=== PATIENT | male | born 1935 | race African-American/Black ===

== ENCOUNTER 2016-05-15 08:33 | Inpatient (IN) | payer MEDICARE ==
[~2016-05-15] VITALS: Ht 180.3 cm; Wt 79.9 kg
[~2016-05-15 08:33] MED LIST: AMLO10TA2 PO; ASPI-482 PO; CINN500C PO; CITA20TA5 PO; DONE10TA7 PO; FURO20TA3 PO; GABA-586 PO; GLIM4TAB2 PO; LEVO100T5 PO; LINA5TAB PO; LORA1TAB PO; LOSA25TA4 PO; LOSA50TA2 PO; METF750T2 PO; NITR0.4T6 SL; OMEP40CA5 PO; ONDA4TAB12 PO; POTA10TA5 PO; POTA20TA82 PO
--- NOTE | 2016-05-15 08:44 | EKG ---
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
[2016-05-15] MEDS ORDERED: LORA1TAB PO (09:11)
[2016-05-15] MEDS ORDERED: ONDA4TAB7 PO (09:12)
[2016-05-15] MEDS ORDERED: SITA100T PO (09:12)
[2016-05-15 09:24] LABS: BASO # 0.1 x10^3/uL (0.0-0.2); BASO % 1 % (0-3); EOS % 3 % (0-3); HEMATOCRIT 45.5 % (39.0-53.0); HEMOGLOBIN 14.7 g/dL (13.0-17.5); LYMPH # 1.5 x10^3/uL (1.0-4.8); LYMPH % 12 % (24-48); MEAN CORPUSCULAR HEMOGLOBIN 27 pg (25-35); MEAN CORPUSCULAR HGB CONC 32 g/dL (31-37); MEAN CORPUSCULAR VOLUME 82 fL (79-100); MONO % 5 % (0-9); NEUT % 79 % (31-73); PLATELET COUNT 246 x10^3/uL (140-400); RED BLOOD COUNT 5.55 x10^6/uL (4.30-5.70); RED CELL DISTRIBUTION WIDTH 14.9 % (11.5-14.5); WHITE BLOOD COUNT 12.7 x10^3/uL (4.0-11.0)
--- NOTE | 2016-05-15 09:30 | RAD ---
Indication near syncope. Protocol study A single view of the chest was obtained. Note is made of a previous examination 09/19/2015. The heart and pulmonary vessels appear normal. The mediastinum has a normal appearance. The lungs are clear. There is no pleural fluid or pneumothorax. IMPRESSION: Normal single view of the chest
--- NOTE | 2016-05-15 09:40 | PHYS DOC ---
Past Medical History Past Medical History: Anxiety, Arthritis, CAD, Dementia, Depression, Diabetes- Type II, GERD, Hypertension, Hypothyroid, Other Additional Past Medical Histor: BORDERLINE DEMENTIA Past Surgical History: Other Additional Past Surgical Histo: cardiac stents Alcohol Use: None Drug Use: None Adult General Chief Complaint Chief Complaint: SYNCOPE HPI HPI 80-year-old male presenting to the emergency department with presyncope versus syncope today. This started this morning approximately 30 minutes prior to arrival. The patient reports getting up to go shave. When he got to the sink he felt weak and lightheaded. His states that the patient looked pale and she asked him to sit down. She reports that he slumped over and looked like he might of passed out. The patient denies amnesia during this event. History of early dementia. He has a history of diabetes. Location generalized. Duration intermittent. No alleviating factors present. Upon arrival to the emergency department the patient is feeling much better and family reports the patient is a baseline. EMS reports blood glucose is approximately 115. Review of systems is negative for chest pain shortness of breath abdominal pain nausea vomiting. He denies fevers or chills. He denies cough. All other review of systems is negative unless otherwise noted in history of present illness. Review of Systems Review of Systems SEE ABOVE. Allergies Allergies Allergies Coded Allergies Type Severity Reaction Last Updated Verified No Known Drug Allergies 05/15/16 No Physical Exam Physical Exam Constitutional: Well developed, well nourished, no acute distress, non-toxic appearance. HENT: Normocephalic, atraumatic, bilateral external ears normal, oropharynx moist, no oral exudates, nose normal. [] Eyes: PERRLA, EOMI, conjunctiva normal, no discharge. [] Neck: Normal range of motion, no tenderness, supple, no stridor. Cardiovascular:Heart rate regular rhythm, no murmur [] Lungs & Thorax: Bilateral breath sounds clear to auscultation Abdomen: Bowel sounds normal, soft, no tenderness, no masses, no pulsatile masses. [] Skin: Warm, dry, no erythema, no rash. Back: No tenderness, no CVA tenderness. [] Extremities: No tenderness, no cyanosis, no clubbing, ROM intact, no edema. [] Neurologic: Mental status: Awake oriented to person, baseline, and alert Cranial nerves: Extraocular movements intact, eyebrows deysi bilaterally smile symmetric, uvula elevation, shoulder shrug intact, tongue protrusion normal Sensation: equal and normal in all extremities Strength: 5/5 in upper and lower extremities bilaterally Psychologic: Affect normal, judgement normal, mood normal. Current Patient Data Vital Signs Vital Signs Date Time Temp Pulse Resp B/P Pulse Ox O2 Delivery O2 Flow Rate FiO2 05/15/16 11:26 76 14 171/84 96 Room Air 05/15/16 08:35 98.0 98.0 Lab Values Laboratory Tests Test 05/15/16 09:10 05/15/16 11:25 White Blood Count 12.7x10^3/uL (4.0-11.0) H Red Blood Count 5.55x10^6/uL (4.30-5.70) Hemoglobin 14.7g/dL (13.0-17.5) Hematocrit 45.5% (39.0-53.0) Mean Corpuscular Volume 82fL (79-100) Mean Corpuscular Hemoglobin 27pg (25-35) Mean Corpuscular Hemoglobin Concent 32g/dL (31-37) Red Cell Distribution Width 14.9% (11.5-14.5) H Platelet Count 246x10^3/uL (140-400) Neutrophils (%) (Auto) 79% (31-73) H Lymphocytes (%) (Auto) 12% (24-48) L Monocytes (%) (Auto) 5% (0-9) Eosinophils (%) (Auto) 3% (0-3) Basophils (%) (Auto) 1% (0-3) Neutrophils # (Auto) 10.1x10^3uL (1.8-7.7) H Lymphocytes # (Auto) 1.5x10^3/uL (1.0-4.8) Monocytes # (Auto) 0.7x10^3/uL (0.0-1.1) Eosinophils # (Auto) 0.4x10^3/uL (0.0-0.7) Basophils # (Auto) 0.1x10^3/uL (0.0-0.2) Sodium Level 143mmol/L (136-145) Potassium Level 3.5mmol/L (3.5-5.1) Chloride Level 106mmol/L (98-107) Carbon Dioxide Level 22mmol/L (21-32) Anion Gap 15 (6-14) H Blood Urea Nitrogen 21mg/dL (8-26) Creatinine 1.9mg/dL (0.7-1.3) H Estimated GFR (Cockcroft-Gault) 41.4 Glucose Level 238mg/dL (70-99) H Lactic Acid Level 1.5mmol/L (0.4-2.0) Calcium Level 8.8mg/dL (8.5-10.1) Total Bilirubin 0.4mg/dL (0.2-1.0) Direct Bilirubin 0.1mg/dL (0.0-0.2) Aspartate Amino Transferase (AST) 13U/L (15-37) L Alanine Aminotransferase (ALT) 20U/L (16-63) Alkaline Phosphatase 110U/L (46-116) Troponin I Quantitative < 0.017ng/mL (0.000-0.055) NA-Rpv-K-Type Natriuretic Peptide 816pg/mL (0-449) H Total Protein 6.6g/dL (6.4-8.2) Albumin 3.0g/dL (3.4-5.0) L Lipase 379U/L (73-393) Urine Collection Type Unknown Urine Color Yellow Urine Clarity Clear Urine pH 6.5 Urine Specific Donovan 1.010 Urine Protein 100mg/dL (NEG-TRACE) Urine Glucose (UA) 500mg/dL (NEG) Urine Ketones (Stick) Negativemg/dL (NEG) Urine Blood Negative (NEG) Urine Nitrite Negative (NEG) Urine Bilirubin Negative (NEG) Urine Urobilinogen Dipstick 0.2mg/dL (0.2 mg/dL) Urine Leukocyte Esterase Negative (NEG) Urine RBC 0/HPF (0-2) Urine WBC 0/HPF (0-4) Urine Squamous Epithelial Cells Few/LPF Urine Bacteria 0/HPF (0-FEW) Urine Hyaline Casts Few/HPF Urine Mucus Slight/LPF Laboratory Tests 05/15/16 09:10 Laboratory Tests 05/15/16 09:10 EKG EKG [] Radiology/Procedures Radiology/Procedures [] Course & Med Decision Making Course & Med Decision Making Pertinent Labs and Imaging studies reviewed. (See chart for details) [] 80-year-old male presenting with a presyncopal/syncopal episode. He has a history of cardiac stents but denied palpitations during before after the event. On initial vital signs the patient was afebrile normal heart rate. Blood pressure elevated at 190 systolic. Pertinent physical exam findings showed a nonfocal neurologic exam. EKG obtained which shows LVH with prolonged QRS. Otherwise sinus rhythm with a regular rate. Mild repolarization. Chest x-ray shows no acute cardiopulmonary processes. Head CT negative. Blood work obtained. Given the patient's presyncope and age The patient was then admitted for further evaluation workup and care. Dragon Disclaimer Dragon Disclaimer This electronic medical record was generated, in whole or in part, using a voice recognition dictation system. Departure Departure Impression: Primary Impression: Pre-syncope Disposition: ADMITTED INPATIENT Admitting Physician: Vanna Nevarez Condition: STABLE Referrals: CHELSEA BAEZA MD (PCP) MAXIMINO LOPES MD May 15, 2016 09:40
[2016-05-15 09:47] LABS: CALCIUM 8.8 mg/dL (8.5-10.1); CREATININE 1.9 mg/dL (0.7-1.3); GFR 41.4; POTASSIUM 3.5 mmol/L (3.5-5.1)
[2016-05-15 09:53] LABS: DIRECT BILIRUBIN 0.1 mg/dL (0.0-0.2); TOTAL BILIRUBIN 0.4 mg/dL (0.2-1.0); TOTAL PROTEIN 6.6 g/dL (6.4-8.2)
--- NOTE | 2016-05-15 10:07 | RAD ---
CT of the head without contrast, 05/15/2016: History: Near syncope, facial asymmetry Comparison is made to a study from 08/24/2015. There is moderate cerebral atrophy. There are mild patchy lucencies in the deep white matter bilaterally compatible with chronic ischemic change. The ventricles are within normal limits in size. There is no shift of the midline structures. There is no evidence of acute intracranial hemorrhage or mass effect. IMPRESSION: 1. Chronic findings as described above. 2. No acute intracranial abnormality is detected. PQRS Compliance Statement: One or more of the following individualized dose reduction techniques were utilized for this examination: 1. Automated exposure control 2. Adjustment of the mA and/or kV according to patient size 3. Use of iterative reconstruction technique
--- NOTE | 2016-05-15 10:29 | ACF ---
Admission Forms Criteria SYNCOPE Clinical Indications for Admission to Inpatient Care ( Place 'X' for any and all applicable criteria): Admission is indicated for syncope and ANY ONE of the following (1)(2)(3)(4)(5) (6)(7) : [ ]I. Inpatient admission required rather than observation care (Also use Syncope: Observation Care Criteria as appropriate) because of ANY ONE of the following: [ ]a) Hemodynamic instability that is severe or persistent [ ]b) Cardiac arrhythmias of immediate concern identified or strongly suspected (eg, needs electrophysiologic study) [ ]c) Acute coronary syndrome identified (Also use Myocardial Infarction or Angina Criteria form ) [ ]d) Structural cardiac disorder (eg, aortic stenosis) suspected as cause that requires immediate correction [ ]e) Respiratory symptoms (eg, dyspnea, tachypnea) that are severe or persistent [ ]f) Neurologic signs or symptoms that are severe or persistent ( eg, stroke, seizures, altered mental status) [ ]g) Severe electrolyte abnormalities requiring inpatient care [ ]h) Supplemental oxygen or respiratory treatment for over 24 hrs that are performable only in acute inpatient setting [ ]i) IV fluid to replace significant ongoing (eg, for over 24 hrs ) losses (>3 L/m2 per day) [ ]j) Continuous intravenous infusion of anticoagulation, platelet inhibitor, vasoactive, or antiarrhythmic medication(15)(16) [ ]k) Pulmonary artery catheter monitoring [ ]l) Temporary pacemaker placement(17) [ ]m) Emergent cardioversion(18) [ ]n) Other conditions, treatment or monitoring requiring inpatient admission [X]II. Suspicion of imminently dangerous cause (eg, rare causes like pericardial tamponade, pulmonary embolism) [ ]III. Syncope causing severe injury requiring hospitalization Extended stay beyond goal length of stay may be needed for(28) [ ]a) Dangerous arrhythmia(15)(23)(27)(29) [ ]b) Myocardial ischemia [ ]c) Seizure disorder [ ]d) Syncope-related injuries The original [employer] content created by [employer] has been revised. The portions of the content which have been revised are identified through the use of italic text or in bold, and [facility] has neither reviewed nor approved the modified material. All other unmodified content is copyright [facility]. Please see references footnoted in the original [facility] 2016 Admission Criteria Met?: KOLBY Fonseca May 15, 2016 10:29 CHE HODGSON May 16, 2016 01:34
[2016-05-15 11:34] LABS: BILIRUBIN,URINE NEGATIVE (NEG); GLUCOSE,URINE 500 mg/dL (NEG); NITRITE,URINE NEGATIVE (NEG); PH,URINE 6.5; PROTEIN,URINE 100 mg/dL (NEG-TRACE); UROBILINOGEN,URINE 0.2 mg/dL (0.2 mg/dL)
[2016-05-15 11:41] LABS: BACTERIA,URINE 0 /HPF (0-FEW); RBC,URINE 0 /HPF (0-2); SQUAMOUS EPITHELIAL CELL,UR FEW /LPF; WBC,URINE 0 /HPF (0-4)
[2016-05-15] MEDS ORDERED: ONDANSETRON PF 4 MG/2 ML VIAL. IV PRN (14:00)
[2016-05-15] MEDS ORDERED: MORPHINE SULFATE 2 MG/ML DISP.SYRIN. IV PRN (14:00)
--- NOTE | 2016-05-15 14:37 | PDOC2 ---
WALT CARLSON [employer] 05/15/16 1437: CARDIAC CONSULT DATE OF CONSULT Date of Consult DATE: 05/15/16 TIME: 14:26 REASON FOR CONSULT Reason for Consult: syncope REFERRING PHYSICIAN Referring Physician: Dr. Harris SOURCE Source: Chart review, Patient HISTORY OF PRESENT ILLNESS HISTORY OF PRESENT ILLNESS This is an 80 yo male, with a history of CAD, HTN, HLP, DM, and dementia, who presented secondary to a syncopal event. reports patient was shaving this morning. Told he was going to have to sit down. She looked over, he was backing up towards stool then proceeded to sit down. reports he then "went out," laying back against the stool. Was diaphoretic with fixed eyes and drooped lips. Was not responding. called EMS. reports he was non- responsive for approximately 15mins. Was "coming around" by the time EMS arrived. reports previous similar episodes with hypoglycemia. BS reportedly 111 by EMS. Patient unable to recall today's events. Denies any recent chest pain, palpitations, dizziness, diaphoresis, SOA, THRASHER, or nausea/ vomiting. No recent illness/fevers. reports sedentary lifestyle. Frequent falls. Compliant with home medications. PCP is Dr. Clemente, which he saw in office yesterday. Had been doing and feeling well prior to syncopal episode this morning. PAST MEDICAL HISTORY Cardiovascular: CAD (s/p remote PCI/stent) Pulmonary: No pertinent hx CENTRAL NERVOUS SYSTEM: Dementia GI: GERD Heme/Onc: No pertinent hx Hepatobiliary: No pertinent hx Psych: Anxiety, Depression Musculoskeletal: Other (no pertinent hx ) Infectious disease: No pertinent hx ENT: No pertinent hx Renal/: Benign prostatic enlarg. Endocrine: Diabetes, Hypothyroidism Dermatology: No pertinent hx PAST SURGICAL HISTORY Past Surgical History: Hernia Repair, Other (back sx) FAMILY HISTORY Family History: Cancer, Diabetes, Heart Disease, Hypertension, Stroke SOCIAL HISTORY Smoke: No ALCOHOL: none Drugs: None Lives: with Family ALLERGIES ALLERGIES: Coded Allergies: No Known Drug Allergies (Unverified , 05/15/16) ROS Review of System 14 point ROS conducted with pertinent positives noted above in HPI although limited secondary to short-term memory loss 2/2 dementia PHYSICAL EXAM General: Alert, Oriented X3, Cooperative, No acute distress, Other (forgetful ) HEENT: Mucous membr. moist/pink Lungs: Clear to auscultation, Normal air movement Heart: Regular rate, Normal S1, Normal S2, No murmurs Abdomen: Soft, No tenderness Extremities: No edema, Normal pulses Skin: No breakdown, No significant lesion Neuro: Normal speech, Sensation intact Psych/Mental Status: Mental status NL, Mood NL MUSCULOSKELETAL: Full range of motion without pain VITALS VITALS Vital Signs Date Time Temp Pulse Resp B/P Pulse Ox O2 Delivery O2 Flow Rate FiO2 05/15/16 11:26 76 14 171/84 96 Room Air 05/15/16 08:35 98.0 98.0 LABS Lab: Laboratory Tests Test 05/15/16 09:10 05/15/16 11:25 White Blood Count 12.7x10^3/uL (4.0-11.0) Red Blood Count 5.55x10^6/uL (4.30-5.70) Hemoglobin 14.7g/dL (13.0-17.5) Hematocrit 45.5% (39.0-53.0) Mean Corpuscular Volume 82fL (79-100) Mean Corpuscular Hemoglobin 27pg (25-35) Mean Corpuscular Hemoglobin Concent 32g/dL (31-37) Red Cell Distribution Width 14.9% (11.5-14.5) Platelet Count 246x10^3/uL (140-400) Neutrophils (%) (Auto) 79% (31-73) Lymphocytes (%) (Auto) 12% (24-48) Monocytes (%) (Auto) 5% (0-9) Eosinophils (%) (Auto) 3% (0-3) Basophils (%) (Auto) 1% (0-3) Neutrophils # (Auto) 10.1x10^3uL (1.8-7.7) Lymphocytes # (Auto) 1.5x10^3/uL (1.0-4.8) Monocytes # (Auto) 0.7x10^3/uL (0.0-1.1) Eosinophils # (Auto) 0.4x10^3/uL (0.0-0.7) Basophils # (Auto) 0.1x10^3/uL (0.0-0.2) Sodium Level 143mmol/L (136-145) Potassium Level 3.5mmol/L (3.5-5.1) Chloride Level 106mmol/L (98-107) Carbon Dioxide Level 22mmol/L (21-32) Anion Gap 15 (6-14) Blood Urea Nitrogen 21mg/dL (8-26) Creatinine 1.9mg/dL (0.7-1.3) Estimated GFR (Cockcroft-Gault) 41.4 Glucose Level 238mg/dL (70-99) Lactic Acid Level 1.5mmol/L (0.4-2.0) Calcium Level 8.8mg/dL (8.5-10.1) Total Bilirubin 0.4mg/dL (0.2-1.0) Direct Bilirubin 0.1mg/dL (0.0-0.2) Aspartate Amino Transf (AST/SGOT) 13U/L (15-37) Alanine Aminotransferase (ALT/SGPT) 20U/L (16-63) Alkaline Phosphatase 110U/L (46-116) Troponin I Quantitative < 0.017ng/mL (0.000-0.055) YM-Ruf-G-Type Natriuretic Peptide 816pg/mL (0-449) Total Protein 6.6g/dL (6.4-8.2) Albumin 3.0g/dL (3.4-5.0) Lipase 379U/L (73-393) Urine Collection Type Unknown Urine Color Yellow Urine Clarity Clear Urine pH 6.5 Urine Specific Bigelow 1.010 Urine Protein 100mg/dL (NEG-TRACE) Urine Glucose (UA) 500mg/dL (NEG) Urine Ketones (Stick) Negativemg/dL (NEG) Urine Blood Negative (NEG) Urine Nitrite Negative (NEG) Urine Bilirubin Negative (NEG) Urine Urobilinogen Dipstick 0.2mg/dL (0.2 mg/dL) Urine Leukocyte Esterase Negative (NEG) Urine RBC 0/HPF (0-2) Urine WBC 0/HPF (0-4) Urine Squamous Epithelial Cells Few/LPF Urine Bacteria 0/HPF (0-FEW) Urine Hyaline Casts Few/HPF Urine Mucus Slight/LPF ECHOCARDIOGRAM ECHOCARDIOGRAM <Conclusion> There is mild LV systolic dysfunction. EF 40-45%. There is mild global hypokinesis. No significant valvular abnormalities. DATE: 07/25/15 1729 ASSESSMENT/PLAN ASSESSMENT/PLAN 1. Syncope Echo 07/2015 without significant valvular abnormalities. Similar episodes previously with hypoglycemia monitor telemetry. If unrevealing; consider event monitor upon discharge 2. Hypertensive urgency now normalized. home antiHTN therapy resumed monitor trends to assess need for titration hydralazine PRN 3. Chronic systolic HF 07/2015 echo with EF 40-45% with mild global hypokinesis. NT Pro BNP 816; insignificant based up age adjustment CXR without fluid accumulation; clinically compensated will repeat echocardiogram 4. CAD s/p remote PCI/stent stable. no anginal symptoms continue secondary prevention 5. Diabetes, II per PCP 6. Hyperlipidemia check lipids 7. Dementia Problems: BRIAN MANDUJANO MD 05/16/16 0658: CARDIAC CONSULT ALLERGIES ALLERGIES: Coded Allergies: No Known Drug Allergies (Unverified , 05/15/16) ASSESSMENT/PLAN ASSESSMENT/PLAN Patient seen and examined 05/15/16. 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 Telemetry did not show any significant arrhythmia so far. Chronic systolic heart failure clinically well compensated. Blood pressure better controlled since admission. CAD status stable. Plan for event monitor upon discharge to rule out any significant arrhythmias as a cause of his syncope. Thank you for your consultation. Problems: WALT CARLSON APRN May 15, 2016 14:37 BRIAN MANDUJANO MD May 16, 2016 06:58
--- NOTE | 2016-05-15 15:05 | PDOC1 ---
History and Physical Date of Admission Date of Admission DATE: 05/15/16 TIME: 14:58 Identification/Chief Complaint Chief Complaint syncope Source Source: Caregiver, Chart review History of Present Illness History of Present Illness Hector Vanegas is a 80-year-old male admit with syncope today. Was try to shave at the sink he felt weak and lightheaded. His states that the patient looked pale and she asked him to sit down. He sat on the toilet, then went out for about 15 minutes, was unsreponsive until after EMS arrived, with a gaping mouth, He did arouse with paramedics, but has been more confused than normal since. I saw patient in ER, and he is now responsive, interactive, eating, and talking well, minor confusion on the current [place] president, and family reports he should normally know that. early dementia noted, htn and Dm2 Past Medical History Cardiovascular: HTN Pulmonary: Bronchitis CENTRAL NERVOUS SYSTEM: Dementia Psych: Depression Musculoskeletal: Osteoarthritis Endocrine: Diabetes, Hypothyroidism Past Surgical History Past Surgical History: Hernia Repair, Other (back sx) Family History Family History: Cancer, Diabetes, Heart Disease, Hypertension, Stroke Social History Smoke: No ALCOHOL: none Drugs: None Current Problem List Problem List Problems Medical Problems: (1) Pre-syncope Status: Acute (2) Syncope Status: Acute Problems: Current Medications Current Medications Current Medications Ondansetron HCl (Zofran) 4 mg PRN Q8HRS PRN IV NAUSEA/VOMITING; Start 05/15/16 at 14:00; Stop 05/16/16 at 13:59 Morphine Sulfate 2 mg PRN Q2HR PRN IV PAIN; Start 05/15/16 at 14:00; Stop 05/16 at 13:59 Active Scripts Active Cozaar (Losartan Potassium) 50 Mg Tablet 100 Mg PO QHS Reported Januvia (Sitagliptin Phosphate) 100 Mg Tablet 100 Tab PO DAILY Zofran (Ondansetron Hcl) 4 Mg Tablet 1 Tab PO Q6HRS Lorazepam 1 Mg Tablet 1 Mg PO TID Glimepiride 4 Mg Tablet 1 Tab PO BID Metformin Hcl Er (Metformin Hcl) 750 Mg Tab.er.24h 1 Tab PO BID Cinnamon (Cinnamon Bark) 500 Mg Capsule 500 Mg PO DAILY Aspir 81 (Aspirin) 81 Mg Tablet.dr 1 Tab PO DAILY Levothyroxine Sodium 100 Mcg Tablet 1 Tab PO DAILY07 Gabapentin 300 Mg Capsule 300 Mg PO DAILY NITROGLYCERIN SubLingual (Nitroglycerin) 0.4 Mg Tab.subl 0.4 Mg SL PRN Q5MIN PRN Gabapentin 300 Mg Capsule 300 Mg PO HS Donepezil Hcl 10 Mg Tablet 1 Tab PO HS Amlodipine Besylate 10 Mg Tablet 10 Mg PO HS Allergies Allergies: Coded Allergies: No Known Drug Allergies (Unverified , 05/15/16) ROS General: No: Appetite, Chills, Fatigue, Malaise, Night Sweats, Other PSYCHOLOGICAL ROS: No: Anxiety, Behavioral Disorder, Concentration difficultie , Decreased libido, Depression, Disorientation, Hallucinations, Hostility, Irritablity, Memory difficulties, Mood Swings, Obsessive thoughts, Other, Physical abuse, Sexual abuse, Sleep disturbances, Suicidal ideation Eyes: No Blurry vision, No Decreased vision, No Double vision, No Dry eyes, No Excessive tearing, No Eye Pain, No Itchy Eyes, No Loss of vision, No Other, No Photophobia, No Scotomata, No Uses contacts, No Uses glasses HEENT: No: Epistaxis, Heacaches, Hearing change, Nasal congestion, Nasal discharge, Oral lesions, Other, Sinus pain, Sneezing, Snoring, Sore Throat, Tinnitus, Vertigo, Visual Changes, Vocal changes ALLERGY AND IMMUNOLOGY: No: Hives, Insect Bite Sensitivity, Itchy/Watery Eyes, Nasal Congestion, Other, Post Nasal Drip, Seasonal Allergies Hematological and Lymphatic: No: Bleeding Problems, Blood Clots, Blood Transfusions, Brusing, Night Sweats, Other, Pallor, Swollen Lymph Nodes Respiratory: No: Cough, Hemoptysis, Orthopnea, Other, Pleuritic Pain, SOB with excertion, Shortness of breath, Sputum Changes, Stridor, Tachypnea, Wheezing Cardiovascular: No Chest Pain, No Edema, No Lt Headedness, No Orthopnea, No Other, No Palpitations, No Paroxysmal Noc. Dyspnea Gastrointestinal: No Abdominal Pain, No Constipation, No Diarrhea, No Hematochezia, No Melena, No Nausea, No Other, No Vomiting Genitourinary: No , No , No , No , No , No , No , No Discharge, No Dysuria, No Flank Pain, No Frequency, No Hematuria, No Incontinence, No Other, No Pain, No Retention, No Urgency Musculoskeletal: No Gait Disturbance, No Joint Pain, No Joint Stiffness, No Joint Swelling, No Muscle Pain, No Muscular Weakness, No Other, No Pain In:, No Swelling In: Neurological: No Behavorial Changes, No Bowel/Bladder ControlChng, No Confusion , No Dizziness, No Gait Disturbance, No Headaches, No Impaired Coord/balance, No Memory Loss, No Numbness/Tingling, No Other, No Seizures, No Speech Problems , No Tremors, No Visual Changes, No Weakness Skin: No Acne, No Dry Skin, No Eczema, No Hair Changes, No Lumps, No Mole Changes, No Mottling, No Nail Changes, No Other, No Pruritus, No Rash, No Skin Lesion Changes Physical Exam General: Alert, Oriented X3, Cooperative (3/4), No acute distress HEENT: Atraumatic, PERRLA, EOMI, Mucous membr. moist/pink Lungs: Clear to auscultation Heart: no gallops, no murmurs Abdomen: Normal bowel sounds, Soft Rectal Exam: not examined Extremities: No clubbing, No cyanosis, No edema Skin: No significant lesion Neuro: Normal speech, Normal tone, Cranial nerves 3-12 NL Psych/Mental Status: Mood NL, Other Vitals Vitals Vital Signs Date Time Temp Pulse Resp B/P Pulse Ox O2 Delivery O2 Flow Rate FiO2 05/15/16 11:26 76 14 171/84 96 Room Air 05/15/16 08:35 98.0 98.0 Labs Labs Laboratory Tests Test 05/15/16 09:10 05/15/16 11:25 White Blood Count 12.7x10^3/uL (4.0-11.0) Red Blood Count 5.55x10^6/uL (4.30-5.70) Hemoglobin 14.7g/dL (13.0-17.5) Hematocrit 45.5% (39.0-53.0) Mean Corpuscular Volume 82fL (79-100) Mean Corpuscular Hemoglobin 27pg (25-35) Mean Corpuscular Hemoglobin Concent 32g/dL (31-37) Red Cell Distribution Width 14.9% (11.5-14.5) Platelet Count 246x10^3/uL (140-400) Neutrophils (%) (Auto) 79% (31-73) Lymphocytes (%) (Auto) 12% (24-48) Monocytes (%) (Auto) 5% (0-9) Eosinophils (%) (Auto) 3% (0-3) Basophils (%) (Auto) 1% (0-3) Neutrophils # (Auto) 10.1x10^3uL (1.8-7.7) Lymphocytes # (Auto) 1.5x10^3/uL (1.0-4.8) Monocytes # (Auto) 0.7x10^3/uL (0.0-1.1) Eosinophils # (Auto) 0.4x10^3/uL (0.0-0.7) Basophils # (Auto) 0.1x10^3/uL (0.0-0.2) Sodium Level 143mmol/L (136-145) Potassium Level 3.5mmol/L (3.5-5.1) Chloride Level 106mmol/L (98-107) Carbon Dioxide Level 22mmol/L (21-32) Anion Gap 15 (6-14) Blood Urea Nitrogen 21mg/dL (8-26) Creatinine 1.9mg/dL (0.7-1.3) Estimated GFR (Cockcroft-Gault) 41.4 Glucose Level 238mg/dL (70-99) Lactic Acid Level 1.5mmol/L (0.4-2.0) Calcium Level 8.8mg/dL (8.5-10.1) Total Bilirubin 0.4mg/dL (0.2-1.0) Direct Bilirubin 0.1mg/dL (0.0-0.2) Aspartate Amino Transf (AST/SGOT) 13U/L (15-37) Alanine Aminotransferase (ALT/SGPT) 20U/L (16-63) Alkaline Phosphatase 110U/L (46-116) Troponin I Quantitative < 0.017ng/mL (0.000-0.055) PT-Zti-I-Type Natriuretic Peptide 816pg/mL (0-449) Total Protein 6.6g/dL (6.4-8.2) Albumin 3.0g/dL (3.4-5.0) Lipase 379U/L (73-393) Urine Collection Type Unknown Urine Color Yellow Urine Clarity Clear Urine pH 6.5 Urine Specific [place] 1.010 Urine Protein 100mg/dL (NEG-TRACE) Urine Glucose (UA) 500mg/dL (NEG) Urine Ketones (Stick) Negativemg/dL (NEG) Urine Blood Negative (NEG) Urine Nitrite Negative (NEG) Urine Bilirubin Negative (NEG) Urine Urobilinogen Dipstick 0.2mg/dL (0.2 mg/dL) Urine Leukocyte Esterase Negative (NEG) Urine RBC 0/HPF (0-2) Urine WBC 0/HPF (0-4) Urine Squamous Epithelial Cells Few/LPF Urine Bacteria 0/HPF (0-FEW) Urine Hyaline Casts Few/HPF Urine Mucus Slight/LPF Laboratory Tests Test 05/15/16 09:10 05/15/16 11:25 White Blood Count 12.7x10^3/uL (4.0-11.0) Red Blood Count 5.55x10^6/uL (4.30-5.70) Hemoglobin 14.7g/dL (13.0-17.5) Hematocrit 45.5% (39.0-53.0) Mean Corpuscular Volume 82fL (79-100) Mean Corpuscular Hemoglobin 27pg (25-35) Mean Corpuscular Hemoglobin Concent 32g/dL (31-37) Red Cell Distribution Width 14.9% (11.5-14.5) Platelet Count 246x10^3/uL (140-400) Neutrophils (%) (Auto) 79% (31-73) Lymphocytes (%) (Auto) 12% (24-48) Monocytes (%) (Auto) 5% (0-9) Eosinophils (%) (Auto) 3% (0-3) Basophils (%) (Auto) 1% (0-3) Neutrophils # (Auto) 10.1x10^3uL (1.8-7.7) Lymphocytes # (Auto) 1.5x10^3/uL (1.0-4.8) Monocytes # (Auto) 0.7x10^3/uL (0.0-1.1) Eosinophils # (Auto) 0.4x10^3/uL (0.0-0.7) Basophils # (Auto) 0.1x10^3/uL (0.0-0.2) Sodium Level 143mmol/L (136-145) Potassium Level 3.5mmol/L (3.5-5.1) Chloride Level 106mmol/L (98-107) Carbon Dioxide Level 22mmol/L (21-32) Anion Gap 15 (6-14) Blood Urea Nitrogen 21mg/dL (8-26) Creatinine 1.9mg/dL (0.7-1.3) Estimated GFR (Cockcroft-Gault) 41.4 Glucose Level 238mg/dL (70-99) Lactic Acid Level 1.5mmol/L (0.4-2.0) Calcium Level 8.8mg/dL (8.5-10.1) Total Bilirubin 0.4mg/dL (0.2-1.0) Direct Bilirubin 0.1mg/dL (0.0-0.2) Aspartate Amino Transf (AST/SGOT) 13U/L (15-37) Alanine Aminotransferase (ALT/SGPT) 20U/L (16-63) Alkaline Phosphatase 110U/L (46-116) Troponin I Quantitative < 0.017ng/mL (0.000-0.055) YT-Ryq-X-Type Natriuretic Peptide 816pg/mL (0-449) Total Protein 6.6g/dL (6.4-8.2) Albumin 3.0g/dL (3.4-5.0) Lipase 379U/L (73-393) Urine Collection Type Unknown Urine Color Yellow Urine Clarity Clear Urine pH 6.5 Urine Specific [place] 1.010 Urine Protein 100mg/dL (NEG-TRACE) Urine Glucose (UA) 500mg/dL (NEG) Urine Ketones (Stick) Negativemg/dL (NEG) Urine Blood Negative (NEG) Urine Nitrite Negative (NEG) Urine Bilirubin Negative (NEG) Urine Urobilinogen Dipstick 0.2mg/dL (0.2 mg/dL) Urine Leukocyte Esterase Negative (NEG) Urine RBC 0/HPF (0-2) Urine WBC 0/HPF (0-4) Urine Squamous Epithelial Cells Few/LPF Urine Bacteria 0/HPF (0-FEW) Urine Hyaline Casts Few/HPF Urine Mucus Slight/LPF VTE Prophylaxis Ordered VTE Prophylaxis Devices: Yes VTE Pharmacological Prophylaxi: Yes Assessment/Plan Assessment/Plan syncope htn, dm2 dementia CKD 3 mild/mod malnutrition hypothyroid, check tsh admit, neuro and CV consult OLI HOPSON MD May 15, 2016 15:05
--- NOTE | 2016-05-15 15:11 | PDOC2 ---
NEUROLOGY CONSULT Date of Admission Date of Admission DATE: 05/15/16 TIME: 15:10 Reason for Consult Reason for Consult: Syncope Referring Physician Referring Physician: Dr. Nevarez PCP: Dr. Clemente Source Source: Caregiver, Chart review, Patient History of Present Illness History of Present Illness The patient is an 80-year-old right-handed male who fainted today. He was shaving and told his that he needed to sit down. He lost consciousness. There was some diaphoresis but no tongue biting or incontinence. He had a similar episode 8 months ago when he was hypoglycemic; actually, he was admitted twice for hypoglycemia during August 2015. He was out for about 15 minutes and paramedics initially had trouble arousing him. There was no convulsive activity or postictal confusion. The patient feels fine now. I saw him a year and a half ago for dementia. Laboratory studies and brain MRI were negative. I started donepezil but the patient didn't follow-up. His primary physician has maintained him on the donepezil. I also performed an EMG showing left carpal and cubital tunnel syndromes. He still has his wrist splint but never pursued surgery because the symptoms didn't get better. He still has occasional left hand numbness. There is no history of stroke, seizure, or head injury. His says paramedics told her his blood pressure was quite low, but we do not have the actual numbers. He was just started on Januvia yesterday. Past Medical History Cardiovascular: HTN CENTRAL NERVOUS SYSTEM: Dementia Psych: Depression Endocrine: Diabetes, Hypothyroidism Past Surgical History Past Surgical History: Hernia Repair, Other (lumbar) Family History Family History: CAD Social History Social History , no tobacco or alcohol Current Medications Current Medications Current Medications Ondansetron HCl (Zofran) 4 mg PRN Q8HRS PRN IV NAUSEA/VOMITING; Start 05/15/16 at 14:00; Stop 05/16/16 at 13:59 Morphine Sulfate 2 mg PRN Q2HR PRN IV PAIN; Start 05/15/16 at 14:00; Stop 05/16 at 13:59 Amlodipine Besylate (Norvasc) 10 mg HS PO ; Start 05/15/16 at 21:00 Aspirin (Ecotrin) 81 mg DAILY PO ; Start 05/16/16 at 09:00 Donepezil HCl (Aricept) 10 mg HS PO ; Start 05/15/16 at 21:00 Gabapentin (Neurontin) 300 mg DAILY PO ; Start 05/16/16 at 09:00 Gabapentin (Neurontin) 300 mg HS PO ; Start 05/15/16 at 21:00; Status UNV Levothyroxine Sodium (Synthroid) 100 mcg DAILY07 PO ; Start 05/16/16 at 07:00; Status UNV Lorazepam (Ativan) 1 mg TID PO ; Start 05/15/16 at 21:00; Status UNV Losartan Potassium (Cozaar) 100 mg QHS PO ; Start 05/15/16 at 21:00; Status UNV Nitroglycerin (Nitrostat) 0.4 mg PRN Q5MIN PRN SL CHEST PAIN; Start 05/15/16 at 15:15; Status UNV Non-Formulary Medication 1 tab BID PO ; Start 05/15/16 at 21:00; Status UNV Non-Formulary Medication 1 tab BID PO ; Start 05/15/16 at 21:00; Status UNV Non-Formulary Medication 1 tab Q6HRS PO ; Start 05/15/16 at 18:00; Status UNV Non-Formulary Medication 100 tab DAILY PO ; Start 05/16/16 at 09:00; Status UNV Active Scripts Active Cozaar (Losartan Potassium) 50 Mg Tablet 100 Mg PO QHS Reported Januvia (Sitagliptin Phosphate) 100 Mg Tablet 100 Tab PO DAILY Zofran (Ondansetron Hcl) 4 Mg Tablet 1 Tab PO Q6HRS Lorazepam 1 Mg Tablet 1 Mg PO TID Glimepiride 4 Mg Tablet 1 Tab PO BID Metformin Hcl Er (Metformin Hcl) 750 Mg Tab.er.24h 1 Tab PO BID Cinnamon (Cinnamon Bark) 500 Mg Capsule 500 Mg PO DAILY Aspir 81 (Aspirin) 81 Mg Tablet.dr 1 Tab PO DAILY Levothyroxine Sodium 100 Mcg Tablet 1 Tab PO DAILY07 Gabapentin 300 Mg Capsule 300 Mg PO DAILY NITROGLYCERIN SubLingual (Nitroglycerin) 0.4 Mg Tab.subl 0.4 Mg SL PRN Q5MIN PRN Gabapentin 300 Mg Capsule 300 Mg PO HS Donepezil Hcl 10 Mg Tablet 1 Tab PO HS Amlodipine Besylate 10 Mg Tablet 10 Mg PO HS Allergies Allergies: Coded Allergies: No Known Drug Allergies (Unverified , 3/23/17) ROS Review of System Patient denies fevers, chills, weight loss, dyspnea, angina, abdominal pain, change in bowels, or dysuria. 14 point review of systems is negative. Physical Exam Physical Examination PHYSICAL EXAMINATION: Vital signs: see above. General appearance is normal and in no acute distress. HEENT: Normocephalic and nontraumatic. Eyes, nose, ears, and throat are unremarkable. Neck is supple. No lymphadenopathy. No bruits are heard over the carotid artery. No crepitus. NEUROLOGICAL EXAMINATION: Mental Status Examination: Alert. Oriented to place, and person, does not know the name of the president or the date.Answers questions and follows commends. Pupils are equal round and reactive to light and accommodation. Extraocular movements are intact. Visual field exam shows no defect on the direct confrontation. No motor or sensory deficits on the facial exam. Uvula in the midline and the soft palate elevated symmetrically. No deviation of the tongue to any direction. Gross hearing is normal. Shoulder shrug normal. Muscle tone is normal. Muscle strength is 5. Deep tendon reflexes are 1+ all around. Plantar reflex is with flexion response bilaterally. [id number] test performance is accurate. Tandem walk test is accurate. Alternative movements are accurate. Romberg test is negative. Gait is normal. Sensory exam shows no deficits. No cerebellar signs are elicited. Vitals VITALS Vital Signs Date Time Temp Pulse Resp B/P Pulse Ox O2 Delivery O2 Flow Rate FiO2 05/15/16 15:03 78 13 142/73 95 Room Air 05/15/16 08:35 98.0 98.0 Labs Labs Laboratory Tests Test 05/15/16 09:10 05/15/16 11:25 White Blood Count 12.7x10^3/uL (4.0-11.0) Red Blood Count 5.55x10^6/uL (4.30-5.70) Hemoglobin 14.7g/dL (13.0-17.5) Hematocrit 45.5% (39.0-53.0) Mean Corpuscular Volume 82fL (79-100) Mean Corpuscular Hemoglobin 27pg (25-35) Mean Corpuscular Hemoglobin Concent 32g/dL (31-37) Red Cell Distribution Width 14.9% (11.5-14.5) Platelet Count 246x10^3/uL (140-400) Neutrophils (%) (Auto) 79% (31-73) Lymphocytes (%) (Auto) 12% (24-48) Monocytes (%) (Auto) 5% (0-9) Eosinophils (%) (Auto) 3% (0-3) Basophils (%) (Auto) 1% (0-3) Neutrophils # (Auto) 10.1x10^3uL (1.8-7.7) Lymphocytes # (Auto) 1.5x10^3/uL (1.0-4.8) Monocytes # (Auto) 0.7x10^3/uL (0.0-1.1) Eosinophils # (Auto) 0.4x10^3/uL (0.0-0.7) Basophils # (Auto) 0.1x10^3/uL (0.0-0.2) Sodium Level 143mmol/L (136-145) Potassium Level 3.5mmol/L (3.5-5.1) Chloride Level 106mmol/L (98-107) Carbon Dioxide Level 22mmol/L (21-32) Anion Gap 15 (6-14) Blood Urea Nitrogen 21mg/dL (8-26) Creatinine 1.9mg/dL (0.7-1.3) Estimated GFR (Cockcroft-Gault) 41.4 Glucose Level 238mg/dL (70-99) Lactic Acid Level 1.5mmol/L (0.4-2.0) Calcium Level 8.8mg/dL (8.5-10.1) Total Bilirubin 0.4mg/dL (0.2-1.0) Direct Bilirubin 0.1mg/dL (0.0-0.2) Aspartate Amino Transf (AST/SGOT) 13U/L (15-37) Alanine Aminotransferase (ALT/SGPT) 20U/L (16-63) Alkaline Phosphatase 110U/L (46-116) Troponin I Quantitative < 0.017ng/mL (0.000-0.055) FB-Hql-B-Type Natriuretic Peptide 816pg/mL (0-449) Total Protein 6.6g/dL (6.4-8.2) Albumin 3.0g/dL (3.4-5.0) Lipase 379U/L (73-393) Urine Collection Type Unknown Urine Color Yellow Urine Clarity Clear Urine pH 6.5 Urine Specific [place] 1.010 Urine Protein 100mg/dL (NEG-TRACE) Urine Glucose (UA) 500mg/dL (NEG) Urine Ketones (Stick) Negativemg/dL (NEG) Urine Blood Negative (NEG) Urine Nitrite Negative (NEG) Urine Bilirubin Negative (NEG) Urine Urobilinogen Dipstick 0.2mg/dL (0.2 mg/dL) Urine Leukocyte Esterase Negative (NEG) Urine RBC 0/HPF (0-2) Urine WBC 0/HPF (0-4) Urine Squamous Epithelial Cells Few/LPF Urine Bacteria 0/HPF (0-FEW) Urine Hyaline Casts Few/HPF Urine Mucus Slight/LPF Laboratory Tests Test 05/15/16 09:10 05/15/16 11:25 White Blood Count 12.7x10^3/uL (4.0-11.0) Red Blood Count 5.55x10^6/uL (4.30-5.70) Hemoglobin 14.7g/dL (13.0-17.5) Hematocrit 45.5% (39.0-53.0) Mean Corpuscular Volume 82fL (79-100) Mean Corpuscular Hemoglobin 27pg (25-35) Mean Corpuscular Hemoglobin Concent 32g/dL (31-37) Red Cell Distribution Width 14.9% (11.5-14.5) Platelet Count 246x10^3/uL (140-400) Neutrophils (%) (Auto) 79% (31-73) Lymphocytes (%) (Auto) 12% (24-48) Monocytes (%) (Auto) 5% (0-9) Eosinophils (%) (Auto) 3% (0-3) Basophils (%) (Auto) 1% (0-3) Neutrophils # (Auto) 10.1x10^3uL (1.8-7.7) Lymphocytes # (Auto) 1.5x10^3/uL (1.0-4.8) Monocytes # (Auto) 0.7x10^3/uL (0.0-1.1) Eosinophils # (Auto) 0.4x10^3/uL (0.0-0.7) Basophils # (Auto) 0.1x10^3/uL (0.0-0.2) Sodium Level 143mmol/L (136-145) Potassium Level 3.5mmol/L (3.5-5.1) Chloride Level 106mmol/L (98-107) Carbon Dioxide Level 22mmol/L (21-32) Anion Gap 15 (6-14) Blood Urea Nitrogen 21mg/dL (8-26) Creatinine 1.9mg/dL (0.7-1.3) Estimated GFR (Cockcroft-Gault) 41.4 Glucose Level 238mg/dL (70-99) Lactic Acid Level 1.5mmol/L (0.4-2.0) Calcium Level 8.8mg/dL (8.5-10.1) Total Bilirubin 0.4mg/dL (0.2-1.0) Direct Bilirubin 0.1mg/dL (0.0-0.2) Aspartate Amino Transf (AST/SGOT) 13U/L (15-37) Alanine Aminotransferase (ALT/SGPT) 20U/L (16-63) Alkaline Phosphatase 110U/L (46-116) Troponin I Quantitative < 0.017ng/mL (0.000-0.055) RB-Swi-P-Type Natriuretic Peptide 816pg/mL (0-449) Total Protein 6.6g/dL (6.4-8.2) Albumin 3.0g/dL (3.4-5.0) Lipase 379U/L (73-393) Urine Collection Type Unknown Urine Color Yellow Urine Clarity Clear Urine pH 6.5 Urine Specific [place] 1.010 Urine Protein 100mg/dL (NEG-TRACE) Urine Glucose (UA) 500mg/dL (NEG) Urine Ketones (Stick) Negativemg/dL (NEG) Urine Blood Negative (NEG) Urine Nitrite Negative (NEG) Urine Bilirubin Negative (NEG) Urine Urobilinogen Dipstick 0.2mg/dL (0.2 mg/dL) Urine Leukocyte Esterase Negative (NEG) Urine RBC 0/HPF (0-2) Urine WBC 0/HPF (0-4) Urine Squamous Epithelial Cells Few/LPF Urine Bacteria 0/HPF (0-FEW) Urine Hyaline Casts Few/HPF Urine Mucus Slight/LPF Images Images Head CT: Comparison is made to a study from 08/24/2015. There is moderate cerebral atrophy. There are mild patchy lucencies in the deep white matter bilaterally compatible with chronic ischemic change. The ventricles are within normal limits in size. There is no shift of the midline structures. There is no evidence of acute intracranial hemorrhage or mass effect. IMPRESSION: 1. Chronic findings as described above. 2. No acute intracranial abnormality is detected. Assessment/Plan Assessment/Plan Impression: Vasovagal syncope, no evidence that he had a transient ischemic attack, stroke, or seizure. Prior episodes of syncope related to hypoglycemia but his sugar was normal when the paramedics arrived, of course he could've bottomed out before their arrival. He was just started on Januvia yesterday Alzheimer's dementia which I worked up 18 months ago. He is on donepezil. His says that he is getting worse. Left carpal and cubital tunnel syndromes, symptoms resolved. Recommendations: Carotid Dopplers No need for electroencephalogram Continue donepezil, consider adding Namenda as an outpatient Aim for discharge in the next 24 hours Hold Januvia. I did input his other home medications. I discussed my findings with the patient's . Thank you for letting me help with the patient's care. KIKI BERNSTEIN MD May 15, 2016 15:11
[2016-05-15] MEDS ORDERED: NITROGLYCERIN SUBLINGUAL 0.4 MG BOTTLE OF 25. SL PRN (15:15)
[2016-05-15] MEDS: LORAZEPAM 1 MG TABLET. PO SCH ×2 (15:15→20:50)
[2016-05-15 15:48] VITALS: BP 136/73
[2016-05-15 15:49] VITALS: BP 136/73
[2016-05-15] MEDS ORDERED: DEXTROSE 50% 25 GM / 50ML DISP.SYRIN. IV PRN (16:00)
[2016-05-15 16:08] VITALS: BP 136/73
[2016-05-15] MEDS ORDERED: METFORMIN 500 MG TABLET. PO SCH (17:00)
[2016-05-15] MEDS ORDERED: hydrALAZINE 20 MG/ML VIAL. IVP PRN (17:30)
[2016-05-15] MEDS: ONDANSETRON ODT 4 MG TAB.RAPDIS PO SCH (17:50)
[2016-05-15] MEDS: INSULIN ASPART 300 UNITS/3 ML INSULN.PEN SQ SCH (17:55)
[2016-05-15 19:46] VITALS: BP 151/79
[2016-05-15] MEDS: GLIMEPIRIDE 2 MG TABLET PO SCH (20:49)
[2016-05-15] MEDS: GABAPENTIN 300 MG CAPSULE. PO SCH (20:50)
[2016-05-15] MEDS: DONEPEZIL HCL 10 MG TABLET. PO SCH (20:50)
[2016-05-15] MEDS ORDERED: AMLODIPINE BESYLATE 10 MG TABLET PO SCH (21:00)
[2016-05-15] MEDS ORDERED: LOSARTAN POTASSIUM 50 MG TABLET. PO SCH (21:00)
[2016-05-15 22:56] VITALS: BP 144/92
[2016-05-16] VITALS (7 sets, daily range): BP systolic 95–174; BP diastolic 43–97
--- NOTE | 2016-05-16 01:33 | ACF ---
Admission Forms Criteria HYPERTENSION Clinical Indications for Admission to Inpatient Care ( Place "X" for any and all applicable criteria): Admission is indicated for ANY ONE of the following(1)(2)(3)(4): [ ]I. Hypertensive emergency, with evidence of acute and progressing target organ disease as indicated by ANY ONE of the following: [ ]a) Hypertensive encephalopathy (eg, confusion, altered mental status) [ ]b) Cerebral infarction [ ]c) Intracranial hemorrhage [ ]d) Myocardial ischemia or infarction [ ]e) Pulmonary edema [ ]f) Aortic dissection [ ]g) Seizure [ ]h) Acute renal insufficiency [ ]i) Papilledema [ ]j) Microangiopathic hemolytic anemia [ ]II. Adrenergic crisis (eg, severe hypertension due to pheochromocytoma crisis, cocaine or amphetamine intoxication, or clonidine withdrawal) [X]III. Severe hypertension (SBP greater than 180 mmHg or DBP greater than 110 mmHg or greater than the 95th percentile for age, gender, and height in pediatric patients) that cannot be controlled (eg, to SBP less than 160 mmHg and DBP less than 100 mmHg in adults) by treatment with oral medication in emergency department or observation care Extended stay beyond goal length of stay may be needed for(11)(12)(13): [ ]a) Persistent hypertensive encephalopathy [ ]b) Continuation of pulmonary edema [ ]c) Recurring or persistent severe hypertension [ ]d) Target organ damage (eg, angina, stroke, aortic dissection) [ ]e) Associated renal insufficiency The original [employer] content created by [employer] has been revised. The portions of the content which have been revised are identified through the use of italic text or in bold, and [facility] has neither reviewed nor approved the modified material. All other unmodified content is copyright [facility]. Please see references footnoted in the original [facility] edition 2016 Admission Criteria Met?: Yes CHE HODGSON May 16, 2016 01:33
[2016-05-16 05:21] LABS: BASO # 0.1 x10^3/uL (0.0-0.2); BASO % 1 % (0-3); EOS % 2 % (0-3); HEMATOCRIT 43.6 % (39.0-53.0); HEMOGLOBIN 14.3 g/dL (13.0-17.5); LYMPH % 10 % (24-48); MEAN CORPUSCULAR HEMOGLOBIN 27 pg (25-35); MEAN CORPUSCULAR HGB CONC 33 g/dL (31-37); MEAN CORPUSCULAR VOLUME 82 fL (79-100); MONO % 5 % (0-9); NEUT % 82 % (31-73); PLATELET COUNT 273 x10^3/uL (140-400); RED BLOOD COUNT 5.31 x10^6/uL (4.30-5.70); WHITE BLOOD COUNT 9.9 x10^3/uL (4.0-11.0)
[2016-05-16 05:45] LABS: CALCIUM 9.2 mg/dL (8.5-10.1); CREATININE 2.8 mg/dL (0.7-1.3); GFR 26.4; POTASSIUM 4.3 mmol/L (3.5-5.1)
[2016-05-16] MEDS: ONDANSETRON ODT 4 MG TAB.RAPDIS PO SCH ×4 (06:00→18:00)
[2016-05-16] MEDS: INSULIN ASPART 300 UNITS/3 ML INSULN.PEN SQ SCH ×3 (08:00→17:24)
--- NOTE | 2016-05-16 08:21 | RAD ---
Indication syncopal episode. Suspect CVA. Grayscale color Doppler and spectral imaging was performed. Examination was targeted to the carotid bifurcations. On the right there is moderate plaquing at the bifurcation. The color Doppler images do not suggest marked turbulence. The common carotid waveform is normal. The peak systolic and diastolic velocities in the internal carotid are normal. The external carotid has a normal appearance. The vertebral is patent and demonstrates normal directional flow. On the left there is some plaquing and intimal thickening. The color Doppler images do not suggest significant turbulence. The common carotid waveform and velocities are normal. The peak systolic and diastolic velocities in the internal carotid are normal. External carotid has a normal appearance. The vertebral is patent and demonstrates normal directional flow. IMPRESSION: No evidence of hemodynamically significant stenosis at either carotid bifurcation. Stenosis 0-50%. Note: Stenosis calculations for CT, MR and conventional angiography are based upon determination of the distal ICA diameter in accordance with the NASCET methodology. Stenosis calculations for doppler studies are derived from validated velocity criteria which are known to correlate with NASCET methodology of determining stenosis.
[2016-05-16] MEDS: LEVOTHYROXINE 100 MCG TABLET PO SCH (08:48)
[2016-05-16] MEDS: LINAGLIPTIN 5 MG TABLET PO SCH (08:48)
[2016-05-16] MEDS: ASPIRIN ENTERIC COATED 81 MG TABLET.DR. PO SCH (08:49)
[2016-05-16] MEDS: LORAZEPAM 1 MG TABLET. PO SCH ×2 (08:49→08:50)
[2016-05-16] MEDS: GLIMEPIRIDE 2 MG TABLET PO SCH ×2 (08:49→21:18)
[2016-05-16] MEDS ORDERED: GABAPENTIN 300 MG CAPSULE. PO SCH (09:00)
[2016-05-16] MEDS ORDERED: IV NORMAL SALINE 1000ML BAG 1,000 ML IV ONE (10:00)
--- NOTE | 2016-05-16 10:16 | PDOC ---
PROGRESS NOTES Assessment Problems Medical Problems: (1) Pre-syncope Status: Acute (2) Syncope Status: Acute Vasovagal syncope, Orthostasis noted Alzheimer's dementia. He is on donepezil. His says that he was on Memantine , but Dr. Clemente stopped it Left carpal and cubital tunnel syndromes, symptoms resolved. Plan Followup with me in 2 months Follow orthostasis and renal function Weekend covering neurologist will see PRN Subjective no complaints Objective Vital Signs Date Time Temp Pulse Resp B/P Pulse Ox O2 Delivery O2 Flow Rate FiO2 05/16/16 09:48 94 95/43 05/16/16 07:00 98.5 20 97 Room Air 98.5 Intake and Output 05/16/16 07:00 Intake Total 0 ml Output Total 350 ml Balance -350 ml Intake Oral 0 ml Output Urine Total 350 ml # Voids 1 PHYSICAL EXAM Alert. Oriented to place and person, not date. PERRL. EOMI. CN: no focal findings. Muscle tone: normal. Muscle strength: 5/5 DTR: 1+ Plantar reflex: flexor Gait: normal. Sensory exam: no abnormal findings. No cerebellar signs elicited. Review of Relevant I have reviewed the following items ismael (where applicable) has been applied. Labs Laboratory Tests Test 05/15/16 09:10 05/15/16 11:25 05/15/16 17:18 05/15/16 19:35 White Blood Count 12.7x10^3/uL (4.0-11.0) Red Blood Count 5.55x10^6/uL (4.30-5.70) Hemoglobin 14.7g/dL (13.0-17.5) Hematocrit 45.5% (39.0-53.0) Mean Corpuscular Volume 82fL (79-100) Mean Corpuscular Hemoglobin 27pg (25-35) Mean Corpuscular Hemoglobin Concent 32g/dL (31-37) Red Cell Distribution Width 14.9% (11.5-14.5) Platelet Count 246x10^3/uL (140-400) Neutrophils (%) (Auto) 79% (31-73) Lymphocytes (%) (Auto) 12% (24-48) Monocytes (%) (Auto) 5% (0-9) Eosinophils (%) (Auto) 3% (0-3) Basophils (%) (Auto) 1% (0-3) Neutrophils # (Auto) 10.1x10^3uL (1.8-7.7) Lymphocytes # (Auto) 1.5x10^3/uL (1.0-4.8) Monocytes # (Auto) 0.7x10^3/uL (0.0-1.1) Eosinophils # (Auto) 0.4x10^3/uL (0.0-0.7) Basophils # (Auto) 0.1x10^3/uL (0.0-0.2) Sodium Level 143mmol/L (136-145) Potassium Level 3.5mmol/L (3.5-5.1) Chloride Level 106mmol/L (98-107) Carbon Dioxide Level 22mmol/L (21-32) Anion Gap 15 (6-14) Blood Urea Nitrogen 21mg/dL (8-26) Creatinine 1.9mg/dL (0.7-1.3) Estimated GFR (Cockcroft-Gault) 41.4 Glucose Level 238mg/dL (70-99) Lactic Acid Level 1.5mmol/L (0.4-2.0) Calcium Level 8.8mg/dL (8.5-10.1) Total Bilirubin 0.4mg/dL (0.2-1.0) Direct Bilirubin 0.1mg/dL (0.0-0.2) Aspartate Amino Transf (AST/SGOT) 13U/L (15-37) Alanine Aminotransferase (ALT/SGPT) 20U/L (16-63) Alkaline Phosphatase 110U/L (46-116) Troponin I Quantitative < 0.017ng/mL (0.000-0.055) < 0.017ng/mL (0.000-0.055) HJ-Mqg-I-Type Natriuretic Peptide 816pg/mL (0-449) Total Protein 6.6g/dL (6.4-8.2) Albumin 3.0g/dL (3.4-5.0) Lipase 379U/L (73-393) Thyroid Stimulating Hormone (TSH) 3.494uIU/mL (0.358-3.74) Urine Collection Type Unknown Urine Color Yellow Urine Clarity Clear Urine pH 6.5 Urine Specific [place] 1.010 Urine Protein 100mg/dL (NEG-TRACE) Urine Glucose (UA) 500mg/dL (NEG) Urine Ketones (Stick) Negativemg/dL (NEG) Urine Blood Negative (NEG) Urine Nitrite Negative (NEG) Urine Bilirubin Negative (NEG) Urine Urobilinogen Dipstick 0.2mg/dL (0.2 mg/dL) Urine Leukocyte Esterase Negative (NEG) Urine RBC 0/HPF (0-2) Urine WBC 0/HPF (0-4) Urine Squamous Epithelial Cells Few/LPF Urine Bacteria 0/HPF (0-FEW) Urine Hyaline Casts Few/HPF Urine Mucus Slight/LPF Glucose (Fingerstick) 291mg/dL (70-99) Test 05/15/16 21:54 05/16/16 02:15 05/16/16 03:15 05/16/16 07:49 Glucose (Fingerstick) 182mg/dL (70-99) 124mg/dL (70-99) White Blood Count 9.9x10^3/uL (4.0-11.0) Red Blood Count 5.31x10^6/uL (4.30-5.70) Hemoglobin 14.3g/dL (13.0-17.5) Hematocrit 43.6% (39.0-53.0) Mean Corpuscular Volume 82fL (79-100) Mean Corpuscular Hemoglobin 27pg (25-35) Mean Corpuscular Hemoglobin Concent 33g/dL (31-37) Red Cell Distribution Width 15.0% (11.5-14.5) Platelet Count 273x10^3/uL (140-400) Neutrophils (%) (Auto) 82% (31-73) Lymphocytes (%) (Auto) 10% (24-48) Monocytes (%) (Auto) 5% (0-9) Eosinophils (%) (Auto) 2% (0-3) Basophils (%) (Auto) 1% (0-3) Neutrophils # (Auto) 8.2x10^3uL (1.8-7.7) Lymphocytes # (Auto) 1.0x10^3/uL (1.0-4.8) Monocytes # (Auto) 0.5x10^3/uL (0.0-1.1) Eosinophils # (Auto) 0.2x10^3/uL (0.0-0.7) Basophils # (Auto) 0.1x10^3/uL (0.0-0.2) Troponin I Quantitative < 0.017ng/mL (0.000-0.055) Sodium Level 142mmol/L (136-145) Potassium Level 4.3mmol/L (3.5-5.1) Chloride Level 104mmol/L (98-107) Carbon Dioxide Level 25mmol/L (21-32) Anion Gap 13 (6-14) Blood Urea Nitrogen 33mg/dL (8-26) Creatinine 2.8mg/dL (0.7-1.3) Estimated GFR (Cockcroft-Gault) 26.4 Glucose Level 201mg/dL (70-99) Calcium Level 9.2mg/dL (8.5-10.1) Laboratory Tests Test 05/15/16 11:25 05/15/16 17:18 05/15/16 19:35 05/15/16 21:54 Urine Collection Type Unknown Urine Color Yellow Urine Clarity Clear Urine pH 6.5 Urine Specific [place] 1.010 Urine Protein 100mg/dL (NEG-TRACE) Urine Glucose (UA) 500mg/dL (NEG) Urine Ketones (Stick) Negativemg/dL (NEG) Urine Blood Negative (NEG) Urine Nitrite Negative (NEG) Urine Bilirubin Negative (NEG) Urine Urobilinogen Dipstick 0.2mg/dL (0.2 mg/dL) Urine Leukocyte Esterase Negative (NEG) Urine RBC 0/HPF (0-2) Urine WBC 0/HPF (0-4) Urine Squamous Epithelial Cells Few/LPF Urine Bacteria 0/HPF (0-FEW) Urine Hyaline Casts Few/HPF Urine Mucus Slight/LPF Glucose (Fingerstick) 291mg/dL (70-99) 182mg/dL (70-99) Troponin I Quantitative < 0.017ng/mL (0.000-0.055) Test 05/16/16 02:15 05/16/16 03:15 05/16/16 07:49 White Blood Count 9.9x10^3/uL (4.0-11.0) Red Blood Count 5.31x10^6/uL (4.30-5.70) Hemoglobin 14.3g/dL (13.0-17.5) Hematocrit 43.6% (39.0-53.0) Mean Corpuscular Volume 82fL (79-100) Mean Corpuscular Hemoglobin 27pg (25-35) Mean Corpuscular Hemoglobin Concent 33g/dL (31-37) Red Cell Distribution Width 15.0% (11.5-14.5) Platelet Count 273x10^3/uL (140-400) Neutrophils (%) (Auto) 82% (31-73) Lymphocytes (%) (Auto) 10% (24-48) Monocytes (%) (Auto) 5% (0-9) Eosinophils (%) (Auto) 2% (0-3) Basophils (%) (Auto) 1% (0-3) Neutrophils # (Auto) 8.2x10^3uL (1.8-7.7) Lymphocytes # (Auto) 1.0x10^3/uL (1.0-4.8) Monocytes # (Auto) 0.5x10^3/uL (0.0-1.1) Eosinophils # (Auto) 0.2x10^3/uL (0.0-0.7) Basophils # (Auto) 0.1x10^3/uL (0.0-0.2) Troponin I Quantitative < 0.017ng/mL (0.000-0.055) Sodium Level 142mmol/L (136-145) Potassium Level 4.3mmol/L (3.5-5.1) Chloride Level 104mmol/L (98-107) Carbon Dioxide Level 25mmol/L (21-32) Anion Gap 13 (6-14) Blood Urea Nitrogen 33mg/dL (8-26) Creatinine 2.8mg/dL (0.7-1.3) Estimated GFR (Cockcroft-Gault) 26.4 Glucose Level 201mg/dL (70-99) Calcium Level 9.2mg/dL (8.5-10.1) Glucose (Fingerstick) 124mg/dL (70-99) Medications Current Medications Ondansetron HCl (Zofran) 4 mg PRN Q8HRS PRN IV NAUSEA/VOMITING; Start 05/15/16 at 14:00; Stop 05/16/16 at 13:59 Morphine Sulfate 2 mg PRN Q2HR PRN IV PAIN; Start 05/15/16 at 14:00; Stop 05/16 at 13:59 Amlodipine Besylate (Norvasc) 10 mg HS PO Last administered on 05/15/16 20:49 ; Start 05/15/16 at 21:00 Aspirin (Ecotrin) 81 mg DAILY PO Last administered on 05/16/16 08:49; Start at 09:00 Donepezil HCl (Aricept) 10 mg HS PO Last administered on 05/15/16 20:50; Start 05/15/16 at 21:00 Gabapentin (Neurontin) 300 mg DAILY PO Last administered on 05/16/16 08:48; Start 05/16/16 at 09:00 Gabapentin (Neurontin) 300 mg HS PO Last administered on 05/15/16 20:50; Start 05/15/16 at 21:00 Levothyroxine Sodium (Synthroid) 100 mcg DAILY07 PO Last administered on 08:48; Start 05/16/16 at 07:00 Lorazepam (Ativan) 1 mg TID PO Last administered on 05/15/16 20:50; Start at 15:15; Stop 05/16/16 at 10:03; Status DC Losartan Potassium (Cozaar) 100 mg QHS PO Last administered on 05/15/16 20:49 ; Start 05/15/16 at 21:00; Stop 05/16/16 at 10:03; Status DC Nitroglycerin (Nitrostat) 0.4 mg PRN Q5MIN PRN SL CHEST PAIN; Start 05/15/16 at 15:15 Glimepiride (Amaryl) 4 mg BID PO Last administered on 05/16/16 08:49; Start at 21:00 Non-Formulary Medication 1 tab BID PO ; Start 05/15/16 at 21:00; Stop 05/15/16 at 21:00; Status DC Ondansetron HCl (Zofran Odt) 4 mg Q6HRS PO ; Start 05/15/16 at 18:00 Linagliptin (Tradjenta) 5 mg DAILY PO Last administered on 05/16/16 08:48; Start 05/16/16 at 09:00 Metformin HCl (Glucophage) 500 mg BIDWMEALS PO ; Start 05/15/16 at 17:00; Stop 05/15/16 at 17:00; Status DC Insulin Aspart (Novolog) 0-7 UNITS TIDWMEALS SQ Last administered on 05/15/16t 17:55; Start 05/15/16 at 17:00 Dextrose 12.5 gm PRN Q15MIN PRN IV SEE COMMENTS; Start 05/15/16 at 16:00 Hydralazine HCl 10 mg 10 mg PRN Q4HRS PRN IVP ELEVATED BP, SEE COMMENTS; Start 05/15/16 at 17:30 Sodium Chloride (Iv Sodium Chloride 0.9% 1000ml Bag) 1,000 ml @ 100 mls/hr 1X ONCE IV ; Start 05/16/16 at 10:00; Stop 05/16/16 at 19:59 Tamsulosin HCl (Flomax) 0.4 mg QHS PO ; Start 05/16/16 at 21:00 Active Scripts Active Cozaar (Losartan Potassium) 50 Mg Tablet 100 Mg PO QHS Reported Januvia (Sitagliptin Phosphate) 100 Mg Tablet 100 Tab PO DAILY Zofran (Ondansetron Hcl) 4 Mg Tablet 1 Tab PO Q6HRS Lorazepam 1 Mg Tablet 1 Mg PO TID Glimepiride 4 Mg Tablet 1 Tab PO BID Metformin Hcl Er (Metformin Hcl) 750 Mg Tab.er.24h 1 Tab PO BID Cinnamon (Cinnamon Bark) 500 Mg Capsule 500 Mg PO DAILY Aspir 81 (Aspirin) 81 Mg Tablet.dr 1 Tab PO DAILY Levothyroxine Sodium 100 Mcg Tablet 1 Tab PO DAILY07 Gabapentin 300 Mg Capsule 300 Mg PO DAILY NITROGLYCERIN SubLingual (Nitroglycerin) 0.4 Mg Tab.subl 0.4 Mg SL PRN Q5MIN PRN Gabapentin 300 Mg Capsule 300 Mg PO HS Donepezil Hcl 10 Mg Tablet 1 Tab PO HS Amlodipine Besylate 10 Mg Tablet 10 Mg PO HS Vitals/I & O Vital Sign - Last 24 Hours 05/15/16 05/15/16 05/15/16 05/15/16 10:26 11:26 12:26 13:26 Pulse 76 76 78 84 Resp 14 14 12 14 B/P 176/86 171/84 173/84 172/84 Pulse Ox 96 96 97 96 O2 Delivery Room Air Room Air Room Air Room Air 05/15/16 05/15/16 05/15/16 05/15/16 14:26 15:03 15:30 15:48 Temp 98.5 98.5 Pulse 92 78 74 93 Resp 14 13 14 16 B/P 194/96 142/73 140/63 136/73 Pulse Ox 96 95 95 96 O2 Delivery Room Air Room Air Room Air Room Air 05/15/16 05/15/16 05/15/16 05/15/16 15:49 16:08 16:12 19:46 Temp 98.5 98.5 98.2 98.5 98.5 98.2 Pulse 93 93 73 Resp 16 18 B/P 136/73 136/73 151/79 Pulse Ox 96 96 99 O2 Delivery Room Air Room Air Room Air 05/15/16 05/15/16 05/15/16 05/15/16 20:00 20:49 20:49 22:56 Temp 98.6 98.6 Pulse 93 93 89 Resp 18 B/P 136/73 136/73 144/92 Pulse Ox 97 O2 Delivery Room Air Room Air 05/16/16 05/16/16 05/16/16 05/16/16 02:26 07:00 09:47 09:47 Temp 98.3 98.5 98.3 98.5 Pulse 86 90 78 91 Resp 18 20 B/P 136/87 143/70 120/52 120/60 Pulse Ox 98 97 O2 Delivery Room Air Room Air 05/16/16 09:48 Pulse 94 B/P 95/43 Intake and Output 05/15/16 05/15/16 05/16/16 15:00 23:00 07:00 Intake Total 0 ml Output Total 350 ml Balance -350 ml 0 ml Images Carotids: negative KIKI BERNSTEIN MD May 16, 2016 10:16
[2016-05-16 10:22] LABS: CHOLESTEROL/HDL RATIO 5.7
--- NOTE | 2016-05-16 10:34 | PDOC ---
CARDIO Progress Notes Date and Time Date of Service 05/16/2016 Time of Evaluation 1034 Subjective Subjective: No Chest Pain, No shortness of breath, No Palpitations, No Dizziness, Other (syncope) Vitals Vitals Vital Signs Date Time Temp Pulse Resp B/P Pulse Ox O2 Delivery O2 Flow Rate FiO2 05/16/16 09:48 94 95/43 05/16/16 07:00 98.5 20 97 Room Air 98.5 Weight Weight [ ] Input and Output Intake and Output Intake and Output 05/16/16 07:00 Intake Total 0 ml Output Total 350 ml Balance -350 ml Intake Oral 0 ml Output Urine Total 350 ml # Voids 1 Laboratory Labs Laboratory Tests Test 05/15/16 11:25 05/15/16 17:18 05/15/16 19:35 05/15/16 21:54 Urine Collection Type Unknown Urine Color Yellow Urine Clarity Clear Urine pH 6.5 Urine Specific [place] 1.010 Urine Protein 100mg/dL (NEG-TRACE) Urine Glucose (UA) 500mg/dL (NEG) Urine Ketones (Stick) Negativemg/dL (NEG) Urine Blood Negative (NEG) Urine Nitrite Negative (NEG) Urine Bilirubin Negative (NEG) Urine Urobilinogen Dipstick 0.2mg/dL (0.2 mg/dL) Urine Leukocyte Esterase Negative (NEG) Urine RBC 0/HPF (0-2) Urine WBC 0/HPF (0-4) Urine Squamous Epithelial Cells Few/LPF Urine Bacteria 0/HPF (0-FEW) Urine Hyaline Casts Few/HPF Urine Mucus Slight/LPF Glucose (Fingerstick) 291mg/dL (70-99) 182mg/dL (70-99) Troponin I Quantitative < 0.017ng/mL (0.000-0.055) Test 05/16/16 02:15 05/16/16 03:15 05/16/16 07:49 White Blood Count 9.9x10^3/uL (4.0-11.0) Red Blood Count 5.31x10^6/uL (4.30-5.70) Hemoglobin 14.3g/dL (13.0-17.5) Hematocrit 43.6% (39.0-53.0) Mean Corpuscular Volume 82fL (79-100) Mean Corpuscular Hemoglobin 27pg (25-35) Mean Corpuscular Hemoglobin Concent 33g/dL (31-37) Red Cell Distribution Width 15.0% (11.5-14.5) Platelet Count 273x10^3/uL (140-400) Neutrophils (%) (Auto) 82% (31-73) Lymphocytes (%) (Auto) 10% (24-48) Monocytes (%) (Auto) 5% (0-9) Eosinophils (%) (Auto) 2% (0-3) Basophils (%) (Auto) 1% (0-3) Neutrophils # (Auto) 8.2x10^3uL (1.8-7.7) Lymphocytes # (Auto) 1.0x10^3/uL (1.0-4.8) Monocytes # (Auto) 0.5x10^3/uL (0.0-1.1) Eosinophils # (Auto) 0.2x10^3/uL (0.0-0.7) Basophils # (Auto) 0.1x10^3/uL (0.0-0.2) Troponin I Quantitative < 0.017ng/mL (0.000-0.055) Triglycerides Level 117mg/dL (0-150) Cholesterol Level 232mg/dL (0-200) LDL Cholesterol, Calculated 168mg/dL (0-100) VLDL Cholesterol, Calculated 23mg/dL (0-40) HDL Cholesterol 41mg/dL (40-60) Cholesterol/HDL Ratio 5.7 Sodium Level 142mmol/L (136-145) Potassium Level 4.3mmol/L (3.5-5.1) Chloride Level 104mmol/L (98-107) Carbon Dioxide Level 25mmol/L (21-32) Anion Gap 13 (6-14) Blood Urea Nitrogen 33mg/dL (8-26) Creatinine 2.8mg/dL (0.7-1.3) Estimated GFR (Cockcroft-Gault) 26.4 Glucose Level 201mg/dL (70-99) Calcium Level 9.2mg/dL (8.5-10.1) Glucose (Fingerstick) 124mg/dL (70-99) Physical Exam HEENT: Neck Supple W Full Motion Chest: Symmetric LUNGS: Clear to Auscultation Heart: S1S2, RRR, no murmurs, other (tele: no dysrhythmias) Abdomen: Soft N/T Neurology: follow commands, other (sleepy; arouses easily) Diagnostic Tests Echocardiogram: Normal LVEF, Normal Valves Assessment Assessment 1. Syncope now with orthostasis of 25 mm from lying to standing anti-hypertensive meds on hold no evidence of dysrhythmias on tele event monitor at discharge also 2. Hypertensive urgency normalized and now holding meds due to orthostasis & EDUARD with Cr of 2.8 3. Chronic systolic HF 07/2015 echo with EF 40-45% with mild global hypokinesis repeat echo pending compensated holding meds due to EDUARD 4. CAD s/p remote PCI/stent no anginal symptoms continue secondary prevention 5. Diabetes, II per PCP 6. Hyperlipidemia LDLs = 168 with history of DM and CAD with previous PCI, would benefit from statin therapy 7. Dementia Will follow peripherally over weekend Will arrange for home event monitor and office f/u Please contact if further assistance needed JASMYNE CHOI APRN May 16, 2016 10:34
--- NOTE | 2016-05-16 11:11 | PDOC ---
PROGRESS NOTES Chief Complaint Chief Complaint syncope, vasovagal vs. orthostatic hypotension orthostatic hypotension htn, dm2 dementia, moderate CKD 3 EDUARD, vasomotor mild/mod malnutrition hypothyroid, chronic stable systolic chf EF45% nocturnal polyuria 2/2 BPH plan: 1. fu with neuro, card 2. hold htn meds for now gentle ivf for today 3. bladder scan, add finisteride for now 4. hold metformin, ssi ptot dvt ppx labs tmr dc ativan History of Present Illness History of Present Illness polyuria orthostatic hypotension dc ativan higher Cr Vitals Vitals Vital Signs Date Time Temp Pulse Resp B/P Pulse Ox O2 Delivery O2 Flow Rate FiO2 05/16/16 09:48 94 95/43 05/16/16 07:00 98.5 20 97 Room Air 98.5 Physical Exam General: Alert, Oriented X3, Cooperative, No acute distress, Other (forgetful ) Heart: Regular rate, Normal S1, Normal S2, No murmurs Abdomen: Soft, No tenderness Extremities: No edema, Normal pulses Skin: No breakdown, No significant lesion Labs LABS Laboratory Tests Test 05/15/16 11:25 05/15/16 17:18 05/15/16 19:35 05/15/16 21:54 Urine Collection Type Unknown Urine Color Yellow Urine Clarity Clear Urine pH 6.5 Urine Specific [place] 1.010 Urine Protein 100mg/dL (NEG-TRACE) Urine Glucose (UA) 500mg/dL (NEG) Urine Ketones (Stick) Negativemg/dL (NEG) Urine Blood Negative (NEG) Urine Nitrite Negative (NEG) Urine Bilirubin Negative (NEG) Urine Urobilinogen Dipstick 0.2mg/dL (0.2 mg/dL) Urine Leukocyte Esterase Negative (NEG) Urine RBC 0/HPF (0-2) Urine WBC 0/HPF (0-4) Urine Squamous Epithelial Cells Few/LPF Urine Bacteria 0/HPF (0-FEW) Urine Hyaline Casts Few/HPF Urine Mucus Slight/LPF Glucose (Fingerstick) 291mg/dL (70-99) 182mg/dL (70-99) Troponin I Quantitative < 0.017ng/mL (0.000-0.055) Test 05/16/16 02:15 05/16/16 03:15 05/16/16 07:49 White Blood Count 9.9x10^3/uL (4.0-11.0) Red Blood Count 5.31x10^6/uL (4.30-5.70) Hemoglobin 14.3g/dL (13.0-17.5) Hematocrit 43.6% (39.0-53.0) Mean Corpuscular Volume 82fL (79-100) Mean Corpuscular Hemoglobin 27pg (25-35) Mean Corpuscular Hemoglobin Concent 33g/dL (31-37) Red Cell Distribution Width 15.0% (11.5-14.5) Platelet Count 273x10^3/uL (140-400) Neutrophils (%) (Auto) 82% (31-73) Lymphocytes (%) (Auto) 10% (24-48) Monocytes (%) (Auto) 5% (0-9) Eosinophils (%) (Auto) 2% (0-3) Basophils (%) (Auto) 1% (0-3) Neutrophils # (Auto) 8.2x10^3uL (1.8-7.7) Lymphocytes # (Auto) 1.0x10^3/uL (1.0-4.8) Monocytes # (Auto) 0.5x10^3/uL (0.0-1.1) Eosinophils # (Auto) 0.2x10^3/uL (0.0-0.7) Basophils # (Auto) 0.1x10^3/uL (0.0-0.2) Troponin I Quantitative < 0.017ng/mL (0.000-0.055) Triglycerides Level 117mg/dL (0-150) Cholesterol Level 232mg/dL (0-200) LDL Cholesterol, Calculated 168mg/dL (0-100) VLDL Cholesterol, Calculated 23mg/dL (0-40) HDL Cholesterol 41mg/dL (40-60) Cholesterol/HDL Ratio 5.7 Sodium Level 142mmol/L (136-145) Potassium Level 4.3mmol/L (3.5-5.1) Chloride Level 104mmol/L (98-107) Carbon Dioxide Level 25mmol/L (21-32) Anion Gap 13 (6-14) Blood Urea Nitrogen 33mg/dL (8-26) Creatinine 2.8mg/dL (0.7-1.3) Estimated GFR (Cockcroft-Gault) 26.4 Glucose Level 201mg/dL (70-99) Calcium Level 9.2mg/dL (8.5-10.1) Glucose (Fingerstick) 124mg/dL (70-99) Review of Systems Review of Systems no fever, chills, sob or chest pain Assessment and Plan Assessmemt and Plan Problems Medical Problems: (1) Pre-syncope Status: Acute (2) Syncope Status: Acute Problems: Comment Review of Relevant I have reviewed the following items ismael (where applicable) has been applied. Labs Laboratory Tests Test 05/15/16 09:10 05/15/16 11:25 05/15/16 17:18 05/15/16 19:35 White Blood Count 12.7x10^3/uL (4.0-11.0) Red Blood Count 5.55x10^6/uL (4.30-5.70) Hemoglobin 14.7g/dL (13.0-17.5) Hematocrit 45.5% (39.0-53.0) Mean Corpuscular Volume 82fL (79-100) Mean Corpuscular Hemoglobin 27pg (25-35) Mean Corpuscular Hemoglobin Concent 32g/dL (31-37) Red Cell Distribution Width 14.9% (11.5-14.5) Platelet Count 246x10^3/uL (140-400) Neutrophils (%) (Auto) 79% (31-73) Lymphocytes (%) (Auto) 12% (24-48) Monocytes (%) (Auto) 5% (0-9) Eosinophils (%) (Auto) 3% (0-3) Basophils (%) (Auto) 1% (0-3) Neutrophils # (Auto) 10.1x10^3uL (1.8-7.7) Lymphocytes # (Auto) 1.5x10^3/uL (1.0-4.8) Monocytes # (Auto) 0.7x10^3/uL (0.0-1.1) Eosinophils # (Auto) 0.4x10^3/uL (0.0-0.7) Basophils # (Auto) 0.1x10^3/uL (0.0-0.2) Sodium Level 143mmol/L (136-145) Potassium Level 3.5mmol/L (3.5-5.1) Chloride Level 106mmol/L (98-107) Carbon Dioxide Level 22mmol/L (21-32) Anion Gap 15 (6-14) Blood Urea Nitrogen 21mg/dL (8-26) Creatinine 1.9mg/dL (0.7-1.3) Estimated GFR (Cockcroft-Gault) 41.4 Glucose Level 238mg/dL (70-99) Lactic Acid Level 1.5mmol/L (0.4-2.0) Calcium Level 8.8mg/dL (8.5-10.1) Total Bilirubin 0.4mg/dL (0.2-1.0) Direct Bilirubin 0.1mg/dL (0.0-0.2) Aspartate Amino Transf (AST/SGOT) 13U/L (15-37) Alanine Aminotransferase (ALT/SGPT) 20U/L (16-63) Alkaline Phosphatase 110U/L (46-116) Troponin I Quantitative < 0.017ng/mL (0.000-0.055) < 0.017ng/mL (0.000-0.055) MA-Cqk-E-Type Natriuretic Peptide 816pg/mL (0-449) Total Protein 6.6g/dL (6.4-8.2) Albumin 3.0g/dL (3.4-5.0) Lipase 379U/L (73-393) Thyroid Stimulating Hormone (TSH) 3.494uIU/mL (0.358-3.74) Urine Collection Type Unknown Urine Color Yellow Urine Clarity Clear Urine pH 6.5 Urine Specific [place] 1.010 Urine Protein 100mg/dL (NEG-TRACE) Urine Glucose (UA) 500mg/dL (NEG) Urine Ketones (Stick) Negativemg/dL (NEG) Urine Blood Negative (NEG) Urine Nitrite Negative (NEG) Urine Bilirubin Negative (NEG) Urine Urobilinogen Dipstick 0.2mg/dL (0.2 mg/dL) Urine Leukocyte Esterase Negative (NEG) Urine RBC 0/HPF (0-2) Urine WBC 0/HPF (0-4) Urine Squamous Epithelial Cells Few/LPF Urine Bacteria 0/HPF (0-FEW) Urine Hyaline Casts Few/HPF Urine Mucus Slight/LPF Glucose (Fingerstick) 291mg/dL (70-99) Test 05/15/16 21:54 3/24/17 02:15 05/16/16 03:15 05/16/16 07:49 Glucose (Fingerstick) 182mg/dL (70-99) 124mg/dL (70-99) White Blood Count 9.9x10^3/uL (4.0-11.0) Red Blood Count 5.31x10^6/uL (4.30-5.70) Hemoglobin 14.3g/dL (13.0-17.5) Hematocrit 43.6% (39.0-53.0) Mean Corpuscular Volume 82fL (79-100) Mean Corpuscular Hemoglobin 27pg (25-35) Mean Corpuscular Hemoglobin Concent 33g/dL (31-37) Red Cell Distribution Width 15.0% (11.5-14.5) Platelet Count 273x10^3/uL (140-400) Neutrophils (%) (Auto) 82% (31-73) Lymphocytes (%) (Auto) 10% (24-48) Monocytes (%) (Auto) 5% (0-9) Eosinophils (%) (Auto) 2% (0-3) Basophils (%) (Auto) 1% (0-3) Neutrophils # (Auto) 8.2x10^3uL (1.8-7.7) Lymphocytes # (Auto) 1.0x10^3/uL (1.0-4.8) Monocytes # (Auto) 0.5x10^3/uL (0.0-1.1) Eosinophils # (Auto) 0.2x10^3/uL (0.0-0.7) Basophils # (Auto) 0.1x10^3/uL (0.0-0.2) Troponin I Quantitative < 0.017ng/mL (0.000-0.055) Triglycerides Level 117mg/dL (0-150) Cholesterol Level 232mg/dL (0-200) LDL Cholesterol, Calculated 168mg/dL (0-100) VLDL Cholesterol, Calculated 23mg/dL (0-40) HDL Cholesterol 41mg/dL (40-60) Cholesterol/HDL Ratio 5.7 Sodium Level 142mmol/L (136-145) Potassium Level 4.3mmol/L (3.5-5.1) Chloride Level 104mmol/L (98-107) Carbon Dioxide Level 25mmol/L (21-32) Anion Gap 13 (6-14) Blood Urea Nitrogen 33mg/dL (8-26) Creatinine 2.8mg/dL (0.7-1.3) Estimated GFR (Cockcroft-Gault) 26.4 Glucose Level 201mg/dL (70-99) Calcium Level 9.2mg/dL (8.5-10.1) Laboratory Tests Test 05/15/16 11:25 05/15/16 17:18 05/15/16 19:35 05/15/16 21:54 Urine Collection Type Unknown Urine Color Yellow Urine Clarity Clear Urine pH 6.5 Urine Specific [place] 1.010 Urine Protein 100mg/dL (NEG-TRACE) Urine Glucose (UA) 500mg/dL (NEG) Urine Ketones (Stick) Negativemg/dL (NEG) Urine Blood Negative (NEG) Urine Nitrite Negative (NEG) Urine Bilirubin Negative (NEG) Urine Urobilinogen Dipstick 0.2mg/dL (0.2 mg/dL) Urine Leukocyte Esterase Negative (NEG) Urine RBC 0/HPF (0-2) Urine WBC 0/HPF (0-4) Urine Squamous Epithelial Cells Few/LPF Urine Bacteria 0/HPF (0-FEW) Urine Hyaline Casts Few/HPF Urine Mucus Slight/LPF Glucose (Fingerstick) 291mg/dL (70-99) 182mg/dL (70-99) Troponin I Quantitative < 0.017ng/mL (0.000-0.055) Test 05/16/16 02:15 05/16/16 03:15 05/16/16 07:49 White Blood Count 9.9x10^3/uL (4.0-11.0) Red Blood Count 5.31x10^6/uL (4.30-5.70) Hemoglobin 14.3g/dL (13.0-17.5) Hematocrit 43.6% (39.0-53.0) Mean Corpuscular Volume 82fL (79-100) Mean Corpuscular Hemoglobin 27pg (25-35) Mean Corpuscular Hemoglobin Concent 33g/dL (31-37) Red Cell Distribution Width 15.0% (11.5-14.5) Platelet Count 273x10^3/uL (140-400) Neutrophils (%) (Auto) 82% (31-73) Lymphocytes (%) (Auto) 10% (24-48) Monocytes (%) (Auto) 5% (0-9) Eosinophils (%) (Auto) 2% (0-3) Basophils (%) (Auto) 1% (0-3) Neutrophils # (Auto) 8.2x10^3uL (1.8-7.7) Lymphocytes # (Auto) 1.0x10^3/uL (1.0-4.8) Monocytes # (Auto) 0.5x10^3/uL (0.0-1.1) Eosinophils # (Auto) 0.2x10^3/uL (0.0-0.7) Basophils # (Auto) 0.1x10^3/uL (0.0-0.2) Troponin I Quantitative < 0.017ng/mL (0.000-0.055) Triglycerides Level 117mg/dL (0-150) Cholesterol Level 232mg/dL (0-200) LDL Cholesterol, Calculated 168mg/dL (0-100) VLDL Cholesterol, Calculated 23mg/dL (0-40) HDL Cholesterol 41mg/dL (40-60) Cholesterol/HDL Ratio 5.7 Sodium Level 142mmol/L (136-145) Potassium Level 4.3mmol/L (3.5-5.1) Chloride Level 104mmol/L (98-107) Carbon Dioxide Level 25mmol/L (21-32) Anion Gap 13 (6-14) Blood Urea Nitrogen 33mg/dL (8-26) Creatinine 2.8mg/dL (0.7-1.3) Estimated GFR (Cockcroft-Gault) 26.4 Glucose Level 201mg/dL (70-99) Calcium Level 9.2mg/dL (8.5-10.1) Glucose (Fingerstick) 124mg/dL (70-99) Medications Current Medications Ondansetron HCl (Zofran) 4 mg PRN Q8HRS PRN IV NAUSEA/VOMITING; Start 05/15/16 at 14:00; Stop 05/16/16 at 13:59 Morphine Sulfate 2 mg PRN Q2HR PRN IV PAIN; Start 05/15/16 at 14:00; Stop 05/16 at 13:59 Amlodipine Besylate (Norvasc) 10 mg HS PO Last administered on 05/15/16 20:49 ; Start 05/15/16 at 21:00 Aspirin (Ecotrin) 81 mg DAILY PO Last administered on 05/16/16 08:49; Start at 09:00 Donepezil HCl (Aricept) 10 mg HS PO Last administered on 05/15/16 20:50; Start 05/15/16 at 21:00 Gabapentin (Neurontin) 300 mg DAILY PO Last administered on 05/16/16 08:48; Start 05/16/16 at 09:00 Gabapentin (Neurontin) 300 mg HS PO Last administered on 05/15/16 20:50; Start 05/15/16 at 21:00 Levothyroxine Sodium (Synthroid) 100 mcg DAILY07 PO Last administered on 08:48; Start 05/16/16 at 07:00 Lorazepam (Ativan) 1 mg TID PO Last administered on 05/15/16 20:50; Start at 15:15; Stop 05/16/16 at 10:03; Status DC Losartan Potassium (Cozaar) 100 mg QHS PO Last administered on 05/15/16 20:49 ; Start 05/15/16 at 21:00; Stop 05/16/16 at 10:03; Status DC Nitroglycerin (Nitrostat) 0.4 mg PRN Q5MIN PRN SL CHEST PAIN; Start 05/15/16 at 15:15 Glimepiride (Amaryl) 4 mg BID PO Last administered on 05/16/16 08:49; Start at 21:00 Non-Formulary Medication 1 tab BID PO ; Start 05/15/16 at 21:00; Stop 05/15/16 at 21:00; Status DC Ondansetron HCl (Zofran Odt) 4 mg Q6HRS PO ; Start 05/15/16 at 18:00 Linagliptin (Tradjenta) 5 mg DAILY PO Last administered on 05/16/16 08:48; Start 05/16/16 at 09:00 Metformin HCl (Glucophage) 500 mg BIDWMEALS PO ; Start 05/15/16 at 17:00; Stop 05/15/16 at 17:00; Status DC Insulin Aspart (Novolog) 0-7 UNITS TIDWMEALS SQ Last administered on 05/15/16 17:55; Start 05/15/16 at 17:00 Dextrose 12.5 gm PRN Q15MIN PRN IV SEE COMMENTS; Start 05/15/16 at 16:00 Hydralazine HCl 10 mg 10 mg PRN Q4HRS PRN IVP ELEVATED BP, SEE COMMENTS; Start 05/15/16 at 17:30 Sodium Chloride (Iv Sodium Chloride 0.9% 1000ml Bag) 1,000 ml @ 100 mls/hr 1X ONCE IV Last administered on 05/16/16 10:42; Start 05/16/16 at 10:00; Stop at 19:59 Tamsulosin HCl (Flomax) 0.4 mg QHS PO ; Start 05/16/16 at 21:00 Active Scripts Active Cozaar (Losartan Potassium) 50 Mg Tablet 100 Mg PO QHS Reported Januvia (Sitagliptin Phosphate) 100 Mg Tablet 100 Tab PO DAILY Zofran (Ondansetron Hcl) 4 Mg Tablet 1 Tab PO Q6HRS Lorazepam 1 Mg Tablet 1 Mg PO TID Glimepiride 4 Mg Tablet 1 Tab PO BID Metformin Hcl Er (Metformin Hcl) 750 Mg Tab.er.24h 1 Tab PO BID Cinnamon (Cinnamon Bark) 500 Mg Capsule 500 Mg PO DAILY Aspir 81 (Aspirin) 81 Mg Tablet.dr 1 Tab PO DAILY Levothyroxine Sodium 100 Mcg Tablet 1 Tab PO DAILY07 Gabapentin 300 Mg Capsule 300 Mg PO DAILY NITROGLYCERIN SubLingual (Nitroglycerin) 0.4 Mg Tab.subl 0.4 Mg SL PRN Q5MIN PRN Gabapentin 300 Mg Capsule 300 Mg PO HS Donepezil Hcl 10 Mg Tablet 1 Tab PO HS Amlodipine Besylate 10 Mg Tablet 10 Mg PO HS Vitals/I & O Vital Sign - Last 24 Hours 05/15/16 05/15/16 05/15/16 05/15/16 11:26 12:26 13:26 14:26 Pulse 76 78 84 92 Resp 14 12 14 14 B/P 171/84 173/84 172/84 194/96 Pulse Ox 96 97 96 96 O2 Delivery Room Air Room Air Room Air Room Air 05/15/16 05/15/16 05/15/16 05/15/16 15:03 15:30 15:48 15:49 Temp 98.5 98.5 98.5 98.5 Pulse 78 74 93 93 Resp 13 14 16 16 B/P 142/73 140/63 136/73 136/73 Pulse Ox 95 95 96 96 O2 Delivery Room Air Room Air Room Air Room Air 05/15/16 05/15/16 05/15/16 05/15/16 16:08 16:12 19:46 20:00 Temp 98.5 98.2 98.5 98.2 Pulse 93 73 Resp 18 B/P 136/73 151/79 Pulse Ox 96 99 O2 Delivery Room Air Room Air Room Air 05/15/16 05/15/16 05/15/16 05/16/16 20:49 20:49 22:56 02:26 Temp 98.6 98.3 98.6 98.3 Pulse 93 93 89 86 Resp 18 18 B/P 136/73 136/73 144/92 136/87 Pulse Ox 97 98 O2 Delivery Room Air Room Air 05/16/16 05/16/16 05/16/16 05/16/16 07:00 09:47 09:47 09:48 Temp 98.5 98.5 Pulse 90 78 91 94 Resp 20 B/P 143/70 120/52 120/60 95/43 Pulse Ox 97 O2 Delivery Room Air Intake and Output 05/15/16 05/15/16 05/16/16 15:00 23:00 07:00 Intake Total 0 ml Output Total 350 ml Balance -350 ml 0 ml ARON HERRERA MD May 16, 2016 11:11
[2016-05-16] MEDS ORDERED: ACETAMINOPHEN 325 MG TABLET. PO PRN (11:15)
--- NOTE | 2016-05-16 11:23 | CARD ---
APPROVED REPORT EXAM: Two-dimensional and M-mode echocardiogram with Doppler and color Doppler. Other Information Quality : Good INDICATION Congestive Heart Failure 2D DIMENSIONS RVDd2.9 (2.9-3.5cm)Left Atrium(2D)3.3 (1.6-4.0cm) IVSd1.8 (0.7-1.1cm)Aortic Root(2D)2.8 (2.0-3.7cm) LVDd4.5 (3.9-5.9cm)LVOT Diameter2.0 (1.8-2.4cm) PWd1.1 (0.7-1.1cm)LVDs2.6 (2.5-4.0cm) FS (%) 30.0 %SV70.4 ml LVEF(%)60.0 (>50%) Aortic Valve AoV Peak Basilio.125.5cm/sAoV VTI20.7cm AO Peak GR.6.3mmHgLVOT Peak Basilio.112.4cm/s LVOT VTI 22.79cmAO Mean GR.3mmHg KANNAN (VMAX)2.24eg0ELG (VTI)3.43cm2 Mitral Valve MV E Uzsihxgi66.7cm/sMV DECEL QJAS925uz MV A Mbkqqtff805.4cm/sMV PKX46vn E/A Ratio0.5MVA (PHT)2.28cm2 TDI E/Lateral E'9.8E/Medial E'12.0 Tricuspid Valve TR P. Dfqixpsq435ds/sRAP EFRRENDF5mmQd TR Peak Gr.06ocQrUFYS72vxRk Pulmonary Vein S1 Vythijcr66.8cm/sD2 Oaryvopk93.0cm/s PVa [id number] LEFT VENTRICLE The left ventricle is normal size. There is moderate concentric interventricular septal hypertrophy. The left ventricular systolic function is normal and the ejection fraction is within normal range. Th e Ejection Fraction is 60-65%. There is normal LV segmental wall motion. Transmitral Doppler flow pat tern is Grade I-abnormal relaxation pattern. RIGHT VENTRICLE The right ventricle is normal size. The right ventricular systolic function is normal. ATRIA The left atrium size is normal. The right atrium size is normal. The interatrial septum is intact wit h no evidence for an atrial septal defect or patent foramen ovale as noted on 2-D or Doppler imaging. AORTIC VALVE The aortic valve is mildly to moderately sclerotic. Doppler and Color Flow revealed no significant ao rtic regurgitation. There is no significant aortic valvular stenosis. MITRAL VALVE The mitral valve is thickened but opens well. Mitral annular calcification is mild. There is no evide nce of mitral valve prolapse. There is no mitral valve stenosis. Doppler and Color-flow revealed trac e mitral regurgitation. TRICUSPID VALVE The tricuspid valve is normal in structure and function. Doppler and Color Flow revealed physiologica l tricuspid regurgitation. The PA pressure was estimated at 33 mmHg. There is no tricuspid valve sten osis. PULMONIC VALVE Doppler and Color Flow revealed no pulmonic valvular regurgitation. There is no pulmonic valvular usman nosis. GREAT VESSELS The aortic root is normal in size. The ascending aorta is not well seen. The IVC is normal in size an d collapses >50% with inspiration. PERICARDIAL EFFUSION There is no evidence of significant pericardial effusion. Critical Notification Critical Value: No <Conclusion> The left ventricular systolic function is normal and the ejection fraction is within normal range. Th e Ejection Fraction is 60-65%. There is normal LV segmental wall motion.
[2016-05-16] MEDS: FINASTERIDE 5 MG TABLET PO SCH (12:13)
[2016-05-16] MEDS ORDERED: TAMSULOSIN 0.4 MG CAP.ER.24H. PO SCH (21:00)
[2016-05-16] MEDS: DONEPEZIL HCL 10 MG TABLET. PO SCH (21:18)
[2016-05-16] MEDS: GABAPENTIN 300 MG CAPSULE. PO SCH (21:19)
[2016-05-17 03:40] VITALS: BP 180/102
[2016-05-17 05:12] LABS: BASO # 0.1 x10^3/uL (0.0-0.2); BASO % 1 % (0-3); EOS % 5 % (0-3); HEMATOCRIT 41.1 % (39.0-53.0); HEMOGLOBIN 13.3 g/dL (13.0-17.5); LYMPH # 1.4 x10^3/uL (1.0-4.8); LYMPH % 16 % (24-48); MEAN CORPUSCULAR HEMOGLOBIN 27 pg (25-35); MEAN CORPUSCULAR HGB CONC 32 g/dL (31-37); MEAN CORPUSCULAR VOLUME 83 fL (79-100); MONO % 7 % (0-9); NEUT % 71 % (31-73); PLATELET COUNT 222 x10^3/uL (140-400); RED BLOOD COUNT 4.95 x10^6/uL (4.30-5.70); RED CELL DISTRIBUTION WIDTH 14.7 % (11.5-14.5); WHITE BLOOD COUNT 9.1 x10^3/uL (4.0-11.0)
[2016-05-17 05:27] LABS: CALCIUM 8.6 mg/dL (8.5-10.1); CREATININE 1.8 mg/dL (0.7-1.3); GFR 43.9; POTASSIUM 3.3 mmol/L (3.5-5.1)
[2016-05-17] MEDS: ONDANSETRON ODT 4 MG TAB.RAPDIS PO SCH ×4 (05:56→12:54)
[2016-05-17] MEDS: LEVOTHYROXINE 100 MCG TABLET PO SCH (06:02)
[2016-05-17 07:00] VITALS: BP 204/85
[2016-05-17] MEDS: ASPIRIN ENTERIC COATED 81 MG TABLET.DR. PO SCH (10:13)
[2016-05-17] MEDS: FINASTERIDE 5 MG TABLET PO SCH (10:13)
[2016-05-17] MEDS: GLIMEPIRIDE 2 MG TABLET PO SCH (10:14)
[2016-05-17] MEDS: LINAGLIPTIN 5 MG TABLET PO SCH (10:14)
[2016-05-17] MEDS: INSULIN ASPART 300 UNITS/3 ML INSULN.PEN SQ SCH ×2 (10:21→13:00)
[2016-05-17] MEDS ORDERED: LOSARTAN POTASSIUM 50 MG TABLET. PO SCH (11:00)
[2016-05-17 11:18] VITALS: BP 151/80
[2016-05-17 11:31] VITALS: BP 148/70
[2016-05-17] MEDS ORDERED: LOSA50TA2 PO (11:31)
[2016-05-17] MEDS ORDERED: FINA5TAB4 PO (11:31)
[2016-05-17 11:32] VITALS: BP 170/84
[2016-05-17] MEDS ORDERED: POTASSIUM CHLORIDE 20 MEQ TABLET.ER. PO ONE (11:45)
--- NOTE | 2016-05-17 13:41 | PDOC3 ---
Discharge Summary [facility] Date of Admission: May 15, 2016 Discharge Date: May 17, 2016 Admitting Diagnosis syncope, vasovagal vs. orthostatic hypotension orthostatic hypotension htn, dm2 dementia, moderate CKD 3 EDUARD, vasomotor mild/mod malnutrition hypothyroid, chronic stable systolic chf EF45% nocturnal polyuria 2/2 BPH Problems: Final Diagnosis CONSULTS card neuro Brief Hospital Course Mr. Hudson is a 81 old M, mild dementia, comes for syncope when he was shaving at home. Head CT neg. he was found orthostatic hypotension and EDUARD. resume LOsartan 50mg daily add finesterid for BPH. dc home if ok with card dc time 35min General: Alert, Oriented X3, Cooperative, No acute distress, Other (forgetful ) Heart: Regular rate, Normal S1, Normal S2, No murmurs Abdomen: Soft, No tenderness Extremities: No edema, Normal pulses Skin: No breakdown, No significant lesion Patient History: Family history: Cardiovascular disease (situation) 33 FATHER Family history: Diabetes mellitus (situation) aunt Liver cancer G8 BROTHER Problems: Disposition home CONDITION AT DISCHARGE: Improved Diet cardiac Scheduled Aspirin (Aspir 81) 1 TAB PO DAILY (Reported) Cinnamon Bark (Cinnamon) 500 MG PO DAILY (Reported) Donepezil Hcl (Donepezil Hcl) 1 TAB PO HS (Reported) Finasteride (Finasteride) 5 MG PO DAILY Gabapentin (Gabapentin) 300 MG PO HS (Reported) Gabapentin (Gabapentin) 300 MG PO DAILY (Reported) Glimepiride (Glimepiride) 1 TAB PO BID (Reported) Levothyroxine Sodium (Levothyroxine Sodium) 1 TAB PO DAILY07 (Reported) Losartan Potassium (Cozaar) 50 MG PO DAILY Ondansetron Hcl (Zofran) 1 TAB PO Q6HRS (Reported) Sitagliptin Phosphate (Januvia) 100 TAB PO DAILY (Reported) Scheduled PRN Nitroglycerin (NITROGLYCERIN SubLingual) 0.4 MG SL PRN Q5MIN PRN PRN CHEST PAIN (Reported) Discontinued Medications Amlodipine Besylate (Amlodipine Besylate) 10 MG PO HS (Reported) Lorazepam (Lorazepam) 1 MG PO TID (Reported) Losartan Potassium (Cozaar) 100 MG PO QHS Metformin Hcl (Metformin Hcl Er) 1 TAB PO BID (Reported) Follow Up pcp in 2 weeks ARON HERRERA MD May 17, 2016 13:41
[2016-05-17 15:45] VITALS: BP 120/66
[2016-05-18] MEDS ORDERED: GABAPENTIN 300 MG CAPSULE. PO SCH (21:00)
== END 2016-05-17 15:35 | disposition home or self-care (01) | DRG 304 ==
LOC: ER 08:33 → OBSVTOIN 12:37 → 6 SOUTH 12:37
PROVIDERS: ADMIT Internal Medicine; ATTEND Internal Medicine
DX: I16.0 Hypertensive urgency (principal); N17.0 Acute kidney failure with tubular necrosis; E44.0 Moderate protein-calorie malnutrition; I50.22 Chronic systolic (congestive) heart failure; I95.1 Orthostatic hypotension; I13.0 Hypertensive heart and chronic kidney disease with heart failure and stage 1 through stage 4 chronic kidney disease, or unspecified chronic kidney disease; E03.9 Hypothyroidism, unspecified; E11.22 Type 2 diabetes mellitus with diabetic chronic kidney disease; E11.649 Type 2 diabetes mellitus with hypoglycemia without coma; E78.5 Hyperlipidemia, unspecified; G30.9 Alzheimer's disease, unspecified; F02.80 Dementia in other diseases classified elsewhere, unspecified severity, without behavioral disturbance, psychotic disturbance, mood disturbance, and anxiety; I25.10 Atherosclerotic heart disease of native coronary artery without angina pectoris; K21.9 Gastro-esophageal reflux disease without esophagitis; F32.9 Major depressive disorder, single episode, unspecified; F41.9 Anxiety disorder, unspecified; M19.90 Unspecified osteoarthritis, unspecified site; N18.3 Chronic kidney disease, stage 3 (moderate); N40.0 Benign prostatic hyperplasia without lower urinary tract symptoms; R29.6 Repeated falls; Z80.0 Family history of malignant neoplasm of digestive organs; Z68.24 Body mass index [BMI] 24.0-24.9, adult; Z82.3 Family history of stroke; Z82.49 Family history of ischemic heart disease and other diseases of the circulatory system; Z95.5 Presence of coronary angioplasty implant and graft; Z83.3 Family history of diabetes mellitus
CPT/HCPCS: 36415; 70450; 71010; 80048; 80061; 80076; 81001; 82947; 83036; 83605; 83690; 83880; 84443; 84484; 85027; 93005; 93306; 93880; J1815; J7030; Q0162; 99285-25

== ENCOUNTER → 2016-06-13 | Outpatient (CLI) | payer MEDICARE ==
[2016-05-17 15:45] VITALS: BP 120/66
[~2016-06-13] MED LIST changes: +FINA5TAB4 PO; +ONDA4TAB7 PO; +REGADENOSON 0.4 MG/5 ML DISP.SYRIN. IV ONE; +SITA100T PO
--- NOTE | 2016-06-16 08:23 | RAD ---
APPROVED REPORT Test Type: Pharmacological Stress Nurse/Tech: Franki Verduzco RN Test Indications: Syncope Cardiac History: see ehr Medications: see ehr Medical History: see ehr Resting ECG: SR w/ BBB Resting Heart Rate: 72 bpm Resting Blood Pressure: 219/96mmHg Pretest Chest Pain: None Nurse/Tech Notes Lungs CTA, S1, S2 Consent: The procedure was explained to the patient in lay terms. Informed consent was witnessed. Kan eout was entered into [employer]. History and Stress Test performed by Dori BucioNHector Pharm. Details Pharmacologic stress testing was performed using 0.4mg per 5ml of regadenoson given intravenously ove r 7-10 seconds. Stress Symptoms No chest pain or symptoms. POST EXERCISE Reason for Termination: Infusion complete Max HR: 106 bpm Max Blood Pressure: 208/100mmHg Chest Pain: No. Arrhythmia: No. ST Change: No. INTERPRETATION Stress EKG Conclusion: No evidence of stress induced EKG changes. Imaging Protocol IMAGE PROTOCOL: Rest Tc-99m/stress Tc-99m 1 day Rest: Stress: Viability: Radiopharm.Tc99m XwgmibqicHv55r Sestamibi Dose12.6mCi 33.6mCi Duration 15min. 10min. Img Date 06/13/2016 06/13/2016 Inj-Img [id number]. 60min. Rest Admin Site:IV - Left HandAdministrator:LATONIA Shearer Stress Admin Site: IV - Left HandAdministrator: BRIT Yan, ARRT (R)(N) STRESS DATA End Diast. Vol.85.0mlAv. Heart Rate85.0bpm End Syst. Vol.33.0mlCO Index BSA0.0L/min Myocardial Qhiy211.0gEject. Vzhorpuh77.0% Stress Rates Pk. Fill Rate1.11EDV/secLVtime Pk. Fill 67.25msec Pk. Empty Rate3.51ESV/secLVtime Pk. Gchmq876.23msec 02/25 Pk. Fill0.86EDV/sec Stress Scores Regional WT0.00Summed WT16.00 Regional WM0.00Summed WM9.00 LV Perfusion There is a moderate sized, severe in intensity, mostly fixed defect in the basal to distal inferior w all that is minimally reversible in the distal to apical suggestive of prior infarct with campbell-infarc t reversibility. Wall Motion Mild inferior wall hypokinesis. LV Perf. Quant 17 Seg. SSS8.00 17 Seg. SRS3.00 17 Seg. SDS6.00 Stress Defect Extent (% LAD)0.00Rest Defect Extent (% LAD)0.00Rev. Defect Extent (% LAD)0.00 Stress Defect Extent (% LCX) 45.00Rest Defect Extent (% LCX)0.00Rev. Defect Extent (% LCX)33.80 Stress Defect Extent (% RCA)12.20Rest Defect Extent (% RCA)0.00Rev. Defect Extent (% RCA)2.20 Stress Defect Extent (% SELENA)15.40Rest Defect Extent (% SELENA)0.20Rev. Defect Extent (% SELNEA)9.80 Other Information Quality:Average Risk Assessment: Low-Moderate Risk Conclusion 1. No evidence of stress induced EKG changes. (baseline LAFB, prior john-septal infarct) 2. 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 3. Normal EF at > 60% 4. Low to moderate risk study
== END | disposition home or self-care (01) ==
LOC: NM 07:54
PROVIDERS: ATTEND Internal Medicine Cardiovascular Disease
DX: R55 Syncope and collapse (principal)
CPT/HCPCS: 78452; 93017; 96374; 96375; 96376; A9500; J2785

== ENCOUNTER 2016-06-18 12:44 | Inpatient (IN) | payer MEDICARE ==
[~2016-06-18] VITALS: Ht 180.3 cm; Wt 87.7 kg
[~2016-06-18 12:44] MED LIST changes: -LINA5TAB PO; +LINA5TAB4 PO; -REGADENOSON 0.4 MG/5 ML DISP.SYRIN. IV ONE
--- NOTE | 2016-06-18 12:47 | PHYS DOC ---
Past Medical History Past Medical History: Anxiety, Arthritis, CAD, Dementia, Depression, Diabetes- Type II, GERD, Hypertension, Hypothyroid, Other Additional Past Medical Histor: BORDERLINE DEMENTIA Past Surgical History: Other Additional Past Surgical Histo: cardiac stents Alcohol Use: None Drug Use: None Adult General Chief Complaint Chief Complaint: MECHANICAL FALL HPI HPI Patient is a 81 year old male who presents with presyncopal episode. According patient got up out of bed this point at the edge of bed, fell forwards and the wall. He denies actually passing out, denies any headache or neck pain. He states he feels very weak. He states his same thing happen 1-2 weeks ago and is also hospitalized for present sure what they found out that event. He denies any shortness of breath or nausea but stated when he first got up he felt somewhat nauseated and might have spit up a little bit. He denies any focal neurological deficits. He was unable to get a.m. medicines. He does live with his son. He did have stress test on last hospitalization that showed the following. Conclusion 1. No evidence of stress induced EKG changes. (baseline LAFB, prior john- septal infarct) 2. 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 3. Normal EF at > 60% 4. Low to moderate risk study DICTATED and SIGNED BY: MIRI BRENNAN MD DATE: 06/16/16 0823 CC: CHELSEA BAEZA MD; BRIAN MANDUJANO MD ~ Review of Systems Review of Systems Constitutional: Denies fever or chills [] Eyes: Denies change in visual acuity, redness, or eye pain [] HENT: Denies nasal congestion or sore throat [] Respiratory: Denies cough or shortness of breath [] Cardiovascular: No additional information not addressed in HPI [] GI: Denies abdominal pain, nausea, vomiting, bloody stools or diarrhea [] : Denies dysuria or hematuria [] Musculoskeletal: Denies back pain or joint pain [] Integument: Denies rash or skin lesions [] Neurologic: Denies headache, focal weakness or sensory changes [] Endocrine: Denies polyuria or polydipsia [] Current Medications Current Medications Current Medications Medications (Trade) Dose Ordered Sig/Dre Start Time Stop Time Status Last Admin Dose Admin Hydralazine HCl (Apresoline) 20 mg 1X ONCE 06/18/16 13:15 06/18/16 13:16 DC 06/18/16 13:19 20 MG Ondansetron HCl (Zofran) 4 mg PRN Q8HRS PRN 06/18/16 14:15 06/19/16 14:14 Allergies Allergies Allergies Coded Allergies Type Severity Reaction Last Updated Verified No Known Drug Allergies 05/15/16 No Physical Exam Physical Exam Constitutional: Well developed, well nourished, no acute distress, non-toxic appearance. [] HENT: Normocephalic, atraumatic, bilateral external ears normal, oropharynx moist, no oral exudates, nose normal. [] Eyes: PERRLA, EOMI, conjunctiva normal, no discharge. [] Neck: Normal range of motion, no tenderness, supple, no stridor. [] Cardiovascular:Heart rate regular rhythm, no murmur [] Lungs & Thorax: Bilateral breath sounds clear to auscultation [] Abdomen: Bowel sounds normal, soft, no tenderness, no masses, no pulsatile masses. [] Skin: Warm, dry, no erythema, no rash. [] Back: No tenderness, no CVA tenderness. [] Extremities: No tenderness, no cyanosis, no clubbing, ROM intact, no edema. [] Neurologic: Alert and oriented X 3, normal motor function, normal sensory function, no focal deficits noted. [] Psychologic: Affect normal, judgement normal, mood normal. [] Current Patient Data Vital Signs Vital Signs Date Time Temp Pulse Resp B/P Pulse Ox O2 Delivery O2 Flow Rate FiO2 06/18/16 13:19 90 207/103 06/18/16 12:52 98.1 18 97 98.1 Lab Values Laboratory Tests Test 06/18/16 13:11 06/18/16 13:28 White Blood Count 11.1x10^3/uL (4.0-11.0) H Red Blood Count 5.18x10^6/uL (4.30-5.70) Hemoglobin 14.1g/dL (13.0-17.5) Hematocrit 42.9% (39.0-53.0) Mean Corpuscular Volume 83fL (79-100) Mean Corpuscular Hemoglobin 27pg (25-35) Mean Corpuscular Hemoglobin Concent 33g/dL (31-37) Red Cell Distribution Width 14.5% (11.5-14.5) Platelet Count 220x10^3/uL (140-400) Neutrophils (%) (Auto) 93% (31-73) H Lymphocytes (%) (Auto) 5% (24-48) L Monocytes (%) (Auto) 2% (0-9) Eosinophils (%) (Auto) 0% (0-3) Basophils (%) (Auto) 1% (0-3) Neutrophils # (Auto) 10.3x10^3uL (1.8-7.7) H Lymphocytes # (Auto) 0.5x10^3/uL (1.0-4.8) L Monocytes # (Auto) 0.2x10^3/uL (0.0-1.1) Eosinophils # (Auto) 0.0x10^3/uL (0.0-0.7) Basophils # (Auto) 0.1x10^3/uL (0.0-0.2) Segmented Neutrophils % 90% (35-66) H Band Neutrophils % 1% (0-9) Lymphocytes % 5% (24-48) L Atypical Lymphocytes % (Manual) 2% (0-0) H Monocytes % 1% (0-10) Basophils % 1% (0-3) Platelet Estimate Adequate (ADEQUATE) Prothrombin Time 12.7SEC (11.7-14.0) Prothrombin Time INR 1.0 (0.8-1.1) Sodium Level 139mmol/L (136-145) Potassium Level 3.9mmol/L (3.5-5.1) Chloride Level 104mmol/L (98-107) Carbon Dioxide Level 24mmol/L (21-32) Anion Gap 11 (6-14) Blood Urea Nitrogen 26mg/dL (8-26) Creatinine 1.7mg/dL (0.7-1.3) H Estimated GFR (Cockcroft-Gault) 46.9 Glucose Level 298mg/dL (70-99) H Calcium Level 8.6mg/dL (8.5-10.1) Magnesium Level 2.1mg/dL (1.8-2.4) Total Bilirubin 0.4mg/dL (0.2-1.0) Direct Bilirubin 0.1mg/dL (0.0-0.2) Aspartate Amino Transferase (AST) 14U/L (15-37) L Alanine Aminotransferase (ALT) 14U/L (16-63) L Alkaline Phosphatase 102U/L (46-116) Creatine Kinase 62U/L (39-308) Creatine Kinase MB (Mass) 1.0ng/mL (0.0-3.6) Creatine Kinase MB Relative Index 1.6% (0-4) Troponin I Quantitative < 0.017ng/mL (0.000-0.055) UO-Fgi-T-Type Natriuretic Peptide 3485pg/mL (0-449) H Total Protein 7.5g/dL (6.4-8.2) Albumin 3.1g/dL (3.4-5.0) L Thyroid Stimulating Hormone (TSH) 0.879uIU/mL (0.358-3.74) Urine Collection Type Unknown Urine Color Yellow Urine Clarity Clear Urine pH 7.0 Urine Specific [place] 1.015 Urine Protein 100mg/dL (NEG-TRACE) Urine Glucose (UA) >=1000mg/dL (NEG) Urine Ketones (Stick) Tracemg/dL (NEG) Urine Blood Trace (NEG) Urine Nitrite Negative (NEG) Urine Bilirubin Negative (NEG) Urine Urobilinogen Dipstick 0.2mg/dL (0.2 mg/dL) Urine Leukocyte Esterase Negative (NEG) Urine RBC 3-5/HPF (0-2) Urine WBC 1-4/HPF (0-4) Urine Squamous Epithelial Cells Occ/LPF Urine Bacteria 0/HPF (0-FEW) Urine Hyaline Casts Occasional/HPF Laboratory Tests 06/18/16 13:11 Laboratory Tests 06/18/16 13:11 EKG EKG EKG shows sinus rhythm rate 90 bpm with LVH with rib polarization abnormalities and V2 V3, T-wave inversions in 1 and aVL, QTC 469 ms, as interpreted by me. Radiology/Procedures Radiology/Procedures [facility] [address] [place] [address] IMAGING REPORT Signed PATIENT: MARISOL MARIE ACCOUNT: [id number] : 1935 LOCATION: ER AGE: 81 SEX: M EXAM STATUS: PRE ER ORD. PHYSICIAN: ANDREZ GRIDER MD REASON: presyncopy PROCEDURE: PORTABLE CHEST 1V Portable chest, 06/18/2016: History: Dizziness, presyncope Comparison is made to a study from 05/15/2016. The heart size and pulmonary vascularity are normal. There is calcific plaquing of the aorta. No pulmonary infiltrates are seen. There is no evidence of pleural fluid. IMPRESSION: No acute cardiopulmonary abnormality is detected. DICTATED and SIGNED BY: SANGEETA RIVAS MD DATE: 06/18/161314 CC: ANDREZ GRIDER MD; CHELSEA BAEZA MD ~ [facility] [address] [place], [place] [id number] IMAGING REPORT Signed PATIENT: MARISOL MARIE ACCOUNT: [id number] : 1935 LOCATION: ER AGE: 81 SEX: M EXAM STATUS: PRE ER ORD. PHYSICIAN: ANDREZ GRIDER MD REASON: fall with neck pain PROCEDURE: CT HEAD AND CERVICAL SPINE WO CT head without contrast History: Fall with neck pain. Comparison: CT head 05/15/2016. Procedure: Axial images are obtained of the head from the skull base through the vertex without IV contrast. One or more of the following individualized dose reduction techniques were utilized for the study: Automated exposure control Adjustment of mA and/or kV according to patient's size Use of iterative reconstruction technique. Findings: The ventricles and sulci are normal for the patient's age. No mass-effect, intracranial mass, midline shift, hemorrhage or obvious acute infarction is identified. Basilar cisterns are patent. Patchy, nonspecific white matter low attenuation is seen, probably from chronic microvascular ischemic disease. Mild bilateral maxillary sinus mucosal disease is seen. Impression: 1. No acute intracranial process. Please note that CT can be relatively insensitive to acute ischemic infarction for up to 24 hours after symptom onset. 2. Nonspecific white matter changes, probably from chronic microvascular ischemic disease. CT cervical spine without contrast Comparison: None. Technique: Noncontrast helical CT of the cervical spine was performed from the skull base through the inferior T2 level. Axial, sagittal, and coronal reconstructions were obtained. One or more of the following individualized dose reduction techniques were utilized for the study: Automated exposure control Adjustment of mA and/or kV according to patient's size Use of iterative reconstruction technique. Findings: There is no evidence of acute fracture or acute malalignment. No prevertebral soft tissue swelling is identified. Multilevel degeneration is present with facet and uncovertebral hypertrophy as well as degenerative disc disease noted. Impression: 1. No acute osseous traumatic injury identified in the cervical spine. DICTATED and SIGNED BY: MARIA DEL CARMEN STAHL MD DATE: 06/18/16 1414 CC: ANDREZ GRIDER MD; CHELSEA BAEZA MD ~ Impressions: Accelerated hypertension Ataxia Diabetes Hypertension Course & Med Decision Making Course & Med Decision Making Pertinent Labs and Imaging studies reviewed. (See chart for details) EKG, basic labs do not show any acute abnormalities. According to he's been having troubles walking over the last couple of days. He is received IV hydralazine to help control his blood pressure and is being admitted with MRI of his brain pending. The the patient and the hospitalist agreeable to plan. He is in stable condition at this time. Dragon Disclaimer Dragon Disclaimer This electronic medical record was generated, in whole or in part, using a voice recognition dictation system. Departure Departure Impression: Primary Impression: Weakness Additional Impression: Accelerated hypertension Admitting Physician: Ortiz De La Rosa Condition: STABLE Referrals: CHELSEA BAEZA MD (PCP) Problem Qualifiers ANDREZ GRIDER MD Jun 18, 2016 12:47
[2016-06-18] MEDS ORDERED: hydrALAZINE 20 MG/ML VIAL. IVP ONE ×2 (13:15→15:30)
--- NOTE | 2016-06-18 13:18 | RAD ---
Portable chest, 06/18/2016: History: Dizziness, presyncope Comparison is made to a study from 05/15/2016. The heart size and pulmonary vascularity are normal. There is calcific plaquing of the aorta. No pulmonary infiltrates are seen. There is no evidence of pleural fluid. IMPRESSION: No acute cardiopulmonary abnormality is detected.
[2016-06-18 13:22] LABS: BASO # 0.1 x10^3/uL (0.0-0.2); BASO % 1 % (0-3); EOS % 0 % (0-3); HEMATOCRIT 42.9 % (39.0-53.0); HEMOGLOBIN 14.1 g/dL (13.0-17.5); LYMPH # 0.5 x10^3/uL (1.0-4.8); LYMPH % 5 % (24-48); MEAN CORPUSCULAR HEMOGLOBIN 27 pg (25-35); MEAN CORPUSCULAR HGB CONC 33 g/dL (31-37); MEAN CORPUSCULAR VOLUME 83 fL (79-100); MONO % 2 % (0-9); NEUT % 93 % (31-73); PLATELET COUNT 220 x10^3/uL (140-400); RED BLOOD COUNT 5.18 x10^6/uL (4.30-5.70); RED CELL DISTRIBUTION WIDTH 14.5 % (11.5-14.5); WHITE BLOOD COUNT 11.1 x10^3/uL (4.0-11.0)
[2016-06-18 13:31] LABS: PROTHROMBIN TIME PATIENT 12.7 SEC (11.7-14.0)
[2016-06-18 13:35] LABS: BILIRUBIN,URINE NEGATIVE (NEG); GLUCOSE,URINE >=1000 mg/dL (NEG); NITRITE,URINE NEGATIVE (NEG); PROTEIN,URINE 100 mg/dL (NEG-TRACE); UROBILINOGEN,URINE 0.2 mg/dL (0.2 mg/dL)
[2016-06-18 13:39] LABS: CALCIUM 8.6 mg/dL (8.5-10.1); CREATININE 1.7 mg/dL (0.7-1.3); GFR 46.9; POTASSIUM 3.9 mmol/L (3.5-5.1)
[2016-06-18 13:44] LABS: ALBUMIN 3.1 g/dL (3.4-5.0); DIRECT BILIRUBIN 0.1 mg/dL (0.0-0.2); MAGNESIUM 2.1 mg/dL (1.8-2.4); TOTAL BILIRUBIN 0.4 mg/dL (0.2-1.0); TOTAL PROTEIN 7.5 g/dL (6.4-8.2)
[2016-06-18 13:45] LABS: BACTERIA,URINE 0 /HPF (0-FEW); SQUAMOUS EPITHELIAL CELL,UR OCC /LPF
[2016-06-18] MEDS ORDERED: ONDANSETRON PF 4 MG/2 ML VIAL. ONE (13:45)
[2016-06-18 13:55] LABS: % BASOS 1 % (0-3); PLT ESTIMATE ADEQUATE (ADEQUATE)
[2016-06-18] MEDS ORDERED: ONDANSETRON PF 4 MG/2 ML VIAL. IV ONE (14:00)
[2016-06-18] MEDS ORDERED: ONDANSETRON PF 4 MG/2 ML VIAL. IV PRN ×2 (14:15→16:30)
--- NOTE | 2016-06-18 14:21 | RAD ---
CT head without contrast History: Fall with neck pain. Comparison: CT head 05/15/2016. Procedure: Axial images are obtained of the head from the skull base through the vertex without IV contrast. One or more of the following individualized dose reduction techniques were utilized for the study: Automated exposure control Adjustment of mA and/or kV according to patient's size Use of iterative reconstruction technique. Findings: The ventricles and sulci are normal for the patient's age. No mass-effect, intracranial mass, midline shift, hemorrhage or obvious acute infarction is identified. Basilar cisterns are patent. Patchy, nonspecific white matter low attenuation is seen, probably from chronic microvascular ischemic disease. Mild bilateral maxillary sinus mucosal disease is seen. Impression: 1. No acute intracranial process. Please note that CT can be relatively insensitive to acute ischemic infarction for up to 24 hours after symptom onset. 2. Nonspecific white matter changes, probably from chronic microvascular ischemic disease. CT cervical spine without contrast Comparison: None. Technique: Noncontrast helical CT of the cervical spine was performed from the skull base through the inferior T2 level. Axial, sagittal, and coronal reconstructions were obtained. One or more of the following individualized dose reduction techniques were utilized for the study: Automated exposure control Adjustment of mA and/or kV according to patient's size Use of iterative reconstruction technique. Findings: There is no evidence of acute fracture or acute malalignment. No prevertebral soft tissue swelling is identified. Multilevel degeneration is present with facet and uncovertebral hypertrophy as well as degenerative disc disease noted. Impression: 1. No acute osseous traumatic injury identified in the cervical spine.
--- NOTE | 2016-06-18 15:03 | EKG ---
[facility] [address] [place] [address] Test Date: 2016-06-18 Test Time: 12:50:47 Pat Name: MARISOL MARIE Department: Room: Gender: M Family Medicine Physician: : 1935 Requested By: ANDREZ GRIDER Order Number: [id number] Reading MD: Elton Yang Measurements Intervals [place] Rate: 90 P: 28 WV: 154 QRS: -43 QRSD: 116 T: 64 QT: 380 QTc: 469 Interpretive Statements SINUS RHYTHM ABNORMAL LEFT AXIS DEVIATION LEFT ANTERIOR FASCICULAR BLOCK LVH WITH REPOLARIZATION ABNORMALITY Electronically Signed On 06-19-2016 8:30:39 CDT by Elton Yang
--- NOTE | 2016-06-18 15:22 | RAD ---
PROCEDURE MR study of the brain without contrast HISTORY Right-sided weakness. Ataxia. TECHNIQUE Noncontrast MRI sequences of the brain were performed in all 3 planes. COMPARISON July 25, 2015. FINDINGS No restricted diffusion is seen to indicate acute ischemia. Bilateral periventricular white matter hyperintensities are seen consistent with chronic small vessel ischemic disease. This is stable. No new areas of cerebral or cerebellar or brainstem edema is seen. Normal vascular flow signal voids are seen. No intracranial mass lesion or midline shift or hydrocephalus or extra-axial fluid collection is seen. No intracranial hemorrhage is seen. The internal auditory canals are symmetric and no cerebellopontine angle mass is seen. There is opacification of the right mastoid sinus. This has increased within the inferior aspect from the prior study. No opacification of the paranasal sinuses is seen. The orbits are symmetric. No cerebellar tonsillar ectopia is seen. No pituitary mass is seen. IMPRESSION No acute ischemia. Stable chronic small vessel ischemic disease of the white matter. Increase in opacification of the right mastoid sinus. Electronically signed by: Frandy Gomez MD (Jun 18, 2016 15:21:36)
[2016-06-18 16:04] VITALS: BP 185/100
[2016-06-18 16:05] VITALS: BP 185/100
[2016-06-18] MEDS ORDERED: ALBUTEROL SULFATE 2.5 MG/3 ML NEBU. NEB PRN (16:30)
[2016-06-18] MEDS ORDERED: HYDROCODONE/APAP 5/325MG TABLET. PO PRN (16:30)
[2016-06-18] MEDS: hydrALAZINE 20 MG/ML VIAL. IVP PRN (16:43)
[2016-06-18] MEDS ORDERED: LOSA50TA6 PO (17:00)
[2016-06-18] MEDS ORDERED: METF750T2 PO (17:00)
[2016-06-18] MEDS ORDERED: GABA-586 PO (17:00)
--- NOTE | 2016-06-18 19:23 | PDOC1 ---
History and Physical Past Medical History Cardiovascular: CAD Pulmonary: No pertinent hx CENTRAL NERVOUS SYSTEM: Dementia GI: GERD Heme/Onc: No pertinent hx Hepatobiliary: No pertinent hx Psych: Anxiety, Depression Infectious disease: No pertinent hx Renal/: Benign prostatic enlarg. Endocrine: Diabetes, Hypothyroidism Past Surgical History Past Surgical History: Hernia Repair, Other Family History Family History: Cancer, Diabetes, Heart Disease, Hypertension, Stroke Social History ALCOHOL: none Drugs: None Current Problem List Problem List Problems Medical Problems: (1) Accelerated hypertension Status: Acute (2) Weakness Status: Acute Current Medications Current Medications Current Medications Medications (Trade) Dose Ordered Sig/Dre Start Time Stop Time Status Last Admin Dose Admin Acetaminophen (Tylenol) 325 mg PRN Q6HRS PRN 06/18/16 16:30 Acetaminophen/ Hydrocodone Bitart (Lortab 5/325) 1 tab PRN Q6HRS PRN 06/18/16 16:30 Albuterol Sulfate (Ventolin Neb Soln) 2.5 mg PRN Q4HRS PRN 06/18/16 16:30 Hydralazine HCl (Apresoline) 10 mg PRN Q4HRS PRN 06/18/16 16:30 06/18/16 16:43 10 MG Ondansetron HCl (Zofran) 4 mg PRN Q8HRS PRN 06/18/16 16:30 Allergies Allergies Allergies Coded Allergies Type Severity Reaction Last Updated Verified No Known Drug Allergies 05/15/16 No ROS Review of System CONSTITUTIONAL: No fever or chills EYES: No recent changes SKIN: No rash or itching CARDIOVASCULAR: No chest pain, syncope, palpitations, or edema RESPIRATORY: No SOB or cough GASTROINTESTINAL: nausea, no vomiting or abdominal pain NEUROLOGICAL: No headaches or weakness ENDOCRINE: No cold or heat intolerance GENITOURINARY: No urgency or frequency of urination MUSCULOSKELETAL: No back pain or joint pain LYMPHATICS: No enlarged lymph nodes PSYCHIATRIC: No anxiety or depression Physical Exam Physical Exam GEN.: No apparent distress. Alert and oriented times HEENT: Head is normocephalic, atraumatic NECK: Supple. no JVD LUNGS: Clear to auscultation. normal airflow HEART: RRR, S1, S2 present. Peripheral pulses intact ABDOMEN: Soft, nontender. Positive bowel sounds. EXTREMITIES: Without any cyanosis. NEUROLOGIC: Normal speech, normal tone PSYCHIATRIC: Normal affect, normal mood. SKIN: dry Vitals Vitals Vital Signs Date Time Temp Pulse Resp B/P Pulse Ox O2 Delivery O2 Flow Rate FiO2 06/18/16 18:20 97 Room Air 06/18/16 16:43 109 161/88 06/18/16 16:05 98.0 20 98.0 Labs Labs Laboratory Tests Test 06/18/16 13:11 06/18/16 13:28 06/18/16 17:10 White Blood Count 11.1x10^3/uL (4.0-11.0) Red Blood Count 5.18x10^6/uL (4.30-5.70) Hemoglobin 14.1g/dL (13.0-17.5) Hematocrit 42.9% (39.0-53.0) Mean Corpuscular Volume 83fL (79-100) Mean Corpuscular Hemoglobin 27pg (25-35) Mean Corpuscular Hemoglobin Concent 33g/dL (31-37) Red Cell Distribution Width 14.5% (11.5-14.5) Platelet Count 220x10^3/uL (140-400) Neutrophils (%) (Auto) 93% (31-73) Lymphocytes (%) (Auto) 5% (24-48) Monocytes (%) (Auto) 2% (0-9) Eosinophils (%) (Auto) 0% (0-3) Basophils (%) (Auto) 1% (0-3) Neutrophils # (Auto) 10.3x10^3uL (1.8-7.7) Lymphocytes # (Auto) 0.5x10^3/uL (1.0-4.8) Monocytes # (Auto) 0.2x10^3/uL (0.0-1.1) Eosinophils # (Auto) 0.0x10^3/uL (0.0-0.7) Basophils # (Auto) 0.1x10^3/uL (0.0-0.2) Segmented Neutrophils % 90% (35-66) Band Neutrophils % 1% (0-9) Lymphocytes % 5% (24-48) Atypical Lymphocytes % (Manual) 2% (0-0) Monocytes % 1% (0-10) Basophils % 1% (0-3) Platelet Estimate Adequate (ADEQUATE) Prothrombin Time 12.7SEC (11.7-14.0) Prothromb Time International Ratio 1.0 (0.8-1.1) Sodium Level 139mmol/L (136-145) Potassium Level 3.9mmol/L (3.5-5.1) Chloride Level 104mmol/L (98-107) Carbon Dioxide Level 24mmol/L (21-32) Anion Gap 11 (6-14) Blood Urea Nitrogen 26mg/dL (8-26) Creatinine 1.7mg/dL (0.7-1.3) Estimated GFR (Cockcroft-Gault) 46.9 Glucose Level 298mg/dL (70-99) Calcium Level 8.6mg/dL (8.5-10.1) Magnesium Level 2.1mg/dL (1.8-2.4) Total Bilirubin 0.4mg/dL (0.2-1.0) Direct Bilirubin 0.1mg/dL (0.0-0.2) Aspartate Amino Transf (AST/SGOT) 14U/L (15-37) Alanine Aminotransferase (ALT/SGPT) 14U/L (16-63) Alkaline Phosphatase 102U/L (46-116) Creatine Kinase 62U/L (39-308) Creatine Kinase MB (Mass) 1.0ng/mL (0.0-3.6) Creatine Kinase MB Relative Index 1.6% (0-4) Troponin I Quantitative < 0.017ng/mL (0.000-0.055) FI-Ska-P-Type Natriuretic Peptide 3485pg/mL (0-449) Total Protein 7.5g/dL (6.4-8.2) Albumin 3.1g/dL (3.4-5.0) Thyroid Stimulating Hormone (TSH) 0.879uIU/mL (0.358-3.74) Urine Collection Type Unknown Urine Color Yellow Urine Clarity Clear Urine pH 7.0 Urine Specific [place] 1.015 Urine Protein 100mg/dL (NEG-TRACE) Urine Glucose (UA) >=1000mg/dL (NEG) Urine Ketones (Stick) Tracemg/dL (NEG) Urine Blood Trace (NEG) Urine Nitrite Negative (NEG) Urine Bilirubin Negative (NEG) Urine Urobilinogen Dipstick 0.2mg/dL (0.2 mg/dL) Urine Leukocyte Esterase Negative (NEG) Urine RBC 3-5/HPF (0-2) Urine WBC 1-4/HPF (0-4) Urine Squamous Epithelial Cells Occ/LPF Urine Bacteria 0/HPF (0-FEW) Urine Hyaline Casts Occasional/HPF Glucose (Fingerstick) 303mg/dL (70-99) Laboratory Tests Test 06/18/16 13:11 06/18/16 13:28 06/18/16 17:10 White Blood Count 11.1x10^3/uL (4.0-11.0) Red Blood Count 5.18x10^6/uL (4.30-5.70) Hemoglobin 14.1g/dL (13.0-17.5) Hematocrit 42.9% (39.0-53.0) Mean Corpuscular Volume 83fL (79-100) Mean Corpuscular Hemoglobin 27pg (25-35) Mean Corpuscular Hemoglobin Concent 33g/dL (31-37) Red Cell Distribution Width 14.5% (11.5-14.5) Platelet Count 220x10^3/uL (140-400) Neutrophils (%) (Auto) 93% (31-73) Lymphocytes (%) (Auto) 5% (24-48) Monocytes (%) (Auto) 2% (0-9) Eosinophils (%) (Auto) 0% (0-3) Basophils (%) (Auto) 1% (0-3) Neutrophils # (Auto) 10.3x10^3uL (1.8-7.7) Lymphocytes # (Auto) 0.5x10^3/uL (1.0-4.8) Monocytes # (Auto) 0.2x10^3/uL (0.0-1.1) Eosinophils # (Auto) 0.0x10^3/uL (0.0-0.7) Basophils # (Auto) 0.1x10^3/uL (0.0-0.2) Segmented Neutrophils % 90% (35-66) Band Neutrophils % 1% (0-9) Lymphocytes % 5% (24-48) Atypical Lymphocytes % (Manual) 2% (0-0) Monocytes % 1% (0-10) Basophils % 1% (0-3) Platelet Estimate Adequate (ADEQUATE) Prothrombin Time 12.7SEC (11.7-14.0) Prothromb Time International Ratio 1.0 (0.8-1.1) Sodium Level 139mmol/L (136-145) Potassium Level 3.9mmol/L (3.5-5.1) Chloride Level 104mmol/L (98-107) Carbon Dioxide Level 24mmol/L (21-32) Anion Gap 11 (6-14) Blood Urea Nitrogen 26mg/dL (8-26) Creatinine 1.7mg/dL (0.7-1.3) Estimated GFR (Cockcroft-Gault) 46.9 Glucose Level 298mg/dL (70-99) Calcium Level 8.6mg/dL (8.5-10.1) Magnesium Level 2.1mg/dL (1.8-2.4) Total Bilirubin 0.4mg/dL (0.2-1.0) Direct Bilirubin 0.1mg/dL (0.0-0.2) Aspartate Amino Transf (AST/SGOT) 14U/L (15-37) Alanine Aminotransferase (ALT/SGPT) 14U/L (16-63) Alkaline Phosphatase 102U/L (46-116) Creatine Kinase 62U/L (39-308) Creatine Kinase MB (Mass) 1.0ng/mL (0.0-3.6) Creatine Kinase MB Relative Index 1.6% (0-4) Troponin I Quantitative < 0.017ng/mL (0.000-0.055) BS-Mwe-H-Type Natriuretic Peptide 3485pg/mL (0-449) Total Protein 7.5g/dL (6.4-8.2) Albumin 3.1g/dL (3.4-5.0) Thyroid Stimulating Hormone (TSH) 0.879uIU/mL (0.358-3.74) Urine Collection Type Unknown Urine Color Yellow Urine Clarity Clear Urine pH 7.0 Urine Specific [place] 1.015 Urine Protein 100mg/dL (NEG-TRACE) Urine Glucose (UA) >=1000mg/dL (NEG) Urine Ketones (Stick) Tracemg/dL (NEG) Urine Blood Trace (NEG) Urine Nitrite Negative (NEG) Urine Bilirubin Negative (NEG) Urine Urobilinogen Dipstick 0.2mg/dL (0.2 mg/dL) Urine Leukocyte Esterase Negative (NEG) Urine RBC 3-5/HPF (0-2) Urine WBC 1-4/HPF (0-4) Urine Squamous Epithelial Cells Occ/LPF Urine Bacteria 0/HPF (0-FEW) Urine Hyaline Casts Occasional/HPF Glucose (Fingerstick) 303mg/dL (70-99) VTE Prophylaxis Ordered VTE Prophylaxis Devices: Yes VTE Pharmacological Prophylaxi: Yes MERLE LINDER MD Jun 18, 2016 19:23
--- NOTE | 2016-06-18 19:28 | ACF ---
Admission Forms Criteria HYPERTENSION Clinical Indications for Admission to Inpatient Care ( Place "X" for any and all applicable criteria): Admission is indicated for ANY ONE of the following(1)(2)(3)(4): [ ]I. Hypertensive emergency, with evidence of acute and progressing target organ disease as indicated by ANY ONE of the following: [ ]a) Hypertensive encephalopathy (eg, confusion, altered mental status) [ ]b) Cerebral infarction [ ]c) Intracranial hemorrhage [ ]d) Myocardial ischemia or infarction [ ]e) Pulmonary edema [ ]f) Aortic dissection [ ]g) Seizure [ ]h) Acute renal insufficiency [ ]i) Papilledema [ ]j) Microangiopathic hemolytic anemia [ ]II. Adrenergic crisis (eg, severe hypertension due to pheochromocytoma crisis, cocaine or amphetamine intoxication, or clonidine withdrawal) [X]III. Severe hypertension (SBP greater than 180 mmHg or DBP greater than 110 mmHg or greater than the 95th percentile for age, gender, and height in pediatric patients) that cannot be controlled (eg, to SBP less than 160 mmHg and DBP less than 100 mmHg in adults) by treatment with oral medication in emergency department or observation care Extended stay beyond goal length of stay may be needed for(11)(12)(13): [ ]a) Persistent hypertensive encephalopathy [ ]b) Continuation of pulmonary edema [ ]c) Recurring or persistent severe hypertension [ ]d) Target organ damage (eg, angina, stroke, aortic dissection) [ ]e) Associated renal insufficiency The original [employer] content created by [employer] has been revised. The portions of the content which have been revised are identified through the use of italic text or in bold, and [facility] has neither reviewed nor approved the modified material. All other unmodified content is copyright [employer]. Please see references footnoted in the original [employer] edition 2016 Admission Criteria Met?: Yes FADUMO SCHAFER Jun 18, 2016 19:28
[2016-06-18 19:30] VITALS: BP 176/102
[2016-06-18] MEDS ORDERED: ONDANSETRON ODT 4 MG TAB.RAPDIS. PO PRN (20:00)
[2016-06-18] MEDS ORDERED: NITROGLYCERIN SUBLINGUAL 0.4 MG BOTTLE OF 25. SL PRN (20:00)
[2016-06-18] MEDS: GLIMEPIRIDE 2 MG TABLET. PO SCH (20:34)
[2016-06-18] MEDS: DONEPEZIL HCL 10 MG TABLET. PO SCH (20:35)
[2016-06-18] MEDS: GABAPENTIN 300 MG CAPSULE. PO SCH (20:36)
[2016-06-18 20:41] VITALS: BP 159/92
[2016-06-18] MEDS ORDERED: DEXTROSE 50% 25 GM / 50ML DISP.SYRIN. IV PRN (22:30)
[2016-06-18 23:09] VITALS: BP 165/100
[2016-06-19] VITALS (7 sets, daily range): BP systolic 147–194; BP diastolic 82–104
[2016-06-19] MEDS: hydrALAZINE 20 MG/ML VIAL. IVP PRN (00:08)
--- NOTE | 2016-06-19 01:27 | HP ---
ADMIT DATE: 06/18/2016 CHIEF COMPLAINT: Mechanical fall at home. HISTORY OF PRESENT ILLNESS: An 81-year-old male patient with a prior history of type 2 diabetes mellitus, hypertension, GERD, hypothyroidism, Alzheimer's dementia, brought to the hospital by son for a fall at home. Reportedly, the patient tried to get out of the bed and fell forward and hit the wall; however, the patient denies any actual passing out, he does not remember. As per the family members, he appears to be very weak and he was admitted to the hospital in the past, nearly 1 month ago for similar complaints. At the time, the patient was hypotensive; however, today, he was having accelerated hypertension. The patient lives with his and son. At the time of my examination, the patient's daughter and other family members were there. PAST MEDICAL HISTORY: Anxiety, coronary artery disease, dementia Alzheimer's, depression, type 2 diabetes mellitus, GERD, hypertension, hypothyroidism and borderline dementia. PAST SURGICAL HISTORY: Coronary stents. PERSONAL HISTORY: No smoking, no alcohol, no drug abuse. ALLERGIES: NKDA. REVIEW OF SYSTEMS AND PHYSICAL EXAMINATION: Please see my electronic H and P. LABORATORY FINDINGS: CBC within normal limits. Chemistry: Blood sugar is elevated to 303. First set of troponins less than 0.017, second set 0.985 and chemistry panel within normal limits except creatinine 1.2; however, this appears to be baseline around 1.8. BNP is 3489. IMAGING STUDIES: 1. Head CT: No acute intracranial process. 2. MRI of the brain: No acute ischemia seen. 3. Chest x-ray: No acute cardiopulmonary process seen. ASSESSMENT: 1. Mechanical fall with questionable syncope. 2. Accelerated hypertension. 3. Dementia, Alzheimer's. 4. Type 2 diabetes mellitus with hyperglycemia. 5. Gastroesophageal reflux disease. 6. Hypothyroidism. 7. Physical debility. PLAN: 1. The patient has been admitted to the hospital for accelerated hypertension. I ordered IV hydralazine. His initial EKG did not show any acute ST or T-wave changes; however, he had mild elevation of troponins. Cardiology has been consulted. Also, echocardiogram has been ordered. The patient denies any active chest pain at the time of my examination. 2. History of dementia; however, at the time of examination, he is alert and oriented, but he is easily forgetful, family members helping providing history. 3. Sliding scale insulin for hyperglycemia. 4. Home medications discussed with RN and resumed all home medications. 5. Prognosis is guarded. 6. Physical therapy, occupational therapy. MERLE LINDER MD DR: ABEBA/rach JOB#: [id number] / [id number] CHUY
[2016-06-19] MEDS: LEVOTHYROXINE 100 MCG TABLET PO SCH (06:29)
[2016-06-19 06:50] LABS: BASO # 0.1 x10^3/uL (0.0-0.2); BASO % 1 % (0-3); EOS % 0 % (0-3); HEMATOCRIT 41.4 % (39.0-53.0); HEMOGLOBIN 13.6 g/dL (13.0-17.5); LYMPH # 1.1 x10^3/uL (1.0-4.8); LYMPH % 10 % (24-48); MEAN CORPUSCULAR HEMOGLOBIN 27 pg (25-35); MEAN CORPUSCULAR HGB CONC 33 g/dL (31-37); MEAN CORPUSCULAR VOLUME 83 fL (79-100); MONO % 7 % (0-9); NEUT % 83 % (31-73); PLATELET COUNT 251 x10^3/uL (140-400); RED BLOOD COUNT 5.02 x10^6/uL (4.30-5.70); RED CELL DISTRIBUTION WIDTH 15.1 % (11.5-14.5); WHITE BLOOD COUNT 11.6 x10^3/uL (4.0-11.0)
[2016-06-19 07:09] LABS: CALCIUM 8.6 mg/dL (8.5-10.1); CREATININE 1.9 mg/dL (0.7-1.3); GFR 41.3; POTASSIUM 3.9 mmol/L (3.5-5.1)
[2016-06-19] MEDS ORDERED: METFORMIN 500 MG TABLET. PO SCH (08:00)
[2016-06-19] MEDS: INSULIN ASPART 300 UNITS/3 ML INSULN.PEN SQ SCH ×3 (08:31→17:00)
[2016-06-19] MEDS: GABAPENTIN 300 MG CAPSULE. PO SCH ×2 (08:31→22:09)
[2016-06-19] MEDS: ASPIRIN CHEWABLE 81 MG TABLET. PO SCH (08:31)
[2016-06-19] MEDS: LOSARTAN POTASSIUM 50 MG TABLET. PO SCH (08:32)
[2016-06-19] MEDS: GLIMEPIRIDE 2 MG TABLET. PO SCH ×2 (08:33→22:10)
--- NOTE | 2016-06-19 09:50 | PDOC2 ---
TITI BELLA LIQUID SUGAR MELTER 06/19/16 0950: CARDIAC CONSULT DATE OF CONSULT Date of Consult DATE: 06/19/16 TIME: 09:33 REASON FOR CONSULT Reason for Consult: HTN, dizziness, and weakness REFERRING PHYSICIAN Referring Physician: Monster SOURCE Source: Chart review, Patient HISTORY OF PRESENT ILLNESS HISTORY OF PRESENT ILLNESS This is a pleasant 81 yo AA male admitted for complains weakness. Pt is not sure about the details so son provided clarifications witth what transpired. Pt was upright at home when he suddenly felt weak lost his balance and fell forward face first to the wall. He did not fall to the floor as he was able to be assisted by his son. He was not sure if he was dizzy or having vertigo at that time. Also at that time he was noted to be acting more confuse. The back of his neck is a little sore but denies any pain otherwise currently. Prior to him getting dizzy and almost passing out, he does not remember any episodes of palpitations, chest pain, or SOA. There was no complains of unilateral weakness , visual or auditory disturbances. No dysarthria or facial droop. However the son told me that he did get nauseated and vomited prior to coming to ED and then repeated while in ED. He feels weak but otherwise not in any discomfort. PAST MEDICAL HISTORY Past Medical History Cardiovascular: CAD (s/p remote PCI/stent) Pulmonary: No pertinent hx CENTRAL NERVOUS SYSTEM: Dementia GI: GERD Heme/Onc: No pertinent hx Hepatobiliary: No pertinent hx Psych: Anxiety, Depression Musculoskeletal: Other (no pertinent hx ) Infectious disease: No pertinent hx ENT: No pertinent hx Renal/: Benign prostatic enlarg. Endocrine: Diabetes, Hypothyroidism Dermatology: No pertinent hx PAST SURGICAL HISTORY Past Surgical History Hernia Repair, Other (back sx) FAMILY HISTORY Family History Cancer, Diabetes, Heart Disease, Hypertension, Stroke SOCIAL HISTORY Smoke: No ALCOHOL: none Drugs: None Lives: with Family CURRENT MEDICATIONS CURRENT MEDICATIONS Current Medications Medications (Trade) Dose Ordered Sig/Dre Route PRN Reason Start Time Stop Time Status Last Admin Dose Admin Hydralazine HCl (Apresoline) 20 mg 1X ONCE IVP 06/18/16 13:15 06/18/16 13:16 DC 06/18/16 13:19 Ondansetron HCl (Zofran) 4 mg 1X ONCE IV 06/18/16 14:00 06/18/16 14:01 DC 06/18/16 14:00 Hydralazine HCl (Apresoline) 20 mg 1X ONCE IVP 06/18/16 15:30 06/18/16 15:31 DC 06/18/16 15:33 Hydralazine HCl (Apresoline) 10 mg PRN Q4HRS PRN IVP ELEVATED BP, SEE COMMENTS 06/18/16 16:30 06/19/16 00:08 Aspirin (Children'S Aspirin) 81 mg DAILY PO 06/19/16 09:00 06/19/16 08:31 Donepezil HCl (Aricept) 10 mg QHS PO 06/18/16 21:00 06/18/16 20:35 Gabapentin (Neurontin) 300 mg BID PO 06/18/16 21:00 06/19/16 08:31 Glimepiride (Amaryl) 4 mg BID PO 06/18/16 21:00 06/19/16 08:33 Levothyroxine Sodium (Synthroid) 100 mcg DAILY07 PO 06/19/16 07:00 06/19/16 06:29 Losartan Potassium (Cozaar) 50 mg DAILY PO 06/19/16 09:00 06/19/16 08:32 Metformin HCl (Glucophage) 750 mg BIDWMEALS PO 06/19/16 08:00 06/19/16 08:31 Insulin Aspart (Novolog) 0-9 UNITS TIDWMEALS SQ 06/19/16 08:00 06/19/16 08:31 ALLERGIES ALLERGIES: Coded Allergies: No Known Drug Allergies (Unverified , 05/15/16) ROS Review of System limited, poor historian mainly reported details by son PHYSICAL EXAM General: Alert, Oriented X3, Cooperative, No acute distress HEENT: Atraumatic, Mucous membr. moist/pink Lungs: Other (diminished bases) Heart: Regular rate (SR), Normal S1, Normal S2, Other (2/6 systolic murmur to LLS border) Abdomen: Soft, No tenderness Extremities: No cyanosis, No tenderness/swelling Skin: No breakdown, No significant lesion Neuro: Normal speech, Sensation intact Psych/Mental Status: Mental status NL, Mood NL MUSCULOSKELETAL: Osteoarthritic changes both hands VITALS VITALS Vital Signs Date Time Temp Pulse Resp B/P Pulse Ox O2 Delivery O2 Flow Rate FiO2 4/27/17 08:32 98 180/94 06/19/16 07:00 98.7 18 96 Room Air 98.7 LABS Lab: Laboratory Tests Test 06/18/16 13:11 06/18/16 13:28 06/18/16 17:10 06/18/16 19:50 White Blood Count 11.1x10^3/uL (4.0-11.0) Red Blood Count 5.18x10^6/uL (4.30-5.70) Hemoglobin 14.1g/dL (13.0-17.5) Hematocrit 42.9% (39.0-53.0) Mean Corpuscular Volume 83fL (79-100) Mean Corpuscular Hemoglobin 27pg (25-35) Mean Corpuscular Hemoglobin Concent 33g/dL (31-37) Red Cell Distribution Width 14.5% (11.5-14.5) Platelet Count 220x10^3/uL (140-400) Neutrophils (%) (Auto) 93% (31-73) Lymphocytes (%) (Auto) 5% (24-48) Monocytes (%) (Auto) 2% (0-9) Eosinophils (%) (Auto) 0% (0-3) Basophils (%) (Auto) 1% (0-3) Neutrophils # (Auto) 10.3x10^3uL (1.8-7.7) Lymphocytes # (Auto) 0.5x10^3/uL (1.0-4.8) Monocytes # (Auto) 0.2x10^3/uL (0.0-1.1) Eosinophils # (Auto) 0.0x10^3/uL (0.0-0.7) Basophils # (Auto) 0.1x10^3/uL (0.0-0.2) Segmented Neutrophils % 90% (35-66) Band Neutrophils % 1% (0-9) Lymphocytes % 5% (24-48) Atypical Lymphocytes % (Manual) 2% (0-0) Monocytes % 1% (0-10) Basophils % 1% (0-3) Platelet Estimate Adequate (ADEQUATE) Prothrombin Time 12.7SEC (11.7-14.0) Prothromb Time International Ratio 1.0 (0.8-1.1) Sodium Level 139mmol/L (136-145) Potassium Level 3.9mmol/L (3.5-5.1) Chloride Level 104mmol/L (98-107) Carbon Dioxide Level 24mmol/L (21-32) Anion Gap 11 (6-14) Blood Urea Nitrogen 26mg/dL (8-26) Creatinine 1.7mg/dL (0.7-1.3) Estimated GFR (Cockcroft-Gault) 46.9 Glucose Level 298mg/dL (70-99) Calcium Level 8.6mg/dL (8.5-10.1) Magnesium Level 2.1mg/dL (1.8-2.4) Total Bilirubin 0.4mg/dL (0.2-1.0) Direct Bilirubin 0.1mg/dL (0.0-0.2) Aspartate Amino Transf (AST/SGOT) 14U/L (15-37) Alanine Aminotransferase (ALT/SGPT) 14U/L (16-63) Alkaline Phosphatase 102U/L (46-116) Creatine Kinase 62U/L (39-308) Creatine Kinase MB (Mass) 1.0ng/mL (0.0-3.6) Creatine Kinase MB Relative Index 1.6% (0-4) Troponin I Quantitative < 0.017ng/mL (0.000-0.055) 0.985ng/mL (0.000-0.055) CU-Mxi-L-Type Natriuretic Peptide 3485pg/mL (0-449) Total Protein 7.5g/dL (6.4-8.2) Albumin 3.1g/dL (3.4-5.0) Thyroid Stimulating Hormone (TSH) 0.879uIU/mL (0.358-3.74) Urine Collection Type Unknown Urine Color Yellow Urine Clarity Clear Urine pH 7.0 Urine Specific [place] 1.015 Urine Protein 100mg/dL (NEG-TRACE) Urine Glucose (UA) >=1000mg/dL (NEG) Urine Ketones (Stick) Tracemg/dL (NEG) Urine Blood Trace (NEG) Urine Nitrite Negative (NEG) Urine Bilirubin Negative (NEG) Urine Urobilinogen Dipstick 0.2mg/dL (0.2 mg/dL) Urine Leukocyte Esterase Negative (NEG) Urine RBC 3-5/HPF (0-2) Urine WBC 1-4/HPF (0-4) Urine Squamous Epithelial Cells Occ/LPF Urine Bacteria 0/HPF (0-FEW) Urine Hyaline Casts Occasional/HPF Glucose (Fingerstick) 303mg/dL (70-99) Test 06/18/16 20:56 06/19/16 04:50 06/19/16 08:02 Glucose (Fingerstick) 286mg/dL (70-99) 228mg/dL (70-99) White Blood Count 11.6x10^3/uL (4.0-11.0) Red Blood Count 5.02x10^6/uL (4.30-5.70) Hemoglobin 13.6g/dL (13.0-17.5) Hematocrit 41.4% (39.0-53.0) Mean Corpuscular Volume 83fL (79-100) Mean Corpuscular Hemoglobin 27pg (25-35) Mean Corpuscular Hemoglobin Concent 33g/dL (31-37) Red Cell Distribution Width 15.1% (11.5-14.5) Platelet Count 251x10^3/uL (140-400) Neutrophils (%) (Auto) 83% (31-73) Lymphocytes (%) (Auto) 10% (24-48) Monocytes (%) (Auto) 7% (0-9) Eosinophils (%) (Auto) 0% (0-3) Basophils (%) (Auto) 1% (0-3) Neutrophils # (Auto) 9.6x10^3uL (1.8-7.7) Lymphocytes # (Auto) 1.1x10^3/uL (1.0-4.8) Monocytes # (Auto) 0.8x10^3/uL (0.0-1.1) Eosinophils # (Auto) 0.0x10^3/uL (0.0-0.7) Basophils # (Auto) 0.1x10^3/uL (0.0-0.2) Sodium Level 142mmol/L (136-145) Potassium Level 3.9mmol/L (3.5-5.1) Chloride Level 105mmol/L (98-107) Carbon Dioxide Level 25mmol/L (21-32) Anion Gap 12 (6-14) Blood Urea Nitrogen 28mg/dL (8-26) Creatinine 1.9mg/dL (0.7-1.3) Estimated GFR (Cockcroft-Gault) 41.3 Glucose Level 227mg/dL (70-99) Calcium Level 8.6mg/dL (8.5-10.1) Troponin I Quantitative 8.914ng/mL (0.000-0.055) ECHOCARDIOGRAM ECHOCARDIOGRAM <Conclusion> The left ventricular systolic function is normal and the ejection fraction is within normal range. The Ejection Fraction is 60-65%. There is normal LV segmental wall motion. DATE: 05/16/16 1122 STRESS TEST STRESS TEST Conclusion 1. No evidence of stress induced EKG changes. (baseline LAFB, prior john- septal infarct) 2. 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 3. Normal EF at > 60% 4. Low to moderate risk study DATE: 06/16/16 0823 ASSESSMENT/PLAN ASSESSMENT/PLAN 1. NSTEMI: Troponin now at 8.9. EKG SR with no changes 2. CAD: remote stent. Recent MPI with mild abnormality 3. Malignant HTN with hypertensive encephalopathy 4. Mechanical fall with possible Presyncope with past hx of syncope: recent event monitor with brief episodes of atrial tach otherwise mainly SR 5. Chronic diastolic CHF 6. DM2/HLP 7. CKD: suspect stage 3 based on review baseline at 1.7 8. Dementia: mild 9. Hypothyroidism Recommendations 1. Control BP, hold metformin, IVF 2. Start on heparin and will arrange for C tomorrow 3. Continue with secondary prevention 4. Limited TTE 5. Consult nephrology for optimization. 6. Renal duplex. Problems: BRIAN MANDUJANO MD 06/19/16 1607: CARDIAC CONSULT ALLERGIES ALLERGIES: Coded Allergies: No Known Drug Allergies (Unverified , 05/15/16) ASSESSMENT/PLAN ASSESSMENT/PLAN Patient seen and examined. Agree with CERTIFIED MORTICIAN's assessment and plan. Patient with history of coronary artery disease s/p remote PCI/stent placement has been admitted after mechanical fall. Troponin level elevated consistent with non-STEMI. Patient chest pain-free. Plan for cardiac catheterization for definitive evaluation in the morning. Risks and benefits explained. Titrate oral anti-hypertensives for better blood pressure control. Limited 2-D echo showed normal LV systolic function. Thank you for your consultation Problems: TITI BELLA APRN Jun 19, 2016 09:50 BRIAN MANDUJANO MD Jun 19, 2016 16:07
[2016-06-19] MEDS ORDERED: HEPARIN 25,000UTS/500ML PREMIX 500 ML IV PRN (10:00)
[2016-06-19] MEDS ORDERED: IV 1/2 NORMAL SALINE 1,000 ML IV ONE (10:00)
[2016-06-19] MEDS: IV 1/2 NORMAL SALINE 1,000 ML IV SCH ×2 (10:19→22:14)
[2016-06-19] MEDS: HEPARIN for IV BOLUS 10,000 UNIT/10 ML VIAL. IV PRN ×2 (10:55→17:58)
--- NOTE | 2016-06-19 11:33 | PDOC2 ---
CONSULT Date of Consult Date of Consult DATE: 06/19/16 TIME: 11:28 Reason for Consult Reason for Consult: CKD/ NSTEMI Referring Physician Referring Physician: Dr Hook Identification/Chief Complaint Chief Complaint HTN Encephalopahty Problems: Source Source: Chart review, Patient History of Present Illness Reason for Visit: as dictated Past Medical History Cardiovascular: CAD Pulmonary: No pertinent hx CENTRAL NERVOUS SYSTEM: Dementia GI: GERD Heme/Onc: No pertinent hx Hepatobiliary: No pertinent hx Psych: Anxiety, Depression Musculoskeletal: Other Infectious disease: No pertinent hx Renal/: Benign prostatic enlarg. Endocrine: Diabetes, Hypothyroidism Past Surgical History Past Surgical History: Hernia Repair, Other Family History Family History Denies h/o Kidney dz Family History: Cancer, Diabetes, Heart Disease, Hypertension, Stroke Social History No ALCOHOL: none Drugs: None Lives: with Family Current Problem List Problem List Problems Medical Problems: (1) Accelerated hypertension Status: Acute (2) Weakness Status: Acute Current Medications Current Medications Current Medications Hydralazine HCl (Apresoline) 20 mg 1X ONCE IVP Last administered on 06/18/16 13:19; Start 06/18/16 at 13:15; Stop 06/18/16 at 13:16; Status DC Ondansetron HCl (Zofran) 4 mg STK-MED ONCE .ROUTE ; Start 06/18/16 at 13:45; Stop 06/18/16 at 13:46; Status DC Ondansetron HCl (Zofran) 4 mg 1X ONCE IV Last administered on 06/18/16 14:00 ; Start 06/18/16 at 14:00; Stop 06/18/16 at 14:01; Status DC Ondansetron HCl (Zofran) 4 mg PRN Q8HRS PRN IV NAUSEA/VOMITING; Start 06/18/16 at 14:15; Stop 06/19/16 at 14:14 Hydralazine HCl (Apresoline) 20 mg 1X ONCE IVP Last administered on 06/18/16 15:33; Start 06/18/16 at 15:30; Stop 06/18/16 at 15:31; Status DC Acetaminophen (Tylenol) 325 mg PRN Q6HRS PRN PO MILD PAIN / TEMP; Start at 16:30 Acetaminophen/ Hydrocodone Bitart (Lortab 5/325) 1 tab PRN Q6HRS PRN PO MODERATE TO SEVERE PAIN; Start 06/18/16 at 16:30 Hydralazine HCl (Apresoline) 10 mg PRN Q4HRS PRN IVP ELEVATED BP, SEE COMMENTS Last administered on 06/19/16 00:08; Start 06/18/16 at 16:30 Ondansetron HCl (Zofran) 4 mg PRN Q8HRS PRN IV NAUSEA/VOMITING; Start 06/18/16 at 16:30 Albuterol Sulfate (Ventolin Neb Soln) 2.5 mg PRN Q4HRS PRN NEB SHORTNESS OF BREATH; Start 06/18/16 at 16:30 Aspirin (Children'S Aspirin) 81 mg DAILY PO Last administered on 06/19/16 08: 31; Start 06/19/16 at 09:00 Donepezil HCl (Aricept) 10 mg QHS PO Last administered on 06/18/16 20:35; Start 06/18/16 at 21:00 Gabapentin (Neurontin) 300 mg BID PO Last administered on 06/19/16 08:31; Start 06/18/16 at 21:00 Glimepiride (Amaryl) 4 mg BID PO Last administered on 06/19/16 08:33; Start at 21:00 Levothyroxine Sodium (Synthroid) 100 mcg DAILY07 PO Last administered on 06:29; Start 06/19/16 at 07:00 Losartan Potassium (Cozaar) 50 mg DAILY PO Last administered on 06/19/16 08:32 ; Start 06/19/16 at 09:00 Metformin HCl (Glucophage) 750 mg BIDWMEALS PO Last administered on 06/19/16 08:31; Start 06/19/16 at 08:00; Stop 06/19/16 at 09:50; Status DC Nitroglycerin (Nitrostat) 0.4 mg PRN Q5MIN PRN SL CHEST PAIN; Start 06/18/16 at 20:00 Ondansetron HCl (Zofran Odt) 4 mg PRN Q6HRS PRN PO NAUSEA/VOMITING; Start 06/18 at 20:00 Insulin Aspart (Novolog) 0-9 UNITS TIDWMEALS SQ Last administered on 06/19/16 11:07; Start 06/19/16 at 08:00 Dextrose 12.5 gm 12.5 gm PRN Q15MIN PRN IV SEE COMMENTS; Start 06/18/16 at 22: 30 Sodium Chloride 1,000 ml @ 100 mls/hr 1X ONCE IV ; Start 06/19/16 at 10:00; Stop 06/19/16 at 10:02; Status DC Heparin Sodium/ Dextrose 500 ml @ 0 mls/hr CONT PRN IV SEE I/O RECORD Last administered on 06/19/16 11:02; Start 06/19/16 at 10:00 Heparin Sodium (Porcine) (Heparin Sodium) 2,100 unit PRN Q6HRS PRN IV FOR UFH LEVEL LESS THAN 0.2 Last administered on 06/19/16 10:55; Start 06/19/16 at 10: 00 Labetalol HCl 20 mg 20 mg PRN Q2HR PRN IVP HYPERTENSION, SEE COMMENTS; Start at 10:00 Sodium Chloride (Iv Sodium Chloride 0.45%) 1,000 ml @ 75 mls/hr [id number] IV Last administered on 06/19/16 10:19; Start 06/19/16 at 10:00 Active Scripts Active Reported Gabapentin 300 Mg Capsule 300 Mg PO BID Losartan Potassium 50 Mg Tablet 100 Mg PO HS Metformin Hcl Er (Metformin Hcl) 750 Mg Tab.er.24h 750 Mg PO BID Zofran (Ondansetron Hcl) 4 Mg Tablet 1 Tab PO Q6HRS Glimepiride 4 Mg Tablet 1 Tab PO BID Cinnamon (Cinnamon Bark) 500 Mg Capsule 500 Mg PO DAILY Aspir 81 (Aspirin) 81 Mg Tablet.dr 1 Tab PO DAILY Levothyroxine Sodium 100 Mcg Tablet 1 Tab PO DAILY07 NITROGLYCERIN SubLingual (Nitroglycerin) 0.4 Mg Tab.subl 0.4 Mg SL PRN Q5MIN PRN Donepezil Hcl 10 Mg Tablet 1 Tab PO HS Allergies Allergies: Coded Allergies: No Known Drug Allergies (Unverified , 05/15/16) ROS Review of System GEN: no Fevers no Chills EYES: no new Visual Complaints ENT: no EN Drainage no Hearing deficiets CVS: no Orthopnea no CP RESP: no SOB no THRASHER GI: no Nausea no Vomiting : no Dysuria occ Urgency Slow stream HEME: no easy bruising no Palp Ly Nodes NEURO no Focal Weakness no Sz PSYCH: no Suicidal Ideation no Depression SKIN: no Rashes ENDO: no Polyuria or Polydipsia no Hot/Cold Intolerance MU SK: occ Arthralgia no Myalgia Physical Exam Physical Exam General Appearance: Awake Alert Oriented x 2 In no Distress; some memory deficiets Eyes: VIsion Unchanged Conjunctiva Normal EN: No EN Drainage Mucous Memb. moist Neck: no JVD no JVP Supple no Thyromegaly CVS: S1 S2 ? Murmur No Gallop No Rub no Edema Resp: no Rales no Rhonchi no Acc. Muscle use GI: BAS +ve NO Bruit Non Tender Non Distended : no CVA tenderness; no Suprapubic Tenderness SKIN: no Rashes Breast Exam deferred Mu.Sk: Adequate ROM no Muscle Atrophy Heme: Unable to palpate Obvious LAD no palp Splenomegaly NEURO: Good Strength and Tone Cranial Nerves II - XII grossly intact Psych: ? Depressed no Active hallucination Vital Signs Vital Signs Date Time Temp Pulse Resp B/P Pulse Ox O2 Delivery O2 Flow Rate FiO2 06/19/16 10:45 98.2 86 19 147/101 97 Room Air 98.2 Assessment & Plan CKD III (presumed HTNSive/ DM /NS given other foci of ASVDz). Current FLuid and E-lyte status does not necessitate emergent need for Dialysis. Creat is close to baselien, check Renal US NSTEMI - LHC for am - hence IVF and NAC as ordered Malig HTN: Current BP meds reviewed. 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 Proteinuria - DM/ HTNSive /NS - quantitate with ratio Discussed Plan of Care with pt and explained small risk of CAN asso EDUARD. Labs Labs Laboratory Tests Test 06/18/16 13:11 06/18/16 13:28 06/18/16 17:10 06/18/16 19:50 White Blood Count 11.1x10^3/uL (4.0-11.0) Red Blood Count 5.18x10^6/uL (4.30-5.70) Hemoglobin 14.1g/dL (13.0-17.5) Hematocrit 42.9% (39.0-53.0) Mean Corpuscular Volume 83fL (79-100) Mean Corpuscular Hemoglobin 27pg (25-35) Mean Corpuscular Hemoglobin Concent 33g/dL (31-37) Red Cell Distribution Width 14.5% (11.5-14.5) Platelet Count 220x10^3/uL (140-400) Neutrophils (%) (Auto) 93% (31-73) Lymphocytes (%) (Auto) 5% (24-48) Monocytes (%) (Auto) 2% (0-9) Eosinophils (%) (Auto) 0% (0-3) Basophils (%) (Auto) 1% (0-3) Neutrophils # (Auto) 10.3x10^3uL (1.8-7.7) Lymphocytes # (Auto) 0.5x10^3/uL (1.0-4.8) Monocytes # (Auto) 0.2x10^3/uL (0.0-1.1) Eosinophils # (Auto) 0.0x10^3/uL (0.0-0.7) Basophils # (Auto) 0.1x10^3/uL (0.0-0.2) Segmented Neutrophils % 90% (35-66) Band Neutrophils % 1% (0-9) Lymphocytes % 5% (24-48) Atypical Lymphocytes % (Manual) 2% (0-0) Monocytes % 1% (0-10) Basophils % 1% (0-3) Platelet Estimate Adequate (ADEQUATE) Prothrombin Time 12.7SEC (11.7-14.0) Prothromb Time International Ratio 1.0 (0.8-1.1) Sodium Level 139mmol/L (136-145) Potassium Level 3.9mmol/L (3.5-5.1) Chloride Level 104mmol/L (98-107) Carbon Dioxide Level 24mmol/L (21-32) Anion Gap 11 (6-14) Blood Urea Nitrogen 26mg/dL (8-26) Creatinine 1.7mg/dL (0.7-1.3) Estimated GFR (Cockcroft-Gault) 46.9 Glucose Level 298mg/dL (70-99) Calcium Level 8.6mg/dL (8.5-10.1) Magnesium Level 2.1mg/dL (1.8-2.4) Total Bilirubin 0.4mg/dL (0.2-1.0) Direct Bilirubin 0.1mg/dL (0.0-0.2) Aspartate Amino Transf (AST/SGOT) 14U/L (15-37) Alanine Aminotransferase (ALT/SGPT) 14U/L (16-63) Alkaline Phosphatase 102U/L (46-116) Creatine Kinase 62U/L (39-308) Creatine Kinase MB (Mass) 1.0ng/mL (0.0-3.6) Creatine Kinase MB Relative Index 1.6% (0-4) Troponin I Quantitative < 0.017ng/mL (0.000-0.055) 0.985ng/mL (0.000-0.055) UI-Dja-V-Type Natriuretic Peptide 3485pg/mL (0-449) Total Protein 7.5g/dL (6.4-8.2) Albumin 3.1g/dL (3.4-5.0) Thyroid Stimulating Hormone (TSH) 0.879uIU/mL (0.358-3.74) Urine Collection Type Unknown Urine Color Yellow Urine Clarity Clear Urine pH 7.[address] 1.015 Urine Protein 100mg/dL (NEG-TRACE) Urine Glucose (UA) >=1000mg/dL (NEG) Urine Ketones (Stick) Tracemg/dL (NEG) Urine Blood Trace (NEG) Urine Nitrite Negative (NEG) Urine Bilirubin Negative (NEG) Urine Urobilinogen Dipstick 0.2mg/dL (0.2 mg/dL) Urine Leukocyte Esterase Negative (NEG) Urine RBC 3-5/HPF (0-2) Urine WBC 1-4/HPF (0-4) Urine Squamous Epithelial Cells Occ/LPF Urine Bacteria 0/HPF (0-FEW) Urine Hyaline Casts Occasional/HPF Glucose (Fingerstick) 303mg/dL (70-99) Test 06/18/16 20:56 06/19/16 04:50 06/19/16 08:02 06/19/16 10:48 Glucose (Fingerstick) 286mg/dL (70-99) 228mg/dL (70-99) 318mg/dL (70-99) White Blood Count 11.6x10^3/uL (4.0-11.0) Red Blood Count 5.02x10^6/uL (4.30-5.70) Hemoglobin 13.6g/dL (13.0-17.5) Hematocrit 41.4% (39.0-53.0) Mean Corpuscular Volume 83fL (79-100) Mean Corpuscular Hemoglobin 27pg (25-35) Mean Corpuscular Hemoglobin Concent 33g/dL (31-37) Red Cell Distribution Width 15.1% (11.5-14.5) Platelet Count 251x10^3/uL (140-400) Neutrophils (%) (Auto) 83% (31-73) Lymphocytes (%) (Auto) 10% (24-48) Monocytes (%) (Auto) 7% (0-9) Eosinophils (%) (Auto) 0% (0-3) Basophils (%) (Auto) 1% (0-3) Neutrophils # (Auto) 9.6x10^3uL (1.8-7.7) Lymphocytes # (Auto) 1.1x10^3/uL (1.0-4.8) Monocytes # (Auto) 0.8x10^3/uL (0.0-1.1) Eosinophils # (Auto) 0.0x10^3/uL (0.0-0.7) Basophils # (Auto) 0.1x10^3/uL (0.0-0.2) Sodium Level 142mmol/L (136-145) Potassium Level 3.9mmol/L (3.5-5.1) Chloride Level 105mmol/L (98-107) Carbon Dioxide Level 25mmol/L (21-32) Anion Gap 12 (6-14) Blood Urea Nitrogen 28mg/dL (8-26) Creatinine 1.9mg/dL (0.7-1.3) Estimated GFR (Cockcroft-Gault) 41.3 Glucose Level 227mg/dL (70-99) Calcium Level 8.6mg/dL (8.5-10.1) Troponin I Quantitative 8.914ng/mL (0.000-0.055) Laboratory Tests Test 06/18/16 13:11 06/18/16 13:28 06/18/16 17:10 06/18/16 19:50 White Blood Count 11.1x10^3/uL (4.0-11.0) Red Blood Count 5.18x10^6/uL (4.30-5.70) Hemoglobin 14.1g/dL (13.0-17.5) Hematocrit 42.9% (39.0-53.0) Mean Corpuscular Volume 83fL (79-100) Mean Corpuscular Hemoglobin 27pg (25-35) Mean Corpuscular Hemoglobin Concent 33g/dL (31-37) Red Cell Distribution Width 14.5% (11.5-14.5) Platelet Count 220x10^3/uL (140-400) Neutrophils (%) (Auto) 93% (31-73) Lymphocytes (%) (Auto) 5% (24-48) Monocytes (%) (Auto) 2% (0-9) Eosinophils (%) (Auto) 0% (0-3) Basophils (%) (Auto) 1% (0-3) Neutrophils # (Auto) 10.3x10^3uL (1.8-7.7) Lymphocytes # (Auto) 0.5x10^3/uL (1.0-4.8) Monocytes # (Auto) 0.2x10^3/uL (0.0-1.1) Eosinophils # (Auto) 0.0x10^3/uL (0.0-0.7) Basophils # (Auto) 0.1x10^3/uL (0.0-0.2) Segmented Neutrophils % 90% (35-66) Band Neutrophils % 1% (0-9) Lymphocytes % 5% (24-48) Atypical Lymphocytes % (Manual) 2% (0-0) Monocytes % 1% (0-10) Basophils % 1% (0-3) Platelet Estimate Adequate (ADEQUATE) Prothrombin Time 12.7SEC (11.7-14.0) Prothromb Time International Ratio 1.0 (0.8-1.1) Sodium Level 139mmol/L (136-145) Potassium Level 3.9mmol/L (3.5-5.1) Chloride Level 104mmol/L (98-107) Carbon Dioxide Level 24mmol/L (21-32) Anion Gap 11 (6-14) Blood Urea Nitrogen 26mg/dL (8-26) Creatinine 1.7mg/dL (0.7-1.3) Estimated GFR (Cockcroft-Gault) 46.9 Glucose Level 298mg/dL (70-99) Calcium Level 8.6mg/dL (8.5-10.1) Magnesium Level 2.1mg/dL (1.8-2.4) Total Bilirubin 0.4mg/dL (0.2-1.0) Direct Bilirubin 0.1mg/dL (0.0-0.2) Aspartate Amino Transf (AST/SGOT) 14U/L (15-37) Alanine Aminotransferase (ALT/SGPT) 14U/L (16-63) Alkaline Phosphatase 102U/L (46-116) Creatine Kinase 62U/L (39-308) Creatine Kinase MB (Mass) 1.0ng/mL (0.0-3.6) Creatine Kinase MB Relative Index 1.6% (0-4) Troponin I Quantitative < 0.017ng/mL (0.000-0.055) 0.985ng/mL (0.000-0.055) MG-Pjj-W-Type Natriuretic Peptide 3485pg/mL (0-449) Total Protein 7.5g/dL (6.4-8.2) Albumin 3.1g/dL (3.4-5.0) Thyroid Stimulating Hormone (TSH) 0.879uIU/mL (0.358-3.74) Urine Collection Type Unknown Urine Color Yellow Urine Clarity Clear Urine pH 7.[address] 1.015 Urine Protein 100mg/dL (NEG-TRACE) Urine Glucose (UA) >=1000mg/dL (NEG) Urine Ketones (Stick) Tracemg/dL (NEG) Urine Blood Trace (NEG) Urine Nitrite Negative (NEG) Urine Bilirubin Negative (NEG) Urine Urobilinogen Dipstick 0.2mg/dL (0.2 mg/dL) Urine Leukocyte Esterase Negative (NEG) Urine RBC 3-5/HPF (0-2) Urine WBC 1-4/HPF (0-4) Urine Squamous Epithelial Cells Occ/LPF Urine Bacteria 0/HPF (0-FEW) Urine Hyaline Casts Occasional/HPF Glucose (Fingerstick) 303mg/dL (70-99) Test 06/18/16 20:56 06/19/16 04:50 06/19/16 08:02 06/19/16 10:48 Glucose (Fingerstick) 286mg/dL (70-99) 228mg/dL (70-99) 318mg/dL (70-99) White Blood Count 11.6x10^3/uL (4.0-11.0) Red Blood Count 5.02x10^6/uL (4.30-5.70) Hemoglobin 13.6g/dL (13.0-17.5) Hematocrit 41.4% (39.0-53.0) Mean Corpuscular Volume 83fL (79-100) Mean Corpuscular Hemoglobin 27pg (25-35) Mean Corpuscular Hemoglobin Concent 33g/dL (31-37) Red Cell Distribution Width 15.1% (11.5-14.5) Platelet Count 251x10^3/uL (140-400) Neutrophils (%) (Auto) 83% (31-73) Lymphocytes (%) (Auto) 10% (24-48) Monocytes (%) (Auto) 7% (0-9) Eosinophils (%) (Auto) 0% (0-3) Basophils (%) (Auto) 1% (0-3) Neutrophils # (Auto) 9.6x10^3uL (1.8-7.7) Lymphocytes # (Auto) 1.1x10^3/uL (1.0-4.8) Monocytes # (Auto) 0.8x10^3/uL (0.0-1.1) Eosinophils # (Auto) 0.0x10^3/uL (0.0-0.7) Basophils # (Auto) 0.1x10^3/uL (0.0-0.2) Sodium Level 142mmol/L (136-145) Potassium Level 3.9mmol/L (3.5-5.1) Chloride Level 105mmol/L (98-107) Carbon Dioxide Level 25mmol/L (21-32) Anion Gap 12 (6-14) Blood Urea Nitrogen 28mg/dL (8-26) Creatinine 1.9mg/dL (0.7-1.3) Estimated GFR (Cockcroft-Gault) 41.3 Glucose Level 227mg/dL (70-99) Calcium Level 8.6mg/dL (8.5-10.1) Troponin I Quantitative 8.914ng/mL (0.000-0.055) Images Images Portable chest, 06/18/2016: History: Dizziness, presyncope Comparison is made to a study from 05/15/2016. The heart size and pulmonary vascularity are normal. There is calcific plaquing of the aorta. No pulmonary infiltrates are seen. There is no evidence of pleural fluid. IMPRESSION: No acute cardiopulmonary abnormality is detected. CT ABd from 08/2015: There are several bilateral renal cysts. The largest of these arises from the upper pole of the right kidney and measures 7.5 cm. There is mild bilateral renal cortical scarring. There is no evidence of hydronephrosis. There is moderate aortoiliac calcific plaquing. There is a vascular stent in the right main renal artery. WAI RAMON MD Jun 19, 2016 11:33
--- NOTE | 2016-06-19 12:29 | CARD ---
APPROVED REPORT EXAM: Two-dimensional and M-mode echocardiogram with Doppler and color Doppler. Other Information Quality : GoodHR: 103bpm Rhythm : Tachycardia INDICATION Elevated troponins, SOA, Dizziness, HTN 2D DIMENSIONS RVDd2.6 (2.9-3.5cm)Left Atrium(2D)3.7 (1.6-4.0cm) IVSd1.5 (0.7-1.1cm)Aortic Root(2D)3.4 (2.0-3.7cm) LVDd4.1 (3.9-5.9cm)LVOT Diameter2.5 (1.8-2.4cm) PWd0.1 (0.7-1.1cm)LVDs3.2 (2.5-4.0cm) FS (%) 20.3 %SV30.4 ml LVEF(%)42.0 (>50%) LEFT VENTRICLE The left ventricle is normal size. There is moderate concentric left ventricular hypertrophy. The lef t ventricular systolic function is normal and the ejection fraction is within normal range. The Eject ion Fraction is 50-55%. Septal motion consistent with conduction abnormality. Limited echo for LV wal l evaluation, left ventricular compliance was not assessed. No left ventricle thrombus noted on this study. RIGHT VENTRICLE The right ventricle is normal size. There is normal right ventricular wall thickness. The right ventr icular systolic function is normal. ATRIA The left atrium size is normal. The right atrium size is normal. AORTIC VALVE The aortic valve is calcified but opens well. There is no significant aortic valvular stenosis. MITRAL VALVE Mitral annular calcification is mild. The mitral valve leaflets are thickened. There is no mitral becca ve stenosis. GREAT VESSELS The aortic root is normal in size. The ascending aorta is normal in size. The IVC was not assessed. PERICARDIAL EFFUSION There is no evidence of significant pericardial effusion. Critical Notification Critical Value: No <Conclusion> The left ventricular systolic function is normal and the ejection fraction is within normal range. Th e Ejection Fraction is 50-55%. Limited echo only.
--- NOTE | 2016-06-19 12:53 | PDOC ---
PROGRESS NOTES Chief Complaint Chief Complaint cc: weakness, hypertension CAD with prior PCI dementia - Alzheimer's gerd BPH hypothyroidism anxiety depression type 2 diabetes mellitus, History of Present Illness History of Present Illness Patient seen and evaluated this AM. Per nursing, patient's repeated troponin elevated to 8.9. cardiology consulted; Echo ordered. Patient reports generalized weakness and malaise. No recurrence of abdominal discomfort or nausea. family at bedside, questions sought and answered. d/w nurse about plan of care. Vitals Vitals Vital Signs Date Time Temp Pulse Resp B/P Pulse Ox O2 Delivery O2 Flow Rate FiO2 06/19/16 10:45 98.2 86 19 147/101 97 Room Air 98.2 Physical Exam General: Alert, Oriented X3, Cooperative, No acute distress, Other (frail appearing. ) Heart: Regular rate, Normal S1 Lungs: Other (diminished breath sounds bilaterally. Negative chest retractions and/or other accessory muscle use. ) Abdomen: Soft, No tenderness Extremities: No cyanosis, No edema Skin: No rashes, No significant lesion Labs LABS Laboratory Tests Test 06/18/16 13:11 06/18/16 13:28 06/18/16 17:10 06/18/16 19:50 White Blood Count 11.1x10^3/uL (4.0-11.0) Red Blood Count 5.18x10^6/uL (4.30-5.70) Hemoglobin 14.1g/dL (13.0-17.5) Hematocrit 42.9% (39.0-53.0) Mean Corpuscular Volume 83fL (79-100) Mean Corpuscular Hemoglobin 27pg (25-35) Mean Corpuscular Hemoglobin Concent 33g/dL (31-37) Red Cell Distribution Width 14.5% (11.5-14.5) Platelet Count 220x10^3/uL (140-400) Neutrophils (%) (Auto) 93% (31-73) Lymphocytes (%) (Auto) 5% (24-48) Monocytes (%) (Auto) 2% (0-9) Eosinophils (%) (Auto) 0% (0-3) Basophils (%) (Auto) 1% (0-3) Neutrophils # (Auto) 10.3x10^3uL (1.8-7.7) Lymphocytes # (Auto) 0.5x10^3/uL (1.0-4.8) Monocytes # (Auto) 0.2x10^3/uL (0.0-1.1) Eosinophils # (Auto) 0.0x10^3/uL (0.0-0.7) Basophils # (Auto) 0.1x10^3/uL (0.0-0.2) Segmented Neutrophils % 90% (35-66) Band Neutrophils % 1% (0-9) Lymphocytes % 5% (24-48) Atypical Lymphocytes % (Manual) 2% (0-0) Monocytes % 1% (0-10) Basophils % 1% (0-3) Platelet Estimate Adequate (ADEQUATE) Prothrombin Time 12.7SEC (11.7-14.0) Prothromb Time International Ratio 1.0 (0.8-1.1) Sodium Level 139mmol/L (136-145) Potassium Level 3.9mmol/L (3.5-5.1) Chloride Level 104mmol/L (98-107) Carbon Dioxide Level 24mmol/L (21-32) Anion Gap 11 (6-14) Blood Urea Nitrogen 26mg/dL (8-26) Creatinine 1.7mg/dL (0.7-1.3) Estimated GFR (Cockcroft-Gault) 46.9 Glucose Level 298mg/dL (70-99) Calcium Level 8.6mg/dL (8.5-10.1) Magnesium Level 2.1mg/dL (1.8-2.4) Total Bilirubin 0.4mg/dL (0.2-1.0) Direct Bilirubin 0.1mg/dL (0.0-0.2) Aspartate Amino Transf (AST/SGOT) 14U/L (15-37) Alanine Aminotransferase (ALT/SGPT) 14U/L (16-63) Alkaline Phosphatase 102U/L (46-116) Creatine Kinase 62U/L (39-308) Creatine Kinase MB (Mass) 1.0ng/mL (0.0-3.6) Creatine Kinase MB Relative Index 1.6% (0-4) Troponin I Quantitative < 0.017ng/mL (0.000-0.055) 0.985ng/mL (0.000-0.055) VW-Fge-H-Type Natriuretic Peptide 3485pg/mL (0-449) Total Protein 7.5g/dL (6.4-8.2) Albumin 3.1g/dL (3.4-5.0) Thyroid Stimulating Hormone (TSH) 0.879uIU/mL (0.358-3.74) Urine Collection Type Unknown Urine Color Yellow Urine Clarity Clear Urine pH 7.0 Urine Specific [place] 1.015 Urine Protein 100mg/dL (NEG-TRACE) Urine Glucose (UA) >=1000mg/dL (NEG) Urine Ketones (Stick) Tracemg/dL (NEG) Urine Blood Trace (NEG) Urine Nitrite Negative (NEG) Urine Bilirubin Negative (NEG) Urine Urobilinogen Dipstick 0.2mg/dL (0.2 mg/dL) Urine Leukocyte Esterase Negative (NEG) Urine RBC 3-5/HPF (0-2) Urine WBC 1-4/HPF (0-4) Urine Squamous Epithelial Cells Occ/LPF Urine Bacteria 0/HPF (0-FEW) Urine Hyaline Casts Occasional/HPF Glucose (Fingerstick) 303mg/dL (70-99) Test 06/18/16 20:56 06/19/16 04:50 06/19/16 08:02 06/19/16 10:48 Glucose (Fingerstick) 286mg/dL (70-99) 228mg/dL (70-99) 318mg/dL (70-99) White Blood Count 11.6x10^3/uL (4.0-11.0) Red Blood Count 5.02x10^6/uL (4.30-5.70) Hemoglobin 13.6g/dL (13.0-17.5) Hematocrit 41.4% (39.0-53.0) Mean Corpuscular Volume 83fL (79-100) Mean Corpuscular Hemoglobin 27pg (25-35) Mean Corpuscular Hemoglobin Concent 33g/dL (31-37) Red Cell Distribution Width 15.1% (11.5-14.5) Platelet Count 251x10^3/uL (140-400) Neutrophils (%) (Auto) 83% (31-73) Lymphocytes (%) (Auto) 10% (24-48) Monocytes (%) (Auto) 7% (0-9) Eosinophils (%) (Auto) 0% (0-3) Basophils (%) (Auto) 1% (0-3) Neutrophils # (Auto) 9.6x10^3uL (1.8-7.7) Lymphocytes # (Auto) 1.1x10^3/uL (1.0-4.8) Monocytes # (Auto) 0.8x10^3/uL (0.0-1.1) Eosinophils # (Auto) 0.0x10^3/uL (0.0-0.7) Basophils # (Auto) 0.1x10^3/uL (0.0-0.2) Sodium Level 142mmol/L (136-145) Potassium Level 3.9mmol/L (3.5-5.1) Chloride Level 105mmol/L (98-107) Carbon Dioxide Level 25mmol/L (21-32) Anion Gap 12 (6-14) Blood Urea Nitrogen 28mg/dL (8-26) Creatinine 1.9mg/dL (0.7-1.3) Estimated GFR (Cockcroft-Gault) 41.3 Glucose Level 227mg/dL (70-99) Calcium Level 8.6mg/dL (8.5-10.1) Troponin I Quantitative 8.914ng/mL (0.000-0.055) Test 06/19/16 12:12 Troponin I Quantitative 9.502ng/mL (0.000-0.055) Review of Systems Review of Systems (+) generalized weakness Denies chest pain, palpitations, sob, abdominal pain, n/v/d, or fever/chills. Assessment and Plan Assessmemt and Plan Problems Medical Problems: (1) Accelerated hypertension Status: Acute (2) Weakness Status: Acute ASSESSMENT: 1. Mechanical fall with questionable syncope. 2. Accelerated hypertension, POA 3. Dementia, Alzheimer's. 4. Type 2 diabetes mellitus with hyperglycemia, glycouria, and peripheral neuropathy 5. Gastroesophageal reflux disease. 6. Hypothyroidism. 7. Physical debility. 8. EDUARD/CKD, creatinine of 1.7 on admission. probable diabetic nephropathy. PLAN: 1. continue telemetry monitoring 2. appreciate subspecialty input; plan for [facility], currently on heparin SQ 3. hold metformin secondary to kidney function; continue home medications as appropriate 4. order hgba1c. continue SSI and glucose checks AC. 5. renal u/s negative for overt pathology. IVF per cardiology and nephrology 6. check AM Labs 7. PT/OT evaluation and treatment Problems: Comment Review of Relevant I have reviewed the following items ismael (where applicable) has been applied. Labs Laboratory Tests Test 06/18/16 13:11 06/18/16 13:28 06/18/16 17:10 06/18/16 19:50 White Blood Count 11.1x10^3/uL (4.0-11.0) Red Blood Count 5.18x10^6/uL (4.30-5.70) Hemoglobin 14.1g/dL (13.0-17.5) Hematocrit 42.9% (39.0-53.0) Mean Corpuscular Volume 83fL (79-100) Mean Corpuscular Hemoglobin 27pg (25-35) Mean Corpuscular Hemoglobin Concent 33g/dL (31-37) Red Cell Distribution Width 14.5% (11.5-14.5) Platelet Count 220x10^3/uL (140-400) Neutrophils (%) (Auto) 93% (31-73) Lymphocytes (%) (Auto) 5% (24-48) Monocytes (%) (Auto) 2% (0-9) Eosinophils (%) (Auto) 0% (0-3) Basophils (%) (Auto) 1% (0-3) Neutrophils # (Auto) 10.3x10^3uL (1.8-7.7) Lymphocytes # (Auto) 0.5x10^3/uL (1.0-4.8) Monocytes # (Auto) 0.2x10^3/uL (0.0-1.1) Eosinophils # (Auto) 0.0x10^3/uL (0.0-0.7) Basophils # (Auto) 0.1x10^3/uL (0.0-0.2) Segmented Neutrophils % 90% (35-66) Band Neutrophils % 1% (0-9) Lymphocytes % 5% (24-48) Atypical Lymphocytes % (Manual) 2% (0-0) Monocytes % 1% (0-10) Basophils % 1% (0-3) Platelet Estimate Adequate (ADEQUATE) Prothrombin Time 12.7SEC (11.7-14.0) Prothromb Time International Ratio 1.0 (0.8-1.1) Sodium Level 139mmol/L (136-145) Potassium Level 3.9mmol/L (3.5-5.1) Chloride Level 104mmol/L (98-107) Carbon Dioxide Level 24mmol/L (21-32) Anion Gap 11 (6-14) Blood Urea Nitrogen 26mg/dL (8-26) Creatinine 1.7mg/dL (0.7-1.3) Estimated GFR (Cockcroft-Gault) 46.9 Glucose Level 298mg/dL (70-99) Calcium Level 8.6mg/dL (8.5-10.1) Magnesium Level 2.1mg/dL (1.8-2.4) Total Bilirubin 0.4mg/dL (0.2-1.0) Direct Bilirubin 0.1mg/dL (0.0-0.2) Aspartate Amino Transf (AST/SGOT) 14U/L (15-37) Alanine Aminotransferase (ALT/SGPT) 14U/L (16-63) Alkaline Phosphatase 102U/L (46-116) Creatine Kinase 62U/L (39-308) Creatine Kinase MB (Mass) 1.0ng/mL (0.0-3.6) Creatine Kinase MB Relative Index 1.6% (0-4) Troponin I Quantitative < 0.017ng/mL (0.000-0.055) 0.985ng/mL (0.000-0.055) UR-Rfk-V-Type Natriuretic Peptide 3485pg/mL (0-449) Total Protein 7.5g/dL (6.4-8.2) Albumin 3.1g/dL (3.4-5.0) Thyroid Stimulating Hormone (TSH) 0.879uIU/mL (0.358-3.74) Urine Collection Type Unknown Urine Color Yellow Urine Clarity Clear Urine pH 7.0 Urine Specific [place] 1.015 Urine Protein 100mg/dL (NEG-TRACE) Urine Glucose (UA) >=1000mg/dL (NEG) Urine Ketones (Stick) Tracemg/dL (NEG) Urine Blood Trace (NEG) Urine Nitrite Negative (NEG) Urine Bilirubin Negative (NEG) Urine Urobilinogen Dipstick 0.2mg/dL (0.2 mg/dL) Urine Leukocyte Esterase Negative (NEG) Urine RBC 3-5/HPF (0-2) Urine WBC 1-4/HPF (0-4) Urine Squamous Epithelial Cells Occ/LPF Urine Bacteria 0/HPF (0-FEW) Urine Hyaline Casts Occasional/HPF Glucose (Fingerstick) 303mg/dL (70-99) Test 06/18/16 20:56 06/19/16 04:50 06/19/16 08:02 06/19/16 10:48 Glucose (Fingerstick) 286mg/dL (70-99) 228mg/dL (70-99) 318mg/dL (70-99) White Blood Count 11.6x10^3/uL (4.0-11.0) Red Blood Count 5.02x10^6/uL (4.30-5.70) Hemoglobin 13.6g/dL (13.0-17.5) Hematocrit 41.4% (39.0-53.0) Mean Corpuscular Volume 83fL (79-100) Mean Corpuscular Hemoglobin 27pg (25-35) Mean Corpuscular Hemoglobin Concent 33g/dL (31-37) Red Cell Distribution Width 15.1% (11.5-14.5) Platelet Count 251x10^3/uL (140-400) Neutrophils (%) (Auto) 83% (31-73) Lymphocytes (%) (Auto) 10% (24-48) Monocytes (%) (Auto) 7% (0-9) Eosinophils (%) (Auto) 0% (0-3) Basophils (%) (Auto) 1% (0-3) Neutrophils # (Auto) 9.6x10^3uL (1.8-7.7) Lymphocytes # (Auto) 1.1x10^3/uL (1.0-4.8) Monocytes # (Auto) 0.8x10^3/uL (0.0-1.1) Eosinophils # (Auto) 0.0x10^3/uL (0.0-0.7) Basophils # (Auto) 0.1x10^3/uL (0.0-0.2) Sodium Level 142mmol/L (136-145) Potassium Level 3.9mmol/L (3.5-5.1) Chloride Level 105mmol/L (98-107) Carbon Dioxide Level 25mmol/L (21-32) Anion Gap 12 (6-14) Blood Urea Nitrogen 28mg/dL (8-26) Creatinine 1.9mg/dL (0.7-1.3) Estimated GFR (Cockcroft-Gault) 41.3 Glucose Level 227mg/dL (70-99) Calcium Level 8.6mg/dL (8.5-10.1) Troponin I Quantitative 8.914ng/mL (0.000-0.055) Test 06/19/16 12:12 Troponin I Quantitative 9.502ng/mL (0.000-0.055) Laboratory Tests Test 06/18/16 13:11 06/18/16 13:28 06/18/16 17:10 06/18/16 19:50 White Blood Count 11.1x10^3/uL (4.0-11.0) Red Blood Count 5.18x10^6/uL (4.30-5.70) Hemoglobin 14.1g/dL (13.0-17.5) Hematocrit 42.9% (39.0-53.0) Mean Corpuscular Volume 83fL (79-100) Mean Corpuscular Hemoglobin 27pg (25-35) Mean Corpuscular Hemoglobin Concent 33g/dL (31-37) Red Cell Distribution Width 14.5% (11.5-14.5) Platelet Count 220x10^3/uL (140-400) Neutrophils (%) (Auto) 93% (31-73) Lymphocytes (%) (Auto) 5% (24-48) Monocytes (%) (Auto) 2% (0-9) Eosinophils (%) (Auto) 0% (0-3) Basophils (%) (Auto) 1% (0-3) Neutrophils # (Auto) 10.3x10^3uL (1.8-7.7) Lymphocytes # (Auto) 0.5x10^3/uL (1.0-4.8) Monocytes # (Auto) 0.2x10^3/uL (0.0-1.1) Eosinophils # (Auto) 0.0x10^3/uL (0.0-0.7) Basophils # (Auto) 0.1x10^3/uL (0.0-0.2) Segmented Neutrophils % 90% (35-66) Band Neutrophils % 1% (0-9) Lymphocytes % 5% (24-48) Atypical Lymphocytes % (Manual) 2% (0-0) Monocytes % 1% (0-10) Basophils % 1% (0-3) Platelet Estimate Adequate (ADEQUATE) Prothrombin Time 12.7SEC (11.7-14.0) Prothromb Time International Ratio 1.0 (0.8-1.1) Sodium Level 139mmol/L (136-145) Potassium Level 3.9mmol/L (3.5-5.1) Chloride Level 104mmol/L (98-107) Carbon Dioxide Level 24mmol/L (21-32) Anion Gap 11 (6-14) Blood Urea Nitrogen 26mg/dL (8-26) Creatinine 1.7mg/dL (0.7-1.3) Estimated GFR (Cockcroft-Gault) 46.9 Glucose Level 298mg/dL (70-99) Calcium Level 8.6mg/dL (8.5-10.1) Magnesium Level 2.1mg/dL (1.8-2.4) Total Bilirubin 0.4mg/dL (0.2-1.0) Direct Bilirubin 0.1mg/dL (0.0-0.2) Aspartate Amino Transf (AST/SGOT) 14U/L (15-37) Alanine Aminotransferase (ALT/SGPT) 14U/L (16-63) Alkaline Phosphatase 102U/L (46-116) Creatine Kinase 62U/L (39-308) Creatine Kinase MB (Mass) 1.0ng/mL (0.0-3.6) Creatine Kinase MB Relative Index 1.6% (0-4) Troponin I Quantitative < 0.017ng/mL (0.000-0.055) 0.985ng/mL (0.000-0.055) MO-Vge-L-Type Natriuretic Peptide 3485pg/mL (0-449) Total Protein 7.5g/dL (6.4-8.2) Albumin 3.1g/dL (3.4-5.0) Thyroid Stimulating Hormone (TSH) 0.879uIU/mL (0.358-3.74) Urine Collection Type Unknown Urine Color Yellow Urine Clarity Clear Urine pH 7.0 Urine Specific [place] 1.015 Urine Protein 100mg/dL (NEG-TRACE) Urine Glucose (UA) >=1000mg/dL (NEG) Urine Ketones (Stick) Tracemg/dL (NEG) Urine Blood Trace (NEG) Urine Nitrite Negative (NEG) Urine Bilirubin Negative (NEG) Urine Urobilinogen Dipstick 0.2mg/dL (0.2 mg/dL) Urine Leukocyte Esterase Negative (NEG) Urine RBC 3-5/HPF (0-2) Urine WBC 1-4/HPF (0-4) Urine Squamous Epithelial Cells Occ/LPF Urine Bacteria 0/HPF (0-FEW) Urine Hyaline Casts Occasional/HPF Glucose (Fingerstick) 303mg/dL (70-99) Test 06/18/16 20:56 06/19/16 04:50 06/19/16 08:02 06/19/16 10:48 Glucose (Fingerstick) 286mg/dL (70-99) 228mg/dL (70-99) 318mg/dL (70-99) White Blood Count 11.6x10^3/uL (4.0-11.0) Red Blood Count 5.02x10^6/uL (4.30-5.70) Hemoglobin 13.6g/dL (13.0-17.5) Hematocrit 41.4% (39.0-53.0) Mean Corpuscular Volume 83fL (79-100) Mean Corpuscular Hemoglobin 27pg (25-35) Mean Corpuscular Hemoglobin Concent 33g/dL (31-37) Red Cell Distribution Width 15.1% (11.5-14.5) Platelet Count 251x10^3/uL (140-400) Neutrophils (%) (Auto) 83% (31-73) Lymphocytes (%) (Auto) 10% (24-48) Monocytes (%) (Auto) 7% (0-9) Eosinophils (%) (Auto) 0% (0-3) Basophils (%) (Auto) 1% (0-3) Neutrophils # (Auto) 9.6x10^3uL (1.8-7.7) Lymphocytes # (Auto) 1.1x10^3/uL (1.0-4.8) Monocytes # (Auto) 0.8x10^3/uL (0.0-1.1) Eosinophils # (Auto) 0.0x10^3/uL (0.0-0.7) Basophils # (Auto) 0.1x10^3/uL (0.0-0.2) Sodium Level 142mmol/L (136-145) Potassium Level 3.9mmol/L (3.5-5.1) Chloride Level 105mmol/L (98-107) Carbon Dioxide Level 25mmol/L (21-32) Anion Gap 12 (6-14) Blood Urea Nitrogen 28mg/dL (8-26) Creatinine 1.9mg/dL (0.7-1.3) Estimated GFR (Cockcroft-Gault) 41.3 Glucose Level 227mg/dL (70-99) Calcium Level 8.6mg/dL (8.5-10.1) Troponin I Quantitative 8.914ng/mL (0.000-0.055) Test 06/19/16 12:12 Troponin I Quantitative 9.502ng/mL (0.000-0.055) Medications Current Medications Hydralazine HCl (Apresoline) 20 mg 1X ONCE IVP Last administered on 06/18/16 13:19; Start 06/18/16 at 13:15; Stop 06/18/16 at 13:16; Status DC Ondansetron HCl (Zofran) 4 mg STK-MED ONCE .ROUTE ; Start 06/18/16 at 13:45; Stop 06/18/16 at 13:46; Status DC Ondansetron HCl (Zofran) 4 mg 1X ONCE IV Last administered on 06/18/16 14:00 ; Start 06/18/16 at 14:00; Stop 06/18/16 at 14:01; Status DC Ondansetron HCl (Zofran) 4 mg PRN Q8HRS PRN IV NAUSEA/VOMITING; Start 06/18/16 at 14:15; Stop 06/19/16 at 14:14 Hydralazine HCl (Apresoline) 20 mg 1X ONCE IVP Last administered on 06/18/16 15:33; Start 06/18/16 at 15:30; Stop 06/18/16 at 15:31; Status DC Acetaminophen (Tylenol) 325 mg PRN Q6HRS PRN PO MILD PAIN / TEMP; Start at 16:30 Acetaminophen/ Hydrocodone Bitart (Lortab 5/325) 1 tab PRN Q6HRS PRN PO MODERATE TO SEVERE PAIN; Start 06/18/16 at 16:30 Hydralazine HCl (Apresoline) 10 mg PRN Q4HRS PRN IVP ELEVATED BP, SEE COMMENTS Last administered on 06/19/16 00:08; Start 06/18/16 at 16:30 Ondansetron HCl (Zofran) 4 mg PRN Q8HRS PRN IV NAUSEA/VOMITING; Start 06/18/16 at 16:30 Albuterol Sulfate (Ventolin Neb Soln) 2.5 mg PRN Q4HRS PRN NEB SHORTNESS OF BREATH; Start 06/18/16 at 16:30 Aspirin (Children'S Aspirin) 81 mg DAILY PO Last administered on 06/19/16 08: 31; Start 06/19/16 at 09:00 Donepezil HCl (Aricept) 10 mg QHS PO Last administered on 06/18/16 20:35; Start 06/18/16 at 21:00 Gabapentin (Neurontin) 300 mg BID PO Last administered on 06/19/16 08:31; Start 06/18/16 at 21:00 Glimepiride (Amaryl) 4 mg BID PO Last administered on 06/19/16 08:33; Start at 21:00 Levothyroxine Sodium (Synthroid) 100 mcg DAILY07 PO Last administered on 06:29; Start 06/19/16 at 07:00 Losartan Potassium (Cozaar) 50 mg DAILY PO Last administered on 06/19/16 08:32 ; Start 06/19/16 at 09:00 Metformin HCl (Glucophage) 750 mg BIDWMEALS PO Last administered on 06/19/16 08:31; Start 06/19/16 at 08:00; Stop 06/19/16 at 09:50; Status DC Nitroglycerin (Nitrostat) 0.4 mg PRN Q5MIN PRN SL CHEST PAIN; Start 06/18/16 at 20:00 Ondansetron HCl (Zofran Odt) 4 mg PRN Q6HRS PRN PO NAUSEA/VOMITING; Start 06/18 at 20:00 Insulin Aspart (Novolog) 0-9 UNITS TIDWMEALS SQ Last administered on 06/19/16 11:07; Start 06/19/16 at 08:00 Dextrose 12.5 gm 12.5 gm PRN Q15MIN PRN IV SEE COMMENTS; Start 06/18/16 at 22: 30 Sodium Chloride 1,000 ml @ 100 mls/hr 1X ONCE IV ; Start 06/19/16 at 10:00; Stop 06/19/16 at 10:02; Status DC Heparin Sodium/ Dextrose 500 ml @ 0 mls/hr CONT PRN IV SEE I/O RECORD Last administered on 06/19/16 11:02; Start 06/19/16 at 10:00 Heparin Sodium (Porcine) (Heparin Sodium) 2,100 unit PRN Q6HRS PRN IV FOR UFH LEVEL LESS THAN 0.2 Last administered on 06/19/16 10:55; Start 06/19/16 at 10: 00 Labetalol HCl 20 mg 20 mg PRN Q2HR PRN IVP HYPERTENSION, SEE COMMENTS; Start at 10:00 Sodium Chloride (Iv Sodium Chloride 0.45%) 1,000 ml @ 100 mls/hr Q10H IV Last administered on 06/19/16 10:19; Start 06/19/16 at 10:00 Acetylcysteine (Mucomyst 20% Oral Solution) 1,200 mg BID PO ; Start 06/19/16 at 21:00; Stop 06/21/16 at 20:59 Active Scripts Active Reported Gabapentin 300 Mg Capsule 300 Mg PO BID Losartan Potassium 50 Mg Tablet 100 Mg PO HS Metformin Hcl Er (Metformin Hcl) 750 Mg Tab.er.24h 750 Mg PO BID Zofran (Ondansetron Hcl) 4 Mg Tablet 1 Tab PO Q6HRS Glimepiride 4 Mg Tablet 1 Tab PO BID Cinnamon (Cinnamon Bark) 500 Mg Capsule 500 Mg PO DAILY Aspir 81 (Aspirin) 81 Mg Tablet.dr 1 Tab PO DAILY Levothyroxine Sodium 100 Mcg Tablet 1 Tab PO DAILY07 NITROGLYCERIN SubLingual (Nitroglycerin) 0.4 Mg Tab.subl 0.4 Mg SL PRN Q5MIN PRN Donepezil Hcl 10 Mg Tablet 1 Tab PO HS Vitals/I & O Vital Sign - Last 24 Hours 06/18/16 06/18/16 06/18/16 06/18/16 12:52 13:03 13:17 13:19 Temp 98.1 98.1 Pulse 89 92 90 90 Resp 18 20 18 B/P 229/111 222/106 207/103 207/103 Pulse Ox 97 95 95 O2 Delivery Room Air 06/18/16 06/18/16 06/18/16 06/18/16 13:33 14:03 15:25 15:33 Pulse 100 106 98 98 Resp 20 20 18 B/P 177/85 182/91 191/106 191/106 Pulse Ox 96 97 98 O2 Delivery Room Air 06/18/16 06/18/16 06/18/16 06/18/16 15:40 16:04 16:05 16:43 Temp 98.0 98.0 98.0 98.0 Pulse 102 119 119 109 Resp 20 20 20 B/P 170/85 185/100 185/100 161/88 Pulse Ox 96 100 100 O2 Delivery Room Air Room Air Room Air 06/18/16 06/18/16 06/18/16 06/18/16 16:48 18:20 19:30 20:30 Temp 98.5 98.5 Pulse 119 Resp 16 B/P 176/102 Pulse Ox 97 98 O2 Delivery Room Air Room Air Room Air Room Air 06/18/16 06/18/16 06/19/16 06/19/16 20:41 23:09 00:06 00:08 Temp 98.7 98.7 Pulse 117 111 108 108 Resp 18 B/P 159/92 165/100 194/104 194/104 Pulse Ox 97 O2 Delivery Room Air 06/19/16 06/19/16 06/19/16 06/19/16 02:32 07:00 08:32 10:45 Temp 98.6 98.7 98.2 98.6 98.7 98.2 Pulse 107 98 98 86 Resp 19 B/P 149/86 180/94 180/94 147/101 Pulse Ox 98 96 97 O2 Delivery Room Air Room Air Room Air Intake and Output 06/18/16 06/18/16 06/19/16 15:00 23:00 07:00 Intake Total 200 ml Output Total 350 ml 100 ml Balance -350 ml 100 ml CASTLE,NIAL K III DO Jun 19, 2016 12:53
[2016-06-19] MEDS: DONEPEZIL HCL 10 MG TABLET. PO SCH (22:09)
[2016-06-19] MEDS: ACETYLCYSTEINE 20% ORAL SOLN 600 MG/3 ML SYRINGE. PO SCH (22:11)
[2016-06-20] VITALS (13 sets, daily range): BP systolic 142–202; BP diastolic 74–127
[2016-06-20 06:14] LABS: BASO % 0 % (0-3); EOS % 2 % (0-3); HEMATOCRIT 39.3 % (39.0-53.0); HEMOGLOBIN 12.5 g/dL (13.0-17.5); LYMPH # 1.5 x10^3/uL (1.0-4.8); LYMPH % 14 % (24-48); MEAN CORPUSCULAR HEMOGLOBIN 27 pg (25-35); MEAN CORPUSCULAR HGB CONC 32 g/dL (31-37); MEAN CORPUSCULAR VOLUME 84 fL (79-100); MONO % 6 % (0-9); NEUT % 78 % (31-73); PLATELET COUNT 213 x10^3/uL (140-400); RED BLOOD COUNT 4.68 x10^6/uL (4.30-5.70); RED CELL DISTRIBUTION WIDTH 15.4 % (11.5-14.5); WHITE BLOOD COUNT 11.3 x10^3/uL (4.0-11.0)
[2016-06-20 06:33] LABS: ALBUMIN 2.6 g/dL (3.4-5.0); CALCIUM 8.4 mg/dL (8.5-10.1); CREATININE 2.2 mg/dL (0.7-1.3); GFR 34.8; PHOSPHORUS 2.4 mg/dL (2.6-4.7); POTASSIUM 3.7 mmol/L (3.5-5.1)
[2016-06-20] MEDS: INSULIN ASPART 300 UNITS/3 ML INSULN.PEN SQ SCH ×3 (08:00→18:28)
[2016-06-20] MEDS: IV 1/2 NORMAL SALINE 1,000 ML IV SCH ×2 (08:11→16:25)
[2016-06-20] MEDS: ASPIRIN CHEWABLE 81 MG TABLET. PO SCH (08:12)
[2016-06-20] MEDS: LOSARTAN POTASSIUM 50 MG TABLET. PO SCH (08:15)
--- NOTE | 2016-06-20 08:26 | CONS ---
DATE OF CONSULTATION: PRIMARY CARE PHYSICIAN: Dr. Hook. REASON FOR CONSULTATION: Chronic renal insufficiency, precath counseling regarding contrast nephropathy. HISTORY OF PRESENT ILLNESS: The patient is an 81-year-old -[place] gentleman who was previously seen by Dr. Bridges. 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 He apparently had developed altered mental status at home and his had called EMS. He is known to have diabetes, hypertension, CAD and some amount of underlying dementia also. He did appear to have had a mechanical fall per the ER note. He does not recollect exactly what happened. His called EMS and he was brought here for further evaluation. His troponins have trended upwards from 0.95 to 8.9 and he is felt to require heart cath. His previous creatinines have been as high as 1.7, is up to 1.9 today. His blood pressures were extremely elevated at presentation, are much better now and already running in the 140s. He was mildly tachycardic, is much better now. He does not know his A1c. UA did have significant amount of glycosuria also. PAST MEDICAL HISTORY: Other than as documented in my notes is positive for renal artery stenting, presumably by DrHector ____; longstanding diabetes with decreased vision, unclear if he has retinopathy per se; damaged nerves in the throat, details not known; history of coronary artery disease and stents to his heart, element of CHF; however, most recent EF is preserved, hence not systolic; ventral hernia repair; chronic arthritis, no NSAID use; lumbar fusion; depression; anxiety; previous history of smoking. For rest of details, see electronic records. WAI RAMON MD DR: BESSIE/rach JOB#: [id number] / [id number]
[2016-06-20] MEDS: LABETALOL 20 MG/4 ML DISP.SYRIN. IVP PRN ×3 (09:35→21:09)
[2016-06-20] MEDS ORDERED: LIDOCAINE 2% 20 ML VIAL. ONE (09:46)
[2016-06-20] MEDS ORDERED: IODIXANOL 320 MG/ML 100 ML VIAL. ONE ×2 (09:46→11:19)
--- NOTE | 2016-06-20 10:31 | RAD ---
Renal ultrasound, 06/19/2016: History: Elevated creatinine level The right kidney measures 15.2 cm in length. A 7.2 cm cyst arising from the upper pole the right kidney is contributing to this high measurement. Several other smaller right renal cysts are present. The right renal parenchymal echogenicity is otherwise normal. There is no evidence of hydronephrosis on the right. The left kidney could not be visualized at this time due to overlying bowel gas. Limited views of the urinary bladder were obtained. The prevoiding volume was 288 cc. Following voiding there was approximately 85 cc of residual urine in the bladder. IMPRESSION: 1. Right renal cysts. 2. No evidence of right renal obstruction. 3. Nonvisualization of the left kidney due to overlying bowel gas. 4. Small volume of post voiding residual urine in the bladder. Deep Doppler renal ultrasound, 06/19/2016: History: Malignant hypertension Evaluation of the main renal arteries was attempted including grayscale, color-flow and spectral Doppler analysis. The left kidney and renal arteries were totally obscured by overlying bowel. There is poor visualization of the right main renal artery. Arterial Doppler waveforms obtained from the region of the right renal artery do not demonstrate high velocities or a parvus/tardus phenomena. IMPRESSION: Inadequate visualization of the renal arteries as described above.
[2016-06-20] MEDS ORDERED: HEPARIN for IV BOLUS 10,000 UNIT/10 ML VIAL. ONE (11:51)
[2016-06-20] MEDS ORDERED: fentaNYL PF VIAL 100 MCG/2 ML VIAL ONE (11:51)
[2016-06-20] MEDS ORDERED: VERAPAMIL 5 MG/2 ML VIAL. ONE (11:51)
[2016-06-20] MEDS ORDERED: NITROGLYCERIN 200 MCG/2 ML SYRINGE FOR CATH/VASC LAB. ONE (11:51)
[2016-06-20] MEDS ORDERED: MIDAZOLAM HCL/PF 2 MG/2 ML VIAL. ONE (11:52)
[2016-06-20] MEDS ORDERED: VERAPAMIL 5 MG/2 ML VIAL. IART ONE (12:30)
[2016-06-20] MEDS ORDERED: fentaNYL PF VIAL 100 MCG/2 ML VIAL IV ONE (12:30)
[2016-06-20] MEDS ORDERED: MIDAZOLAM HCL/PF 2 MG/2 ML VIAL. IV ONE (12:30)
[2016-06-20] MEDS ORDERED: NITROGLYCERIN 200 MCG/2 ML SYRINGE FOR CATH/VASC LAB. IART ONE (12:30)
[2016-06-20] MEDS ORDERED: LIDOCAINE 2% 20 ML VIAL. IJ ONE (12:30)
[2016-06-20] MEDS ORDERED: IODIXANOL 320 MG/ML 100 ML VIAL. IART ONE (12:30)
[2016-06-20] MEDS ORDERED: HEPARIN for IV BOLUS 10,000 UNIT/10 ML VIAL. IART ONE (12:30)
--- NOTE | 2016-06-20 12:53 | PDOC ---
SUBJECTIVE ROS EDUARD/ CKD III Just back from [facility] CVS: no Orthopnea, no CP RESP: no SOB, no THRASHER GI: no Nausea, no Vomiting : no Dysuria, no Urgency OBJECTIVE Vital Signs Vital Signs Date Time Temp Pulse Resp B/P Pulse Ox O2 Delivery O2 Flow Rate FiO2 06/20/16 12:36 31 97 Room Air 06/20/16 12:34 86 183/95 06/20/16 07:55 98.6 98.6 I & 0 Intake and Output 06/20/16 07:00 Intake Total 1910 ml Output Total 1650 ml Balance 260 ml Intake Oral 500 ml IV Total 1410 ml Output Urine Total 1650 ml # Voids 1 # Bowel Movements 1 PHYSICAL EXAM Physical Exam General Appearance: Awake Alert Oriented x 2 In no Distress; some memory deficits Eyes: VIsion Unchanged Conjunctiva Normal EN: No EN Drainage Mucous Memb. moist Neck: no JVD no JVP Supple no Thyromegaly CVS: S1 S2 ? Murmur No Gallop No Rub no Edema Resp: no Rales no Rhonchi no Acc. Muscle use GI: BS +ve NO Bruit Non Tender Non Distended : no CVA tenderness; no Suprapubic Tenderness Assessment & Plan ? EDUARD - check PVR and may need nixon; ? due to better BP control CKD III (presumed HTNSive/ DM /NS given other foci of ASVDz). Current FLuid and E-lyte status does not necessitate emergent need for Dialysis. Creat is close to baseline, Renal US report ntoed Low Phos - IV K phos x 1 NSTEMI - [facility] done - hence ct IVF and NAC as ordered Malig HTN: Current BP meds reviewed. 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 Proteinuria - DM/ HTNSive /NS - quantitate with ratio Discussed Plan of Care with pt and explained small risk of CAN asso EDUARD. COMMENT/RELEVANT DATA Meds Current Medications Medications (Trade) Dose Ordered Sig/Dre Start Time Stop Time Status Last Admin Dose Admin Acetaminophen (Tylenol) 325 mg PRN Q6HRS PRN 06/18/16 16:30 Acetaminophen/ Hydrocodone Bitart (Lortab 5/325) 1 tab PRN Q6HRS PRN 06/18/16 16:30 Acetylcysteine (Mucomyst 20% Oral Solution) 1,200 mg BID 06/19/16 21:00 06/21/16 20:59 06/19/16 22:11 1,200 MG Albuterol Sulfate (Ventolin Neb Soln) 2.5 mg PRN Q4HRS PRN 06/18/16 16:30 Aspirin (Children'S Aspirin) 81 mg DAILY 06/19/16 09:00 06/20/16 08:12 81 MG Dextrose 12.5 gm 12.5 gm PRN Q15MIN PRN 06/18/16 22:30 Donepezil HCl (Aricept) 10 mg QHS 06/18/16 21:00 06/19/16 22:09 10 MG Fentanyl Citrate (Fentanyl 2ml Vial) 100 mcg 1X ONCE 06/20/16 12:30 06/20/16 12:31 DC 06/20/16 12:36 50 MCG Gabapentin (Neurontin) 300 mg BID 06/18/16 21:00 06/19/16 22:09 300 MG Glimepiride (Amaryl) 4 mg BID 06/18/16 21:00 06/19/16 22:10 4 MG Heparin Sodium (Porcine) (Heparin Sodium) 2,500 unit 1X ONCE 06/20/16 12:30 06/20/16 12:31 DC 06/20/16 12:38 2,500 UNIT Heparin Sodium/ Dextrose 500 ml @ 0 mls/hr CONT PRN 06/19/16 10:00 06/19/16 11:02 0 MLS/HR Heparin Sodium/ Sodium Chloride 1,000 unit 1X ONCE 06/20/16 12:30 06/20/16 12:31 DC 06/20/16 12:32 1,000 UNIT Hydralazine HCl (Apresoline) 10 mg PRN Q4HRS PRN 06/18/16 16:30 06/19/16 00:08 10 MG Insulin Aspart (Novolog) 0-9 UNITS TIDWMEALS 06/19/16 08:00 06/19/16 11:07 5 UNITS Iodixanol (Visipaque 320) 100 ml 1X ONCE 06/20/16 12:30 06/20/16 12:31 DC 06/20/16 12:35 105 ML Labetalol HCl 20 mg 20 mg PRN Q2HR PRN 06/19/16 10:00 06/20/16 09:35 20 MG Levothyroxine Sodium (Synthroid) 100 mcg DAILY07 06/19/16 07:00 06/19/16 06:29 100 MCG Lidocaine HCl 20 ml 1X ONCE 06/20/16 12:30 06/20/16 12:31 DC 06/20/16 12:36 2 ML Losartan Potassium (Cozaar) 50 mg DAILY 06/19/16 09:00 06/20/16 08:15 50 MG Metformin HCl (Glucophage) 750 mg BIDWMEALS 06/19/16 08:00 06/19/16 09:50 DC 06/19/16 08:31 750 MG Midazolam HCl (Versed) 2 mg 1X ONCE 06/20/16 12:30 06/20/16 12:31 DC 06/20/16 12:37 1 MG Nitroglycerin (Nitroglycerin) 200 mcg 1X ONCE 06/20/16 12:30 06/20/16 12:31 DC 06/20/16 12:32 200 MCG Nitroglycerin (Nitrostat) 0.4 mg PRN Q5MIN PRN 06/18/16 20:00 Ondansetron HCl (Zofran Odt) 4 mg PRN Q6HRS PRN 06/18/16 20:00 Ondansetron HCl (Zofran) 4 mg PRN Q8HRS PRN 06/18/16 16:30 Sodium Chloride (Iv Sodium Chloride 0.45%) 1,000 ml @ 100 mls/hr Q10H 06/19/16 10:00 06/20/16 08:11 100 MLS/HR Verapamil HCl (Verapamil) 2.5 mg 1X ONCE 06/20/16 12:30 06/20/16 12:31 DC 06/20/16 12:34 2.5 MG Lab Laboratory Tests Test 06/19/16 15:04 06/19/16 17:00 06/19/16 17:08 06/19/16 21:06 Glucose (Fingerstick) 136mg/dL (70-99) 103mg/dL (70-99) 268mg/dL (70-99) Heparin Anti-Xa Act, Unfractionated < 0.10IU/mL (0.30-0.70) Troponin I Quantitative 10.724ng/mL (0.000-0.055) Test 06/20/16 00:20 06/20/16 02:30 06/20/16 06:54 06/20/16 08:00 Heparin Anti-Xa Act, Unfractionated 0.57IU/mL (0.30-0.70) 0.83IU/mL (0.30-0.70) White Blood Count 11.3x10^3/uL (4.0-11.0) Red Blood Count 4.68x10^6/uL (4.30-5.70) Hemoglobin 12.5g/dL (13.0-17.5) Hematocrit 39.3% (39.0-53.0) Mean Corpuscular Volume 84fL (79-100) Mean Corpuscular Hemoglobin 27pg (25-35) Mean Corpuscular Hemoglobin Concent 32g/dL (31-37) Red Cell Distribution Width 15.4% (11.5-14.5) Platelet Count 213x10^3/uL (140-400) Neutrophils (%) (Auto) 78% (31-73) Lymphocytes (%) (Auto) 14% (24-48) Monocytes (%) (Auto) 6% (0-9) Eosinophils (%) (Auto) 2% (0-3) Basophils (%) (Auto) 0% (0-3) Neutrophils # (Auto) 8.8x10^3uL (1.8-7.7) Lymphocytes # (Auto) 1.5x10^3/uL (1.0-4.8) Monocytes # (Auto) 0.7x10^3/uL (0.0-1.1) Eosinophils # (Auto) 0.3x10^3/uL (0.0-0.7) Basophils # (Auto) 0.0x10^3/uL (0.0-0.2) Sodium Level 136mmol/L (136-145) Potassium Level 3.7mmol/L (3.5-5.1) Chloride Level 102mmol/L (98-107) Carbon Dioxide Level 25mmol/L (21-32) Anion Gap 9 (6-14) Blood Urea Nitrogen 36mg/dL (8-26) Creatinine 2.2mg/dL (0.7-1.3) Estimated GFR (Cockcroft-Gault) 34.8 Glucose Level 230mg/dL (70-99) Calcium Level 8.4mg/dL (8.5-10.1) Phosphorus Level 2.4mg/dL (2.6-4.7) Albumin 2.6g/dL (3.4-5.0) Glucose (Fingerstick) 154mg/dL (70-99) Test 06/20/16 11:38 Glucose (Fingerstick) 204mg/dL (70-99) Other 1. Right renal cysts. 2. No evidence of right renal obstruction. 3. Nonvisualization of the left kidney due to overlying bowel gas. 4. Small volume of post voiding residual urine in the bladder. WAI RAMON MD Jun 20, 2016 12:53
--- NOTE | 2016-06-20 12:53 | PDOC ---
MODERATE SEDATION ASSESSMENT RISKS/ALTERNATIVES Risks/Alternatives Risks and alternatives of this type of sedation and procedure discussed with: RISK/ALTERNATIVES: Patient H & P ON CHART H & P H & P on chart and reviewed for co-morbid conditions and appropriate labs. H&P ON CHART: Yes STATUS PREG STATUS ASSESSED: N/A MEDS/ALLERGIES REVIEWED Meds/Allergies Reviewed Medications and Allergies including time and route of recently administered narcotics and sedatives. MEDS/ALLERGIES REVIEWED: Yes ASA RATING ASA RATING: II AIRWAY ASSESSMENT Airway Assessment Airway patency, oral function limitations, presence of caps, crowns, dentures, partials, and ability to extend neck assessed. AIRWAY ASSESSMENT: Yes MALLAMPATI SCORE MALLAMPATI SCORE: II PRE-SEDATION ASSESSMENT PRE-SEDATION ASSESSMENT: Yes BRIAN MANDUJANO MD Jun 20, 2016 12:53
[2016-06-20] MEDS ORDERED: NITROGLYCERIN SUBLINGUAL 0.4 MG BOTTLE OF 25. SL PRN (13:00)
[2016-06-20] MEDS: LEVOTHYROXINE 100 MCG TABLET PO SCH (13:05)
[2016-06-20] MEDS: GLIMEPIRIDE 2 MG TABLET. PO SCH (13:05)
[2016-06-20] MEDS: GABAPENTIN 300 MG CAPSULE. PO SCH ×2 (13:05→21:08)
[2016-06-20] MEDS: ACETYLCYSTEINE 20% ORAL SOLN 600 MG/3 ML SYRINGE. PO SCH ×2 (13:09→21:09)
--- NOTE | 2016-06-20 13:26 | PDOC ---
PROGRESS NOTES Chief Complaint Chief Complaint cc: weakness, hypertension CAD with prior PCI dementia - Alzheimer's gerd BPH hypothyroidism anxiety depression type 2 diabetes mellitus, History of Present Illness History of Present Illness Patient seen and evaluated this AM. Patient resting, in no apparent distress. Patient reports generalized weakness and malaise. . family at bedside, questions sought and answered. d/w nurse about plan of care. Vitals Vitals Vital Signs Date Time Temp Pulse Resp B/P Pulse Ox O2 Delivery O2 Flow Rate FiO2 06/20/16 12:36 31 97 Room Air 06/20/16 12:34 86 183/95 06/20/16 07:55 98.6 98.6 Physical Exam General: Alert, Cooperative, No acute distress Heart: Regular rate (SR), Normal S1, Normal S2, Other (2/6 systolic murmur to LLS border) Lungs: Other (diminished breath sounds bilaterally. Negative chest retractions and/or other accessory muscle use. ) Abdomen: Soft, No tenderness Extremities: No cyanosis, No tenderness/swelling Skin: No breakdown, No significant lesion Labs LABS Laboratory Tests Test 06/19/16 15:04 06/19/16 17:00 06/19/16 17:08 06/19/16 21:06 Glucose (Fingerstick) 136mg/dL (70-99) 103mg/dL (70-99) 268mg/dL (70-99) Heparin Anti-Xa Act, Unfractionated < 0.10IU/mL (0.30-0.70) Troponin I Quantitative 10.724ng/mL (0.000-0.055) Test 06/20/16 00:20 06/20/16 02:30 06/20/16 06:54 06/20/16 08:00 Heparin Anti-Xa Act, Unfractionated 0.57IU/mL (0.30-0.70) 0.83IU/mL (0.30-0.70) White Blood Count 11.3x10^3/uL (4.0-11.0) Red Blood Count 4.68x10^6/uL (4.30-5.70) Hemoglobin 12.5g/dL (13.0-17.5) Hematocrit 39.3% (39.0-53.0) Mean Corpuscular Volume 84fL (79-100) Mean Corpuscular Hemoglobin 27pg (25-35) Mean Corpuscular Hemoglobin Concent 32g/dL (31-37) Red Cell Distribution Width 15.4% (11.5-14.5) Platelet Count 213x10^3/uL (140-400) Neutrophils (%) (Auto) 78% (31-73) Lymphocytes (%) (Auto) 14% (24-48) Monocytes (%) (Auto) 6% (0-9) Eosinophils (%) (Auto) 2% (0-3) Basophils (%) (Auto) 0% (0-3) Neutrophils # (Auto) 8.8x10^3uL (1.8-7.7) Lymphocytes # (Auto) 1.5x10^3/uL (1.0-4.8) Monocytes # (Auto) 0.7x10^3/uL (0.0-1.1) Eosinophils # (Auto) 0.3x10^3/uL (0.0-0.7) Basophils # (Auto) 0.0x10^3/uL (0.0-0.2) Sodium Level 136mmol/L (136-145) Potassium Level 3.7mmol/L (3.5-5.1) Chloride Level 102mmol/L (98-107) Carbon Dioxide Level 25mmol/L (21-32) Anion Gap 9 (6-14) Blood Urea Nitrogen 36mg/dL (8-26) Creatinine 2.2mg/dL (0.7-1.3) Estimated GFR (Cockcroft-Gault) 34.8 Glucose Level 230mg/dL (70-99) Calcium Level 8.4mg/dL (8.5-10.1) Phosphorus Level 2.4mg/dL (2.6-4.7) Albumin 2.6g/dL (3.4-5.0) Glucose (Fingerstick) 154mg/dL (70-99) Test 06/20/16 11:38 Glucose (Fingerstick) 204mg/dL (70-99) Review of Systems Review of Systems (+) generalized weakness Denies chest pain, palpitations, sob, lightheadedness/dizziness, abdominal pain , n/v/d, or fever/chills. Assessment and Plan Assessmemt and Plan Problems Medical Problems: (1) Accelerated hypertension Status: Acute (2) Weakness Status: Acute ASSESSMENT: 1. Mechanical fall with questionable syncope. 2. Accelerated hypertension, POA. currently labile 3. Dementia, Alzheimer's. 4. Type 2 diabetes mellitus with hyperglycemia, glycouria, and peripheral neuropathy 5. Gastroesophageal reflux disease. 6. Hypothyroidism. 7. Physical debility. 8. EDUARD/CKD, creatinine of 1.7 on admission. probable diabetic nephropathy. PLAN: 1. continue telemetry monitoring 2. appreciate subspecialty input; [facility] this AM, currently on heparin SQ 3. hold metformin secondary to kidney function; continue home medications as appropriate 4. order [id number]. continue SSI and glucose checks AC. 5. IVF and phosphorus repletion per nephrology 6. check AM Labs 7. PT/OT evaluation and treatment 8. Referral to social services analyst for SNU evaluation. Problems: Comment Review of Relevant I have reviewed the following items ismael (where applicable) has been applied. Labs Laboratory Tests Test 06/18/16 13:28 06/18/16 17:10 06/18/16 19:50 06/18/16 20:56 Urine Collection Type Unknown Urine Color Yellow Urine Clarity Clear Urine pH 7.0 Urine Specific Christine 1.015 Urine Protein 100mg/dL (NEG-TRACE) Urine Glucose (UA) >=1000mg/dL (NEG) Urine Ketones (Stick) Tracemg/dL (NEG) Urine Blood Trace (NEG) Urine Nitrite Negative (NEG) Urine Bilirubin Negative (NEG) Urine Urobilinogen Dipstick 0.2mg/dL (0.2 mg/dL) Urine Leukocyte Esterase Negative (NEG) Urine RBC 3-5/HPF (0-2) Urine WBC 1-4/HPF (0-4) Urine Squamous Epithelial Cells Occ/LPF Urine Bacteria 0/HPF (0-FEW) Urine Hyaline Casts Occasional/HPF Glucose (Fingerstick) 303mg/dL (70-99) 286mg/dL (70-99) Troponin I Quantitative 0.985ng/mL (0.000-0.055) Test 06/19/16 04:50 06/19/16 08:02 06/19/16 10:48 06/19/16 12:12 White Blood Count 11.6x10^3/uL (4.0-11.0) Red Blood Count 5.02x10^6/uL (4.30-5.70) Hemoglobin 13.6g/dL (13.0-17.5) Hematocrit 41.4% (39.0-53.0) Mean Corpuscular Volume 83fL (79-100) Mean Corpuscular Hemoglobin 27pg (25-35) Mean Corpuscular Hemoglobin Concent 33g/dL (31-37) Red Cell Distribution Width 15.1% (11.5-14.5) Platelet Count 251x10^3/uL (140-400) Neutrophils (%) (Auto) 83% (31-73) Lymphocytes (%) (Auto) 10% (24-48) Monocytes (%) (Auto) 7% (0-9) Eosinophils (%) (Auto) 0% (0-3) Basophils (%) (Auto) 1% (0-3) Neutrophils # (Auto) 9.6x10^3uL (1.8-7.7) Lymphocytes # (Auto) 1.1x10^3/uL (1.0-4.8) Monocytes # (Auto) 0.8x10^3/uL (0.0-1.1) Eosinophils # (Auto) 0.0x10^3/uL (0.0-0.7) Basophils # (Auto) 0.1x10^3/uL (0.0-0.2) Sodium Level 142mmol/L (136-145) Potassium Level 3.9mmol/L (3.5-5.1) Chloride Level 105mmol/L (98-107) Carbon Dioxide Level 25mmol/L (21-32) Anion Gap 12 (6-14) Blood Urea Nitrogen 28mg/dL (8-26) Creatinine 1.9mg/dL (0.7-1.3) Estimated GFR (Cockcroft-Gault) 41.3 Glucose Level 227mg/dL (70-99) Hemoglobin A1c 8.3% (4.8-5.6) Calcium Level 8.6mg/dL (8.5-10.1) Troponin I Quantitative 8.914ng/mL (0.000-0.055) 9.502ng/mL (0.000-0.055) Glucose (Fingerstick) 228mg/dL (70-99) 318mg/dL (70-99) Test 4/27/17 15:04 06/19/16 17:00 06/19/16 17:08 06/19/16 21:06 Glucose (Fingerstick) 136mg/dL (70-99) 103mg/dL (70-99) 268mg/dL (70-99) Heparin Anti-Xa Act, Unfractionated < 0.10IU/mL (0.30-0.70) Troponin I Quantitative 10.724ng/mL (0.000-0.055) Test 06/20/16 00:20 06/20/16 02:30 06/20/16 06:54 06/20/16 08:00 Heparin Anti-Xa Act, Unfractionated 0.57IU/mL (0.30-0.70) 0.83IU/mL (0.30-0.70) White Blood Count 11.3x10^3/uL (4.0-11.0) Red Blood Count 4.68x10^6/uL (4.30-5.70) Hemoglobin 12.5g/dL (13.0-17.5) Hematocrit 39.3% (39.0-53.0) Mean Corpuscular Volume 84fL (79-100) Mean Corpuscular Hemoglobin 27pg (25-35) Mean Corpuscular Hemoglobin Concent 32g/dL (31-37) Red Cell Distribution Width 15.4% (11.5-14.5) Platelet Count 213x10^3/uL (140-400) Neutrophils (%) (Auto) 78% (31-73) Lymphocytes (%) (Auto) 14% (24-48) Monocytes (%) (Auto) 6% (0-9) Eosinophils (%) (Auto) 2% (0-3) Basophils (%) (Auto) 0% (0-3) Neutrophils # (Auto) 8.8x10^3uL (1.8-7.7) Lymphocytes # (Auto) 1.5x10^3/uL (1.0-4.8) Monocytes # (Auto) 0.7x10^3/uL (0.0-1.1) Eosinophils # (Auto) 0.3x10^3/uL (0.0-0.7) Basophils # (Auto) 0.0x10^3/uL (0.0-0.2) Sodium Level 136mmol/L (136-145) Potassium Level 3.7mmol/L (3.5-5.1) Chloride Level 102mmol/L (98-107) Carbon Dioxide Level 25mmol/L (21-32) Anion Gap 9 (6-14) Blood Urea Nitrogen 36mg/dL (8-26) Creatinine 2.2mg/dL (0.7-1.3) Estimated GFR (Cockcroft-Gault) 34.8 Glucose Level 230mg/dL (70-99) Calcium Level 8.4mg/dL (8.5-10.1) Phosphorus Level 2.4mg/dL (2.6-4.7) Albumin 2.6g/dL (3.4-5.0) Glucose (Fingerstick) 154mg/dL (70-99) Test 06/20/16 11:38 Glucose (Fingerstick) 204mg/dL (70-99) Laboratory Tests Test 06/19/16 15:04 06/19/16 17:00 06/19/16 17:08 06/19/16 21:06 Glucose (Fingerstick) 136mg/dL (70-99) 103mg/dL (70-99) 268mg/dL (70-99) Heparin Anti-Xa Act, Unfractionated < 0.10IU/mL (0.30-0.70) Troponin I Quantitative 10.724ng/mL (0.000-0.055) Test 06/20/16 00:20 06/20/16 02:30 06/20/16 06:54 06/20/16 08:00 Heparin Anti-Xa Act, Unfractionated 0.57IU/mL (0.30-0.70) 0.83IU/mL (0.30-0.70) White Blood Count 11.3x10^3/uL (4.0-11.0) Red Blood Count 4.68x10^6/uL (4.30-5.70) Hemoglobin 12.5g/dL (13.0-17.5) Hematocrit 39.3% (39.0-53.0) Mean Corpuscular Volume 84fL (79-100) Mean Corpuscular Hemoglobin 27pg (25-35) Mean Corpuscular Hemoglobin Concent 32g/dL (31-37) Red Cell Distribution Width 15.4% (11.5-14.5) Platelet Count 213x10^3/uL (140-400) Neutrophils (%) (Auto) 78% (31-73) Lymphocytes (%) (Auto) 14% (24-48) Monocytes (%) (Auto) 6% (0-9) Eosinophils (%) (Auto) 2% (0-3) Basophils (%) (Auto) 0% (0-3) Neutrophils # (Auto) 8.8x10^3uL (1.8-7.7) Lymphocytes # (Auto) 1.5x10^3/uL (1.0-4.8) Monocytes # (Auto) 0.7x10^3/uL (0.0-1.1) Eosinophils # (Auto) 0.3x10^3/uL (0.0-0.7) Basophils # (Auto) 0.0x10^3/uL (0.0-0.2) Sodium Level 136mmol/L (136-145) Potassium Level 3.7mmol/L (3.5-5.1) Chloride Level 102mmol/L (98-107) Carbon Dioxide Level 25mmol/L (21-32) Anion Gap 9 (6-14) Blood Urea Nitrogen 36mg/dL (8-26) Creatinine 2.2mg/dL (0.7-1.3) Estimated GFR (Cockcroft-Gault) 34.8 Glucose Level 230mg/dL (70-99) Calcium Level 8.4mg/dL (8.5-10.1) Phosphorus Level 2.4mg/dL (2.6-4.7) Albumin 2.6g/dL (3.4-5.0) Glucose (Fingerstick) 154mg/dL (70-99) Test 06/20/16 11:38 Glucose (Fingerstick) 204mg/dL (70-99) Medications Current Medications Hydralazine HCl (Apresoline) 20 mg 1X ONCE IVP Last administered on 06/18/16t 13:19; Start 06/18/16 at 13:15; Stop 06/18/16 at 13:16; Status DC Ondansetron HCl (Zofran) 4 mg STK-MED ONCE .ROUTE ; Start 06/18/16 at 13:45; Stop 06/18/16 at 13:46; Status DC Ondansetron HCl (Zofran) 4 mg 1X ONCE IV Last administered on 06/18/16 14:00 ; Start 06/18/16 at 14:00; Stop 06/18/16 at 14:01; Status DC Ondansetron HCl (Zofran) 4 mg PRN Q8HRS PRN IV NAUSEA/VOMITING; Start 06/18/16 at 14:15; Stop 06/19/16 at 14:14; Status DC Hydralazine HCl (Apresoline) 20 mg 1X ONCE IVP Last administered on 06/18/16 15:33; Start 06/18/16 at 15:30; Stop 06/18/16 at 15:31; Status DC Acetaminophen (Tylenol) 325 mg PRN Q6HRS PRN PO MILD PAIN / TEMP; Start at 16:30 Acetaminophen/ Hydrocodone Bitart (Lortab 5/325) 1 tab PRN Q6HRS PRN PO MODERATE TO SEVERE PAIN; Start 06/18/16 at 16:30 Hydralazine HCl (Apresoline) 10 mg PRN Q4HRS PRN IVP ELEVATED BP, SEE COMMENTS Last administered on 06/19/16 00:08; Start 06/18/16 at 16:30; Stop 06/20/16 at 13:00; Status DC Ondansetron HCl (Zofran) 4 mg PRN Q8HRS PRN IV NAUSEA/VOMITING; Start 06/18/16 at 16:30 Albuterol Sulfate (Ventolin Neb Soln) 2.5 mg PRN Q4HRS PRN NEB SHORTNESS OF BREATH; Start 06/18/16 at 16:30 Aspirin (Children'S Aspirin) 81 mg DAILY PO Last administered on 06/20/16 08: 12; Start 06/19/16 at 09:00 Donepezil HCl (Aricept) 10 mg QHS PO Last administered on 06/19/16 22:09; Start 06/18/16 at 21:00 Gabapentin (Neurontin) 300 mg BID PO Last administered on 06/20/16 13:05; Start 06/18/16 at 21:00 Glimepiride (Amaryl) 4 mg BID PO Last administered on 06/20/16 13:05; Start at 21:00 Levothyroxine Sodium (Synthroid) 100 mcg DAILY07 PO Last administered on 13:05; Start 06/19/16 at 07:00 Losartan Potassium (Cozaar) 50 mg DAILY PO Last administered on 06/20/16 08:15 ; Start 06/19/16 at 09:00 Metformin HCl (Glucophage) 750 mg BIDWMEALS PO Last administered on 06/19/16 08:31; Start 06/19/16 at 08:00; Stop 06/19/16 at 09:50; Status DC Nitroglycerin (Nitrostat) 0.4 mg PRN Q5MIN PRN SL CHEST PAIN; Start 06/18/16 at 20:00 Ondansetron HCl (Zofran Odt) 4 mg PRN Q6HRS PRN PO NAUSEA/VOMITING; Start 06/18 at 20:00 Insulin Aspart (Novolog) 0-9 UNITS TIDWMEALS SQ Last administered on 06/20/16 13:17; Start 06/19/16 at 08:00 Dextrose 12.5 gm 12.5 gm PRN Q15MIN PRN IV SEE COMMENTS; Start 06/18/16 at 22: 30 Sodium Chloride 1,000 ml @ 100 mls/hr 1X ONCE IV ; Start 06/19/16 at 10:00; Stop 06/19/16 at 10:02; Status DC Heparin Sodium/ Dextrose 500 ml @ 0 mls/hr CONT PRN IV SEE I/O RECORD Last administered on 06/19/16 11:02; Start 06/19/16 at 10:00 Heparin Sodium (Porcine) (Heparin Sodium) 2,100 unit PRN Q6HRS PRN IV FOR UFH LEVEL LESS THAN 0.2 Last administered on 06/19/16 17:58; Start 06/19/16 at 10: 00 Labetalol HCl 20 mg 20 mg PRN Q2HR PRN IVP HYPERTENSION, SEE COMMENTS Last administered on 06/20/16 09:35; Start 06/19/16 at 10:00 Sodium Chloride (Iv Sodium Chloride 0.45%) 1,000 ml @ 100 mls/hr Q10H IV Last administered on 06/20/16 08:11; Start 06/19/16 at 10:00 Acetylcysteine 1200 mg 1,200 mg BID PO Last administered on 06/20/16 13:09; Start 06/19/16 at 21:00; Stop 06/21/16 at 20:59 Heparin Sodium/ Sodium Chloride 1,000 ml @ As Directed STK-MED ONCE .ROUTE ; Start 06/20/16 at 09:45; Stop 06/20/16 at 09:46; Status DC Lidocaine HCl 20 ml STK-MED ONCE .ROUTE ; Start 06/20/16 at 09:46; Stop at 09:47; Status DC Iodixanol (Visipaque 320) 100 ml STK-MED ONCE .ROUTE ; Start 06/20/16 at 09:46; Stop 06/20/16 at 09:47; Status DC Iodixanol (Visipaque 320) 100 ml STK-MED ONCE .ROUTE ; Start 06/20/16 at 11:19; Stop 06/20/16 at 11:20; Status DC Nitroglycerin (Nitroglycerin) 200 mcg STK-MED ONCE .ROUTE ; Start 06/20/16 at 11 :51; Stop 06/20/16 at 11:52; Status DC Verapamil HCl (Verapamil) 5 mg STK-MED ONCE .ROUTE ; Start 06/20/16 at 11:51; Stop 06/20/16 at 11:52; Status DC Heparin Sodium (Porcine) (Heparin Sodium) 10,000 unit STK-MED ONCE .ROUTE ; Start 06/20/16 at 11:51; Stop 06/20/16 at 11:52; Status DC Fentanyl Citrate (Fentanyl 2ml Vial) 100 mcg STK-MED ONCE .ROUTE ; Start at 11:51; Stop 06/20/16 at 11:52; Status DC Midazolam HCl (Versed) 2 mg STK-MED ONCE .ROUTE ; Start 06/20/16 at 11:52; Stop 06/20/16 at 11:53; Status DC Nitroglycerin (Nitroglycerin) 200 mcg 1X ONCE IART Last administered on 12:32; Start 06/20/16 at 12:30; Stop 06/20/16 at 12:31; Status DC Verapamil HCl (Verapamil) 2.5 mg 1X ONCE IART Last administered on 06/20/16 12:34; Start 06/20/16 at 12:30; Stop 06/20/16 at 12:31; Status DC Heparin Sodium (Porcine) (Heparin Sodium) 2,500 unit 1X ONCE IART Last administered on 06/20/16 12:38; Start 06/20/16 at 12:30; Stop 06/20/16 at 12:31 ; Status DC Heparin Sodium/ Sodium Chloride 1,000 unit 1X ONCE IART Last administered on 12:32; Start 06/20/16 at 12:30; Stop 06/20/16 at 12:31; Status DC Midazolam HCl (Versed) 2 mg 1X ONCE IV Last administered on 06/20/16 12:37; Start 06/20/16 at 12:30; Stop 06/20/16 at 12:31; Status DC Fentanyl Citrate (Fentanyl 2ml Vial) 100 mcg 1X ONCE IV Last administered on 12:36; Start 06/20/16 at 12:30; Stop 06/20/16 at 12:31; Status DC Iodixanol (Visipaque 320) 100 ml 1X ONCE IART Last administered on 06/20/16 12:35; Start 06/20/16 at 12:30; Stop 06/20/16 at 12:31; Status DC Lidocaine HCl 20 ml 1X ONCE IJ Last administered on 06/20/16 12:36; Start at 12:30; Stop 06/20/16 at 12:31; Status DC Nitroglycerin (Nitrostat) 0.4 mg PRN Q5MIN PRN SL CHEST PAIN; Start 06/20/16 at 13:00; Status UNV Hydralazine HCl 20 mg 20 mg PRN Q4HRS PRN IVP ELEVATED BP, SEE COMMENTS; Start 06/20/16 at 13:00 Potassium Phosphate/Sodium Chloride (Potassium Phosphate/Iv Sodium Chloride 0.9 % 100ml) 104.5333 ml @ 52.267 m... Q2H IV ; Start 06/20/16 at 14:00; Stop 06/20 at 19:59 Active Scripts Active Reported Gabapentin 300 Mg Capsule 300 Mg PO BID Losartan Potassium 50 Mg Tablet 100 Mg PO HS Metformin Hcl Er (Metformin Hcl) 750 Mg Tab.er.24h 750 Mg PO BID Zofran (Ondansetron Hcl) 4 Mg Tablet 1 Tab PO Q6HRS Glimepiride 4 Mg Tablet 1 Tab PO BID Cinnamon (Cinnamon Bark) 500 Mg Capsule 500 Mg PO DAILY Aspir 81 (Aspirin) 81 Mg Tablet.dr 1 Tab PO DAILY Levothyroxine Sodium 100 Mcg Tablet 1 Tab PO DAILY07 NITROGLYCERIN SubLingual (Nitroglycerin) 0.4 Mg Tab.subl 0.4 Mg SL PRN Q5MIN PRN Donepezil Hcl 10 Mg Tablet 1 Tab PO HS Vitals/I & O Vital Sign - Last 24 Hours 06/19/16 06/19/16 06/19/16 06/19/16 15:00 19:23 20:00 23:45 Temp 97.8 98.8 99.0 97.8 98.8 99.0 Pulse 86 108 96 Resp 18 18 20 B/P 149/82 149/89 161/95 Pulse Ox 95 95 97 O2 Delivery Room Air Room Air Room Air Room Air 06/20/16 06/20/16 06/20/16 06/20/16 03:33 07:55 08:15 09:06 Temp 98.9 98.6 98.9 98.6 Pulse 98 92 92 92 Resp 18 19 B/P 149/87 188/105 188/105 168/108 Pulse Ox 95 96 O2 Delivery Room Air Room Air 06/20/16 06/20/16 06/20/16 06/20/16 09:35 11:34 12:23 12:34 Pulse 92 86 73 86 Resp 18 13 B/P 168/108 178/98 183/95 Pulse Ox 97 94 O2 Delivery Room Air Room Air 06/20/16 12:36 Resp 31 Pulse Ox 97 O2 Delivery Room Air Intake and Output 06/19/16 06/19/16 06/20/16 15:00 23:00 07:00 Intake Total 400 ml 1510 ml Output Total 200 ml 400 ml 1050 ml Balance -200 ml 0 ml 460 ml LARA HARRY III DO Jun 20, 2016 13:26
--- NOTE | 2016-06-20 13:52 | CARD ---
APPROVED REPORT Procedure(s) performed: Left heart catheterization, selective coronary angiography and left ventricul ography via right transradial approach INDICATION The indication(s) include : non-STEMI . PROCEDURE NARRATIVE After explaining the risks, benefits and alternative options, informed consent was obtained from jacqui ent. Patient was brought to the cardiac Broadcast Chief Engineer and right wrist was prepped and draped in the usual fashion after confirming a positive modified Usama's test. Arterial access was obtained in the [facility] t radial artery and a 6 [place]bourgish sheath was inserted. 6 [place] Nader and 6 [place] JL 3.5 catheters we re used to perform selective angiography of the right and left coronary arteries respectively. 6 [facility] pigtail catheter was used to perform left ventriculography. Patient tolerated the procedure well . Hemostasis was achieved using TR band. There were no immediate complications. The following find ings were noted. FINDINGS 1. Hemodynamics: Left ventricular end-diastolic pressure of 14 mmHg. No pullback gradient across th e aortic valve. 2. Left ventriculography: Normal left ventricle systolic function with ejection fraction estimated at 60%. No significant mitral regurgitation seen. 3. Coronary angiography: a. The left main coronary artery arose from the left sinus of Valsalva, gave rise to the left anteri or descending and left circumflex arteries and did not show any significant stenosis. b. The left anterior descending artery showed long and diffuse 90-95% stenosis severity involving th e mid and distal segments with reconstitution of the apical segment via left to left collaterals. c. The left circumflex artery showed 90% stenosis involving the midsegment. The first obtuse margina l branch showed 60% stenosis in the proximal segment. The second obtuse marginal branch showed 90% st enosis in the midsegment and 90% stenosis in the distal segment. d. The right coronary artery was a large and dominant vessel arising from the right sinus of Valsalv a that showed 90% stenosis involving the proximal to midsegment. The posterior descending artery show ed a long 90% stenosis involving the proximal and mid segments. Conclusion 1. Severe three-vessel coronary artery disease 2. Normal left ventricle systolic function with ejection fraction estimated at 60%. Recommendations We will discuss with patient and his family regarding the options of coronary artery bypass surgery v ersus high risk multivessel PCI/stents placement versus medical management in lieu of his age and com orbidities.
[2016-06-20 14:29] LABS: UR PROTEIN RD 23.4 mg/dL (Not Estab.)
[2016-06-20] MEDS: POTASSIUM PHOSPHATE DIBASIC 13.6 MMOL in IV NORMAL SALINE 100ML 100 ML IV SCH ×3 (14:29→18:26)
[2016-06-20] MEDS ORDERED: ANTI-COAG MONITOR BY PHARMACY. MC PRN (15:15)
[2016-06-20] MEDS ORDERED: INSULIN ASPART 300 UNITS/3 ML INSULN.PEN SQ ONE (21:00)
[2016-06-20] MEDS: DONEPEZIL HCL 10 MG TABLET. PO SCH (21:08)
[2016-06-21] MEDS: IV 1/2 NORMAL SALINE 1,000 ML IV SCH ×2 (05:49→12:01)
[2016-06-21] MEDS: LEVOTHYROXINE 100 MCG TABLET PO SCH (05:50)
[2016-06-21 05:51] LABS: BASO # 0.1 x10^3/uL (0.0-0.2); BASO % 1 % (0-3); EOS % 44 % (0-3); HEMATOCRIT 37.3 % (39.0-53.0); HEMOGLOBIN 12.7 g/dL (13.0-17.5); LYMPH # 1.2 x10^3/uL (1.0-4.8); LYMPH % 13 % (24-48); MEAN CORPUSCULAR HEMOGLOBIN 28 pg (25-35); MEAN CORPUSCULAR HGB CONC 34 g/dL (31-37); MEAN CORPUSCULAR VOLUME 81 fL (79-100); MONO % 8 % (0-9); NEUT % 74 % (31-73); PLATELET COUNT 222 x10^3/uL (140-400); RED CELL DISTRIBUTION WIDTH 15.1 % (11.5-14.5)
[2016-06-21 07:00] VITALS: BP 154/87
[2016-06-21 07:07] LABS: ALBUMIN 2.7 g/dL (3.4-5.0); GFR 38.9
[2016-06-21 07:08] LABS: PHOSPHORUS 4.2 mg/dL (2.6-4.7); POTASSIUM 3.7 mmol/L (3.5-5.1)
[2016-06-21] MEDS: GABAPENTIN 300 MG CAPSULE. PO SCH ×2 (08:41→20:36)
[2016-06-21] MEDS: ASPIRIN CHEWABLE 81 MG TABLET. PO SCH (08:42)
[2016-06-21] MEDS: GLIMEPIRIDE 2 MG TABLET. PO SCH ×2 (08:42→17:22)
[2016-06-21] MEDS: LOSARTAN POTASSIUM 50 MG TABLET. PO SCH (08:42)
[2016-06-21] MEDS: INSULIN ASPART 300 UNITS/3 ML INSULN.PEN SQ SCH ×3 (08:45→17:25)
--- NOTE | 2016-06-21 10:09 | PDOC ---
WALT CARLSON CLIENT PROJECT COORDINATOR 06/21/16 1009: CARDIO Progress Notes Date and Time Date of Service 06/21/16 Time of Evaluation 1002 Subjective Subjective: No Chest Pain, No shortness of breath, No Palpitations Comments: resting in bed; family at bedside Vitals Vitals Vital Signs Date Time Temp Pulse Resp B/P Pulse Ox O2 Delivery O2 Flow Rate FiO2 06/21/16 08:42 83 154/87 06/21/16 08:02 Room Air 06/21/16 07:00 98.9 19 95 98.9 Weight Weight [ ] Input and Output Intake and Output Intake and Output 06/21/16 07:00 Intake Total 1688 ml Output Total 2500 ml Balance -812 ml Intake Oral 980 ml IV Total 708 ml Output Urine Total 2500 ml Laboratory Labs Laboratory Tests Test 06/20/16 11:38 06/20/16 13:45 06/20/16 16:41 06/20/16 20:41 Glucose (Fingerstick) 204mg/dL (70-99) 291mg/dL (70-99) 365mg/dL (70-99) Heparin Anti-Xa Act, Unfractionated 0.46IU/mL (0.30-0.70) Test 06/21/16 05:00 06/21/16 08:32 White Blood Count 10.0x10^3/uL (4.0-11.0) Red Blood Count 4.60x10^6/uL (4.30-5.70) Hemoglobin 12.7g/dL (13.0-17.5) Hematocrit 37.3% (39.0-53.0) Mean Corpuscular Volume 81fL (79-100) Mean Corpuscular Hemoglobin 28pg (25-35) Mean Corpuscular Hemoglobin Concent 34g/dL (31-37) Red Cell Distribution Width 15.1% (11.5-14.5) Platelet Count 222x10^3/uL (140-400) Neutrophils (%) (Auto) 74% (31-73) Lymphocytes (%) (Auto) 13% (24-48) Monocytes (%) (Auto) 8% (0-9) Eosinophils (%) (Auto) 44% (0-3) Basophils (%) (Auto) 1% (0-3) Neutrophils # (Auto) 7.3x10^3uL (1.8-7.7) Lymphocytes # (Auto) 1.2x10^3/uL (1.0-4.8) Monocytes # (Auto) 0.8x10^3/uL (0.0-1.1) Eosinophils # (Auto) 0.5x10^3/uL (0.0-0.7) Basophils # (Auto) 0.1x10^3/uL (0.0-0.2) Sodium Level 141mmol/L (136-145) Potassium Level 3.7mmol/L (3.5-5.1) Chloride Level 107mmol/L (98-107) Carbon Dioxide Level 24mmol/L (21-32) Anion Gap 10 (6-14) Blood Urea Nitrogen 30mg/dL (8-26) Creatinine 2.0mg/dL (0.7-1.3) Estimated GFR (Cockcroft-Gault) 38.9 Glucose Level 161mg/dL (70-99) Calcium Level 8.0mg/dL (8.5-10.1) Phosphorus Level 4.2mg/dL (2.6-4.7) Albumin 2.7g/dL (3.4-5.0) Glucose (Fingerstick) 184mg/dL (70-99) Physical Exam HEENT: Neck Supple W Full Motion Chest: Symmetric LUNGS: Clear to Auscultation, Other (diminished bases ) Heart: no murmurs Abdomen: Normal Aortic Impulse Extremities: No Edema Neurology: alert, follow commands Assessment Assessment 1. NSTEMI 2. Severe 3-V CAD 3. Malignant HTN 4. Mechanical fall/weakness/debility 5. Chronic diastolic CHF 6. DM2/HLP 7. CKD 8. Dementia: mild 9. Hypothyroidism Recommendations Option of CABG versus high risk multivessel PCI/stents placement versus medical management provided to patient and family post-cath. Presently leaning toward medical management in lieu of his age, comorbidities, and absence of cardiac symptoms. Family most concerned of weakness and debility; may need rehab at discharge. Social work following. Continue medical management at this time. Add BB and statin therapy MIRI BRENNAN MD 06/21/16 1226: CARDIO Progress Notes Plan Plan Pt. seen and examined. Agree with above ELECTRIC METER REPAIRER note. I had a long discussion with the patient's , son and daughter. I explained to them the findings of his cardiac cath. We discussed options including CABG, PCI and medical therapy. He is a poor surgical candidate and has poor distal targets, making CABG a non- viable options. PCI is possible but patient does not have symptoms of chest pain and has preserved LV function. PCI could be performed for the NSTEMI. We also discussed merits of medical therapy, especially given his normal LV function. Ultimately, after a long discussion, the family wishes to continue conservative mgmt. We will add plavix to his regimen for NSTEMI. Supportive care for now. Discussed that if there is a change in his status, could always consider PCI of the proximal RCA and LCx. Will follow along. WALT CARLSON APRN Jun 21, 2016 10:09 MIRI BRENNAN MD Jun 21, 2016 12:26
[2016-06-21 11:30] VITALS: BP 166/73
[2016-06-21] MEDS: CLOPIDOGREL BISULFATE 75 MG TABLET PO SCH (11:32)
[2016-06-21] MEDS: ACETYLCYSTEINE 20% ORAL SOLN 600 MG/3 ML SYRINGE. PO SCH (11:32)
[2016-06-21] MEDS: METOPROLOL TART IMMED RELEASE 25 MG TABLET. PO SCH ×2 (11:33→20:36)
[2016-06-21 15:40] VITALS: BP 198/90
--- NOTE | 2016-06-21 15:41 | PDOC ---
PROGRESS NOTES Chief Complaint Chief Complaint cc: weakness, hypertension CAD with prior PCI dementia - Alzheimer's gerd BPH hypothyroidism anxiety depression type 2 diabetes mellitus, History of Present Illness History of Present Illness Patient seen and evaluated this AM. Patient resting, in no apparent distress. Patient reports generalized weakness and malaise. HC revealed multivessel disease; with comorbidities and no present chest pain, plan is for medical therapy. family at bedside. Family notes progressive cognitive decline in the past months and is requesting an evaluation. Will consult neurology for further cognitive evaluation and recommendations. d/w nurse about plan of care. Vitals Vitals Vital Signs Date Time Temp Pulse Resp B/P Pulse Ox O2 Delivery O2 Flow Rate FiO2 06/21/16 12:45 98 Room Air 06/21/16 11:33 84 166/73 06/21/16 11:30 98.5 18 98.5 Physical Exam General: Alert, Cooperative, No acute distress Heart: Regular rate, Normal S1, Normal S2, Other (2/6 systolic murmur to LLS border) Lungs: Other (diminished breath sounds bilaterally. negative chest retractions and/or accessory muscle use. ) Abdomen: Soft, No tenderness Extremities: No cyanosis, No tenderness/swelling Skin: No breakdown, No significant lesion Labs LABS Laboratory Tests Test 06/20/16 16:41 06/20/16 20:41 06/21/16 05:00 06/21/16 08:32 Glucose (Fingerstick) 291mg/dL (70-99) 365mg/dL (70-99) 184mg/dL (70-99) White Blood Count 10.0x10^3/uL (4.0-11.0) Red Blood Count 4.60x10^6/uL (4.30-5.70) Hemoglobin 12.7g/dL (13.0-17.5) Hematocrit 37.3% (39.0-53.0) Mean Corpuscular Volume 81fL (79-100) Mean Corpuscular Hemoglobin 28pg (25-35) Mean Corpuscular Hemoglobin Concent 34g/dL (31-37) Red Cell Distribution Width 15.1% (11.5-14.5) Platelet Count 222x10^3/uL (140-400) Neutrophils (%) (Auto) 74% (31-73) Lymphocytes (%) (Auto) 13% (24-48) Monocytes (%) (Auto) 8% (0-9) Eosinophils (%) (Auto) 44% (0-3) Basophils (%) (Auto) 1% (0-3) Neutrophils # (Auto) 7.3x10^3uL (1.8-7.7) Lymphocytes # (Auto) 1.2x10^3/uL (1.0-4.8) Monocytes # (Auto) 0.8x10^3/uL (0.0-1.1) Eosinophils # (Auto) 0.5x10^3/uL (0.0-0.7) Basophils # (Auto) 0.1x10^3/uL (0.0-0.2) Sodium Level 141mmol/L (136-145) Potassium Level 3.7mmol/L (3.5-5.1) Chloride Level 107mmol/L (98-107) Carbon Dioxide Level 24mmol/L (21-32) Anion Gap 10 (6-14) Blood Urea Nitrogen 30mg/dL (8-26) Creatinine 2.0mg/dL (0.7-1.3) Estimated GFR (Cockcroft-Gault) 38.9 Glucose Level 161mg/dL (70-99) Calcium Level 8.0mg/dL (8.5-10.1) Phosphorus Level 4.2mg/dL (2.6-4.7) Albumin 2.7g/dL (3.4-5.0) Test 06/21/16 11:33 Glucose (Fingerstick) 324mg/dL (70-99) Review of Systems Review of Systems (+) generalized weakness Denies chest pain, palpitations, sob, abdominal pain, n/v/d, dizziness/ lightheadedness, or fever/chills. Assessment and Plan Assessmemt and Plan Problems Medical Problems: (1) Accelerated hypertension Status: Acute (2) Weakness Status: Acute ASSESSMENT: 1. Mechanical fall with questionable syncope. 2. Accelerated hypertension, POA. currently labile 3. Dementia, ?Alzheimer's vs. progressive cognitive decline. 4. Type 2 diabetes mellitus with hyperglycemia, glycouria, and peripheral neuropathy 5. Gastroesophageal reflux disease. 6. Hypothyroidism. 7. Physical debility. 8. EDUARD/CKD, creatinine of 1.7 on admission. probable diabetic nephropathy. 9. CAD, multivessel disease 10. anemia, post-LHC. downtrending hgb. PLAN: 1. continue telemetry monitoring 2. appreciate subspecialty input; opted for medical management per cardiology 3. hold metformin secondary to kidney function; continue home medications as appropriate 4. order [id number]. continue SSI and glucose checks AC. 5. IVF and phosphorus repletion per nephrology 6. check AM Labs 7. PT/OT evaluation and treatment 8. continue discharge planning to SNU vs. rehab. 9. neurology consulted to assess dementia vs. cognitive decline. Problems: Comment Review of Relevant I have reviewed the following items ismael (where applicable) has been applied. Labs Laboratory Tests Test 06/19/16 17:00 06/19/16 17:08 06/19/16 21:06 06/20/16 00:20 Heparin Anti-Xa Act, Unfractionated < 0.10IU/mL (0.30-0.70) 0.57IU/mL (0.30-0.70) Troponin I Quantitative 10.724ng/mL (0.000-0.055) Glucose (Fingerstick) 103mg/dL (70-99) 268mg/dL (70-99) Test 06/20/16 02:30 06/20/16 03:20 06/20/16 06:54 06/20/16 08:00 White Blood Count 11.3x10^3/uL (4.0-11.0) Red Blood Count 4.68x10^6/uL (4.30-5.70) Hemoglobin 12.5g/dL (13.0-17.5) Hematocrit 39.3% (39.0-53.0) Mean Corpuscular Volume 84fL (79-100) Mean Corpuscular Hemoglobin 27pg (25-35) Mean Corpuscular Hemoglobin Concent 32g/dL (31-37) Red Cell Distribution Width 15.4% (11.5-14.5) Platelet Count 213x10^3/uL (140-400) Neutrophils (%) (Auto) 78% (31-73) Lymphocytes (%) (Auto) 14% (24-48) Monocytes (%) (Auto) 6% (0-9) Eosinophils (%) (Auto) 2% (0-3) Basophils (%) (Auto) 0% (0-3) Neutrophils # (Auto) 8.8x10^3uL (1.8-7.7) Lymphocytes # (Auto) 1.5x10^3/uL (1.0-4.8) Monocytes # (Auto) 0.7x10^3/uL (0.0-1.1) Eosinophils # (Auto) 0.3x10^3/uL (0.0-0.7) Basophils # (Auto) 0.0x10^3/uL (0.0-0.2) Sodium Level 136mmol/L (136-145) Potassium Level 3.7mmol/L (3.5-5.1) Chloride Level 102mmol/L (98-107) Carbon Dioxide Level 25mmol/L (21-32) Anion Gap 9 (6-14) Blood Urea Nitrogen 36mg/dL (8-26) Creatinine 2.2mg/dL (0.7-1.3) Estimated GFR (Cockcroft-Gault) 34.8 Glucose Level 230mg/dL (70-99) Calcium Level 8.4mg/dL (8.5-10.1) Phosphorus Level 2.4mg/dL (2.6-4.7) Albumin 2.6g/dL (3.4-5.0) Urine Protein 23.4mg/dL (Not Estab.) Urine Creatinine 32.3mg/dL (Not Estab.) Urine Protein/Creatinine Ratio 724mg/g creat (0-200) Heparin Anti-Xa Act, Unfractionated 0.83IU/mL (0.30-0.70) Glucose (Fingerstick) 154mg/dL (70-99) Test 06/20/16 11:38 06/20/16 13:45 06/20/16 16:41 06/20/16 20:41 Glucose (Fingerstick) 204mg/dL (70-99) 291mg/dL (70-99) 365mg/dL (70-99) Heparin Anti-Xa Act, Unfractionated 0.46IU/mL (0.30-0.70) Test 06/21/16 05:00 06/21/16 08:32 06/21/16 11:33 White Blood Count 10.0x10^3/uL (4.0-11.0) Red Blood Count 4.60x10^6/uL (4.30-5.70) Hemoglobin 12.7g/dL (13.0-17.5) Hematocrit 37.3% (39.0-53.0) Mean Corpuscular Volume 81fL (79-100) Mean Corpuscular Hemoglobin 28pg (25-35) Mean Corpuscular Hemoglobin Concent 34g/dL (31-37) Red Cell Distribution Width 15.1% (11.5-14.5) Platelet Count 222x10^3/uL (140-400) Neutrophils (%) (Auto) 74% (31-73) Lymphocytes (%) (Auto) 13% (24-48) Monocytes (%) (Auto) 8% (0-9) Eosinophils (%) (Auto) 44% (0-3) Basophils (%) (Auto) 1% (0-3) Neutrophils # (Auto) 7.3x10^3uL (1.8-7.7) Lymphocytes # (Auto) 1.2x10^3/uL (1.0-4.8) Monocytes # (Auto) 0.8x10^3/uL (0.0-1.1) Eosinophils # (Auto) 0.5x10^3/uL (0.0-0.7) Basophils # (Auto) 0.1x10^3/uL (0.0-0.2) Sodium Level 141mmol/L (136-145) Potassium Level 3.7mmol/L (3.5-5.1) Chloride Level 107mmol/L (98-107) Carbon Dioxide Level 24mmol/L (21-32) Anion Gap 10 (6-14) Blood Urea Nitrogen 30mg/dL (8-26) Creatinine 2.0mg/dL (0.7-1.3) Estimated GFR (Cockcroft-Gault) 38.9 Glucose Level 161mg/dL (70-99) Calcium Level 8.0mg/dL (8.5-10.1) Phosphorus Level 4.2mg/dL (2.6-4.7) Albumin 2.7g/dL (3.4-5.0) Glucose (Fingerstick) 184mg/dL (70-99) 324mg/dL (70-99) Laboratory Tests Test 06/20/16 16:41 06/20/16 20:41 06/21/16 05:00 06/21/16 08:32 Glucose (Fingerstick) 291mg/dL (70-99) 365mg/dL (70-99) 184mg/dL (70-99) White Blood Count 10.0x10^3/uL (4.0-11.0) Red Blood Count 4.60x10^6/uL (4.30-5.70) Hemoglobin 12.7g/dL (13.0-17.5) Hematocrit 37.3% (39.0-53.0) Mean Corpuscular Volume 81fL (79-100) Mean Corpuscular Hemoglobin 28pg (25-35) Mean Corpuscular Hemoglobin Concent 34g/dL (31-37) Red Cell Distribution Width 15.1% (11.5-14.5) Platelet Count 222x10^3/uL (140-400) Neutrophils (%) (Auto) 74% (31-73) Lymphocytes (%) (Auto) 13% (24-48) Monocytes (%) (Auto) 8% (0-9) Eosinophils (%) (Auto) 44% (0-3) Basophils (%) (Auto) 1% (0-3) Neutrophils # (Auto) 7.3x10^3uL (1.8-7.7) Lymphocytes # (Auto) 1.2x10^3/uL (1.0-4.8) Monocytes # (Auto) 0.8x10^3/uL (0.0-1.1) Eosinophils # (Auto) 0.5x10^3/uL (0.0-0.7) Basophils # (Auto) 0.1x10^3/uL (0.0-0.2) Sodium Level 141mmol/L (136-145) Potassium Level 3.7mmol/L (3.5-5.1) Chloride Level 107mmol/L (98-107) Carbon Dioxide Level 24mmol/L (21-32) Anion Gap 10 (6-14) Blood Urea Nitrogen 30mg/dL (8-26) Creatinine 2.0mg/dL (0.7-1.3) Estimated GFR (Cockcroft-Gault) 38.9 Glucose Level 161mg/dL (70-99) Calcium Level 8.0mg/dL (8.5-10.1) Phosphorus Level 4.2mg/dL (2.6-4.7) Albumin 2.7g/dL (3.4-5.0) Test 06/21/16 11:33 Glucose (Fingerstick) 324mg/dL (70-99) Medications Current Medications Hydralazine HCl (Apresoline) 20 mg 1X ONCE IVP Last administered on 06/18/16 13:19; Start 06/18/16 at 13:15; Stop 06/18/16 at 13:16; Status DC Ondansetron HCl (Zofran) 4 mg STK-MED ONCE .ROUTE ; Start 06/18/16 at 13:45; Stop 06/18/16 at 13:46; Status DC Ondansetron HCl (Zofran) 4 mg 1X ONCE IV Last administered on 06/18/16 14:00 ; Start 06/18/16 at 14:00; Stop 06/18/16 at 14:01; Status DC Ondansetron HCl (Zofran) 4 mg PRN Q8HRS PRN IV NAUSEA/VOMITING; Start 06/18/16 at 14:15; Stop 06/19/16 at 14:14; Status DC Hydralazine HCl (Apresoline) 20 mg 1X ONCE IVP Last administered on 06/18/16 15:33; Start 06/18/16 at 15:30; Stop 06/18/16 at 15:31; Status DC Acetaminophen (Tylenol) 325 mg PRN Q6HRS PRN PO MILD PAIN / TEMP; Start at 16:30 Acetaminophen/ Hydrocodone Bitart (Lortab 5/325) 1 tab PRN Q6HRS PRN PO MODERATE TO SEVERE PAIN; Start 06/18/16 at 16:30 Hydralazine HCl (Apresoline) 10 mg PRN Q4HRS PRN IVP ELEVATED BP, SEE COMMENTS Last administered on 06/19/16 00:08; Start 06/18/16 at 16:30; Stop 06/20/16 at 13:00; Status DC Ondansetron HCl (Zofran) 4 mg PRN Q8HRS PRN IV NAUSEA/VOMITING; Start 06/18/16 at 16:30 Albuterol Sulfate (Ventolin Neb Soln) 2.5 mg PRN Q4HRS PRN NEB SHORTNESS OF BREATH; Start 06/18/16 at 16:30 Aspirin (Children'S Aspirin) 81 mg DAILY PO Last administered on 06/21/16 08: 42; Start 06/19/16 at 09:00 Donepezil HCl (Aricept) 10 mg QHS PO Last administered on 06/20/16 21:08; Start 06/18/16 at 21:00 Gabapentin (Neurontin) 300 mg BID PO Last administered on 06/21/16 08:41; Start 06/18/16 at 21:00 Glimepiride (Amaryl) 4 mg BID PO Last administered on 06/20/16 13:05; Start at 21:00; Stop 06/20/16 at 19:24; Status DC Levothyroxine Sodium (Synthroid) 100 mcg DAILY07 PO Last administered on 05:50; Start 06/19/16 at 07:00 Losartan Potassium (Cozaar) 50 mg DAILY PO Last administered on 06/21/16 08:42 ; Start 06/19/16 at 09:00 Metformin HCl (Glucophage) 750 mg BIDWMEALS PO Last administered on 06/19/16 08:31; Start 06/19/16 at 08:00; Stop 06/19/16 at 09:50; Status DC Nitroglycerin (Nitrostat) 0.4 mg PRN Q5MIN PRN SL CHEST PAIN; Start 06/18/16 at 20:00 Ondansetron HCl (Zofran Odt) 4 mg PRN Q6HRS PRN PO NAUSEA/VOMITING; Start 06/18 at 20:00 Insulin Aspart (Novolog) 0-9 UNITS TIDWMEALS SQ Last administered on 06/21/16 12:04; Start 06/19/16 at 08:00 Dextrose 12.5 gm 12.5 gm PRN Q15MIN PRN IV SEE COMMENTS; Start 06/18/16 at 22: 30 Sodium Chloride 1,000 ml @ 100 mls/hr 1X ONCE IV ; Start 06/19/16 at 10:00; Stop 06/19/16 at 10:02; Status DC Heparin Sodium/ Dextrose 500 ml @ 0 mls/hr CONT PRN IV SEE I/O RECORD Last administered on 06/19/16 11:02; Start 06/19/16 at 10:00; Stop 06/20/16 at 19:19 ; Status DC Heparin Sodium (Porcine) (Heparin Sodium) 2,100 unit PRN Q6HRS PRN IV FOR UFH LEVEL LESS THAN 0.2 Last administered on 06/19/16 17:58; Start 06/19/16 at 10: 00; Stop 06/20/16 at 19:19; Status DC Labetalol HCl 20 mg 20 mg PRN Q2HR PRN IVP HYPERTENSION, SEE COMMENTS Last administered on 06/20/16 21:09; Start 06/19/16 at 10:00 Sodium Chloride (Iv Sodium Chloride 0.45%) 1,000 ml @ 100 mls/hr Q10H IV Last administered on 06/21/16 12:01; Start 06/19/16 at 10:00 Acetylcysteine 1200 mg 1,200 mg BID PO Last administered on 06/21/16 11:32; Start 06/19/16 at 21:00; Stop 06/21/16 at 20:59 Heparin Sodium/ Sodium Chloride 1,000 ml @ As Directed STK-MED ONCE .ROUTE ; Start 06/20/16 at 09:45; Stop 06/20/16 at 09:46; Status DC Lidocaine HCl 20 ml STK-MED ONCE .ROUTE ; Start 06/20/16 at 09:46; Stop at 09:47; Status DC Iodixanol (Visipaque 320) 100 ml STK-MED ONCE .ROUTE ; Start 06/20/16 at 09:46; Stop 06/20/16 at 09:47; Status DC Iodixanol (Visipaque 320) 100 ml STK-MED ONCE .ROUTE ; Start 06/20/16 at 11:19; Stop 06/20/16 at 11:20; Status DC Nitroglycerin (Nitroglycerin) 200 mcg STK-MED ONCE .ROUTE ; Start 06/20/16 at 11 :51; Stop 06/20/16 at 11:52; Status DC Verapamil HCl (Verapamil) 5 mg STK-MED ONCE .ROUTE ; Start 06/20/16 at 11:51; Stop 06/20/16 at 11:52; Status DC Heparin Sodium (Porcine) (Heparin Sodium) 10,000 unit STK-MED ONCE .ROUTE ; Start 06/20/16 at 11:51; Stop 06/20/16 at 11:52; Status DC Fentanyl Citrate (Fentanyl 2ml Vial) 100 mcg STK-MED ONCE .ROUTE ; Start at 11:51; Stop 06/20/16 at 11:52; Status DC Midazolam HCl (Versed) 2 mg STK-MED ONCE .ROUTE ; Start 06/20/16 at 11:52; Stop 06/20/16 at 11:53; Status DC Nitroglycerin (Nitroglycerin) 200 mcg 1X ONCE IART Last administered on 12:32; Start 06/20/16 at 12:30; Stop 06/20/16 at 12:31; Status DC Verapamil HCl (Verapamil) 2.5 mg 1X ONCE IART Last administered on 06/20/16 12:34; Start 06/20/16 at 12:30; Stop 06/20/16 at 12:31; Status DC Heparin Sodium (Porcine) (Heparin Sodium) 2,500 unit 1X ONCE IART Last administered on 06/20/16 12:38; Start 06/20/16 at 12:30; Stop 06/20/16 at 12:31 ; Status DC Heparin Sodium/ Sodium Chloride 1,000 unit 1X ONCE IART Last administered on 12:32; Start 06/20/16 at 12:30; Stop 06/20/16 at 12:31; Status DC Midazolam HCl (Versed) 2 mg 1X ONCE IV Last administered on 06/20/16 12:37; Start 06/20/16 at 12:30; Stop 06/20/16 at 12:31; Status DC Fentanyl Citrate (Fentanyl 2ml Vial) 100 mcg 1X ONCE IV Last administered on 12:36; Start 06/20/16 at 12:30; Stop 06/20/16 at 12:31; Status DC Iodixanol (Visipaque 320) 100 ml 1X ONCE IART Last administered on 06/20/16 12:35; Start 06/20/16 at 12:30; Stop 06/20/16 at 12:31; Status DC Lidocaine HCl 20 ml 1X ONCE IJ Last administered on 06/20/16 12:36; Start at 12:30; Stop 06/20/16 at 12:31; Status DC Nitroglycerin (Nitrostat) 0.4 mg PRN Q5MIN PRN SL CHEST PAIN; Start 06/20/16 at 13:00; Status UNV Hydralazine HCl 20 mg 20 mg PRN Q4HRS PRN IVP ELEVATED BP, SEE COMMENTS; Start 06/20/16 at 13:00 Potassium Phosphate/Sodium Chloride (Potassium Phosphate/Iv Sodium Chloride 0.9 % 100ml) 104.5333 ml @ 52.267 m... Q2H IV Last administered on 06/20/16 18:26 ; Start 06/20/16 at 14:00; Stop 06/20/16 at 19:59; Status DC Info (Anti-Coagulation Monitoring By Pharmacy) 1 each PRN DAILY PRN MC SEE COMMENTS; Start 06/20/16 at 15:15; Stop 06/21/16 at 11:51; Status DC Glimepiride (Amaryl) 4 mg BIDWMEALS PO Last administered on 06/21/16 08:42; Start 06/21/16 at 08:00 Insulin Aspart (Novolog) 8 units 1X ONCE SQ Last administered on 06/20/16 21: 16; Start 06/20/16 at 21:00; Stop 06/20/16 at 21:01; Status DC Metoprolol Tartrate (Lopressor) 25 mg BID PO Last administered on 06/21/16 11: 33; Start 06/21/16 at 11:00 Atorvastatin Calcium (Lipitor) 40 mg QHS PO ; Start 06/21/16 at 21:00 Clopidogrel Bisulfate (Plavix) 75 mg DAILYWBKFT PO Last administered on 11:32; Start 06/21/16 at 11:00 Active Scripts Active Reported Gabapentin 300 Mg Capsule 300 Mg PO BID Losartan Potassium 50 Mg Tablet 100 Mg PO HS Metformin Hcl Er (Metformin Hcl) 750 Mg Tab.er.24h 750 Mg PO BID Zofran (Ondansetron Hcl) 4 Mg Tablet 1 Tab PO Q6HRS Glimepiride 4 Mg Tablet 1 Tab PO BID Cinnamon (Cinnamon Bark) 500 Mg Capsule 500 Mg PO DAILY Aspir 81 (Aspirin) 81 Mg Tablet.dr 1 Tab PO DAILY Levothyroxine Sodium 100 Mcg Tablet 1 Tab PO DAILY07 NITROGLYCERIN SubLingual (Nitroglycerin) 0.4 Mg Tab.subl 0.4 Mg SL PRN Q5MIN PRN Donepezil Hcl 10 Mg Tablet 1 Tab PO HS Vitals/I & O Vital Sign - Last 24 Hours 06/20/16 06/20/16 06/20/16 06/20/16 19:52 20:00 21:09 22:55 Temp 98.8 97.9 98.8 97.9 Pulse 79 79 80 Resp 16 18 B/P 170/88 170/88 159/75 Pulse Ox 96 96 O2 Delivery Room Air Room Air Room Air 06/21/16 06/21/16 06/21/16 06/21/16 03:38 07:00 08:02 08:42 Temp 98.5 98.9 98.5 98.9 Pulse 83 70 83 Resp 18 19 B/P 154/87 154/87 Pulse Ox 95 95 O2 Delivery Room Air Room Air Room Air 06/21/16 06/21/16 06/21/16 11:30 11:33 12:45 Temp 98.5 98.5 Pulse 84 84 Resp 18 B/P 166/73 166/73 Pulse Ox 96 98 O2 Delivery Room Air Room Air Intake and Output 06/20/16 06/20/16 06/21/16 15:00 23:00 07:00 Intake Total 1288 ml 400 ml Output Total 725 ml 625 ml 1150 ml Balance -725 ml 663 ml -750 ml LARA HARRY III DO Jun 21, 2016 15:41
--- NOTE | 2016-06-21 17:36 | PDOC ---
Provider Note Provider Note RENAL F/U : ADELA S : Doing better. No new issues reported. O : VSS Afebrile. Neck : Supple Lungs : Non labored. Few rhonchi. CVS : RRR Abd : Benign appearing. No major distention. Ext: No edema. Neuro : Intact Labs and meds reviewed. A/P : ARF : No labs today. Renal hypoperfusion. HTN w CKD. CAD : Medical managment Reduce IVF. CPM. Supportive care. Bassam Chapman M.D. BASSAM CHAPMAN MD Jun 21, 2016 17:35
[2016-06-21 19:38] VITALS: BP 191/99
[2016-06-21] MEDS: hydrALAZINE 20 MG/ML VIAL. IVP PRN (20:36)
[2016-06-21] MEDS: ATORVASTATIN CALCIUM 40 MG TABLET. PO SCH (20:36)
[2016-06-21] MEDS: ACETAMINOPHEN 325 MG TABLET. PO PRN (20:36)
[2016-06-21] MEDS: DONEPEZIL HCL 10 MG TABLET. PO SCH (20:36)
[2016-06-21 22:27] VITALS: BP 160/77
[2016-06-22] VITALS (9 sets, daily range): BP systolic 131–197; BP diastolic 67–107
[2016-06-22] MEDS: IV 1/2 NORMAL SALINE 1,000 ML IV SCH ×3 (02:36→23:09)
[2016-06-22] MEDS: LABETALOL 20 MG/4 ML DISP.SYRIN. IVP PRN (02:45)
[2016-06-22] MEDS: hydrALAZINE 20 MG/ML VIAL. IVP PRN ×2 (03:19→17:21)
[2016-06-22 06:07] LABS: ALBUMIN 2.7 g/dL (3.4-5.0); CALCIUM 8.6 mg/dL (8.5-10.1); CREATININE 1.8 mg/dL (0.7-1.3); GFR 43.9; PHOSPHORUS 2.6 mg/dL (2.6-4.7); POTASSIUM 3.4 mmol/L (3.5-5.1)
[2016-06-22] MEDS: LEVOTHYROXINE 100 MCG TABLET PO SCH (07:10)
[2016-06-22] MEDS: GLIMEPIRIDE 2 MG TABLET. PO SCH ×2 (08:13→17:20)
[2016-06-22] MEDS: METOPROLOL TART IMMED RELEASE 25 MG TABLET. PO SCH ×2 (08:13→20:38)
[2016-06-22] MEDS: ASPIRIN CHEWABLE 81 MG TABLET. PO SCH (08:13)
[2016-06-22] MEDS: GABAPENTIN 300 MG CAPSULE. PO SCH ×2 (08:13→20:37)
[2016-06-22] MEDS: CLOPIDOGREL BISULFATE 75 MG TABLET PO SCH (08:13)
[2016-06-22] MEDS: LOSARTAN POTASSIUM 50 MG TABLET. PO SCH (08:14)
[2016-06-22] MEDS: INSULIN ASPART 300 UNITS/3 ML INSULN.PEN SQ SCH ×3 (08:19→17:27)
--- NOTE | 2016-06-22 10:21 | PDOC ---
PROGRESS NOTES Subjective Subjective Pt. with urinary retention Objective Objective Vital Signs Date Time Temp Pulse Resp B/P Pulse Ox O2 Delivery O2 Flow Rate FiO2 06/22/16 08:14 103 180/89 06/22/16 07:45 98.5 20 96 Room Air 98.5 Intake and Output 06/22/16 07:00 Intake Total 1200 ml Output Total 3425 ml Balance -2225 ml Intake Oral 150 ml IV Total 1050 ml Output Urine Total 3425 ml Physical Exam Physical Exam nixon in place urine clear Plan Plan of Care Keep nixon flomax F/U in 8-9 days with [facility] [place] for voiding trial Problems Medical Problems: (1) Accelerated hypertension Status: Acute (2) Weakness Status: Acute Comment Review of Relevant I have reviewed the following items ismael (where applicable) has been applied. Labs Laboratory Tests Test 06/20/16 11:38 06/20/16 13:45 06/20/16 16:41 06/20/16 20:41 Glucose (Fingerstick) 204mg/dL (70-99) 291mg/dL (70-99) 365mg/dL (70-99) Heparin Anti-Xa Act, Unfractionated 0.46IU/mL (0.30-0.70) Test 06/21/16 05:00 06/21/16 08:32 06/21/16 11:33 06/21/16 16:25 White Blood Count 10.0x10^3/uL (4.0-11.0) Red Blood Count 4.60x10^6/uL (4.30-5.70) Hemoglobin 12.7g/dL (13.0-17.5) Hematocrit 37.3% (39.0-53.0) Mean Corpuscular Volume 81fL (79-100) Mean Corpuscular Hemoglobin 28pg (25-35) Mean Corpuscular Hemoglobin Concent 34g/dL (31-37) Red Cell Distribution Width 15.1% (11.5-14.5) Platelet Count 222x10^3/uL (140-400) Neutrophils (%) (Auto) 74% (31-73) Lymphocytes (%) (Auto) 13% (24-48) Monocytes (%) (Auto) 8% (0-9) Eosinophils (%) (Auto) 44% (0-3) Basophils (%) (Auto) 1% (0-3) Neutrophils # (Auto) 7.3x10^3uL (1.8-7.7) Lymphocytes # (Auto) 1.2x10^3/uL (1.0-4.8) Monocytes # (Auto) 0.8x10^3/uL (0.0-1.1) Eosinophils # (Auto) 0.5x10^3/uL (0.0-0.7) Basophils # (Auto) 0.1x10^3/uL (0.0-0.2) Sodium Level 141mmol/L (136-145) Potassium Level 3.7mmol/L (3.5-5.1) Chloride Level 107mmol/L (98-107) Carbon Dioxide Level 24mmol/L (21-32) Anion Gap 10 (6-14) Blood Urea Nitrogen 30mg/dL (8-26) Creatinine 2.0mg/dL (0.7-1.3) Estimated GFR (Cockcroft-Gault) 38.9 Glucose Level 161mg/dL (70-99) Calcium Level 8.0mg/dL (8.5-10.1) Phosphorus Level 4.2mg/dL (2.6-4.7) Albumin 2.7g/dL (3.4-5.0) Glucose (Fingerstick) 184mg/dL (70-99) 324mg/dL (70-99) 230mg/dL (70-99) Test 06/21/16 20:40 06/22/16 05:00 06/22/16 07:22 Glucose (Fingerstick) 198mg/dL (70-99) 295mg/dL (70-99) Sodium Level 139mmol/L (136-145) Potassium Level 3.4mmol/L (3.5-5.1) Chloride Level 107mmol/L (98-107) Carbon Dioxide Level 22mmol/L (21-32) Anion Gap 10 (6-14) Blood Urea Nitrogen 25mg/dL (8-26) Creatinine 1.8mg/dL (0.7-1.3) Estimated GFR (Cockcroft-Gault) 43.9 Glucose Level 310mg/dL (70-99) Calcium Level 8.6mg/dL (8.5-10.1) Phosphorus Level 2.6mg/dL (2.6-4.7) Albumin 2.7g/dL (3.4-5.0) Laboratory Tests Test 06/21/16 11:33 06/21/16 16:25 06/21/16 20:40 06/22/16 05:00 Glucose (Fingerstick) 324mg/dL (70-99) 230mg/dL (70-99) 198mg/dL (70-99) Sodium Level 139mmol/L (136-145) Potassium Level 3.4mmol/L (3.5-5.1) Chloride Level 107mmol/L (98-107) Carbon Dioxide Level 22mmol/L (21-32) Anion Gap 10 (6-14) Blood Urea Nitrogen 25mg/dL (8-26) Creatinine 1.8mg/dL (0.7-1.3) Estimated GFR (Cockcroft-Gault) 43.9 Glucose Level 310mg/dL (70-99) Calcium Level 8.6mg/dL (8.5-10.1) Phosphorus Level 2.6mg/dL (2.6-4.7) Albumin 2.7g/dL (3.4-5.0) Test 06/22/16 07:22 Glucose (Fingerstick) 295mg/dL (70-99) Medications Current Medications Hydralazine HCl (Apresoline) 20 mg 1X ONCE IVP Last administered on 06/18/16 13:19; Start 06/18/16 at 13:15; Stop 06/18/16 at 13:16; Status DC Ondansetron HCl (Zofran) 4 mg STK-MED ONCE .ROUTE ; Start 06/18/16 at 13:45; Stop 06/18/16 at 13:46; Status DC Ondansetron HCl (Zofran) 4 mg 1X ONCE IV Last administered on 06/18/16 14:00 ; Start 06/18/16 at 14:00; Stop 06/18/16 at 14:01; Status DC Ondansetron HCl (Zofran) 4 mg PRN Q8HRS PRN IV NAUSEA/VOMITING; Start 06/18/16 at 14:15; Stop 06/19/16 at 14:14; Status DC Hydralazine HCl (Apresoline) 20 mg 1X ONCE IVP Last administered on 06/18/16 15:33; Start 06/18/16 at 15:30; Stop 06/18/16 at 15:31; Status DC Acetaminophen (Tylenol) 325 mg PRN Q6HRS PRN PO MILD PAIN / TEMP Last administered on 06/21/16 20:36; Start 06/18/16 at 16:30 Acetaminophen/ Hydrocodone Bitart (Lortab 5/325) 1 tab PRN Q6HRS PRN PO MODERATE TO SEVERE PAIN Last administered on 06/22/16 06:37; Start 06/18/16 at 16:30 Hydralazine HCl (Apresoline) 10 mg PRN Q4HRS PRN IVP ELEVATED BP, SEE COMMENTS Last administered on 06/19/16 00:08; Start 06/18/16 at 16:30; Stop 06/20/16 at 13:00; Status DC Ondansetron HCl (Zofran) 4 mg PRN Q8HRS PRN IV NAUSEA/VOMITING; Start 06/18/16 at 16:30 Albuterol Sulfate (Ventolin Neb Soln) 2.5 mg PRN Q4HRS PRN NEB SHORTNESS OF BREATH; Start 06/18/16 at 16:30 Aspirin (Children'S Aspirin) 81 mg DAILY PO Last administered on 06/22/16 08: 13; Start 06/19/16 at 09:00 Donepezil HCl (Aricept) 10 mg QHS PO Last administered on 06/21/16 20:36; Start 06/18/16 at 21:00 Gabapentin (Neurontin) 300 mg BID PO Last administered on 06/22/16 08:13; Start 06/18/16 at 21:00 Glimepiride (Amaryl) 4 mg BID PO Last administered on 06/20/16 13:05; Start at 21:00; Stop 06/20/16 at 19:24; Status DC Levothyroxine Sodium (Synthroid) 100 mcg DAILY07 PO Last administered on 07:10; Start 06/19/16 at 07:00 Losartan Potassium (Cozaar) 50 mg DAILY PO Last administered on 06/22/16 08:14 ; Start 06/19/16 at 09:00 Metformin HCl (Glucophage) 750 mg BIDWMEALS PO Last administered on 06/19/16 08:31; Start 06/19/16 at 08:00; Stop 06/19/16 at 09:50; Status DC Nitroglycerin (Nitrostat) 0.4 mg PRN Q5MIN PRN SL CHEST PAIN; Start 06/18/16 at 20:00 Ondansetron HCl (Zofran Odt) 4 mg PRN Q6HRS PRN PO NAUSEA/VOMITING; Start 06/18 at 20:00 Insulin Aspart (Novolog) 0-9 UNITS TIDWMEALS SQ Last administered on 06/22/16 08:19; Start 06/19/16 at 08:00 Dextrose 12.5 gm 12.5 gm PRN Q15MIN PRN IV SEE COMMENTS; Start 06/18/16 at 22: 30 Sodium Chloride 1,000 ml @ 100 mls/hr 1X ONCE IV ; Start 06/19/16 at 10:00; Stop 06/19/16 at 10:02; Status DC Heparin Sodium/ Dextrose 500 ml @ 0 mls/hr CONT PRN IV SEE I/O RECORD Last administered on 06/19/16 11:02; Start 06/19/16 at 10:00; Stop 06/20/16 at 19:19 ; Status DC Heparin Sodium (Porcine) (Heparin Sodium) 2,100 unit PRN Q6HRS PRN IV FOR UFH LEVEL LESS THAN 0.2 Last administered on 06/19/16 17:58; Start 06/19/16 at 10: 00; Stop 06/20/16 at 19:19; Status DC Labetalol HCl 20 mg 20 mg PRN Q2HR PRN IVP HYPERTENSION, SEE COMMENTS Last administered on 06/22/16 02:45; Start 06/19/16 at 10:00 Sodium Chloride (Iv Sodium Chloride 0.45%) 1,000 ml @ 50 mls/hr Q20H IV Last administered on 06/22/16 02:36; Start 06/19/16 at 10:00 Acetylcysteine 1200 mg 1,200 mg BID PO Last administered on 06/21/16 11:32; Start 06/19/16 at 21:00; Stop 06/21/16 at 20:59; Status DC Heparin Sodium/ Sodium Chloride 1,000 ml @ As Directed STK-MED ONCE .ROUTE ; Start 06/20/16 at 09:45; Stop 06/20/16 at 09:46; Status DC Lidocaine HCl 20 ml STK-MED ONCE .ROUTE ; Start 06/20/16 at 09:46; Stop at 09:47; Status DC Iodixanol (Visipaque 320) 100 ml STK-MED ONCE .ROUTE ; Start 06/20/16 at 09:46; Stop 06/20/16 at 09:47; Status DC Iodixanol (Visipaque 320) 100 ml STK-MED ONCE .ROUTE ; Start 06/20/16 at 11:19; Stop 06/20/16 at 11:20; Status DC Nitroglycerin (Nitroglycerin) 200 mcg STK-MED ONCE .ROUTE ; Start 06/20/16 at 11 :51; Stop 06/20/16 at 11:52; Status DC Verapamil HCl (Verapamil) 5 mg STK-MED ONCE .ROUTE ; Start 06/20/16 at 11:51; Stop 06/20/16 at 11:52; Status DC Heparin Sodium (Porcine) (Heparin Sodium) 10,000 unit STK-MED ONCE .ROUTE ; Start 06/20/16 at 11:51; Stop 06/20/16 at 11:52; Status DC Fentanyl Citrate (Fentanyl 2ml Vial) 100 mcg STK-MED ONCE .ROUTE ; Start at 11:51; Stop 06/20/16 at 11:52; Status DC Midazolam HCl (Versed) 2 mg STK-MED ONCE .ROUTE ; Start 06/20/16 at 11:52; Stop 06/20/16 at 11:53; Status DC Nitroglycerin (Nitroglycerin) 200 mcg 1X ONCE IART Last administered on 12:32; Start 06/20/16 at 12:30; Stop 06/20/16 at 12:31; Status DC Verapamil HCl (Verapamil) 2.5 mg 1X ONCE IART Last administered on 06/20/16 12:34; Start 06/20/16 at 12:30; Stop 06/20/16 at 12:31; Status DC Heparin Sodium (Porcine) (Heparin Sodium) 2,500 unit 1X ONCE IART Last administered on 06/20/16 12:38; Start 06/20/16 at 12:30; Stop 06/20/16 at 12:31 ; Status DC Heparin Sodium/ Sodium Chloride 1,000 unit 1X ONCE IART Last administered on 12:32; Start 06/20/16 at 12:30; Stop 06/20/16 at 12:31; Status DC Midazolam HCl (Versed) 2 mg 1X ONCE IV Last administered on 06/20/16 12:37; Start 06/20/16 at 12:30; Stop 06/20/16 at 12:31; Status DC Fentanyl Citrate (Fentanyl 2ml Vial) 100 mcg 1X ONCE IV Last administered on 12:36; Start 06/20/16 at 12:30; Stop 06/20/16 at 12:31; Status DC Iodixanol (Visipaque 320) 100 ml 1X ONCE IART Last administered on 06/20/16 12:35; Start 06/20/16 at 12:30; Stop 06/20/16 at 12:31; Status DC Lidocaine HCl 20 ml 1X ONCE IJ Last administered on 06/20/16 12:36; Start at 12:30; Stop 06/20/16 at 12:31; Status DC Nitroglycerin (Nitrostat) 0.4 mg PRN Q5MIN PRN SL CHEST PAIN; Start 06/20/16 at 13:00; Status UNV Hydralazine HCl 20 mg 20 mg PRN Q4HRS PRN IVP ELEVATED BP, SEE COMMENTS Last administered on 06/22/16 03:19; Start 06/20/16 at 13:00 Potassium Phosphate/Sodium Chloride (Potassium Phosphate/Iv Sodium Chloride 0.9 % 100ml) 104.5333 ml @ 52.267 m... Q2H IV Last administered on 06/20/16 18:26 ; Start 06/20/16 at 14:00; Stop 06/20/16 at 19:59; Status DC Info (Anti-Coagulation Monitoring By Pharmacy) 1 each PRN DAILY PRN MC SEE COMMENTS; Start 06/20/16 at 15:15; Stop 06/21/16 at 11:51; Status DC Glimepiride (Amaryl) 4 mg BIDWMEALS PO Last administered on 06/22/16 08:13; Start 06/21/16 at 08:00 Insulin Aspart (Novolog) 8 units 1X ONCE SQ Last administered on 06/20/16 21: 16; Start 06/20/16 at 21:00; Stop 06/20/16 at 21:01; Status DC Metoprolol Tartrate (Lopressor) 25 mg BID PO Last administered on 06/22/16 08: 13; Start 06/21/16 at 11:00 Atorvastatin Calcium (Lipitor) 40 mg QHS PO Last administered on 06/21/16 20: 36; Start 06/21/16 at 21:00 Clopidogrel Bisulfate (Plavix) 75 mg DAILYWBKFT PO Last administered on 08:13; Start 06/21/16 at 11:00 Active Scripts Active Reported Gabapentin 300 Mg Capsule 300 Mg PO BID Losartan Potassium 50 Mg Tablet 100 Mg PO HS Metformin Hcl Er (Metformin Hcl) 750 Mg Tab.er.24h 750 Mg PO BID Zofran (Ondansetron Hcl) 4 Mg Tablet 1 Tab PO Q6HRS Glimepiride 4 Mg Tablet 1 Tab PO BID Cinnamon (Cinnamon Bark) 500 Mg Capsule 500 Mg PO DAILY Aspir 81 (Aspirin) 81 Mg Tablet.dr 1 Tab PO DAILY Levothyroxine Sodium 100 Mcg Tablet 1 Tab PO DAILY07 NITROGLYCERIN SubLingual (Nitroglycerin) 0.4 Mg Tab.subl 0.4 Mg SL PRN Q5MIN PRN Donepezil Hcl 10 Mg Tablet 1 Tab PO HS Vitals/I & O Vital Sign - Last 24 Hours 06/21/16 06/21/16 06/21/16 06/21/16 11:30 11:33 12:45 15:40 Temp 98.5 98.9 98.5 98.9 Pulse 84 84 83 Resp 18 20 B/P 166/73 166/73 198/90 Pulse Ox 96 98 98 O2 Delivery Room Air Room Air Room Air 06/21/16 06/21/16 06/21/16 06/21/16 19:20 19:38 20:36 20:36 Temp 99.2 99.2 Pulse 82 82 82 Resp 16 B/P 191/99 191/99 191/99 Pulse Ox 97 O2 Delivery Room Air Room Air 06/21/16 06/22/16 06/22/16 06/22/16 22:27 02:40 02:45 03:19 Temp 98.7 98.7 98.7 98.7 Pulse 84 103 103 94 Resp 18 18 B/P 160/77 197/107 197/107 188/91 Pulse Ox 97 98 O2 Delivery Room Air Room Air 06/22/16 06/22/16 06/22/16 06/22/16 03:20 04:26 06:37 07:35 Pulse 100 97 Resp 20 B/P 188/92 131/74 Pulse Ox 96 O2 Delivery Room Air Room Air 06/22/16 06/22/16 06/22/16 06/22/16 07:40 07:45 08:13 08:14 Temp 98.5 98.5 Pulse 103 103 103 Resp 20 B/P 180/89 180/89 180/89 Pulse Ox 96 O2 Delivery Room Air Room Air Intake and Output 06/21/16 06/21/16 06/22/16 15:00 23:00 07:00 Intake Total 1050 ml 150 ml Output Total 350 ml 1825 ml 1250 ml Balance -350 ml -775 ml -1100 ml CHAVA GRAHAM MD Jun 22, 2016 10:21
[2016-06-22] MEDS ORDERED: LOSARTAN POTASSIUM 50 MG TABLET. PO ONE (11:15)
--- NOTE | 2016-06-22 11:17 | PDOC ---
Provider Note Provider Note No events overnight. HTN this a.m. Increase losartan to 100mg daily, extra 50mg dose now Continue metoprol, asa, statin and plavix. Supportive care will f/u in a.m. MIRI BRENNAN MD Jun 22, 2016 11:17
[2016-06-22] MEDS ORDERED: INSULIN ASPART 300 UNITS/3 ML INSULN.PEN SQ ONE ×2 (12:00→21:30)
[2016-06-22 15:37] LABS: BASO # 0.1 x10^3/uL (0.0-0.2); BASO % 1 % (0-3); EOS % 1 % (0-3); HEMATOCRIT 40.1 % (39.0-53.0); HEMOGLOBIN 13.3 g/dL (13.0-17.5); LYMPH # 0.8 x10^3/uL (1.0-4.8); LYMPH % 7 % (24-48); MEAN CORPUSCULAR HEMOGLOBIN 27 pg (25-35); MEAN CORPUSCULAR HGB CONC 33 g/dL (31-37); MEAN CORPUSCULAR VOLUME 81 fL (79-100); MONO % 8 % (0-9); NEUT % 84 % (31-73); PLATELET COUNT 241 x10^3/uL (140-400); RED BLOOD COUNT 4.94 x10^6/uL (4.30-5.70); RED CELL DISTRIBUTION WIDTH 15.3 % (11.5-14.5); WHITE BLOOD COUNT 11.3 x10^3/uL (4.0-11.0)
--- NOTE | 2016-06-22 16:32 | PDOC ---
PROGRESS NOTES Chief Complaint Chief Complaint cc: weakness, hypertension CAD with prior PCI dementia - Alzheimer's gerd BPH hypothyroidism anxiety depression type 2 diabetes mellitus, History of Present Illness History of Present Illness Patient seen and evaluated this AM. Patient resting, in no apparent distress. No complaints at this time. Per nursing, patient's blood glucose spiked to 400 this AM. Patient's bp was elevated this AM, thus antihypertensive doses were changed per cardiology. d/w nurse about plan of care. Vitals Vitals Vital Signs Date Time Temp Pulse Resp B/P Pulse Ox O2 Delivery O2 Flow Rate FiO2 06/22/16 14:31 99.4 103 21 186/94 96 Room Air 99.4 Physical Exam General: Alert, Cooperative, No acute distress Heart: Regular rate, Normal S1, Normal S2, Other (2/6 systolic murmur to LLS border) Lungs: Other (diminished breath sounds bilaterally. negative chest retractions and/or accessory muscle use. ) Abdomen: Soft, No tenderness Extremities: No cyanosis, No tenderness/swelling Skin: No breakdown, No significant lesion Labs LABS Laboratory Tests Test 06/21/16 20:40 06/22/16 05:00 06/22/16 07:22 06/22/16 11:26 Glucose (Fingerstick) 198mg/dL (70-99) 295mg/dL (70-99) 400mg/dL (70-99) Sodium Level 139mmol/L (136-145) Potassium Level 3.4mmol/L (3.5-5.1) Chloride Level 107mmol/L (98-107) Carbon Dioxide Level 22mmol/L (21-32) Anion Gap 10 (6-14) Blood Urea Nitrogen 25mg/dL (8-26) Creatinine 1.8mg/dL (0.7-1.3) Estimated GFR (Cockcroft-Gault) 43.9 Glucose Level 310mg/dL (70-99) Calcium Level 8.6mg/dL (8.5-10.1) Phosphorus Level 2.6mg/dL (2.6-4.7) Albumin 2.7g/dL (3.4-5.0) Test 06/22/16 15:30 White Blood Count 11.3x10^3/uL (4.0-11.0) Red Blood Count 4.94x10^6/uL (4.30-5.70) Hemoglobin 13.3g/dL (13.0-17.5) Hematocrit 40.1% (39.0-53.0) Mean Corpuscular Volume 81fL (79-100) Mean Corpuscular Hemoglobin 27pg (25-35) Mean Corpuscular Hemoglobin Concent 33g/dL (31-37) Red Cell Distribution Width 15.3% (11.5-14.5) Platelet Count 241x10^3/uL (140-400) Neutrophils (%) (Auto) 84% (31-73) Lymphocytes (%) (Auto) 7% (24-48) Monocytes (%) (Auto) 8% (0-9) Eosinophils (%) (Auto) 1% (0-3) Basophils (%) (Auto) 1% (0-3) Neutrophils # (Auto) 9.4x10^3uL (1.8-7.7) Lymphocytes # (Auto) 0.8x10^3/uL (1.0-4.8) Monocytes # (Auto) 0.9x10^3/uL (0.0-1.1) Eosinophils # (Auto) 0.1x10^3/uL (0.0-0.7) Basophils # (Auto) 0.1x10^3/uL (0.0-0.2) Review of Systems Review of Systems (+) generalized weakness Denies chest pain, palpitations, sob, abdominal pain, n/v/d, headaches, dizziness/lightheadedness, or fever/chills. Assessment and Plan Assessmemt and Plan Problems Medical Problems: (1) Accelerated hypertension Status: Acute (2) Weakness Status: Acute ASSESSMENT: 1. Mechanical fall with questionable syncope. 2. Accelerated hypertension, POA. currently labile 3. Dementia, ?Alzheimer's vs. progressive cognitive decline. 4. Type 2 diabetes mellitus with hyperglycemia, glycouria, and peripheral neuropathy 5. Gastroesophageal reflux disease. 6. Hypothyroidism. 7. Physical debility. 8. EDUARD/CKD, creatinine of 1.7 on admission. probable diabetic nephropathy. 9. CAD, multivessel disease 10. anemia, post-LHC. downtrending hgb. 11. urinary retention - nixon in place. PLAN: 1. continue telemetry monitoring 2. appreciate subspecialty input; opted for medical management per cardiology 3. hold metformin secondary to kidney function; continue home medications as appropriate 4. order [id number]. continue SSI and glucose checks AC. amaril 4mg to improve insulin sensitivity 5. IVF and phosphorus repletion per nephrology 6. check AM Labs 7. PT/OT evaluation and treatment 8. continue discharge planning to SNU vs. rehab. 9. neurology consulted to assess dementia vs. cognitive decline. 10. urology consulted for urinary retention; continue nixon and added flomax. Problems: Comment Review of Relevant I have reviewed the following items ismael (where applicable) has been applied. Labs Laboratory Tests Test 06/20/16 16:41 06/20/16 20:41 06/21/16 05:00 06/21/16 08:32 Glucose (Fingerstick) 291mg/dL (70-99) 365mg/dL (70-99) 184mg/dL (70-99) White Blood Count 10.0x10^3/uL (4.0-11.0) Red Blood Count 4.60x10^6/uL (4.30-5.70) Hemoglobin 12.7g/dL (13.0-17.5) Hematocrit 37.3% (39.0-53.0) Mean Corpuscular Volume 81fL (79-100) Mean Corpuscular Hemoglobin 28pg (25-35) Mean Corpuscular Hemoglobin Concent 34g/dL (31-37) Red Cell Distribution Width 15.1% (11.5-14.5) Platelet Count 222x10^3/uL (140-400) Neutrophils (%) (Auto) 74% (31-73) Lymphocytes (%) (Auto) 13% (24-48) Monocytes (%) (Auto) 8% (0-9) Eosinophils (%) (Auto) 44% (0-3) Basophils (%) (Auto) 1% (0-3) Neutrophils # (Auto) 7.3x10^3uL (1.8-7.7) Lymphocytes # (Auto) 1.2x10^3/uL (1.0-4.8) Monocytes # (Auto) 0.8x10^3/uL (0.0-1.1) Eosinophils # (Auto) 0.5x10^3/uL (0.0-0.7) Basophils # (Auto) 0.1x10^3/uL (0.0-0.2) Sodium Level 141mmol/L (136-145) Potassium Level 3.7mmol/L (3.5-5.1) Chloride Level 107mmol/L (98-107) Carbon Dioxide Level 24mmol/L (21-32) Anion Gap 10 (6-14) Blood Urea Nitrogen 30mg/dL (8-26) Creatinine 2.0mg/dL (0.7-1.3) Estimated GFR (Cockcroft-Gault) 38.9 Glucose Level 161mg/dL (70-99) Calcium Level 8.0mg/dL (8.5-10.1) Phosphorus Level 4.2mg/dL (2.6-4.7) Albumin 2.7g/dL (3.4-5.0) Test 06/21/16 11:33 06/21/16 16:25 06/21/16 20:40 06/22/16 05:00 Glucose (Fingerstick) 324mg/dL (70-99) 230mg/dL (70-99) 198mg/dL (70-99) Sodium Level 139mmol/L (136-145) Potassium Level 3.4mmol/L (3.5-5.1) Chloride Level 107mmol/L (98-107) Carbon Dioxide Level 22mmol/L (21-32) Anion Gap 10 (6-14) Blood Urea Nitrogen 25mg/dL (8-26) Creatinine 1.8mg/dL (0.7-1.3) Estimated GFR (Cockcroft-Gault) 43.9 Glucose Level 310mg/dL (70-99) Calcium Level 8.6mg/dL (8.5-10.1) Phosphorus Level 2.6mg/dL (2.6-4.7) Albumin 2.7g/dL (3.4-5.0) Test 06/22/16 07:22 06/22/16 11:26 06/22/16 15:30 Glucose (Fingerstick) 295mg/dL (70-99) 400mg/dL (70-99) White Blood Count 11.3x10^3/uL (4.0-11.0) Red Blood Count 4.94x10^6/uL (4.30-5.70) Hemoglobin 13.3g/dL (13.0-17.5) Hematocrit 40.1% (39.0-53.0) Mean Corpuscular Volume 81fL (79-100) Mean Corpuscular Hemoglobin 27pg (25-35) Mean Corpuscular Hemoglobin Concent 33g/dL (31-37) Red Cell Distribution Width 15.3% (11.5-14.5) Platelet Count 241x10^3/uL (140-400) Neutrophils (%) (Auto) 84% (31-73) Lymphocytes (%) (Auto) 7% (24-48) Monocytes (%) (Auto) 8% (0-9) Eosinophils (%) (Auto) 1% (0-3) Basophils (%) (Auto) 1% (0-3) Neutrophils # (Auto) 9.4x10^3uL (1.8-7.7) Lymphocytes # (Auto) 0.8x10^3/uL (1.0-4.8) Monocytes # (Auto) 0.9x10^3/uL (0.0-1.1) Eosinophils # (Auto) 0.1x10^3/uL (0.0-0.7) Basophils # (Auto) 0.1x10^3/uL (0.0-0.2) Laboratory Tests Test 06/21/16 20:40 06/22/16 05:00 06/22/16 07:22 06/22/16 11:26 Glucose (Fingerstick) 198mg/dL (70-99) 295mg/dL (70-99) 400mg/dL (70-99) Sodium Level 139mmol/L (136-145) Potassium Level 3.4mmol/L (3.5-5.1) Chloride Level 107mmol/L (98-107) Carbon Dioxide Level 22mmol/L (21-32) Anion Gap 10 (6-14) Blood Urea Nitrogen 25mg/dL (8-26) Creatinine 1.8mg/dL (0.7-1.3) Estimated GFR (Cockcroft-Gault) 43.9 Glucose Level 310mg/dL (70-99) Calcium Level 8.6mg/dL (8.5-10.1) Phosphorus Level 2.6mg/dL (2.6-4.7) Albumin 2.7g/dL (3.4-5.0) Test 06/22/16 15:30 White Blood Count 11.3x10^3/uL (4.0-11.0) Red Blood Count 4.94x10^6/uL (4.30-5.70) Hemoglobin 13.3g/dL (13.0-17.5) Hematocrit 40.1% (39.0-53.0) Mean Corpuscular Volume 81fL (79-100) Mean Corpuscular Hemoglobin 27pg (25-35) Mean Corpuscular Hemoglobin Concent 33g/dL (31-37) Red Cell Distribution Width 15.3% (11.5-14.5) Platelet Count 241x10^3/uL (140-400) Neutrophils (%) (Auto) 84% (31-73) Lymphocytes (%) (Auto) 7% (24-48) Monocytes (%) (Auto) 8% (0-9) Eosinophils (%) (Auto) 1% (0-3) Basophils (%) (Auto) 1% (0-3) Neutrophils # (Auto) 9.4x10^3uL (1.8-7.7) Lymphocytes # (Auto) 0.8x10^3/uL (1.0-4.8) Monocytes # (Auto) 0.9x10^3/uL (0.0-1.1) Eosinophils # (Auto) 0.1x10^3/uL (0.0-0.7) Basophils # (Auto) 0.1x10^3/uL (0.0-0.2) Medications Current Medications Hydralazine HCl (Apresoline) 20 mg 1X ONCE IVP Last administered on 06/18/16 13:19; Start 06/18/16 at 13:15; Stop 06/18/16 at 13:16; Status DC Ondansetron HCl (Zofran) 4 mg STK-MED ONCE .ROUTE ; Start 06/18/16 at 13:45; Stop 06/18/16 at 13:46; Status DC Ondansetron HCl (Zofran) 4 mg 1X ONCE IV Last administered on 06/18/16t 14:00 ; Start 06/18/16 at 14:00; Stop 06/18/16 at 14:01; Status DC Ondansetron HCl (Zofran) 4 mg PRN Q8HRS PRN IV NAUSEA/VOMITING; Start 06/18/16 at 14:15; Stop 06/19/16 at 14:14; Status DC Hydralazine HCl (Apresoline) 20 mg 1X ONCE IVP Last administered on 06/18/16 15:33; Start 06/18/16 at 15:30; Stop 06/18/16 at 15:31; Status DC Acetaminophen (Tylenol) 325 mg PRN Q6HRS PRN PO MILD PAIN / TEMP Last administered on 06/21/16 20:36; Start 06/18/16 at 16:30 Acetaminophen/ Hydrocodone Bitart (Lortab 5/325) 1 tab PRN Q6HRS PRN PO MODERATE TO SEVERE PAIN Last administered on 06/22/16 06:37; Start 06/18/16 at 16:30 Hydralazine HCl (Apresoline) 10 mg PRN Q4HRS PRN IVP ELEVATED BP, SEE COMMENTS Last administered on 06/19/16 00:08; Start 06/18/16 at 16:30; Stop 06/20/16 at 13:00; Status DC Ondansetron HCl (Zofran) 4 mg PRN Q8HRS PRN IV NAUSEA/VOMITING; Start 06/18/16 at 16:30 Albuterol Sulfate (Ventolin Neb Soln) 2.5 mg PRN Q4HRS PRN NEB SHORTNESS OF BREATH; Start 06/18/16 at 16:30 Aspirin (Children'S Aspirin) 81 mg DAILY PO Last administered on 06/22/16 08: 13; Start 06/19/16 at 09:00 Donepezil HCl (Aricept) 10 mg QHS PO Last administered on 06/21/16 20:36; Start 06/18/16 at 21:00 Gabapentin (Neurontin) 300 mg BID PO Last administered on 06/22/16 08:13; Start 06/18/16 at 21:00 Glimepiride (Amaryl) 4 mg BID PO Last administered on 06/20/16 13:05; Start at 21:00; Stop 06/20/16 at 19:24; Status DC Levothyroxine Sodium (Synthroid) 100 mcg DAILY07 PO Last administered on 07:10; Start 06/19/16 at 07:00 Losartan Potassium (Cozaar) 50 mg DAILY PO Last administered on 06/22/16 08:14 ; Start 06/19/16 at 09:00; Stop 06/22/16 at 11:17; Status DC Metformin HCl (Glucophage) 750 mg BIDWMEALS PO Last administered on 06/19/16 08:31; Start 06/19/16 at 08:00; Stop 06/19/16 at 09:50; Status DC Nitroglycerin (Nitrostat) 0.4 mg PRN Q5MIN PRN SL CHEST PAIN; Start 06/18/16 at 20:00 Ondansetron HCl (Zofran Odt) 4 mg PRN Q6HRS PRN PO NAUSEA/VOMITING; Start 06/18 at 20:00 Insulin Aspart (Novolog) 0-9 UNITS TIDWMEALS SQ Last administered on 06/22/16 08:19; Start 06/19/16 at 08:00 Dextrose 12.5 gm 12.5 gm PRN Q15MIN PRN IV SEE COMMENTS; Start 06/18/16 at 22: 30 Sodium Chloride 1,000 ml @ 100 mls/hr 1X ONCE IV ; Start 06/19/16 at 10:00; Stop 06/19/16 at 10:02; Status DC Heparin Sodium/ Dextrose 500 ml @ 0 mls/hr CONT PRN IV SEE I/O RECORD Last administered on 06/19/16 11:02; Start 06/19/16 at 10:00; Stop 06/20/16 at 19:19 ; Status DC Heparin Sodium (Porcine) (Heparin Sodium) 2,100 unit PRN Q6HRS PRN IV FOR UFH LEVEL LESS THAN 0.2 Last administered on 06/19/16 17:58; Start 06/19/16 at 10: 00; Stop 06/20/16 at 19:19; Status DC Labetalol HCl 20 mg 20 mg PRN Q2HR PRN IVP HYPERTENSION, SEE COMMENTS Last administered on 06/22/16 02:45; Start 06/19/16 at 10:00 Sodium Chloride (Iv Sodium Chloride 0.45%) 1,000 ml @ 50 mls/hr Q20H IV Last administered on 06/22/16 02:36; Start 06/19/16 at 10:00 Acetylcysteine 1200 mg 1,200 mg BID PO Last administered on 06/21/16 11:32; Start 06/19/16 at 21:00; Stop 06/21/16 at 20:59; Status DC Heparin Sodium/ Sodium Chloride 1,000 ml @ As Directed STK-MED ONCE .ROUTE ; Start 06/20/16 at 09:45; Stop 06/20/16 at 09:46; Status DC Lidocaine HCl 20 ml STK-MED ONCE .ROUTE ; Start 06/20/16 at 09:46; Stop at 09:47; Status DC Iodixanol (Visipaque 320) 100 ml STK-MED ONCE .ROUTE ; Start 06/20/16 at 09:46; Stop 06/20/16 at 09:47; Status DC Iodixanol (Visipaque 320) 100 ml STK-MED ONCE .ROUTE ; Start 06/20/16 at 11:19; Stop 06/20/16 at 11:20; Status DC Nitroglycerin (Nitroglycerin) 200 mcg STK-MED ONCE .ROUTE ; Start 06/20/16 at 11 :51; Stop 06/20/16 at 11:52; Status DC Verapamil HCl (Verapamil) 5 mg STK-MED ONCE .ROUTE ; Start 06/20/16 at 11:51; Stop 06/20/16 at 11:52; Status DC Heparin Sodium (Porcine) (Heparin Sodium) 10,000 unit STK-MED ONCE .ROUTE ; Start 06/20/16 at 11:51; Stop 06/20/16 at 11:52; Status DC Fentanyl Citrate (Fentanyl 2ml Vial) 100 mcg STK-MED ONCE .ROUTE ; Start at 11:51; Stop 06/20/16 at 11:52; Status DC Midazolam HCl (Versed) 2 mg STK-MED ONCE .ROUTE ; Start 06/20/16 at 11:52; Stop 06/20/16 at 11:53; Status DC Nitroglycerin (Nitroglycerin) 200 mcg 1X ONCE IART Last administered on 12:32; Start 06/20/16 at 12:30; Stop 06/20/16 at 12:31; Status DC Verapamil HCl (Verapamil) 2.5 mg 1X ONCE IART Last administered on 06/20/16 12:34; Start 06/20/16 at 12:30; Stop 06/20/16 at 12:31; Status DC Heparin Sodium (Porcine) (Heparin Sodium) 2,500 unit 1X ONCE IART Last administered on 06/20/16 12:38; Start 06/20/16 at 12:30; Stop 06/20/16 at 12:31 ; Status DC Heparin Sodium/ Sodium Chloride 1,000 unit 1X ONCE IART Last administered on 12:32; Start 06/20/16 at 12:30; Stop 06/20/16 at 12:31; Status DC Midazolam HCl (Versed) 2 mg 1X ONCE IV Last administered on 06/20/16 12:37; Start 06/20/16 at 12:30; Stop 06/20/16 at 12:31; Status DC Fentanyl Citrate (Fentanyl 2ml Vial) 100 mcg 1X ONCE IV Last administered on 12:36; Start 06/20/16 at 12:30; Stop 06/20/16 at 12:31; Status DC Iodixanol (Visipaque 320) 100 ml 1X ONCE IART Last administered on 06/20/16 12:35; Start 06/20/16 at 12:30; Stop 06/20/16 at 12:31; Status DC Lidocaine HCl 20 ml 1X ONCE IJ Last administered on 06/20/16 12:36; Start at 12:30; Stop 06/20/16 at 12:31; Status DC Nitroglycerin (Nitrostat) 0.4 mg PRN Q5MIN PRN SL CHEST PAIN; Start 06/20/16 at 13:00; Status UNV Hydralazine HCl 20 mg 20 mg PRN Q4HRS PRN IVP ELEVATED BP, SEE COMMENTS Last administered on 06/22/16 03:19; Start 06/20/16 at 13:00 Potassium Phosphate/Sodium Chloride (Potassium Phosphate/Iv Sodium Chloride 0.9 % 100ml) 104.5333 ml @ 52.267 m... Q2H IV Last administered on 06/20/16 18:26 ; Start 06/20/16 at 14:00; Stop 06/20/16 at 19:59; Status DC Info (Anti-Coagulation Monitoring By Pharmacy) 1 each PRN DAILY PRN MC SEE COMMENTS; Start 06/20/16 at 15:15; Stop 06/21/16 at 11:51; Status DC Glimepiride (Amaryl) 4 mg BIDWMEALS PO Last administered on 06/22/16 08:13; Start 06/21/16 at 08:00 Insulin Aspart (Novolog) 8 units 1X ONCE SQ Last administered on 06/20/16 21: 16; Start 06/20/16 at 21:00; Stop 06/20/16 at 21:01; Status DC Metoprolol Tartrate (Lopressor) 25 mg BID PO Last administered on 06/22/16 08: 13; Start 06/21/16 at 11:00 Atorvastatin Calcium (Lipitor) 40 mg QHS PO Last administered on 06/21/16 20: 36; Start 06/21/16 at 21:00 Clopidogrel Bisulfate (Plavix) 75 mg DAILYWBKFT PO Last administered on 08:13; Start 06/21/16 at 11:00 Tamsulosin HCl (Flomax) 0.4 mg DAILY PO ; Start 06/23/16 at 09:00 Losartan Potassium (Cozaar) 50 mg DAILY PO ; Start 06/23/16 at 09:00; Stop at 09:00; Status DC Losartan Potassium (Cozaar) 100 mg DAILY PO ; Start 06/23/16 at 09:00 Losartan Potassium (Cozaar) 50 mg 1X ONCE PO Last administered on 06/22/16 11 :46; Start 06/22/16 at 11:15; Stop 06/22/16 at 11:21; Status DC Insulin Aspart (Novolog) 30 units 1X ONCE SQ Last administered on 06/22/16 12 :05; Start 06/22/16 at 12:00; Stop 06/22/16 at 12:01; Status DC Active Scripts Active Reported Gabapentin 300 Mg Capsule 300 Mg PO BID Losartan Potassium 50 Mg Tablet 100 Mg PO HS Metformin Hcl Er (Metformin Hcl) 750 Mg Tab.er.24h 750 Mg PO BID Zofran (Ondansetron Hcl) 4 Mg Tablet 1 Tab PO Q6HRS Glimepiride 4 Mg Tablet 1 Tab PO BID Cinnamon (Cinnamon Bark) 500 Mg Capsule 500 Mg PO DAILY Aspir 81 (Aspirin) 81 Mg Tablet.dr 1 Tab PO DAILY Levothyroxine Sodium 100 Mcg Tablet 1 Tab PO DAILY07 NITROGLYCERIN SubLingual (Nitroglycerin) 0.4 Mg Tab.subl 0.4 Mg SL PRN Q5MIN PRN Donepezil Hcl 10 Mg Tablet 1 Tab PO HS Vitals/I & O Vital Sign - Last 24 Hours 06/21/16 06/21/16 06/21/16 06/21/16 19:20 19:38 20:36 20:36 Temp 99.2 99.2 Pulse 82 82 82 Resp 16 B/P 191/99 191/99 191/99 Pulse Ox 97 O2 Delivery Room Air Room Air 06/21/16 06/22/16 06/22/16 06/22/16 22:27 02:40 02:45 03:19 Temp 98.7 98.7 98.7 98.7 Pulse 84 103 103 94 Resp 18 18 B/P 160/77 197/107 197/107 188/91 Pulse Ox 97 98 O2 Delivery Room Air Room Air 06/22/16 06/22/16 06/22/16 06/22/16 03:20 04:26 06:37 07:35 Pulse 100 97 Resp 20 B/P 188/92 131/74 Pulse Ox 96 O2 Delivery Room Air Room Air 06/22/16 06/22/16 06/22/16 06/22/16 07:40 07:45 08:13 08:14 Temp 98.5 98.5 Pulse 103 103 103 Resp 20 B/P 180/89 180/89 180/89 Pulse Ox 96 O2 Delivery Room Air Room Air 06/22/16 06/22/16 06/22/16 10:23 11:46 14:31 Temp 98.7 99.4 98.7 99.4 Pulse 101 101 103 Resp 20 21 B/P 152/82 152/82 186/94 Pulse Ox 94 96 O2 Delivery Room Air Room Air Intake and Output 06/21/16 06/21/16 06/22/16 15:00 23:00 07:00 Intake Total 1050 ml 150 ml Output Total 350 ml 1825 ml 1250 ml Balance -350 ml -775 ml -1100 ml LARA HARRY III DO Jun 22, 2016 16:32
[2016-06-22] MEDS: ACETAMINOPHEN 325 MG TABLET. PO PRN (19:08)
--- NOTE | 2016-06-22 19:41 | CONS ---
DATE OF CONSULTATION: 06/22/2016 LOCATION: The patient is in room 203. HISTORY OF PRESENT ILLNESS: The patient is a very pleasant 81-year-old -[place] male who was admitted with a fall at home. The patient has history of diabetes, hypertension, GERD, hypothyroidism, Alzheimer's dementia. PAST MEDICAL HISTORY: Significant for some anxiety, coronary artery disease. He has had previous coronary artery stenting. He has no known drug allergies. The patient also with some chronic kidney disease. Creatinine on admission was 1.7, currently 1.8. He had imaging, which showed some right renal cyst, no evidence of any renal obstruction. The patient developed urinary retention; therefore, a Butts catheter was placed. He had approximately a little over 300 mL in the bladder when the Butts was placed. According to the patient's family, the patient has been having problems with lower urinary tract symptoms and nocturia up to 10 times at night for the past month or so, suggesting urinary retention. The patient with no prior urologic operations. He has not been on any alpha vitaliy therapy in the past. His urine on admission had shown 3-5 red cells, 1-4 white cells, no bacteria. PHYSICAL EXAMINATION: GENITOURINARY: Testes are descended bilaterally. Phallus is circumcised. He has Butts catheter gravity drainage and secured to the right thigh with a StatLock and the urine is grossly clear yellow with good urine output. RECTAL: On rectal examination, he has good sphincter tone. Prostate smooth, nontender, without nodules, overall size 35 grams. PLAN: I talked with the patient and his family concerning his urinary retention____ is enlarged prostate. RECOMMENDATION: Will be to keep Butts catheter in place to allow the bladder regain some tone, placed him on Flomax 0.4 mg a day and then have the patient follow up with the nurse practitioner [facility] [place] for a voiding trial approximately 8-9 days. I certainly appreciate being allowed to participate in this patient's care. CHAVA GRAHAM MD DR: LUKE/rach JOB#: [id number] / [id number]
[2016-06-22] MEDS: ATORVASTATIN CALCIUM 40 MG TABLET. PO SCH (20:37)
[2016-06-22] MEDS: DONEPEZIL HCL 10 MG TABLET. PO SCH (20:38)
[2016-06-23 02:56] VITALS: BP 124/67
[2016-06-23 05:54] LABS: BASO # 0.1 x10^3/uL (0.0-0.2); BASO % 1 % (0-3); EOS % 2 % (0-3); HEMATOCRIT 38.4 % (39.0-53.0); HEMOGLOBIN 12.8 g/dL (13.0-17.5); LYMPH # 1.4 x10^3/uL (1.0-4.8); LYMPH % 13 % (24-48); MEAN CORPUSCULAR HEMOGLOBIN 27 pg (25-35); MEAN CORPUSCULAR HGB CONC 33 g/dL (31-37); MEAN CORPUSCULAR VOLUME 82 fL (79-100); MONO % 8 % (0-9); NEUT % 76 % (31-73); PLATELET COUNT 243 x10^3/uL (140-400); RED CELL DISTRIBUTION WIDTH 15.3 % (11.5-14.5); WHITE BLOOD COUNT 11.3 x10^3/uL (4.0-11.0)
[2016-06-23] MEDS: LEVOTHYROXINE 100 MCG TABLET PO SCH (06:17)
[2016-06-23 06:26] LABS: ALBUMIN 2.6 g/dL (3.4-5.0); CALCIUM 8.1 mg/dL (8.5-10.1); CREATININE 2.1 mg/dL (0.7-1.3); GFR 36.8; PHOSPHORUS 3.7 mg/dL (2.6-4.7); POTASSIUM 3.3 mmol/L (3.5-5.1)
[2016-06-23 07:00] VITALS: BP 192/99
[2016-06-23] MEDS: GLIMEPIRIDE 2 MG TABLET. PO SCH (08:33)
[2016-06-23] MEDS: CLOPIDOGREL BISULFATE 75 MG TABLET PO SCH (08:33)
[2016-06-23] MEDS: METOPROLOL TART IMMED RELEASE 25 MG TABLET. PO SCH (08:33)
[2016-06-23] MEDS: ASPIRIN CHEWABLE 81 MG TABLET. PO SCH (08:33)
[2016-06-23] MEDS: GABAPENTIN 300 MG CAPSULE. PO SCH (08:33)
[2016-06-23] MEDS: INSULIN ASPART 300 UNITS/3 ML INSULN.PEN SQ SCH ×2 (08:36→12:00)
[2016-06-23] MEDS ORDERED: LOSARTAN POTASSIUM 50 MG TABLET. PO SCH ×2 (09:00)
[2016-06-23] MEDS ORDERED: TAMSULOSIN 0.4 MG CAP.ER.24H. PO SCH (09:00)
[2016-06-23 10:48] VITALS: BP 189/95
[2016-06-23] MEDS ORDERED: INSULIN ASPART 300 UNITS/3 ML INSULN.PEN SQ ONE (12:00)
--- NOTE | 2016-06-23 12:03 | PDOC ---
PROGRESS NOTES Chief Complaint Chief Complaint cc: weakness, hypertension CAD with prior PCI dementia - Alzheimer's gerd BPH hypothyroidism anxiety depression type 2 diabetes mellitus, History of Present Illness History of Present Illness Pt was in bed and stable at baseline. Has no acute complaints. Discussed plan to DC to SNF with pt and nurse. Vitals Vitals Vital Signs Date Time Temp Pulse Resp B/P Pulse Ox O2 Delivery O2 Flow Rate FiO2 06/23/16 10:48 98.7 103 18 189/95 96 Room Air 98.7 Physical Exam General: Alert, Cooperative, No acute distress Heart: Regular rate, Normal S1, Normal S2, Other (2/6 systolic murmur to LLS border) Lungs: Other (diminished breath sounds bilaterally. negative chest retractions and/or accessory muscle use. ) Abdomen: Soft, No tenderness Extremities: No cyanosis, No tenderness/swelling Skin: No breakdown, No significant lesion Labs LABS Laboratory Tests Test 06/22/16 15:30 06/22/16 16:40 06/22/16 20:37 06/23/16 05:10 White Blood Count 11.3x10^3/uL (4.0-11.0) 11.3x10^3/uL (4.0-11.0) Red Blood Count 4.94x10^6/uL (4.30-5.70) 4.70x10^6/uL (4.30-5.70) Hemoglobin 13.3g/dL (13.0-17.5) 12.8g/dL (13.0-17.5) Hematocrit 40.1% (39.0-53.0) 38.4% (39.0-53.0) Mean Corpuscular Volume 81fL (79-100) 82fL (79-100) Mean Corpuscular Hemoglobin 27pg (25-35) 27pg (25-35) Mean Corpuscular Hemoglobin Concent 33g/dL (31-37) 33g/dL (31-37) Red Cell Distribution Width 15.3% (11.5-14.5) 15.3% (11.5-14.5) Platelet Count 241x10^3/uL (140-400) 243x10^3/uL (140-400) Neutrophils (%) (Auto) 84% (31-73) 76% (31-73) Lymphocytes (%) (Auto) 7% (24-48) 13% (24-48) Monocytes (%) (Auto) 8% (0-9) 8% (0-9) Eosinophils (%) (Auto) 1% (0-3) 2% (0-3) Basophils (%) (Auto) 1% (0-3) 1% (0-3) Neutrophils # (Auto) 9.4x10^3uL (1.8-7.7) 8.6x10^3uL (1.8-7.7) Lymphocytes # (Auto) 0.8x10^3/uL (1.0-4.8) 1.4x10^3/uL (1.0-4.8) Monocytes # (Auto) 0.9x10^3/uL (0.0-1.1) 0.9x10^3/uL (0.0-1.1) Eosinophils # (Auto) 0.1x10^3/uL (0.0-0.7) 0.2x10^3/uL (0.0-0.7) Basophils # (Auto) 0.1x10^3/uL (0.0-0.2) 0.1x10^3/uL (0.0-0.2) Vitamin B12 Level 588pg/mL (247-911) Glucose (Fingerstick) 159mg/dL (70-99) 410mg/dL (70-99) Sodium Level 140mmol/L (136-145) Potassium Level 3.3mmol/L (3.5-5.1) Chloride Level 108mmol/L (98-107) Carbon Dioxide Level 24mmol/L (21-32) Anion Gap 8 (6-14) Blood Urea Nitrogen 29mg/dL (8-26) Creatinine 2.1mg/dL (0.7-1.3) Estimated GFR (Cockcroft-Gault) 36.8 Glucose Level 165mg/dL (70-99) Calcium Level 8.1mg/dL (8.5-10.1) Phosphorus Level 3.7mg/dL (2.6-4.7) Albumin 2.6g/dL (3.4-5.0) Test 06/23/16 07:44 06/23/16 11:18 Glucose (Fingerstick) 170mg/dL (70-99) 354mg/dL (70-99) Review of Systems Review of Systems Denies chest pain Denies SOA Denies N/V/D Assessment and Plan Assessmemt and Plan Problems Medical Problems: (1) Accelerated hypertension Status: Acute (2) Weakness Status: Acute ASSESSMENT: 1. Mechanical fall with questionable syncope. 2. Accelerated hypertension, POA. currently labile 3. Dementia, ?Alzheimer's vs. progressive cognitive decline. 4. Type 2 diabetes mellitus with hyperglycemia, glycouria, and peripheral neuropathy 5. Gastroesophageal reflux disease. 6. Hypothyroidism. 7. Physical debility. 8. EDUARD/CKD, creatinine of 1.7 on admission. probable diabetic nephropathy. 9. CAD, multivessel disease 10. anemia, post-LHC. downtrending hgb. 11. urinary retention - nixon in place. PLAN: 1. Discharge to SNF today 2. Consult social services analyst for SNF. 3. Follow up with PCP 4. Continue home meds. 5. Activity as tolerated Problems: Comment Review of Relevant I have reviewed the following items ismael (where applicable) has been applied. Labs Laboratory Tests Test 06/21/16 16:25 06/21/16 20:40 06/22/16 05:00 06/22/16 07:22 Glucose (Fingerstick) 230mg/dL (70-99) 198mg/dL (70-99) 295mg/dL (70-99) Sodium Level 139mmol/L (136-145) Potassium Level 3.4mmol/L (3.5-5.1) Chloride Level 107mmol/L (98-107) Carbon Dioxide Level 22mmol/L (21-32) Anion Gap 10 (6-14) Blood Urea Nitrogen 25mg/dL (8-26) Creatinine 1.8mg/dL (0.7-1.3) Estimated GFR (Cockcroft-Gault) 43.9 Glucose Level 310mg/dL (70-99) Calcium Level 8.6mg/dL (8.5-10.1) Phosphorus Level 2.6mg/dL (2.6-4.7) Albumin 2.7g/dL (3.4-5.0) Test 06/22/16 11:26 06/22/16 15:30 06/22/16 16:40 06/22/16 20:37 Glucose (Fingerstick) 400mg/dL (70-99) 159mg/dL (70-99) 410mg/dL (70-99) White Blood Count 11.3x10^3/uL (4.0-11.0) Red Blood Count 4.94x10^6/uL (4.30-5.70) Hemoglobin 13.3g/dL (13.0-17.5) Hematocrit 40.1% (39.0-53.0) Mean Corpuscular Volume 81fL (79-100) Mean Corpuscular Hemoglobin 27pg (25-35) Mean Corpuscular Hemoglobin Concent 33g/dL (31-37) Red Cell Distribution Width 15.3% (11.5-14.5) Platelet Count 241x10^3/uL (140-400) Neutrophils (%) (Auto) 84% (31-73) Lymphocytes (%) (Auto) 7% (24-48) Monocytes (%) (Auto) 8% (0-9) Eosinophils (%) (Auto) 1% (0-3) Basophils (%) (Auto) 1% (0-3) Neutrophils # (Auto) 9.4x10^3uL (1.8-7.7) Lymphocytes # (Auto) 0.8x10^3/uL (1.0-4.8) Monocytes # (Auto) 0.9x10^3/uL (0.0-1.1) Eosinophils # (Auto) 0.1x10^3/uL (0.0-0.7) Basophils # (Auto) 0.1x10^3/uL (0.0-0.2) Vitamin B12 Level 588pg/mL (247-911) Test 06/23/16 05:10 06/23/16 07:44 06/23/16 11:18 White Blood Count 11.3x10^3/uL (4.0-11.0) Red Blood Count 4.70x10^6/uL (4.30-5.70) Hemoglobin 12.8g/dL (13.0-17.5) Hematocrit 38.4% (39.0-53.0) Mean Corpuscular Volume 82fL (79-100) Mean Corpuscular Hemoglobin 27pg (25-35) Mean Corpuscular Hemoglobin Concent 33g/dL (31-37) Red Cell Distribution Width 15.3% (11.5-14.5) Platelet Count 243x10^3/uL (140-400) Neutrophils (%) (Auto) 76% (31-73) Lymphocytes (%) (Auto) 13% (24-48) Monocytes (%) (Auto) 8% (0-9) Eosinophils (%) (Auto) 2% (0-3) Basophils (%) (Auto) 1% (0-3) Neutrophils # (Auto) 8.6x10^3uL (1.8-7.7) Lymphocytes # (Auto) 1.4x10^3/uL (1.0-4.8) Monocytes # (Auto) 0.9x10^3/uL (0.0-1.1) Eosinophils # (Auto) 0.2x10^3/uL (0.0-0.7) Basophils # (Auto) 0.1x10^3/uL (0.0-0.2) Sodium Level 140mmol/L (136-145) Potassium Level 3.3mmol/L (3.5-5.1) Chloride Level 108mmol/L (98-107) Carbon Dioxide Level 24mmol/L (21-32) Anion Gap 8 (6-14) Blood Urea Nitrogen 29mg/dL (8-26) Creatinine 2.1mg/dL (0.7-1.3) Estimated GFR (Cockcroft-Gault) 36.8 Glucose Level 165mg/dL (70-99) Calcium Level 8.1mg/dL (8.5-10.1) Phosphorus Level 3.7mg/dL (2.6-4.7) Albumin 2.6g/dL (3.4-5.0) Glucose (Fingerstick) 170mg/dL (70-99) 354mg/dL (70-99) Laboratory Tests Test 06/22/16 15:30 06/22/16 16:40 06/22/16 20:37 06/23/16 05:10 White Blood Count 11.3x10^3/uL (4.0-11.0) 11.3x10^3/uL (4.0-11.0) Red Blood Count 4.94x10^6/uL (4.30-5.70) 4.70x10^6/uL (4.30-5.70) Hemoglobin 13.3g/dL (13.0-17.5) 12.8g/dL (13.0-17.5) Hematocrit 40.1% (39.0-53.0) 38.4% (39.0-53.0) Mean Corpuscular Volume 81fL (79-100) 82fL (79-100) Mean Corpuscular Hemoglobin 27pg (25-35) 27pg (25-35) Mean Corpuscular Hemoglobin Concent 33g/dL (31-37) 33g/dL (31-37) Red Cell Distribution Width 15.3% (11.5-14.5) 15.3% (11.5-14.5) Platelet Count 241x10^3/uL (140-400) 243x10^3/uL (140-400) Neutrophils (%) (Auto) 84% (31-73) 76% (31-73) Lymphocytes (%) (Auto) 7% (24-48) 13% (24-48) Monocytes (%) (Auto) 8% (0-9) 8% (0-9) Eosinophils (%) (Auto) 1% (0-3) 2% (0-3) Basophils (%) (Auto) 1% (0-3) 1% (0-3) Neutrophils # (Auto) 9.4x10^3uL (1.8-7.7) 8.6x10^3uL (1.8-7.7) Lymphocytes # (Auto) 0.8x10^3/uL (1.0-4.8) 1.4x10^3/uL (1.0-4.8) Monocytes # (Auto) 0.9x10^3/uL (0.0-1.1) 0.9x10^3/uL (0.0-1.1) Eosinophils # (Auto) 0.1x10^3/uL (0.0-0.7) 0.2x10^3/uL (0.0-0.7) Basophils # (Auto) 0.1x10^3/uL (0.0-0.2) 0.1x10^3/uL (0.0-0.2) Vitamin B12 Level 588pg/mL (247-911) Glucose (Fingerstick) 159mg/dL (70-99) 410mg/dL (70-99) Sodium Level 140mmol/L (136-145) Potassium Level 3.3mmol/L (3.5-5.1) Chloride Level 108mmol/L (98-107) Carbon Dioxide Level 24mmol/L (21-32) Anion Gap 8 (6-14) Blood Urea Nitrogen 29mg/dL (8-26) Creatinine 2.1mg/dL (0.7-1.3) Estimated GFR (Cockcroft-Gault) 36.8 Glucose Level 165mg/dL (70-99) Calcium Level 8.1mg/dL (8.5-10.1) Phosphorus Level 3.7mg/dL (2.6-4.7) Albumin 2.6g/dL (3.4-5.0) Test 06/23/16 07:44 06/23/16 11:18 Glucose (Fingerstick) 170mg/dL (70-99) 354mg/dL (70-99) Medications Current Medications Hydralazine HCl (Apresoline) 20 mg 1X ONCE IVP Last administered on 06/18/16 13:19; Start 06/18/16 at 13:15; Stop 06/18/16 at 13:16; Status DC Ondansetron HCl (Zofran) 4 mg STK-MED ONCE .ROUTE ; Start 06/18/16 at 13:45; Stop 06/18/16 at 13:46; Status DC Ondansetron HCl (Zofran) 4 mg 1X ONCE IV Last administered on 06/18/16 14:00 ; Start 06/18/16 at 14:00; Stop 06/18/16 at 14:01; Status DC Ondansetron HCl (Zofran) 4 mg PRN Q8HRS PRN IV NAUSEA/VOMITING; Start 06/18/16 at 14:15; Stop 06/19/16 at 14:14; Status DC Hydralazine HCl (Apresoline) 20 mg 1X ONCE IVP Last administered on 06/18/16 15:33; Start 06/18/16 at 15:30; Stop 06/18/16 at 15:31; Status DC Acetaminophen (Tylenol) 325 mg PRN Q6HRS PRN PO MILD PAIN / TEMP Last administered on 06/22/16 19:08; Start 06/18/16 at 16:30 Acetaminophen/ Hydrocodone Bitart (Lortab 5/325) 1 tab PRN Q6HRS PRN PO MODERATE TO SEVERE PAIN Last administered on 06/22/16 06:37; Start 06/18/16 at 16:30 Hydralazine HCl (Apresoline) 10 mg PRN Q4HRS PRN IVP ELEVATED BP, SEE COMMENTS Last administered on 06/19/16 00:08; Start 06/18/16 at 16:30; Stop 06/20/16 at 13:00; Status DC Ondansetron HCl (Zofran) 4 mg PRN Q8HRS PRN IV NAUSEA/VOMITING; Start 06/18/16 at 16:30 Albuterol Sulfate (Ventolin Neb Soln) 2.5 mg PRN Q4HRS PRN NEB SHORTNESS OF BREATH; Start 06/18/16 at 16:30 Aspirin (Children'S Aspirin) 81 mg DAILY PO Last administered on 06/23/16 08:33 ; Start 06/19/16 at 09:00 Donepezil HCl (Aricept) 10 mg QHS PO Last administered on 06/22/16 20:38; Start 06/18/16 at 21:00 Gabapentin (Neurontin) 300 mg BID PO Last administered on 06/23/16 08:33; Start 06/18/16 at 21:00 Glimepiride (Amaryl) 4 mg BID PO Last administered on 06/20/16 13:05; Start at 21:00; Stop 06/20/16 at 19:24; Status DC Levothyroxine Sodium (Synthroid) 100 mcg DAILY07 PO Last administered on 06:17; Start 06/19/16 at 07:00 Losartan Potassium (Cozaar) 50 mg DAILY PO Last administered on 06/22/16 08:14 ; Start 06/19/16 at 09:00; Stop 06/22/16 at 11:17; Status DC Metformin HCl (Glucophage) 750 mg BIDWMEALS PO Last administered on 06/19/16 08:31; Start 06/19/16 at 08:00; Stop 06/19/16 at 09:50; Status DC Nitroglycerin (Nitrostat) 0.4 mg PRN Q5MIN PRN SL CHEST PAIN; Start 06/18/16 at 20:00 Ondansetron HCl (Zofran Odt) 4 mg PRN Q6HRS PRN PO NAUSEA/VOMITING; Start 06/18 at 20:00 Insulin Aspart (Novolog) 0-9 UNITS TIDWMEALS SQ Last administered on 06/23/16 08:36; Start 06/19/16 at 08:00 Dextrose 12.5 gm 12.5 gm PRN Q15MIN PRN IV SEE COMMENTS; Start 06/18/16 at 22: 30 Sodium Chloride 1,000 ml @ 100 mls/hr 1X ONCE IV ; Start 06/19/16 at 10:00; Stop 06/19/16 at 10:02; Status DC Heparin Sodium/ Dextrose 500 ml @ 0 mls/hr CONT PRN IV SEE I/O RECORD Last administered on 06/19/16 11:02; Start 06/19/16 at 10:00; Stop 06/20/16 at 19:19 ; Status DC Heparin Sodium (Porcine) (Heparin Sodium) 2,100 unit PRN Q6HRS PRN IV FOR UFH LEVEL LESS THAN 0.2 Last administered on 06/19/16 17:58; Start 06/19/16 at 10: 00; Stop 06/20/16 at 19:19; Status DC Labetalol HCl 20 mg 20 mg PRN Q2HR PRN IVP HYPERTENSION, SEE COMMENTS Last administered on 06/22/16 02:45; Start 06/19/16 at 10:00 Sodium Chloride (Iv Sodium Chloride 0.45%) 1,000 ml @ 50 mls/hr Q20H IV Last administered on 06/22/16 21:04; Start 06/19/16 at 10:00 Acetylcysteine 1200 mg 1,200 mg BID PO Last administered on 06/21/16 11:32; Start 06/19/16 at 21:00; Stop 06/21/16 at 20:59; Status DC Heparin Sodium/ Sodium Chloride 1,000 ml @ As Directed STK-MED ONCE .ROUTE ; Start 06/20/16 at 09:45; Stop 06/20/16 at 09:46; Status DC Lidocaine HCl 20 ml STK-MED ONCE .ROUTE ; Start 06/20/16 at 09:46; Stop at 09:47; Status DC Iodixanol (Visipaque 320) 100 ml STK-MED ONCE .ROUTE ; Start 06/20/16 at 09:46; Stop 06/20/16 at 09:47; Status DC Iodixanol (Visipaque 320) 100 ml STK-MED ONCE .ROUTE ; Start 06/20/16 at 11:19; Stop 06/20/16 at 11:20; Status DC Nitroglycerin (Nitroglycerin) 200 mcg STK-MED ONCE .ROUTE ; Start 06/20/16 at 11 :51; Stop 06/20/16 at 11:52; Status DC Verapamil HCl (Verapamil) 5 mg STK-MED ONCE .ROUTE ; Start 06/20/16 at 11:51; Stop 06/20/16 at 11:52; Status DC Heparin Sodium (Porcine) (Heparin Sodium) 10,000 unit STK-MED ONCE .ROUTE ; Start 06/20/16 at 11:51; Stop 06/20/16 at 11:52; Status DC Fentanyl Citrate (Fentanyl 2ml Vial) 100 mcg STK-MED ONCE .ROUTE ; Start at 11:51; Stop 06/20/16 at 11:52; Status DC Midazolam HCl (Versed) 2 mg STK-MED ONCE .ROUTE ; Start 06/20/16 at 11:52; Stop 06/20/16 at 11:53; Status DC Nitroglycerin (Nitroglycerin) 200 mcg 1X ONCE IART Last administered on 12:32; Start 06/20/16 at 12:30; Stop 06/20/16 at 12:31; Status DC Verapamil HCl (Verapamil) 2.5 mg 1X ONCE IART Last administered on 06/20/16 12:34; Start 06/20/16 at 12:30; Stop 06/20/16 at 12:31; Status DC Heparin Sodium (Porcine) (Heparin Sodium) 2,500 unit 1X ONCE IART Last administered on 06/20/16 12:38; Start 06/20/16 at 12:30; Stop 06/20/16 at 12:31 ; Status DC Heparin Sodium/ Sodium Chloride 1,000 unit 1X ONCE IART Last administered on 12:32; Start 06/20/16 at 12:30; Stop 06/20/16 at 12:31; Status DC Midazolam HCl (Versed) 2 mg 1X ONCE IV Last administered on 06/20/16 12:37; Start 06/20/16 at 12:30; Stop 06/20/16 at 12:31; Status DC Fentanyl Citrate (Fentanyl 2ml Vial) 100 mcg 1X ONCE IV Last administered on 12:36; Start 06/20/16 at 12:30; Stop 06/20/16 at 12:31; Status DC Iodixanol (Visipaque 320) 100 ml 1X ONCE IART Last administered on 06/20/16 12:35; Start 06/20/16 at 12:30; Stop 06/20/16 at 12:31; Status DC Lidocaine HCl 20 ml 1X ONCE IJ Last administered on 06/20/16 12:36; Start at 12:30; Stop 06/20/16 at 12:31; Status DC Nitroglycerin (Nitrostat) 0.4 mg PRN Q5MIN PRN SL CHEST PAIN; Start 06/20/16 at 13:00; Status UNV Hydralazine HCl 20 mg 20 mg PRN Q4HRS PRN IVP ELEVATED BP, SEE COMMENTS Last administered on 06/22/16 17:21; Start 06/20/16 at 13:00 Potassium Phosphate/Sodium Chloride (Potassium Phosphate/Iv Sodium Chloride 0.9 % 100ml) 104.5333 ml @ 52.267 m... Q2H IV Last administered on 06/20/16 18:26 ; Start 06/20/16 at 14:00; Stop 06/20/16 at 19:59; Status DC Info (Anti-Coagulation Monitoring By Pharmacy) 1 each PRN DAILY PRN MC SEE COMMENTS; Start 06/20/16 at 15:15; Stop 06/21/16 at 11:51; Status DC Glimepiride (Amaryl) 4 mg BIDWMEALS PO Last administered on 06/23/16 08:33; Start 06/21/16 at 08:00 Insulin Aspart (Novolog) 8 units 1X ONCE SQ Last administered on 06/20/16 21: 16; Start 06/20/16 at 21:00; Stop 06/20/16 at 21:01; Status DC Metoprolol Tartrate (Lopressor) 25 mg BID PO Last administered on 06/23/16 08: 33; Start 06/21/16 at 11:00 Atorvastatin Calcium (Lipitor) 40 mg QHS PO Last administered on 06/22/16 20: 37; Start 06/21/16 at 21:00 Clopidogrel Bisulfate (Plavix) 75 mg DAILYWBKFT PO Last administered on 08:33; Start 06/21/16 at 11:00 Tamsulosin HCl (Flomax) 0.4 mg DAILY PO Last administered on 06/23/16 08:33; Start 06/23/16 at 09:00 Losartan Potassium (Cozaar) 50 mg DAILY PO ; Start 06/23/16 at 09:00; Stop at 09:00; Status DC Losartan Potassium (Cozaar) 100 mg DAILY PO Last administered on 06/23/16 08:34 ; Start 06/23/16 at 09:00 Losartan Potassium (Cozaar) 50 mg 1X ONCE PO Last administered on 06/22/16 11 :46; Start 06/22/16 at 11:15; Stop 06/22/16 at 11:21; Status DC Insulin Aspart (Novolog) 30 units 1X ONCE SQ Last administered on 06/22/16 12 :05; Start 06/22/16 at 12:00; Stop 06/22/16 at 12:01; Status DC Insulin Aspart (Novolog) 12 units 1X ONCE SQ Last administered on 06/22/16 21 :06; Start 06/22/16 at 21:30; Stop 06/22/16 at 21:31; Status DC Insulin Aspart (Novolog) 15 units 1X ONCE SQ ; Start 06/23/16 at 12:00; Stop 06/23/16 at 12:01 Active Scripts Active Reported Gabapentin 300 Mg Capsule 300 Mg PO BID Losartan Potassium 50 Mg Tablet 100 Mg PO HS Metformin Hcl Er (Metformin Hcl) 750 Mg Tab.er.24h 750 Mg PO BID Zofran (Ondansetron Hcl) 4 Mg Tablet 1 Tab PO Q6HRS Glimepiride 4 Mg Tablet 1 Tab PO BID Cinnamon (Cinnamon Bark) 500 Mg Capsule 500 Mg PO DAILY Aspir 81 (Aspirin) 81 Mg Tablet.dr 1 Tab PO DAILY Levothyroxine Sodium 100 Mcg Tablet 1 Tab PO DAILY07 NITROGLYCERIN SubLingual (Nitroglycerin) 0.4 Mg Tab.subl 0.4 Mg SL PRN Q5MIN PRN Donepezil Hcl 10 Mg Tablet 1 Tab PO HS Vitals/I & O Vital Sign - Last 24 Hours 06/22/16 06/22/16 06/22/16 06/22/16 14:31 17:21 18:05 19:14 Temp 99.4 99.4 Pulse 103 103 107 Resp 21 B/P 186/94 175/93 141/67 Pulse Ox 96 O2 Delivery Room Air Room Air 06/22/16 06/22/16 06/22/16 06/23/16 19:20 20:38 23:15 02:56 Temp 99.5 99.2 99.0 99.5 99.2 99.0 Pulse 118 118 91 113 Resp 18 18 16 B/P 157/77 157/77 140/78 124/67 Pulse Ox 96 96 94 O2 Delivery Room Air Room Air Room Air 06/23/16 06/23/16 06/23/16 06/23/16 07:00 08:00 08:33 08:34 Temp 98.6 98.6 Pulse 87 113 113 Resp 19 B/P 192/99 124/67 124/67 Pulse Ox 94 O2 Delivery Room Air Room Air 06/23/16 10:48 Temp 98.7 98.7 Pulse 103 Resp 18 B/P 189/95 Pulse Ox 96 O2 Delivery Room Air Intake and Output 06/22/16 06/22/16 06/23/16 15:00 23:00 07:00 Intake Total 600 ml 0 ml Output Total 400 ml 825 ml Balance 200 ml -825 ml LARA HARRY III DO June 23, 2016 12:03
--- NOTE | 2016-06-23 12:38 | PDOC ---
[facility] 06/23/16 1237: CARDIO Progress Notes Date and Time Date of Service 06/23/16 Time of Evaluation 1230 Subjective Subjective: No Chest Pain, No shortness of breath, No Palpitations Vitals Vitals Vital Signs Date Time Temp Pulse Resp B/P Pulse Ox O2 Delivery O2 Flow Rate FiO2 06/23/16 10:48 98.7 103 18 189/95 96 Room Air 98.7 Weight Weight [ ] Input and Output Intake and Output Intake and Output 06/23/16 07:00 Intake Total 600 ml Output Total 1225 ml Balance -625 ml Intake Oral 600 ml Output Urine Total 1225 ml Laboratory Labs Laboratory Tests Test 06/22/16 15:30 06/22/16 16:40 06/22/16 20:37 06/23/16 05:10 White Blood Count 11.3x10^3/uL (4.0-11.0) 11.3x10^3/uL (4.0-11.0) Red Blood Count 4.94x10^6/uL (4.30-5.70) 4.70x10^6/uL (4.30-5.70) Hemoglobin 13.3g/dL (13.0-17.5) 12.8g/dL (13.0-17.5) Hematocrit 40.1% (39.0-53.0) 38.4% (39.0-53.0) Mean Corpuscular Volume 81fL (79-100) 82fL (79-100) Mean Corpuscular Hemoglobin 27pg (25-35) 27pg (25-35) Mean Corpuscular Hemoglobin Concent 33g/dL (31-37) 33g/dL (31-37) Red Cell Distribution Width 15.3% (11.5-14.5) 15.3% (11.5-14.5) Platelet Count 241x10^3/uL (140-400) 243x10^3/uL (140-400) Neutrophils (%) (Auto) 84% (31-73) 76% (31-73) Lymphocytes (%) (Auto) 7% (24-48) 13% (24-48) Monocytes (%) (Auto) 8% (0-9) 8% (0-9) Eosinophils (%) (Auto) 1% (0-3) 2% (0-3) Basophils (%) (Auto) 1% (0-3) 1% (0-3) Neutrophils # (Auto) 9.4x10^3uL (1.8-7.7) 8.6x10^3uL (1.8-7.7) Lymphocytes # (Auto) 0.8x10^3/uL (1.0-4.8) 1.4x10^3/uL (1.0-4.8) Monocytes # (Auto) 0.9x10^3/uL (0.0-1.1) 0.9x10^3/uL (0.0-1.1) Eosinophils # (Auto) 0.1x10^3/uL (0.0-0.7) 0.2x10^3/uL (0.0-0.7) Basophils # (Auto) 0.1x10^3/uL (0.0-0.2) 0.1x10^3/uL (0.0-0.2) Vitamin B12 Level 588pg/mL (247-911) Glucose (Fingerstick) 159mg/dL (70-99) 410mg/dL (70-99) Sodium Level 140mmol/L (136-145) Potassium Level 3.3mmol/L (3.5-5.1) Chloride Level 108mmol/L (98-107) Carbon Dioxide Level 24mmol/L (21-32) Anion Gap 8 (6-14) Blood Urea Nitrogen 29mg/dL (8-26) Creatinine 2.1mg/dL (0.7-1.3) Estimated GFR (Cockcroft-Gault) 36.8 Glucose Level 165mg/dL (70-99) Calcium Level 8.1mg/dL (8.5-10.1) Phosphorus Level 3.7mg/dL (2.6-4.7) Albumin 2.6g/dL (3.4-5.0) Test 06/23/16 07:44 06/23/16 11:18 Glucose (Fingerstick) 170mg/dL (70-99) 354mg/dL (70-99) Physical Exam HEENT: Neck Supple W Full Motion Chest: Symmetric LUNGS: Clear to Auscultation, Other (diminished bases ) Heart: no murmurs Abdomen: Normal Aortic Impulse Extremities: No Edema Neurology: alert, follow commands Assessment Assessment 1. NSTEMI 2. Severe 3-V CAD 3. Malignant HTN 4. Mechanical fall/weakness/debility 5. Chronic diastolic CHF 6. DM2/HLP 7. CKD 8. Dementia: mild 9. Hypothyroidism Recommendations Continue secondary prevention/medical management as patient and family desires. PP upon discharge May discharge from CV standpoint with follow-up in [address] Garcia; appointment scheduled. BRIAN GARCIA MD 06/23/16 1648: CARDIO Progress Notes Assessment Assessment Patient seen and examined. Agree with BUSINESS MAIL ENTRY CLERK's assessment and plan Patient chest pain-free. Continue conservative medical management for his coronary artery disease. Okay for discharge from cardiac standpoint. Follow-up with our office in 1 month. WALT CARLSON APRN June 23, 2016 12:37 BRIAN GARCIA MD June 23, 2016 16:48
--- NOTE | 2016-06-23 14:43 | PDOC ---
Provider Note Provider Note consult cancelled Was not called in or put on list Note I saw for same problem 05/15/16 KIKI BERNSTEIN MD June 23, 2016 14:43
--- NOTE | 2016-06-27 21:30 | DS ---
DATE OF DISCHARGE: 06/23/2016 ADMISSION DIAGNOSES: Accelerated hypertension and progression of dementia. DISCHARGE DIAGNOSES: Resolving accelerated hypertension, chronic dementia with acute flare of disease, but he is getting better. HOSPITAL COURSE: The patient is a pleasant 81-year-old male who presented with accelerated hypertension and mental status change. He was admitted. We gave him empiric fluids, did some physical therapy, got his pressures down. Basically, did better. We discharged to skilled. DISPOSITION: Skilled. ACTIVITY: As tolerated. DIET: Low sodium. MEDICATIONS: Please see the MRAD. TOTAL TIME: 34 minutes. NIAL Marti HARRY DO DR: JAIMEE/rach JOB#: [id number] / [id number]
== END 2016-06-23 14:50 | DRG 280 ==
LOC: ER 12:44 → 2 NORTH 14:00 → OBSVTOIN 14:00 → INTOOBSV 14:00
PROVIDERS: ADMIT Internal Medicine; ATTEND Internal Medicine
PROC: 4A023N7 Measurement of Cardiac Sampling and Pressure, Left Heart, Percutaneous Approach (ICD-10-PCS; principal; 2016-06-20)
PROC: B2111ZZ Fluoroscopy of Multiple Coronary Arteries using Low Osmolar Contrast (ICD-10-PCS; 2016-06-20)
PROC: B2151ZZ Fluoroscopy of Left Heart using Low Osmolar Contrast (ICD-10-PCS; 2016-06-20)
DX: I21.4 Non-ST elevation (NSTEMI) myocardial infarction (principal); N17.0 Acute kidney failure with tubular necrosis; I67.4 Hypertensive encephalopathy; I13.0 Hypertensive heart and chronic kidney disease with heart failure and stage 1 through stage 4 chronic kidney disease, or unspecified chronic kidney disease; I50.32 Chronic diastolic (congestive) heart failure; N18.3 Chronic kidney disease, stage 3 (moderate); E03.9 Hypothyroidism, unspecified; D64.9 Anemia, unspecified; E11.21 Type 2 diabetes mellitus with diabetic nephropathy; E11.22 Type 2 diabetes mellitus with diabetic chronic kidney disease; E11.65 Type 2 diabetes mellitus with hyperglycemia; E78.5 Hyperlipidemia, unspecified; F02.80 Dementia in other diseases classified elsewhere, unspecified severity, without behavioral disturbance, psychotic disturbance, mood disturbance, and anxiety; G30.9 Alzheimer's disease, unspecified; H54.7 Unspecified visual loss; I25.10 Atherosclerotic heart disease of native coronary artery without angina pectoris; K21.9 Gastro-esophageal reflux disease without esophagitis; N14.1 Nephropathy induced by other drugs, medicaments and biological substances; F32.9 Major depressive disorder, single episode, unspecified; F41.9 Anxiety disorder, unspecified; M19.90 Unspecified osteoarthritis, unspecified site; I95.9 Hypotension, unspecified; R33.9 Retention of urine, unspecified; T50.8X5A Adverse effect of diagnostic agents, initial encounter; Z82.3 Family history of stroke; Z82.49 Family history of ischemic heart disease and other diseases of the circulatory system; Z83.3 Family history of diabetes mellitus; Z95.5 Presence of coronary angioplasty implant and graft; W19.XXXA Unspecified fall, initial encounter; Y93.89 Activity, other specified; Y92.098 Other place in other non-institutional residence as the place of occurrence of the external cause; Y99.8 Other external cause status; N40.1 Benign prostatic hyperplasia with lower urinary tract symptoms; E11.42 Type 2 diabetes mellitus with diabetic polyneuropathy
CPT/HCPCS: 36415; 70450; 70551; 71010; 72125; 76770; 80048; 80069; 80076; 81001; 82306; 82553; 82570; 82607; 82947; 83036; 83735; 83880; 84156; 84443; 84484; 85007; 85027; 85520; 85610; 93005; 93308; 93458; 94250; 94760; 96374; 96375; 96376; C1769; C1892; G0379; J0360; J1815; J2250; J2405; J3010; J3490; 97110; 97116; 99285-25

== ENCOUNTER 2016-06-27 04:32 | Emergency (ER) | payer MEDICARE ==
[~2016-06-27] VITALS: Ht 182.9 cm; Wt 87.5 kg
[~2016-06-27 04:32] MED LIST changes: +LOSA50TA6 PO
--- NOTE | 2016-06-27 05:11 | PHYS DOC ---
Past Medical History Past Medical History: Anxiety, Arthritis, CAD, Dementia, Depression, Diabetes- Type II, GERD, Hypertension, Hypothyroid, Other Additional Past Medical Histor: DEMENTIA Past Surgical History: Other Additional Past Surgical Histo: cardiac stents Alcohol Use: None Drug Use: None Adult General Chief Complaint Chief Complaint: HYPERTENSION HPI HPI Patient is a 81 year old male who presents by EMS from rehab care for asymptomatic hypertension. He was given clonidine prior to arrival. He has no symptoms. He denies chest pain, dyspnea, headache, abdominal pain, nausea or vomiting, fever or chills, diarrhea, dysuria, numbness, tingling, weakness, lightheadedness, dizziness. states he is in his normal state of health, including mental status. states he is eating and participating in rehabilitation activities. Review of Systems Review of Systems Constitutional: Denies fever or chills [] Eyes: Denies change in visual acuity, redness, or eye pain [] HENT: Denies nasal congestion or sore throat [] Respiratory: Denies cough or shortness of breath [] Cardiovascular: No additional information not addressed in HPI [] GI: Denies abdominal pain, nausea, vomiting, bloody stools or diarrhea [] : Denies dysuria or hematuria [] Musculoskeletal: Denies back pain or joint pain [] Integument: Denies rash or skin lesions [] Neurologic: Denies headache, focal weakness or sensory changes [] Endocrine: Denies polyuria or polydipsia [] Current Medications Current Medications Current Medications Medications (Trade) Dose Ordered Sig/Dre Start Time Stop Time Status Last Admin Dose Admin Hydralazine HCl (Apresoline) 10 mg 1X ONCE 06/27/16 05:15 06/27/16 05:16 DC Allergies Allergies Allergies Coded Allergies Type Severity Reaction Last Updated Verified No Known Drug Allergies 05/15/16 No Physical Exam Physical Exam Constitutional: Well developed, well nourished, no acute distress, non-toxic appearance. [] HENT: Normocephalic, atraumatic, bilateral external ears normal, oropharynx moist, nose normal. [] Eyes: PERRLA, EOMI, conjunctiva normal, no discharge. [] Neck: Normal range of motion, supple. [] Cardiovascular:Heart rate regular rhythm [] Lungs & Thorax: Bilateral breath sounds clear to auscultation [] Abdomen: Bowel sounds normal, soft, no tenderness. [] Skin: Warm, dry, no erythema, no rash. [] Back: Normal ROM. [] Extremities: No tenderness, ROM intact, no edema. [] Neurologic: Alert and oriented to self and situation, normal motor function, normal sensory function, no focal deficits noted. [] Psychologic: Affect normal, judgement normal, mood normal. [] Current Patient Data Vital Signs Vital Signs Date Time Temp Pulse Resp B/P (MAP) Pulse Ox O2 Delivery O2 Flow Rate FiO2 06/27/16 04:32 98.0 68 11 198/87 (124) 98 Room Air 98.0 EKG EKG EKG as interpreted by me as normal sinus rhythm, rate 70, no ST elevations or depressions, has lateral t wave flattening, normal intervals, no ectopy, compared to prior Course & Med Decision Making Course & Med Decision Making He has remained asymptomatic and his HTN is improving without intervention; currently 168/79; so have held meds at this time. Transition care to Dr. Evans pending labs. Dispo accordingly. Dragon Disclaimer Dragon Disclaimer This electronic medical record was generated, in whole or in part, using a voice recognition dictation system. Departure Departure Impression: Primary Impression: Hypertension Referrals: CHELSEA BAEZA MD (PCP) Problem Qualifiers Primary Impression: Hypertension Hypertension type: unspecified secondary hypertension Qualified Codes: I15.9 - Secondary hypertension, unspecified Silvia FORTE MD June 27, 2016 05:11
[2016-06-27] MEDS ORDERED: hydrALAZINE 20 MG/ML VIAL. IVP ONE ×2 (05:15→07:00)
[2016-06-27 06:02] LABS: BASO # 0.1 x10^3/uL (0.0-0.2); BASO % 1 % (0-3); EOS % 4 % (0-3); HEMATOCRIT 36.4 % (39.0-53.0); LYMPH # 1.1 x10^3/uL (1.0-4.8); LYMPH % 12 % (24-48); MEAN CORPUSCULAR HEMOGLOBIN 27 pg (25-35); MEAN CORPUSCULAR HGB CONC 33 g/dL (31-37); MEAN CORPUSCULAR VOLUME 83 fL (79-100); MONO % 7 % (0-9); NEUT % 76 % (31-73); PLATELET COUNT 218 x10^3/uL (140-400); RED BLOOD COUNT 4.41 x10^6/uL (4.30-5.70); RED CELL DISTRIBUTION WIDTH 14.7 % (11.5-14.5); WHITE BLOOD COUNT 9.6 x10^3/uL (4.0-11.0)
[2016-06-27 06:12] LABS: CALCIUM 8.2 mg/dL (8.5-10.1); CREATININE 1.7 mg/dL (0.7-1.3); GFR 46.9; POTASSIUM 3.7 mmol/L (3.5-5.1)
--- NOTE | 2016-06-27 06:22 | EKG ---
[facility] [address] [place] [address] Test Date: 2016-06-27 Test Time: 05:07:22 Pat Name: MARISOL MARIE Department: Room: Gender: M Cable Layer: : 1935 Requested By: Silvia FORTE Order Number: [id number] Reading MD: Daniela Moya Measurements Intervals [place] Rate: 70 P: 49 PA: 140 QRS: -43 QRSD: 120 T: -160 QT: 442 QTc: 480 Interpretive Statements SINUS RHYTHM ABNORMAL LEFT AXIS DEVIATION OLD ANTERISEPTAL WALL ME LVH WITH REPOLARIZATION ABNORMALITY ABNORMAL ECG RI6.01 Compared to ECG 06/18/2016 12:50:47 No significant changes Electronically Signed On 06-29-2016 17:47:03 CDT by Daniela Moya
[2016-06-27 08:00] VITALS: BP 197/81
== END 2016-06-27 08:44 | disposition home or self-care (01) ==
LOC: ER 04:32
DX: I15.9 Secondary hypertension, unspecified (principal); M19.90 Unspecified osteoarthritis, unspecified site; F41.9 Anxiety disorder, unspecified; F32.9 Major depressive disorder, single episode, unspecified; F03.90 Unspecified dementia, unspecified severity, without behavioral disturbance, psychotic disturbance, mood disturbance, and anxiety; E11.9 Type 2 diabetes mellitus without complications; K21.9 Gastro-esophageal reflux disease without esophagitis; E03.9 Hypothyroidism, unspecified; Z95.5 Presence of coronary angioplasty implant and graft
CPT/HCPCS: 36415; 80048; 84484; 85027; 93005; 96374; 99285; J0360

== ENCOUNTER 2016-07-12 12:29 | Observation (INO) | payer MEDICARE ==
[~2016-07-12] VITALS: Ht 180.3 cm; Wt 86.6 kg
[~2016-07-12 12:29] MED LIST changes: +AMLO10TA4 PO; +ATOR40TA59 PO; +CLOP75TA PO; +GLIM4TAB PO; +HYDR-2666 PO; +HYDR-2868 PO; +METO25TA4 PO; +OXYB5TAB7 PO; +TAMS0.4C97 PO
[2016-07-12 13:20] LABS: BASO % 0 % (0-3); EOS % 0 % (0-3); HEMATOCRIT 41.3 % (39.0-53.0); HEMOGLOBIN 13.1 g/dL (13.0-17.5); LYMPH # 0.5 x10^3/uL (1.0-4.8); LYMPH % 4 % (24-48); MEAN CORPUSCULAR HEMOGLOBIN 26 pg (25-35); MEAN CORPUSCULAR HGB CONC 32 g/dL (31-37); MEAN CORPUSCULAR VOLUME 83 fL (79-100); MONO % 4 % (0-9); NEUT % 92 % (31-73); PLATELET COUNT 267 x10^3/uL (140-400); RED BLOOD COUNT 4.96 x10^6/uL (4.30-5.70); RED CELL DISTRIBUTION WIDTH 14.5 % (11.5-14.5); WHITE BLOOD COUNT 13.3 x10^3/uL (4.0-11.0)
[2016-07-12 13:27] LABS: CREATININE 2.3 mg/dL (0.7-1.3); GFR 33.1; POTASSIUM 3.8 mmol/L (3.5-5.1)
[2016-07-12 13:28] LABS: INR 1.1 (0.8-1.1); PROTHROMBIN TIME PATIENT 13.2 SEC (11.7-14.0)
[2016-07-12 13:33] LABS: ALBUMIN/GLOBULIN RATIO 0.6 (1.0-1.7); MAGNESIUM 2.1 mg/dL (1.8-2.4); TOTAL BILIRUBIN 0.5 mg/dL (0.2-1.0)
--- NOTE | 2016-07-12 13:42 | RAD ---
Clinical Indication: Dementia. Mental status change from baseline Technique: Study is dated July 12, 2016. CT images of the head were obtained from the skull base to the vertex without IV contrast. Comparison is from 8 days ago. One or more of the following individualized dose reduction techniques were utilized for this examination: 1. Automated exposure control 2. Adjustment of the mA and/or kV according to patient size 3. Use of iterative reconstruction technique Findings: There is diffuse, symmetric prominence of the ventricles and subarachnoid spaces consistent with age-related parenchymal volume loss. There are areas of scattered decreased attenuation in the supratentorial white matter. While nonspecific, findings are likely secondary to small vessel ischemic disease. There is no hemorrhage, extraaxial fluid collection, mass, or midline shift. There is no large vascular distribution infarct. There are vascular calcifications. The posterior fossa and brain stem are unremarkable. Orbits are normal. The visualized paranasal sinuses are clear. There is no skull fracture appreciated on bone level images. Portion of the calvarium and soft tissues overlying the right parietal region are clipped from the [id number]. Impression: No acute intracranial findings. Brain parenchymal volume loss and probable small vessel ischemic disease.
[2016-07-12] MEDS ORDERED: IV NORMAL SALINE 500ML BAG 500 ML IV ONE (13:45)
--- NOTE | 2016-07-12 13:47 | PHYS DOC ---
Past Medical History Past Medical History: Anxiety, Arthritis, CAD, Dementia, Depression, Diabetes- Type II, GERD, Hypertension, Hypothyroid, Other Additional Past Medical Histor: DEMENTIA Past Surgical History: Other Additional Past Surgical Histo: cardiac stents; back; hernia; cardiac cath Alcohol Use: None Drug Use: None Adult General Chief Complaint Chief Complaint: ALTERED MENTAL STATUS [facility] HPI Patient is a 81 year old male [facility] evaluation of altered mental status. Patient has known dementia and has episodes like this where he becomes unresponsive. He has been admitted for this several times early in the past month. group home states that he is unarousable and they cannot get him to wake up however by the time he gets here he is awake and interactive. says that he has a little bit more confused than usual. Review of Systems Review of Systems Constitutional: Denies fever or chills [] Eyes: Denies change in visual acuity, redness, or eye pain [] HENT: Denies nasal congestion or sore throat [] Respiratory: Denies cough or shortness of breath [] Cardiovascular: No additional information not addressed in HPI [] GI: Denies abdominal pain, nausea, vomiting, bloody stools or diarrhea [] : Denies dysuria or hematuria [] Musculoskeletal: Denies back pain or joint pain [] Integument: Denies rash or skin lesions [] Neurologic: Denies headache, focal weakness or sensory changes [] Current Medications Current Medications Current Medications Medications (Trade) Dose Ordered Sig/Dre Start Time Stop Time Status Last Admin Dose Admin Sodium Chloride 500 ml @ 500 mls/hr 1X ONCE 07/12/16 13:45 07/12/16 14:44 07/12/16 13:56 500 MLS/HR Allergies Allergies Allergies Coded Allergies Type Severity Reaction Last Updated Verified No Known Drug Allergies 05/15/16 No Physical Exam Physical Exam Constitutional: Well developed, well nourished, no acute distress, non-toxic appearance. [] HENT: Normocephalic, atraumatic, bilateral external ears normal, oropharynx moist, no oral exudates, nose normal. [] Eyes: PERRLA, EOMI, conjunctiva normal, no discharge. [] Neck: Normal range of motion, no tenderness, supple, no stridor. [] Cardiovascular:Heart rate regular rhythm, no murmur [] Lungs & Thorax: Bilateral breath sounds clear to auscultation [] Abdomen: Bowel sounds normal, soft, no tenderness, no masses, no pulsatile masses. [] Skin: Warm, dry, no erythema, no rash. [] Back: No tenderness, no CVA tenderness. [] Extremities: No tenderness, no cyanosis, no clubbing, ROM intact, no edema. [] Neurologic: Alert and oriented X 1, normal motor function, normal sensory function, no focal deficits noted. [] Current Patient Data Vital Signs Vital Signs Date Time Temp Pulse Resp B/P (MAP) Pulse Ox O2 Delivery O2 Flow Rate FiO2 07/12/16 12:29 98.7 82 18 175/86 (115) 96 Room Air 98.7 Lab Values Laboratory Tests Test 07/12/16 13:05 White Blood Count 13.3 x10^3/uL (4.0-11.0) H Red Blood Count 4.96 x10^6/uL (4.30-5.70) Hemoglobin 13.1 g/dL (13.0-17.5) Hematocrit 41.3 % (39.0-53.0) Mean Corpuscular Volume 83 fL (79-100) Mean Corpuscular Hemoglobin 26 pg (25-35) Mean Corpuscular Hemoglobin Concent 32 g/dL (31-37) Red Cell Distribution Width 14.5 % (11.5-14.5) Platelet Count 267 x10^3/uL (140-400) Neutrophils (%) (Auto) 92 % (31-73) H Lymphocytes (%) (Auto) 4 % (24-48) L Monocytes (%) (Auto) 4 % (0-9) Eosinophils (%) (Auto) 0 % (0-3) Basophils (%) (Auto) 0 % (0-3) Neutrophils # (Auto) 12.2 x10^3uL (1.8-7.7) H Lymphocytes # (Auto) 0.5 x10^3/uL (1.0-4.8) L Monocytes # (Auto) 0.5 x10^3/uL (0.0-1.1) Eosinophils # (Auto) 0.0 x10^3/uL (0.0-0.7) Basophils # (Auto) 0.0 x10^3/uL (0.0-0.2) Platelet Estimate Pending Prothrombin Time 13.2 SEC (11.7-14.0) Prothrombin Time INR 1.1 (0.8-1.1) Sodium Level 142 mmol/L (136-145) Potassium Level 3.8 mmol/L (3.5-5.1) Chloride Level 105 mmol/L (98-107) Carbon Dioxide Level 24 mmol/L (21-32) Anion Gap 13 (6-14) Blood Urea Nitrogen 27 mg/dL (8-26) H Creatinine 2.3 mg/dL (0.7-1.3) H Estimated GFR (Cockcroft-Gault) 33.1 BUN/Creatinine Ratio 12 (6-20) Glucose Level 246 mg/dL (70-99) H Calcium Level 9.0 mg/dL (8.5-10.1) Magnesium Level 2.1 mg/dL (1.8-2.4) Total Bilirubin 0.5 mg/dL (0.2-1.0) Aspartate Amino Transferase (AST) 12 U/L (15-37) L Alanine Aminotransferase (ALT) 20 U/L (16-63) Alkaline Phosphatase 118 U/L (46-116) H Creatine Kinase 40 U/L (39-308) Troponin I Quantitative < 0.017 ng/mL (0.000-0.055) DC-Bzq-V-Type Natriuretic Peptide 4759 pg/mL (0-449) H Total Protein 8.0 g/dL (6.4-8.2) Albumin 3.0 g/dL (3.4-5.0) L Albumin/Globulin Ratio 0.6 (1.0-1.7) L Thyroid Stimulating Hormone (TSH) 1.553 uIU/mL (0.358-3.74) Laboratory Tests 07/12/16 13:05 Laboratory Tests 07/12/16 13:05 EKG EKG [] Radiology/Procedures Radiology/Procedures Clinical Indication: Dementia. Mental status change from baseline Technique: Study is dated July 12, 2016. CT images of the head were obtained from the skull base to the vertex without IV contrast. Comparison is from 8 days ago. One or more of the following individualized dose reduction techniques were utilized for this examination: 1. Automated exposure control 2. Adjustment of the mA and/or kV according to patient size 3. Use of iterative reconstruction technique Findings: There is diffuse, symmetric prominence of the ventricles and subarachnoid spaces consistent with age-related parenchymal volume loss. There are areas of scattered decreased attenuation in the supratentorial white matter. While nonspecific, findings are likely secondary to small vessel ischemic disease. There is no hemorrhage, extraaxial fluid collection, mass, or midline shift. There is no large vascular distribution infarct. There are vascular calcifications. The posterior fossa and brain stem are unremarkable. Orbits are normal. The visualized paranasal sinuses are clear. There is no skull fracture appreciated on bone level images. Portion of the calvarium and soft tissues overlying the right parietal region are clipped from the [id number]. Impression: No acute intracranial findings. Brain parenchymal volume loss and probable small vessel ischemic disease. DICTATED and SIGNED BY: ISIDRO GARCIA MD DATE: 07/12/16 1478 Course & Med Decision Making Course & Med Decision Making Patient with altered mental status that I think is likely his baseline at this point. He has slight leukocytosis and worsening renal insufficiency so I spoke to the hospitalist on-call Dr. Hook and he agreed to admit patient for further observation and treatment. Dragon Disclaimer Dragon Disclaimer This electronic medical record was generated, in whole or in part, using a voice recognition dictation system. Departure Departure Impression: Primary Impression: Altered mental status Additional Impressions: Leukocytosis Renal insufficiency Disposition: 09 ADMITTED INPATIENT Admitting Physician: Andres Hook Condition: STABLE Referrals: CHELSEA BAEZA MD (PCP) Problem Qualifiers RADHA CARREON DO July 12, 2016 13:47
[2016-07-12] MEDS ORDERED: ONDANSETRON PF 4 MG/2 ML VIAL. IV PRN ×2 (14:30→16:45)
[2016-07-12 16:13] LABS: PLT ESTIMATE ADEQUATE (ADEQUATE)
[2016-07-12 16:23] LABS: BILIRUBIN,URINE NEGATIVE (NEG); GLUCOSE,URINE 250 mg/dL (NEG); NITRITE,URINE NEGATIVE (NEG); PROTEIN,URINE 100 mg/dL (NEG-TRACE); UROBILINOGEN,URINE 0.2 mg/dL (0.2 mg/dL)
[2016-07-12 16:36] LABS: BACTERIA,URINE MODERATE /HPF (0-FEW); RBC,URINE 0 /HPF (0-2); WBC,URINE >40 /HPF (0-4)
[2016-07-12] MEDS ORDERED: DONE10TA34 PO (16:38)
[2016-07-12] MEDS ORDERED: IPRA3AMP NEB (16:38)
[2016-07-12] MEDS ORDERED: ATOR40TA PO (16:38)
[2016-07-12] MEDS ORDERED: INSU100V13 SQ (16:38)
[2016-07-12] MEDS ORDERED: ACET325T9 PO (16:38)
[2016-07-12] MEDS ORDERED: HYDROcodone/APAP 5/325MG 1 TAB TABLET PO PRN ×2 (16:45)
[2016-07-12] MEDS ORDERED: NITROGLYCERIN SUBLINGUAL 0.4 MG BOTTLE OF 25. SL PRN (16:45)
[2016-07-12] MEDS ORDERED: hydrALAZINE 20 MG/ML VIAL. IVP PRN (16:45)
[2016-07-12] MEDS ORDERED: ALBUTEROL SULFATE 2.5 MG/3 ML NEBU. NEB PRN (16:45)
[2016-07-12] MEDS ORDERED: IPRATRPIUM/ALBUTEROL 0.5/2.5MG 3 ML NEBU. NEB PRN (16:45)
[2016-07-12] MEDS ORDERED: ACETAMINOPHEN 325 MG TABLET. PO PRN (16:45)
[2016-07-12] MEDS: GLIMEPIRIDE 2 MG TABLET. PO SCH (17:08)
[2016-07-12] MEDS: hydrALAZINE 25 MG TABLET PO SCH ×2 (17:09→22:13)
[2016-07-12] MEDS: metFORMIN 500 MG TABLET PO SCH (17:09)
[2016-07-12] MEDS: LEVOTHYROXINE 100 MCG TABLET PO SCH (17:10)
[2016-07-12] MEDS: ASPIRIN ENTERIC COATED 81 MG TABLET.DR. PO SCH (17:10)
[2016-07-12] MEDS: TAMSULOSIN 0.4 MG CAP.ER.24H. PO SCH (17:10)
[2016-07-12] MEDS: CLOPIDOGREL BISULFATE 75 MG TABLET PO SCH (17:10)
[2016-07-12] MEDS: amLODIPine BESYLATE 10 MG TABLET PO SCH (17:10)
[2016-07-12 17:37] VITALS: BP 166/95
[2016-07-12 19:38] VITALS: BP 116/78
[2016-07-12] MEDS ORDERED: ATORVASTATIN CALCIUM 40 MG TABLET. PO SCH (21:00)
[2016-07-12] MEDS ORDERED: DONEPEZIL HCL 10 MG TABLET. PO SCH ×2 (21:00)
[2016-07-12] MEDS ORDERED: INSULIN DETEMIR 300 UNITS/3 ML INSULN.PEN. SQ SCH (21:00)
[2016-07-12] MEDS ORDERED: LOSARTAN POTASSIUM 50 MG TABLET. PO SCH (21:00)
[2016-07-12] MEDS: GABAPENTIN 300 MG CAPSULE. PO SCH (22:13)
[2016-07-12] MEDS: METOPROLOL TART IMMED RELEASE 25 MG TABLET. PO SCH (22:13)
[2016-07-12 23:59] VITALS: BP 132/75
[2016-07-13 03:59] VITALS: BP 108/68
[2016-07-13 05:14] LABS: BASO # 0.1 x10^3/uL (0.0-0.2); BASO % 1 % (0-3); EOS % 1 % (0-3); HEMATOCRIT 35.4 % (39.0-53.0); HEMOGLOBIN 11.8 g/dL (13.0-17.5); LYMPH # 1.5 x10^3/uL (1.0-4.8); LYMPH % 13 % (24-48); MEAN CORPUSCULAR HEMOGLOBIN 27 pg (25-35); MEAN CORPUSCULAR HGB CONC 33 g/dL (31-37); MEAN CORPUSCULAR VOLUME 81 fL (79-100); MONO % 6 % (0-9); NEUT % 79 % (31-73); PLATELET COUNT 291 x10^3/uL (140-400); RED BLOOD COUNT 4.38 x10^6/uL (4.30-5.70); RED CELL DISTRIBUTION WIDTH 14.3 % (11.5-14.5); WHITE BLOOD COUNT 11.4 x10^3/uL (4.0-11.0)
[2016-07-13 05:34] LABS: CALCIUM 8.6 mg/dL (8.5-10.1); CREATININE 2.1 mg/dL (0.7-1.3); GFR 36.8; POTASSIUM 3.3 mmol/L (3.5-5.1)
[2016-07-13] MEDS: LEVOTHYROXINE 100 MCG TABLET PO SCH (06:05)
[2016-07-13 07:00] VITALS: BP 159/86
[2016-07-13 07:13] LABS: BILIRUBIN,URINE NEGATIVE (NEG); GLUCOSE,URINE 100 mg/dL (NEG); NITRITE,URINE NEGATIVE (NEG); PH,URINE 6.5; PROTEIN,URINE 100 mg/dL (NEG-TRACE); UROBILINOGEN,URINE 0.2 mg/dL (0.2 mg/dL)
[2016-07-13 07:50] LABS: RBC,URINE 0 /HPF (0-2)
[2016-07-13 07:51] LABS: BACTERIA,URINE FEW /HPF (0-FEW)
[2016-07-13] MEDS: GLIMEPIRIDE 2 MG TABLET. PO SCH (08:18)
[2016-07-13] MEDS: metFORMIN 500 MG TABLET PO SCH (08:18)
[2016-07-13] MEDS: ASPIRIN ENTERIC COATED 81 MG TABLET.DR. PO SCH (08:19)
[2016-07-13] MEDS: TAMSULOSIN 0.4 MG CAP.ER.24H. PO SCH (08:19)
[2016-07-13] MEDS: METOPROLOL TART IMMED RELEASE 25 MG TABLET. PO SCH (08:20)
[2016-07-13] MEDS: GABAPENTIN 300 MG CAPSULE. PO SCH (08:20)
[2016-07-13] MEDS: amLODIPine BESYLATE 10 MG TABLET PO SCH (08:20)
[2016-07-13] MEDS: CLOPIDOGREL BISULFATE 75 MG TABLET PO SCH (08:21)
[2016-07-13] MEDS: hydrALAZINE 25 MG TABLET PO SCH ×2 (08:21→13:23)
--- NOTE | 2016-07-13 08:27 | PDOC1 ---
History and Physical Date of Admission Date of Admission 07/12/16 Pt seen on 07/12/16, this is late entry History of Present Illness History of Present Illness A 81 male with Dementia, CKD, bought from , for episodic unresponsiveness, vital stable, ED- CT head negative, mild dehydration, appears alert on my exam. No signs of infection, OBV Placement for dehydration. Noted of difficult urination, recommend bladder scan and intermittent catheterizations If residual volume> 250ml. d/w RN. Past Medical History Cardiovascular: CAD Pulmonary: No pertinent hx CENTRAL NERVOUS SYSTEM: Dementia GI: GERD Heme/Onc: No pertinent hx Hepatobiliary: No pertinent hx Psych: Anxiety, Depression Infectious disease: No pertinent hx Renal/: Benign prostatic enlarg. Endocrine: Diabetes, Hypothyroidism Past Surgical History Past Surgical History: Hernia Repair, Other Family History Family History: Cancer, Diabetes, Heart Disease, Hypertension, Stroke Social History ALCOHOL: none Drugs: None Current Problem List Problem List Problems Medical Problems: (1) Altered mental status Status: Acute (2) Leukocytosis Status: Acute (3) Renal insufficiency Status: Acute Current Medications Current Medications Current Medications Medications (Trade) Dose Ordered Sig/Dre Start Time Stop Time Status Last Admin Dose Admin Acetaminophen (Tylenol) 325 mg PRN Q6HRS PRN 07/12/16 16:45 Acetaminophen/ Hydrocodone Bitart (Lortab 5/325) 1 tab PRN Q6HRS PRN 07/12/16 16:45 Albuterol Sulfate (Ventolin Neb Soln) 2.5 mg PRN Q4HRS PRN 07/12/16 16:45 Albuterol/ Ipratropium (Duoneb) 3 ml PRN Q4HRS PRN 07/12/16 16:45 UNV Amlodipine Besylate (Norvasc) 10 mg DAILY 07/12/16 17:30 07/13/16 08:20 10 MG Aspirin (Ecotrin) 81 mg DAILY 07/12/16 17:30 07/13/16 08:19 81 MG Atorvastatin Calcium (Lipitor) 40 mg HS 07/12/16 21:00 07/12/16 22:13 40 MG Clopidogrel Bisulfate (Plavix) 75 mg DAILY 07/12/16 17:30 07/13/16 08:21 75 MG Donepezil HCl (Aricept) 10 mg QHS 07/12/16 21:00 UNV Gabapentin (Neurontin) 300 mg BID 07/12/16 21:00 07/13/16 08:20 300 MG Glimepiride (Amaryl) 4 mg BIDWMEALS 07/12/16 17:00 07/13/16 08:18 4 MG Hydralazine HCl (Apresoline) 25 mg QID 07/12/16 17:00 07/13/16 08:21 25 MG Insulin Detemir (Levemir) 10 units QHS 07/12/16 21:00 07/12/16 22:18 10 UNITS Levothyroxine Sodium (Synthroid) 100 mcg DAILY07 07/12/16 17:30 07/13/16 06:05 100 MCG Losartan Potassium (Cozaar) 100 mg HS 07/12/16 21:00 07/12/16 22:12 100 MG Metformin HCl (Glucophage) 750 mg BIDWMEALS 07/12/16 17:00 07/13/16 08:18 750 MG Metoprolol Tartrate (Lopressor) 25 mg BID 07/12/16 21:00 07/13/16 08:20 25 MG Nitroglycerin (Nitrostat) 0.4 mg PRN Q5MIN PRN 07/12/16 16:45 Ondansetron HCl (Zofran) 4 mg PRN Q8HRS PRN 07/12/16 16:45 Oxybutynin Chloride (Ditropan) 5 mg DAILY 07/13/16 09:00 07/13/16 08:19 5 MG Sodium Chloride 500 ml @ 500 mls/hr 1X ONCE 07/12/16 13:45 07/12/16 14:44 DC 07/12/16 13:56 500 MLS/HR Tamsulosin HCl (Flomax) 0.4 mg DAILY 07/12/16 17:30 07/13/16 08:19 0.4 MG Allergies Allergies Allergies Coded Allergies Type Severity Reaction Last Updated Verified No Known Drug Allergies 05/15/16 No ROS Review of System CONSTITUTIONAL: No fever or chills EYES: No recent changes SKIN: No rash or itching CARDIOVASCULAR: No chest pain, syncope, palpitations, or edema RESPIRATORY: No SOB or cough GASTROINTESTINAL: No nausea, vomiting or abdominal pain NEUROLOGICAL: No headaches or weakness ENDOCRINE: No cold or heat intolerance GENITOURINARY: No urgency or frequency of urination MUSCULOSKELETAL: No back pain or joint pain LYMPHATICS: No enlarged lymph nodes PSYCHIATRIC: No anxiety or depression Physical Exam Physical Exam GEN.: No apparent distress. Alert and oriented to self HEENT: Head is normocephalic, atraumatic NECK: Supple. LUNGS: Clear to auscultation. HEART: RRR, S1, S2 present. Peripheral pulses intact ABDOMEN: Soft, nontender. Positive bowel sounds. EXTREMITIES: Without any cyanosis. NEUROLOGIC: Normal speech, normal tone PSYCHIATRIC: anxious SKIN: dry Vitals Vitals Vital Signs Date Time Temp Pulse Resp B/P (MAP) Pulse Ox O2 Delivery O2 Flow Rate FiO2 07/13/16 08:22 96 Room Air 07/13/16 08:21 99 159/86 07/13/16 07:00 98.6 20 98.6 Labs Labs Laboratory Tests Test 07/12/16 13:05 07/12/16 15:59 07/12/16 16:10 07/12/16 18:20 White Blood Count 13.3 x10^3/uL (4.0-11.0) Red Blood Count 4.96 x10^6/uL (4.30-5.70) Hemoglobin 13.1 g/dL (13.0-17.5) Hematocrit 41.3 % (39.0-53.0) Mean Corpuscular Volume 83 fL (79-100) Mean Corpuscular Hemoglobin 26 pg (25-35) Mean Corpuscular Hemoglobin Concent 32 g/dL (31-37) Red Cell Distribution Width 14.5 % (11.5-14.5) Platelet Count 267 x10^3/uL (140-400) Neutrophils (%) (Auto) 92 % (31-73) Lymphocytes (%) (Auto) 4 % (24-48) Monocytes (%) (Auto) 4 % (0-9) Eosinophils (%) (Auto) 0 % (0-3) Basophils (%) (Auto) 0 % (0-3) Neutrophils # (Auto) 12.2 x10^3uL (1.8-7.7) Lymphocytes # (Auto) 0.5 x10^3/uL (1.0-4.8) Monocytes # (Auto) 0.5 x10^3/uL (0.0-1.1) Eosinophils # (Auto) 0.0 x10^3/uL (0.0-0.7) Basophils # (Auto) 0.0 x10^3/uL (0.0-0.2) Segmented Neutrophils % 93 % (35-66) Lymphocytes % 4 % (24-48) Monocytes % 3 % (0-10) Platelet Estimate Adequate (ADEQUATE) Prothrombin Time 13.2 SEC (11.7-14.0) Prothromb Time International Ratio 1.1 (0.8-1.1) Sodium Level 142 mmol/L (136-145) Potassium Level 3.8 mmol/L (3.5-5.1) Chloride Level 105 mmol/L (98-107) Carbon Dioxide Level 24 mmol/L (21-32) Anion Gap 13 (6-14) Blood Urea Nitrogen 27 mg/dL (8-26) Creatinine 2.3 mg/dL (0.7-1.3) Estimated GFR (Cockcroft-Gault) 33.1 BUN/Creatinine Ratio 12 (6-20) Glucose Level 246 mg/dL (70-99) Calcium Level 9.0 mg/dL (8.5-10.1) Magnesium Level 2.1 mg/dL (1.8-2.4) Total Bilirubin 0.5 mg/dL (0.2-1.0) Aspartate Amino Transf (AST/SGOT) 12 U/L (15-37) Alanine Aminotransferase (ALT/SGPT) 20 U/L (16-63) Alkaline Phosphatase 118 U/L (46-116) Creatine Kinase 40 U/L (39-308) Troponin I Quantitative < 0.017 ng/mL (0.000-0.055) NQ-Mof-Y-Type Natriuretic Peptide 4759 pg/mL (0-449) Total Protein 8.0 g/dL (6.4-8.2) Albumin 3.0 g/dL (3.4-5.0) Albumin/Globulin Ratio 0.6 (1.0-1.7) Thyroid Stimulating Hormone (TSH) 1.553 uIU/mL (0.358-3.74) Glucose (Fingerstick) 196 mg/dL (70-99) Urine Collection Type Unknown Urine Color Yellow Urine Clarity Clear Urine pH 6.0 Urine Specific [place] 1.010 Urine Protein 100 mg/dL (NEG-TRACE) Urine Glucose (UA) 250 mg/dL (NEG) Urine Ketones (Stick) Trace mg/dL (NEG) Urine Blood Negative (NEG) Urine Nitrite Negative (NEG) Urine Bilirubin Negative (NEG) Urine Urobilinogen Dipstick 0.2 mg/dL (0.2 mg/dL) Urine Leukocyte Esterase Small (NEG) Urine RBC 0 /HPF (0-2) Urine WBC >40 /HPF (0-4) Urine Bacteria Moderate /HPF (0-FEW) Urine Hyaline Casts Moderate /HPF Urine Mucus Slight /LPF Lactic Acid Level 1.8 mmol/L (0.4-2.0) Test 07/12/16 21:02 07/13/16 04:15 07/13/16 04:25 07/13/16 06:15 Glucose (Fingerstick) 180 mg/dL (70-99) White Blood Count 11.4 x10^3/uL (4.0-11.0) Red Blood Count 4.38 x10^6/uL (4.30-5.70) Hemoglobin 11.8 g/dL (13.0-17.5) Hematocrit 35.4 % (39.0-53.0) Mean Corpuscular Volume 81 fL (79-100) Mean Corpuscular Hemoglobin 27 pg (25-35) Mean Corpuscular Hemoglobin Concent 33 g/dL (31-37) Red Cell Distribution Width 14.3 % (11.5-14.5) Platelet Count 291 x10^3/uL (140-400) Neutrophils (%) (Auto) 79 % (31-73) Lymphocytes (%) (Auto) 13 % (24-48) Monocytes (%) (Auto) 6 % (0-9) Eosinophils (%) (Auto) 1 % (0-3) Basophils (%) (Auto) 1 % (0-3) Neutrophils # (Auto) 9.0 x10^3uL (1.8-7.7) Lymphocytes # (Auto) 1.5 x10^3/uL (1.0-4.8) Monocytes # (Auto) 0.7 x10^3/uL (0.0-1.1) Eosinophils # (Auto) 0.1 x10^3/uL (0.0-0.7) Basophils # (Auto) 0.1 x10^3/uL (0.0-0.2) Sodium Level 146 mmol/L (136-145) Potassium Level 3.3 mmol/L (3.5-5.1) Chloride Level 111 mmol/L (98-107) Carbon Dioxide Level 24 mmol/L (21-32) Anion Gap 11 (6-14) Blood Urea Nitrogen 27 mg/dL (8-26) Creatinine 2.1 mg/dL (0.7-1.3) Estimated GFR (Cockcroft-Gault) 36.8 Glucose Level 86 mg/dL (70-99) Calcium Level 8.6 mg/dL (8.5-10.1) Urine Collection Type Unknown Urine Color Yellow Urine Clarity Clear Urine pH 6.5 Urine Specific [place] 1.015 Urine Protein 100 mg/dL (NEG-TRACE) Urine Glucose (UA) 100 mg/dL (NEG) Urine Ketones (Stick) Negative mg/dL (NEG) Urine Blood Negative (NEG) Urine Nitrite Negative (NEG) Urine Bilirubin Negative (NEG) Urine Urobilinogen Dipstick 0.2 mg/dL (0.2 mg/dL) Urine Leukocyte Esterase Moderate (NEG) Urine RBC 0 /HPF (0-2) Urine WBC 5-10 /HPF (0-4) Urine Bacteria Few /HPF (0-FEW) Test 07/13/16 07:34 Glucose (Fingerstick) 89 mg/dL (70-99) Laboratory Tests Test 07/12/16 13:05 07/12/16 15:59 07/12/16 16:10 07/12/16 18:20 White Blood Count 13.3 x10^3/uL (4.0-11.0) Red Blood Count 4.96 x10^6/uL (4.30-5.70) Hemoglobin 13.1 g/dL (13.0-17.5) Hematocrit 41.3 % (39.0-53.0) Mean Corpuscular Volume 83 fL (79-100) Mean Corpuscular Hemoglobin 26 pg (25-35) Mean Corpuscular Hemoglobin Concent 32 g/dL (31-37) Red Cell Distribution Width 14.5 % (11.5-14.5) Platelet Count 267 x10^3/uL (140-400) Neutrophils (%) (Auto) 92 % (31-73) Lymphocytes (%) (Auto) 4 % (24-48) Monocytes (%) (Auto) 4 % (0-9) Eosinophils (%) (Auto) 0 % (0-3) Basophils (%) (Auto) 0 % (0-3) Neutrophils # (Auto) 12.2 x10^3uL (1.8-7.7) Lymphocytes # (Auto) 0.5 x10^3/uL (1.0-4.8) Monocytes # (Auto) 0.5 x10^3/uL (0.0-1.1) Eosinophils # (Auto) 0.0 x10^3/uL (0.0-0.7) Basophils # (Auto) 0.0 x10^3/uL (0.0-0.2) Segmented Neutrophils % 93 % (35-66) Lymphocytes % 4 % (24-48) Monocytes % 3 % (0-10) Platelet Estimate Adequate (ADEQUATE) Prothrombin Time 13.2 SEC (11.7-14.0) Prothromb Time International Ratio 1.1 (0.8-1.1) Sodium Level 142 mmol/L (136-145) Potassium Level 3.8 mmol/L (3.5-5.1) Chloride Level 105 mmol/L (98-107) Carbon Dioxide Level 24 mmol/L (21-32) Anion Gap 13 (6-14) Blood Urea Nitrogen 27 mg/dL (8-26) Creatinine 2.3 mg/dL (0.7-1.3) Estimated GFR (Cockcroft-Gault) 33.1 BUN/Creatinine Ratio 12 (6-20) Glucose Level 246 mg/dL (70-99) Calcium Level 9.0 mg/dL (8.5-10.1) Magnesium Level 2.1 mg/dL (1.8-2.4) Total Bilirubin 0.5 mg/dL (0.2-1.0) Aspartate Amino Transf (AST/SGOT) 12 U/L (15-37) Alanine Aminotransferase (ALT/SGPT) 20 U/L (16-63) Alkaline Phosphatase 118 U/L (46-116) Creatine Kinase 40 U/L (39-308) Troponin I Quantitative < 0.017 ng/mL (0.000-0.055) LK-Txy-N-Type Natriuretic Peptide 4759 pg/mL (0-449) Total Protein 8.0 g/dL (6.4-8.2) Albumin 3.0 g/dL (3.4-5.0) Albumin/Globulin Ratio 0.6 (1.0-1.7) Thyroid Stimulating Hormone (TSH) 1.553 uIU/mL (0.358-3.74) Glucose (Fingerstick) 196 mg/dL (70-99) Urine Collection Type Unknown Urine Color Yellow Urine Clarity Clear Urine pH 6.0 Urine Specific [place] 1.010 Urine Protein 100 mg/dL (NEG-TRACE) Urine Glucose (UA) 250 mg/dL (NEG) Urine Ketones (Stick) Trace mg/dL (NEG) Urine Blood Negative (NEG) Urine Nitrite Negative (NEG) Urine Bilirubin Negative (NEG) Urine Urobilinogen Dipstick 0.2 mg/dL (0.2 mg/dL) Urine Leukocyte Esterase Small (NEG) Urine RBC 0 /HPF (0-2) Urine WBC >40 /HPF (0-4) Urine Bacteria Moderate /HPF (0-FEW) Urine Hyaline Casts Moderate /HPF Urine Mucus Slight /LPF Lactic Acid Level 1.8 mmol/L (0.4-2.0) Test 07/12/16 21:02 07/13/16 04:15 07/13/16 04:25 07/13/16 06:15 Glucose (Fingerstick) 180 mg/dL (70-99) White Blood Count 11.4 x10^3/uL (4.0-11.0) Red Blood Count 4.38 x10^6/uL (4.30-5.70) Hemoglobin 11.8 g/dL (13.0-17.5) Hematocrit 35.4 % (39.0-53.0) Mean Corpuscular Volume 81 fL (79-100) Mean Corpuscular Hemoglobin 27 pg (25-35) Mean Corpuscular Hemoglobin Concent 33 g/dL (31-37) Red Cell Distribution Width 14.3 % (11.5-14.5) Platelet Count 291 x10^3/uL (140-400) Neutrophils (%) (Auto) 79 % (31-73) Lymphocytes (%) (Auto) 13 % (24-48) Monocytes (%) (Auto) 6 % (0-9) Eosinophils (%) (Auto) 1 % (0-3) Basophils (%) (Auto) 1 % (0-3) Neutrophils # (Auto) 9.0 x10^3uL (1.8-7.7) Lymphocytes # (Auto) 1.5 x10^3/uL (1.0-4.8) Monocytes # (Auto) 0.7 x10^3/uL (0.0-1.1) Eosinophils # (Auto) 0.1 x10^3/uL (0.0-0.7) Basophils # (Auto) 0.1 x10^3/uL (0.0-0.2) Sodium Level 146 mmol/L (136-145) Potassium Level 3.3 mmol/L (3.5-5.1) Chloride Level 111 mmol/L (98-107) Carbon Dioxide Level 24 mmol/L (21-32) Anion Gap 11 (6-14) Blood Urea Nitrogen 27 mg/dL (8-26) Creatinine 2.1 mg/dL (0.7-1.3) Estimated GFR (Cockcroft-Gault) 36.8 Glucose Level 86 mg/dL (70-99) Calcium Level 8.6 mg/dL (8.5-10.1) Urine Collection Type Unknown Urine Color Yellow Urine Clarity Clear Urine pH 6.5 Urine Specific [place] 1.015 Urine Protein 100 mg/dL (NEG-TRACE) Urine Glucose (UA) 100 mg/dL (NEG) Urine Ketones (Stick) Negative mg/dL (NEG) Urine Blood Negative (NEG) Urine Nitrite Negative (NEG) Urine Bilirubin Negative (NEG) Urine Urobilinogen Dipstick 0.2 mg/dL (0.2 mg/dL) Urine Leukocyte Esterase Moderate (NEG) Urine RBC 0 /HPF (0-2) Urine WBC 5-10 /HPF (0-4) Urine Bacteria Few /HPF (0-FEW) Test 07/13/16 07:34 Glucose (Fingerstick) 89 mg/dL (70-99) VTE Prophylaxis Ordered VTE Prophylaxis Devices: Yes VTE Pharmacological Prophylaxi: Yes Assessment/Plan Assessment/Plan Episodic unresponsiveness, ? AMS, hx of Dementia, baseline, CT head negative: alert, responding to questions on my exam. difficult to void urine, hx BPH, improving with intermittent catheterization, may need out pt urology evaluation. EDUARD with KD 3 baseline Cr around 2: on iv hydration, Dehydration: On IVNS Diabetes: home regimen, ssi HTN: continue home regimen, PRN hydralazine If stable, transfer to [facility] today, OBV placement d/e RN No family available. MERLE LINDER MD July 13, 2016 08:27
[2016-07-13] MEDS ORDERED: IV NORMAL SALINE 1000ML BAG 1,000 ML IV ONE (08:30)
[2016-07-13] MEDS ORDERED: OXYBUTYNIN CHLORIDE 5 MG TABLET PO SCH (09:00)
--- NOTE | 2016-07-13 10:30 | PDOC3 ---
Discharge Summary Visit Information Date of Admission: July 12, 2016 Date of Discharge: July 13, 2016 Admitting Diagnosis Comment: Episodic unresponsiveness, ? AMS, hx of Dementia, baseline, CT head negative: alert, responding to questions on my exam. - BACK TO BASELINE difficult to void urine, hx BPH, improving with intermittent catheterization, may need out pt urology evaluation. EDUARD with KD 3 baseline Cr around 2: on iv hydration, Dehydration: On IVNS Diabetes: home regimen, ssi HTN: continue home regimen, PRN hydralazine Final Diagnosis Problems Medical Problems: (1) Altered mental status Status: Acute (2) Leukocytosis Status: Acute (3) Renal insufficiency Status: Acute Brief Hospital Course Allergies Allergies Coded Allergies Type Severity Reaction Last Updated Verified No Known Drug Allergies 05/15/16 No Vital Signs Vital Signs Date Time Temp Pulse Resp B/P (MAP) Pulse Ox O2 Delivery O2 Flow Rate FiO2 07/13/16 08:22 96 Room Air 07/13/16 08:21 99 159/86 07/13/16 07:00 98.6 20 98.6 Lab Results Laboratory Tests Test 07/12/16 13:05 07/12/16 15:59 07/12/16 16:10 07/12/16 18:20 White Blood Count 13.3 x10^3/uL (4.0-11.0) Red Blood Count 4.96 x10^6/uL (4.30-5.70) Hemoglobin 13.1 g/dL (13.0-17.5) Hematocrit 41.3 % (39.0-53.0) Mean Corpuscular Volume 83 fL (79-100) Mean Corpuscular Hemoglobin 26 pg (25-35) Mean Corpuscular Hemoglobin Concent 32 g/dL (31-37) Red Cell Distribution Width 14.5 % (11.5-14.5) Platelet Count 267 x10^3/uL (140-400) Neutrophils (%) (Auto) 92 % (31-73) Lymphocytes (%) (Auto) 4 % (24-48) Monocytes (%) (Auto) 4 % (0-9) Eosinophils (%) (Auto) 0 % (0-3) Basophils (%) (Auto) 0 % (0-3) Neutrophils # (Auto) 12.2 x10^3uL (1.8-7.7) Lymphocytes # (Auto) 0.5 x10^3/uL (1.0-4.8) Monocytes # (Auto) 0.5 x10^3/uL (0.0-1.1) Eosinophils # (Auto) 0.0 x10^3/uL (0.0-0.7) Basophils # (Auto) 0.0 x10^3/uL (0.0-0.2) Segmented Neutrophils % 93 % (35-66) Lymphocytes % 4 % (24-48) Monocytes % 3 % (0-10) Platelet Estimate Adequate (ADEQUATE) Prothrombin Time 13.2 SEC (11.7-14.0) Prothromb Time International Ratio 1.1 (0.8-1.1) Sodium Level 142 mmol/L (136-145) Potassium Level 3.8 mmol/L (3.5-5.1) Chloride Level 105 mmol/L (98-107) Carbon Dioxide Level 24 mmol/L (21-32) Anion Gap 13 (6-14) Blood Urea Nitrogen 27 mg/dL (8-26) Creatinine 2.3 mg/dL (0.7-1.3) Estimated GFR (Cockcroft-Gault) 33.1 BUN/Creatinine Ratio 12 (6-20) Glucose Level 246 mg/dL (70-99) Calcium Level 9.0 mg/dL (8.5-10.1) Magnesium Level 2.1 mg/dL (1.8-2.4) Total Bilirubin 0.5 mg/dL (0.2-1.0) Aspartate Amino Transf (AST/SGOT) 12 U/L (15-37) Alanine Aminotransferase (ALT/SGPT) 20 U/L (16-63) Alkaline Phosphatase 118 U/L (46-116) Creatine Kinase 40 U/L (39-308) Troponin I Quantitative < 0.017 ng/mL (0.000-0.055) ER-Jzc-G-Type Natriuretic Peptide 4759 pg/mL (0-449) Total Protein 8.0 g/dL (6.4-8.2) Albumin 3.0 g/dL (3.4-5.0) Albumin/Globulin Ratio 0.6 (1.0-1.7) Thyroid Stimulating Hormone (TSH) 1.553 uIU/mL (0.358-3.74) Glucose (Fingerstick) 196 mg/dL (70-99) Urine Collection Type Unknown Urine Color Yellow Urine Clarity Clear Urine pH 6.0 Urine Specific [place] 1.010 Urine Protein 100 mg/dL (NEG-TRACE) Urine Glucose (UA) 250 mg/dL (NEG) Urine Ketones (Stick) Trace mg/dL (NEG) Urine Blood Negative (NEG) Urine Nitrite Negative (NEG) Urine Bilirubin Negative (NEG) Urine Urobilinogen Dipstick 0.2 mg/dL (0.2 mg/dL) Urine Leukocyte Esterase Small (NEG) Urine RBC 0 /HPF (0-2) Urine WBC >40 /HPF (0-4) Urine Bacteria Moderate /HPF (0-FEW) Urine Hyaline Casts Moderate /HPF Urine Mucus Slight /LPF Lactic Acid Level 1.8 mmol/L (0.4-2.0) Test 07/12/16 21:02 07/13/16 04:15 07/13/16 04:25 07/13/16 06:15 Glucose (Fingerstick) 180 mg/dL (70-99) White Blood Count 11.4 x10^3/uL (4.0-11.0) Red Blood Count 4.38 x10^6/uL (4.30-5.70) Hemoglobin 11.8 g/dL (13.0-17.5) Hematocrit 35.4 % (39.0-53.0) Mean Corpuscular Volume 81 fL (79-100) Mean Corpuscular Hemoglobin 27 pg (25-35) Mean Corpuscular Hemoglobin Concent 33 g/dL (31-37) Red Cell Distribution Width 14.3 % (11.5-14.5) Platelet Count 291 x10^3/uL (140-400) Neutrophils (%) (Auto) 79 % (31-73) Lymphocytes (%) (Auto) 13 % (24-48) Monocytes (%) (Auto) 6 % (0-9) Eosinophils (%) (Auto) 1 % (0-3) Basophils (%) (Auto) 1 % (0-3) Neutrophils # (Auto) 9.0 x10^3uL (1.8-7.7) Lymphocytes # (Auto) 1.5 x10^3/uL (1.0-4.8) Monocytes # (Auto) 0.7 x10^3/uL (0.0-1.1) Eosinophils # (Auto) 0.1 x10^3/uL (0.0-0.7) Basophils # (Auto) 0.1 x10^3/uL (0.0-0.2) Sodium Level 146 mmol/L (136-145) Potassium Level 3.3 mmol/L (3.5-5.1) Chloride Level 111 mmol/L (98-107) Carbon Dioxide Level 24 mmol/L (21-32) Anion Gap 11 (6-14) Blood Urea Nitrogen 27 mg/dL (8-26) Creatinine 2.1 mg/dL (0.7-1.3) Estimated GFR (Cockcroft-Gault) 36.8 Glucose Level 86 mg/dL (70-99) Calcium Level 8.6 mg/dL (8.5-10.1) Urine Collection Type Unknown Urine Color Yellow Urine Clarity Clear Urine pH 6.5 Urine Specific [place] 1.015 Urine Protein 100 mg/dL (NEG-TRACE) Urine Glucose (UA) 100 mg/dL (NEG) Urine Ketones (Stick) Negative mg/dL (NEG) Urine Blood Negative (NEG) Urine Nitrite Negative (NEG) Urine Bilirubin Negative (NEG) Urine Urobilinogen Dipstick 0.2 mg/dL (0.2 mg/dL) Urine Leukocyte Esterase Moderate (NEG) Urine RBC 0 /HPF (0-2) Urine WBC 5-10 /HPF (0-4) Urine Bacteria Few /HPF (0-FEW) Test 07/13/16 07:34 Glucose (Fingerstick) 89 mg/dL (70-99) Laboratory Tests Test 07/12/16 13:05 07/12/16 15:59 07/12/16 16:10 07/12/16 18:20 White Blood Count 13.3 x10^3/uL (4.0-11.0) Red Blood Count 4.96 x10^6/uL (4.30-5.70) Hemoglobin 13.1 g/dL (13.0-17.5) Hematocrit 41.3 % (39.0-53.0) Mean Corpuscular Volume 83 fL (79-100) Mean Corpuscular Hemoglobin 26 pg (25-35) Mean Corpuscular Hemoglobin Concent 32 g/dL (31-37) Red Cell Distribution Width 14.5 % (11.5-14.5) Platelet Count 267 x10^3/uL (140-400) Neutrophils (%) (Auto) 92 % (31-73) Lymphocytes (%) (Auto) 4 % (24-48) Monocytes (%) (Auto) 4 % (0-9) Eosinophils (%) (Auto) 0 % (0-3) Basophils (%) (Auto) 0 % (0-3) Neutrophils # (Auto) 12.2 x10^3uL (1.8-7.7) Lymphocytes # (Auto) 0.5 x10^3/uL (1.0-4.8) Monocytes # (Auto) 0.5 x10^3/uL (0.0-1.1) Eosinophils # (Auto) 0.0 x10^3/uL (0.0-0.7) Basophils # (Auto) 0.0 x10^3/uL (0.0-0.2) Segmented Neutrophils % 93 % (35-66) Lymphocytes % 4 % (24-48) Monocytes % 3 % (0-10) Platelet Estimate Adequate (ADEQUATE) Prothrombin Time 13.2 SEC (11.7-14.0) Prothromb Time International Ratio 1.1 (0.8-1.1) Sodium Level 142 mmol/L (136-145) Potassium Level 3.8 mmol/L (3.5-5.1) Chloride Level 105 mmol/L (98-107) Carbon Dioxide Level 24 mmol/L (21-32) Anion Gap 13 (6-14) Blood Urea Nitrogen 27 mg/dL (8-26) Creatinine 2.3 mg/dL (0.7-1.3) Estimated GFR (Cockcroft-Gault) 33.1 BUN/Creatinine Ratio 12 (6-20) Glucose Level 246 mg/dL (70-99) Calcium Level 9.0 mg/dL (8.5-10.1) Magnesium Level 2.1 mg/dL (1.8-2.4) Total Bilirubin 0.5 mg/dL (0.2-1.0) Aspartate Amino Transf (AST/SGOT) 12 U/L (15-37) Alanine Aminotransferase (ALT/SGPT) 20 U/L (16-63) Alkaline Phosphatase 118 U/L (46-116) Creatine Kinase 40 U/L (39-308) Troponin I Quantitative < 0.017 ng/mL (0.000-0.055) HF-Dix-V-Type Natriuretic Peptide 4759 pg/mL (0-449) Total Protein 8.0 g/dL (6.4-8.2) Albumin 3.0 g/dL (3.4-5.0) Albumin/Globulin Ratio 0.6 (1.0-1.7) Thyroid Stimulating Hormone (TSH) 1.553 uIU/mL (0.358-3.74) Glucose (Fingerstick) 196 mg/dL (70-99) Urine Collection Type Unknown Urine Color Yellow Urine Clarity Clear Urine pH 6.0 Urine Specific [place] 1.010 Urine Protein 100 mg/dL (NEG-TRACE) Urine Glucose (UA) 250 mg/dL (NEG) Urine Ketones (Stick) Trace mg/dL (NEG) Urine Blood Negative (NEG) Urine Nitrite Negative (NEG) Urine Bilirubin Negative (NEG) Urine Urobilinogen Dipstick 0.2 mg/dL (0.2 mg/dL) Urine Leukocyte Esterase Small (NEG) Urine RBC 0 /HPF (0-2) Urine WBC >40 /HPF (0-4) Urine Bacteria Moderate /HPF (0-FEW) Urine Hyaline Casts Moderate /HPF Urine Mucus Slight /LPF Lactic Acid Level 1.8 mmol/L (0.4-2.0) Test 07/12/16 21:02 07/13/16 04:15 07/13/16 04:25 07/13/16 06:15 Glucose (Fingerstick) 180 mg/dL (70-99) White Blood Count 11.4 x10^3/uL (4.0-11.0) Red Blood Count 4.38 x10^6/uL (4.30-5.70) Hemoglobin 11.8 g/dL (13.0-17.5) Hematocrit 35.4 % (39.0-53.0) Mean Corpuscular Volume 81 fL (79-100) Mean Corpuscular Hemoglobin 27 pg (25-35) Mean Corpuscular Hemoglobin Concent 33 g/dL (31-37) Red Cell Distribution Width 14.3 % (11.5-14.5) Platelet Count 291 x10^3/uL (140-400) Neutrophils (%) (Auto) 79 % (31-73) Lymphocytes (%) (Auto) 13 % (24-48) Monocytes (%) (Auto) 6 % (0-9) Eosinophils (%) (Auto) 1 % (0-3) Basophils (%) (Auto) 1 % (0-3) Neutrophils # (Auto) 9.0 x10^3uL (1.8-7.7) Lymphocytes # (Auto) 1.5 x10^3/uL (1.0-4.8) Monocytes # (Auto) 0.7 x10^3/uL (0.0-1.1) Eosinophils # (Auto) 0.1 x10^3/uL (0.0-0.7) Basophils # (Auto) 0.1 x10^3/uL (0.0-0.2) Sodium Level 146 mmol/L (136-145) Potassium Level 3.3 mmol/L (3.5-5.1) Chloride Level 111 mmol/L (98-107) Carbon Dioxide Level 24 mmol/L (21-32) Anion Gap 11 (6-14) Blood Urea Nitrogen 27 mg/dL (8-26) Creatinine 2.1 mg/dL (0.7-1.3) Estimated GFR (Cockcroft-Gault) 36.8 Glucose Level 86 mg/dL (70-99) Calcium Level 8.6 mg/dL (8.5-10.1) Urine Collection Type Unknown Urine Color Yellow Urine Clarity Clear Urine pH 6.5 Urine Specific [place] 1.015 Urine Protein 100 mg/dL (NEG-TRACE) Urine Glucose (UA) 100 mg/dL (NEG) Urine Ketones (Stick) Negative mg/dL (NEG) Urine Blood Negative (NEG) Urine Nitrite Negative (NEG) Urine Bilirubin Negative (NEG) Urine Urobilinogen Dipstick 0.2 mg/dL (0.2 mg/dL) Urine Leukocyte Esterase Moderate (NEG) Urine RBC 0 /HPF (0-2) Urine WBC 5-10 /HPF (0-4) Urine Bacteria Few /HPF (0-FEW) Test 07/13/16 07:34 Glucose (Fingerstick) 89 mg/dL (70-99) Brief Hospital Course Mr. Hudson is a 81 old AA male known to me from last admit 1-2 weeks ago basically for non specific sxs that essentially are FTT sxs from advanceing dementia,. He returned from [facility] yesterday for similar picuture, BUt now with alexander jessy is back to his baseline, I do know the and had extensive discussion last admit and she understands that this is progressive dementia Work up here is neg BAck to [facility] today Dw pt and RN Pt seen and examined COnsults: none DispO; SNU Discharge Information Condition at Discharge: Improved, Stable Disposition/Orders: Other (SNF) Scheduled Amlodipine Besylate (Norvasc), 10 MG PO DAILY, (Reported) Aspirin (Aspir 81), 1 TAB PO DAILY, (Reported) Atorvastatin Calcium (Atorvastatin Calcium), 40 MG PO HS, (Reported) Atorvastatin Calcium (Lipitor), 1 TAB PO QHS, (Reported) Clopidogrel Bisulfate (Clopidogrel), 1 TAB PO DAILY, (Reported) Donepezil Hcl (Donepezil Hcl), 1 TAB PO HS, (Reported) Donepezil Hcl (Aricept), 1 TAB PO QHS, (Reported) Gabapentin (Gabapentin), 300 MG PO BID, (Reported) Glimepiride (Glimepiride), 1 TAB PO BID, (Reported) Hydralazine Hcl (Hydralazine Hcl), 25 MG PO QID, (Reported) Insulin Detemir (Levemir), 10 UNIT SQ QHS, (Reported) Levothyroxine Sodium (Levothyroxine Sodium), 1 TAB PO DAILY07, (Reported) Losartan Potassium (Losartan Potassium), 100 MG PO HS, (Reported) Metformin Hcl (Metformin Hcl Er), 750 MG PO BID, (Reported) Metoprolol Tartrate (Metoprolol Tartrate), 1 TAB PO BID, (Reported) Oxybutynin Chloride (Oxybutynin Chloride), 1 TAB PO DAILY, (Reported) Tamsulosin Hcl (Flomax), 0.4 MG PO DAILY, (Reported) Scheduled PRN Acetaminophen (Tylenol), 1 TAB PO PRN Q6HRS PRN for PAIN, (Reported) Hydrocodone Bit/Acetaminophen (Hydrocodone-Apap 5-325 ), 1 TAB PO PRN Q6HRS PRN for PAIN, (Reported) Ipratropium/Albuterol Sulfate (Duoneb 0.5-3(2.5) Mg/3 Ml), 3 ML NEB PRN Q4HRS PRN for SHORTNESS OF BREATH, (Reported) Nitroglycerin (NITROGLYCERIN SubLingual), 0.4 MG SL PRN Q5MIN PRN for CHEST PAIN , (Reported) Ondansetron Hcl (Zofran), 1 TAB PO Q6HRS PRN for NAUSEA, (Reported) SCOTT GUTIERRES MD July 13, 2016 10:30
[2016-07-13 10:53] VITALS: BP 167/90
[2016-07-13 13:23] VITALS: BP 167/90
== END 2016-07-13 16:04 ==
LOC: ER 13:55 → 5 SOUTH 14:18
PROVIDERS: ADMIT Internal Medicine; ATTEND Internal Medicine
DX: R41.82 Altered mental status, unspecified (principal); D72.829 Elevated white blood cell count, unspecified; F03.90 Unspecified dementia, unspecified severity, without behavioral disturbance, psychotic disturbance, mood disturbance, and anxiety; N40.0 Benign prostatic hyperplasia without lower urinary tract symptoms; I12.9 Hypertensive chronic kidney disease with stage 1 through stage 4 chronic kidney disease, or unspecified chronic kidney disease; N17.9 Acute kidney failure, unspecified; N18.3 Chronic kidney disease, stage 3 (moderate); E11.22 Type 2 diabetes mellitus with diabetic chronic kidney disease; E86.0 Dehydration; K21.9 Gastro-esophageal reflux disease without esophagitis; I25.10 Atherosclerotic heart disease of native coronary artery without angina pectoris; E03.9 Hypothyroidism, unspecified; F32.9 Major depressive disorder, single episode, unspecified; M19.90 Unspecified osteoarthritis, unspecified site; F41.9 Anxiety disorder, unspecified; Z82.3 Family history of stroke; Z83.3 Family history of diabetes mellitus; Z82.49 Family history of ischemic heart disease and other diseases of the circulatory system; Z80.9 Family history of malignant neoplasm, unspecified; Z95.5 Presence of coronary angioplasty implant and graft
CPT/HCPCS: 36415; 70450; 80048; 80053; 81001; 82550; 82947; 83605; 83735; 83880; 84443; 84484; 85007; 85027; 85610; 87040; 87086; 87641; 96360; 96361; 96372; 99285; G0378; J1815; J7030; J7040; G0379

== ENCOUNTER → 2016-09-23 | Outpatient (CLI) | payer MEDICARE ==
[~2016-09-23] MED LIST changes: +ACET325T9 PO; +ATOR40TA PO; -CINN500C PO; +CINN500C2 PO; +DONE10TA61 PO; -HYDR-2666 PO; +HYDR-2758 PO; +INSU100V13 SQ; +IPRA3AMP NEB; +NITR0.4T22 SL; -NITR0.4T6 SL
== END | disposition home or self-care (01) ==
LOC: LAB 14:48
PROVIDERS: ATTEND Urology
DX: Z12.5 Encounter for screening for malignant neoplasm of prostate (principal); N40.1 Benign prostatic hyperplasia with lower urinary tract symptoms
CPT/HCPCS: 36415; G0103